=== PATIENT | female | born 1965 | race Caucasian/White ===

== ENCOUNTER 2023-08-10 13:41 | Emergency (ER) | payer BC, SELFPAY ==
[2023-08-10 13:48] VITALS: BP 138/95; PULSE 97; TEMP 37.2; O2SAT 97; BMI 19.1
--- NOTE | 2023-08-10 14:13 | XR_ITS ---
The [address] [address] Patient Name: SVETLANA BRADY MRN: [id number] date: 1965 Sex: F Assigned Patient Location: ER Current Patient Location: ER Accession/Order Number: [id number] Exam Date: 08/10/2023 14:20 Report Date: 08/10/2023 14:53 At the request of: JERRY TATUM Procedure: XR ankle LT min 3V IMAGES REVIEWED: XR ankle LT min 3V, XR foot LT min 3V COMPARISON: None available. CLINICAL INDICATION: Trauma FINDINGS/IMPRESSION: Acute intra-articular comminuted impacted mildly displaced fracture of the head-neck of the fourth proximal phalanx. No dislocation. Old healed fracture deformity of the distal tibia and fibula. No evidence of acute osseous abnormality of the left ankle. Bones appear slightly osteopenic. Mild calcaneal enthesopathy. Mild degenerative change first TMT joint. Electronically authenticated by: TONI HAND Date: 08/10/2023 14:53
--- NOTE | 2023-08-10 14:13 | XR_ITS ---
The [address] [address] Patient Name: SVETLANA BRADY MRN: [id number] date: 1965 Sex: F Assigned Patient Location: ER Current Patient Location: ER Accession/Order Number: [id number] Exam Date: 08/10/2023 14:20 Report Date: 08/10/2023 14:53 At the request of: JERRY TATUM Procedure: XR foot LT min 3V IMAGES REVIEWED: XR ankle LT min 3V, XR foot LT min 3V COMPARISON: None available. CLINICAL INDICATION: Trauma FINDINGS/IMPRESSION: Acute intra-articular comminuted impacted mildly displaced fracture of the head-neck of the fourth proximal phalanx. No dislocation. Old healed fracture deformity of the distal tibia and fibula. No evidence of acute osseous abnormality of the left ankle. Bones appear slightly osteopenic. Mild calcaneal enthesopathy. Mild degenerative change first TMT joint. Electronically authenticated by: TONI HAND Date: 08/10/2023 14:53
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
== END 2023-08-10 15:46 | disposition home or self-care (01) ==
PROVIDERS: Emergency Provider Emergency Medicine Emergency Medical Services; PCP Family Medicine
DX: S92.512A Displaced fracture of proximal phalanx of left lesser toe(s), initial encounter for closed fracture (principal); W23.0XXA Caught, crushed, jammed, or pinched between moving objects, initial encounter
CPT/HCPCS: 73610; 73630; 99284

== ENCOUNTER 2023-08-13 15:52 | Outpatient (OUT) | payer BC, SELFPAY ==
--- NOTE | 2023-08-13 | XR_ITS ---
The [address] [address] Patient Name: SVETLANA BRADY MRN: [id number] date: 1965 Sex: F Assigned Patient Location: Current Patient Location: Accession/Order Number: [id number] Exam Date: 08/13/2023 15:52 Report Date: 08/14/2023 07:34 At the request of: REY CHINCHILLA Procedure: XR foot LT min 3V PROCEDURE: XR foot LT min 3V, XR ankle LT min 3V COMPARISON: 08/10/2023 HISTORY: LEFT FOOT PAIN FINDINGS: BONES:Contour deformity of the distal tibia and fibular diaphyses consistent with remote healed fractures. Moderate enthesopathic spurring of the calcaneus at the Achilles insertion. Cystic area noted along the posterior calcaneus possibly an intraosseous lipoma. Stable complex extra-articular impacted fracture involving the head of the fourth proximal phalanx with minimal interval sclerosis. No change in angulation or distraction. SOFT TISSUES:Moderate ankle soft tissue swelling EFFUSION:None visible. OTHER: Negative. XR/XR foot LT min 3V IMPRESSION: Stable healing impacted complex intra-articular fracture head of the fourth proximal phalanx Ankle soft tissue swelling Electronically authenticated by: SAMIA GASPAR Date: 08/14/2023 07:34
--- NOTE | 2023-08-13 | XR_ITS ---
The [address] [address] Patient Name: SVETLANA BRADY MRN: [id number] date: 1965 Sex: F Assigned Patient Location: Current Patient Location: Accession/Order Number: [id number] Exam Date: 08/13/2023 15:52 Report Date: 08/14/2023 07:34 At the request of: REY CHINCHILLA Procedure: XR ankle LT min 3V PROCEDURE: XR foot LT min 3V, XR ankle LT min 3V COMPARISON: 08/10/2023 HISTORY: LEFT FOOT PAIN FINDINGS: BONES:Contour deformity of the distal tibia and fibular diaphyses consistent with remote healed fractures. Moderate enthesopathic spurring of the calcaneus at the Achilles insertion. Cystic area noted along the posterior calcaneus possibly an intraosseous lipoma. Stable complex extra-articular impacted fracture involving the head of the fourth proximal phalanx with minimal interval sclerosis. No change in angulation or distraction. SOFT TISSUES:Moderate ankle soft tissue swelling EFFUSION:None visible. OTHER: Negative. XR/XR ankle LT min 3V IMPRESSION: Stable healing impacted complex intra-articular fracture head of the fourth proximal phalanx Ankle soft tissue swelling Electronically authenticated by: SAMIA GASPAR Date: 08/14/2023 07:34
== END 2023-08-13 15:53 | disposition home or self-care (01) ==
LOC: EC 15:52
PROVIDERS: PCP Family Medicine; Visit Provider Podiatrist Foot & Ankle Surgery
DX: M25.572 Pain in left ankle and joints of left foot (principal); M79.672 Pain in left foot; S92.515D Nondisplaced fracture of proximal phalanx of left lesser toe(s), subsequent encounter for fracture with routine healing; M25.472 Effusion, left ankle
CPT/HCPCS: 73610; 73630

== ENCOUNTER 2023-11-13 14:37 | Outpatient (OUT) | payer MEDICARE, SELFPAY ==
--- NOTE | 2023-11-13 14:42 | ECG_ITS ---
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
--- NOTE | 2023-11-13 15:09 | XR_ITS ---
The [address] [address] Patient Name: SVETLANA BRADY MRN: [id number] date: 1965 Sex: F Assigned Patient Location: [facility] Current Patient Location: Accession/Order Number: [id number] Exam Date: 11/13/2023 15:34 Report Date: 11/14/2023 05:49 At the request of: REY CHINCHILLA Procedure: XR chest 2V EXAMINATION: XR chest 2V HISTORY: Preop exam COMPARISON: No relevant comparison available. FINDINGS: LUNGS: No significant pulmonary parenchymal abnormalities. VASCULATURE: No increased pulmonary vasculature. PLEURA: No pneumothorax, effusion, or pleural thickening. CARDIAC: No cardiomegaly or cardiac silhouette abnormality. MEDIASTINUM: No visible mass or adenopathy. BONES: No fracture or visible bone lesion. OTHER: Neurostimulator electrodes project over lower thoracic spine central canal. XR/XR chest 2V IMPRESSION: 1. No acute cardiopulmonary process. Electronically authenticated by: SHARIF CARCAMO Date: 11/14/2023 05:49
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
[2023-11-13 15:48] LABS: Basophils Absolute Auto 0.1 10^3/uL (0.0-0.1); Basophils Percent Auto 0.8 % (0.2-2.0); Eosinophils Percent Auto 0.2 % (0.9-7.0); Hematocrit 38.2 % (36.0-48.0); Hemoglobin 12.5 g/dL (12.0-16.0); Immature Granulocytes Abs Auto 0.04 10^3/uL (0.00-0.03); Immature Granulocytes Pct Auto 0.6 % (0.0-0.5); Lymphocytes Absolute Auto 1.5 10^3/uL (1.2-3.8); Lymphocytes Percent Auto 23.5 % (20.5-60.0); Mean Corpuscular HGB Conc 32.7 g/dL (29.9-35.2); Mean Corpuscular Hemoglobin 31.7 pg (26.7-34.0); Mean Platelet Volume 9.6 fL (9.5-13.5); Monocytes Absolute Auto 0.5 10^3/uL (0.3-0.8); Monocytes Percent Auto 8.1 % (1.7-12.0); Neutrophils Absolute Auto 4.2 10^3/uL (1.4-6.5); Neutrophils Percent Auto 66.8 % (43.0-75.0); Platelet Count 228 10^3/uL (150-450); Red Blood Count 3.94 10^6/uL (4.20-5.40); Red Cell Distribution Width 13.1 % (11.0-15.0); White Blood Count 6.3 10^3/uL (4.0-11.0)
[2023-11-13 16:16] LABS: Anion Gap 9.2; Calcium 8.9 mg/dL (8.5-10.1); Carbon Dioxide 29.7 mmol/L (21.0-32.0); Chloride 106 mmol/L (98-107); Estimated GFR (African America >60 (>=60); Estimated GFR (Non-African Ame >60 (>=60); Glucose 83 mg/dL (74-106); Potassium 3.9 mmol/L (3.5-5.1); Sodium 141 mmol/L (136-145)
== END 2023-11-13 14:38 | disposition home or self-care (01) ==
LOC: PST 14:39
PROVIDERS: PCP Family Medicine; Visit Provider Podiatrist Foot & Ankle Surgery
DX: Z01.810 Encounter for preprocedural cardiovascular examination (principal); Z01.812 Encounter for preprocedural laboratory examination; Z01.818 Encounter for other preprocedural examination; M19.172 Post-traumatic osteoarthritis, left ankle and foot; M25.372 Other instability, left ankle
CPT/HCPCS: 71046; 80048; 85025; 93005; G0463

== ENCOUNTER 2023-11-27 08:46 | Day surgery (SDC) | payer MEDICARE, SELFPAY ==
[2023-11-13 15:19] VITALS: BP 123/77; PULSE 89; TEMP 36.4; O2SAT 97; BMI 21.4
[2023-11-27] VITALS (14 sets, daily range): BP systolic 111–166; BP diastolic 70–104; PULSE 73–108; TEMP 36.3–36.8; O2SAT 89–99; BMI 21.4
--- NOTE | 2023-11-27 | FL_ITS ---
[address] [address] Patient Name: SVETLANA BRADY MRN: [id number] date: 1965 Sex: F Assigned Patient Location: [facility] Current Patient Location: Accession/Order Number: [id number] Exam Date: 11/27/2023 10:53 Report Date: 11/28/2023 11:56 At the request of: REY CHINCHILLA Procedure: FL fluoroscopy <1hr NON-READ EXAM: FL fluoroscopy <1hr NON-READ HISTORY: TECHNIQUE: FINDINGS: Please see Operative Report. Electronically authenticated by: RADIOLOGIST NO Date: 11/28/2023 11:56
--- OUTSIDE RECORDS SUMMARY | 2023-11-27 08:51 | XMS_ITS | CCD ---
Author Organization [facility] Care Team Providers Care Supervisor [employer] Name Role Phone Samia Saenz Unavailable Aftab Acosta Unavailable Cristy Fabian Unavailable DO Samia Saenz Primary Care Provider DO Samia Saenz Attending Provider YO Starr Attending Provider MD Whit Tyson Admit Provider MD Whit Tyson Attending Provider [phone] MD Esdras Rand Other Provider [phone] DO Samia Saenz Primary Care Provider DO Samia Saenz Attending Provider [phone] MD Dilan Luis II Attending Provider DO Saima Saenz Primary Care Provider MD Brad Butterfield Attending Provider DO Samia Saenz Attending Provider [phone] Samia Saenz Primary Care Physician [phone] DO Samia Saenz Primary Care Provider DO Samia Saenz Attending Provider GREGORY Caro Attending Provider YO Ann Referring Provider MD Samia Qiu Attending Provider DO Samia Saenz Primary Care Provider [phone] MD Mingo Butterfield Attending Provider [phone] DO Samia Saenz Attending Provider SHAYY DICKERSON Referring Unavailable SAMIA SAENZ Primary Care Unavailable SAMIA SAEZN Referring Unavailable SAMIA SAENZ Primary Care Unavailable SAMIA SAENZ Referring Unavailable SAMIA SAENZ Primary Care Unavailable SAMIA CORONA Attending Unavailable REY CHINCHILLA Referring Unavailable AMOR, REY Estrada Attending Unavailable REY CHINCHILLA Admitting Unavailable Samia Saenz Referring Unavailable Smith DALLAS Attending Unavailable Steven DONNELLY Attending Unavailable VEE PELAEZ Attending Unavailable Samia Saenz Referring Unavailable VEE PELAEZ Attending Unavailable DO Samia Saenz Primary Care Provider [phone] MD Mingo Butterfield Attending Provider [phone] Mingo Butterfield Admitting Unavailab Mingo Luna Attending Unavailab Samia Yeh Primary Care Unavailable Jerri Caro Admitting Unavailable Jerri Caro Attending Unavailable Samia Saenz Primary Care Unavailable Cain, Samia Primary Care Unavailable Samia Qiu Admitting Unavailable Samia Qiu Attending Unavailable Dianne Ann Referring Unavailable Samia Saenz Admitting Unavailable Cain, Samia Attending Unavailable Samia Saenz Primary Care Unavailable Cain, Samia Admitting Unavailable Samia Saenz Attending Unavailable Samia Saenz Primary Care Unavailable Cain, Samia Admitting Unavailable Cain, Samia Attending Unavailable Samia Saenz Primary Care Unavailable Allergies Allergy Classification Reported Allergen(s) Allergy Type Date of Onset Reaction(s) Facility Cephalosporins (antibiotic) (1 source) cefdinir Drug Allergy 3 with first one, able to finish the script. [facility] Clavulanate (1 source) Clavulanate Drug Allergy 3 1st dose made her ill, able to keep down next dose [facility] Penicillins (antibiotic) (1 source) Amoxicillin Drug Allergy 3 1st dose made her ill, able to keep down next dose [facility] Sulfonamides (antibiotic) (2 sources) Sulfonamides (Antibiotic) Drug Allergy 3 Edema [facility] (20 sources) Amoxicillin / Clavulanate; Translations: [amoxicillin-cla vulanate] Drug Allergy Nausea (finding) [facility] (20 sources) cefdinir; Translations: [cefdinir] Drug Allergy Unknown (qualifier value) [facility] (20 sources) Sulfamethoxazole ; Translations: [Sulfamethoxazol e] Drug Allergy 3 Edema (finding) [facility] (2 sources) Amoxicillin / Clavulanate; Translations: [Augmentin] Drug Allergy 1st dose made her ill, able to keep down next dose [facility] (4 sources) Amoxicillin; Translations: [amoxicillin] Drug Allergy 3 1st dose made her ill, able to keep down next dose [facility] (4 sources) cefdinir; Translations: [cefdinir] Drug Allergy 3 with first one, able to finish the script. [facility] (4 sources) Clavulanate; Translations: [clavulanic acid] Drug Allergy 3 1st dose made her ill, able to keep down next dose [facility] (7 sources) Sulfonamides (Antibiotic); Translations: [SULFA (SULFONAMIDE ANTIBIOTICS)] Allergy to substance 2 Unknown Reaction, Edema [facility] Medications Current Medications Medication Drug Class(es) Dates Sig (Normalized) Sig (Original) albuterol 0.83 mg/ml inhalation solution (12 sources) beta2-Adrenergic Agonist Start: 07-13-2021 Albuterol Sulfate (2.5 MG/3ML) 0.083% 1 vial per nebulizer Inhalation q4 hrs prn Jul, Active Start: 07-09-2021 Albuterol Sulf ate HFA 108 (90 Base) MCG/ACT 2 inhalations Inhalation q4 hrs prn Jun, Active Start: 07-09-2021 Albuterol Sulf ate HFA 108 (90 Base) MCG/ACT 2 inhalations Inhalation q4 hrs prn Jun, Active ALPRAZolam 1 mg oral tablet (20 sources) Benzodiazepine Start: 03-10-2023 take 1 tablet by mouth three times daily as needed for anxiety alprazolam 1 mg Tab 1 mg = 1 tab(s), Oral, TID, PRN for anxiety, Refills(s) 0 Start Date: 03/10/23 Status: Ordered Start: 11-29-2021 take 0.5 mg by mouth three times daily Alprazolam Active 0.5 MG PO Three times daily 05 13November 29, 2021 9:28am Home medication Start: 11-29-2021 take 0.5 mg by mouth three times daily Alprazolam Active 0.5 MG PO Three times daily 05 13November 29, 2021 9:28am Home medication Start: 11-09-2013 End: 11-29-2021 take 1 mg by mouth three times daily Alprazolam Discontinued 1 MG PO Three times daily October 04, 2017 12:00am November 29, 2021 10:15am ARIPiprazole 20 mg oral tablet (20 sources) Atypical Antipsychotic Start: 09-09-2023 take 20 mg by mouth once daily Aripiprazole Active 20 MG PO Daily September 09, 2023 12:00am Start: 11-26-2021 End: 09-09-2023 take 15 mg by mouth once daily Aripiprazole Discontinu ed 15 MG PO Daily November 26, 2021 12:00am September 09, 2023 2:17pm Start: 11-26-2021 take 15 mg by mouth once daily Aripiprazole Active 15 MG PO Daily November 26, 2021 12:00am take 1 tablet by kiki th every twenty-four hours Abilify 20 MG 1 Tablet p.o. daily Active take 1 tablet by kiki th every twenty-four hours Abilify 15 MG 1 Tablet p.o. daily Active ascorbic acid 500 mg chewable tablet (4 sources) Vitamin C Start: 09-09-2023 take 1 tablet by mouth once daily Ascorbic Acid (Vitamin C) Active 1 TAB PO Daily September 09, 2023 12:00am FreeText[employer] tablet Orally Once a day; Note: Source Status: Continue; Provider: Cain Lewis azithromycin 250 mg oral tablet (20 sources) Macrolide Antimicrobial Start: 07-13-2021 Zithromax Z-Nilesh 250 MG 2 tablet on the first day, then 1 tablet daily for 4 days Orally Once a day for 5 day(s) Jul, Active Start: 03-22-2021 take 1 tablet by kiki th every twenty-four hours Zithromax 500 MG 1 tablet Orally Once a day for 5 day(s) Mar, Not-Taking budesonide 3 mg delayed release oral capsule (20 sources) Corticosteroid Start: 06-18-2023 End: 06-24-2023 take 3 capsules by mouth once daily Budesonide Active 9 MG PO Daily 90 30 June 24, 2023 8:21am take 3 capsules orally once a day Start: 11-26-2021 End: 06-18-2023 take 9 mg by mouth once daily Budesonide Discontinued 9 MG PO Daily November 26, 2021 12:00am June 18, 2023 1:56pm Start: 11-26-2021 take 9 mg by mouth once daily Budesonide Active 9 MG PO Daily November 26, 2021 12:00am Start: 06-29-2020 take 3 capsules by m outh every twenty-four hours Budesonide 3 MG 3 capsules Orally Once a day for 30 days Dec, Active buprenorphine 8 mg sublingual tablet (20 sources) Partial Opioid Agonist Start: 03-10-2023 buprenorphine 8 mg sublingual tablet Refills(s) 0 Start Date: 03/10/23 Status: Ordered Start: 11-26-2021 Buprenorphine Hcl Active 8 MG SUBLINGUAL Twice daily November 26, 2021 12:00am 1/2 to 1 tablet as needed for 30 days, filled 11/22 Start: 11-26-2021 Buprenorphine Hcl Active 8 MG SUBLINGUAL Twice daily November 26, 2021 12:00am 1/2 to 1 tablet as needed for 30 days, filled 11/22 Start: 07-12-2021 End: 11-26-2021 take 8 mg under the tongue once daily Buprenorphine Hcl Discontinued 8 MG SUBLINGUAL Daily July 12, 2021 12:00am November 26, 2021 9:41am take 1 tablet under the tongue once daily Subutex 8 MG 1 tablet under the tongue and allow to dissolve Sublingual Once a day Active cholecalciferol 0.025 mg oral capsule (4 sources) Vitamin D Start: 09-09-2023 take 2 capsules by mouth once daily Cholecalciferol (Vitamin D3) Active 2 CAP PO Daily September 09, 2023 12:00am Free[employer] capsules Orally Once a day; Note: Source Status: Continue; Provider: Cain Torres ( ) ciprofloxacin 500 mg oral tablet (2 sources) Quinolone Antimicrobial Start: 03-19-2023 Cipro 500 mg Tab See Instructions, Take 1 tab day prior to procedure and 1 tab day of procdure - afterwards, # 2 tab(s), Refills(s) 0, Pharmacy: [facility]/pharmacy #[id number], 163, cm, 03/11/23 13:48:00 EST, Height/Length Dosing, 54, kg, 03/11/23 13:48:00 EST, Weight Dosing Start Date: 03/19/23 Status: Ordered cyclobenzaprine hydrochloride 10 mg oral tablet (10 sources) Muscle Relaxant Start: 11-26-2021 take 10 mg by mouth once daily at bedtime Cyclobenzaprine Active 10 MG PO Daily at bedtime November 26, 2021 12:00am Start: 11-26-2021 take 10 mg by mouth once daily at bedtime Cyclobenzaprine Active 10 MG PO Daily at bedtime November 26, 2021 12:00am dicyclomine hydrochloride 20 mg oral tablet (20 sources) Anticholinergic Start: 09-09-2023 take 20 mg by mouth four times daily Dicyclomine Active 20 MG PO Four times daily September 09, 2023 12:00am Start: 11-26-2019 take 1 tablet by kiki every six hours Dicyclomine HCl 20 MG 1 tablet Orally Four times a day for 30 days Nov, Not-Taking DULoxetine 60 mg delayed release oral capsule (20 sources) Serotonin and Norepinephrine Reuptake Inhibitor Start: 11-29-2021 take 60 mg by mouth once daily Duloxetine Active 60 MG PO Daily November 29, 2021 9:28am Home med Start: 11-29-2021 take 60 mg by mouth once daily Duloxetine Active 60 MG PO Daily November 29, 2021 9:28am Home med Start: 10-04-2017 End: 11-29-2021 take 120 mg by mouth once daily Duloxetine Discontinue d 120 MG PO Daily October 04, 2017 12:00am November 29, 2021 10:15am Start: 09-24-2013 take 1 capsule by mo [facility] every twenty-four hours Cymbalta 60 MG 1 capsule Orally Once a day Sep, Active Start: 09-24-2013 take 1 capsule by mo ut once daily Cymbalta 120 mg 1 capsule Orally Once a day Sep, Active ferrous sulfate 325 mg oral tablet (20 sources) Start: 09-09-2023 Ferrous Sulfat e Active 325 MG PO Every 48 hours September 09, 2023 12:00am On Hold: hold while taking Folic Acid Start: 11-22-2019 take 1 tablet by kiki th every other day Ferrous Sulfate 325 (65 Fe) MG 1 tablet Orally qod Nov, Active Start: 11-22-2019 take 1 tablet by kiki th every other day Ferrous Sulfate 325 (65 Fe) MG 1 tablet Orally qod Nov, Active Start: 11-22-2019 take 1 tablet by mouth once da sabrina Ferrous Sulfate 325 (65 Fe) MG 1 tablet Orally Once a day Nov, Active Start: 11-22-2019 take 1 tablet by kiki th every twenty-four hours Ferrous Sulfate 325 (65 Fe) MG 1 tablet Orally Once a day Nov, Active folic acid 0.4 mg oral tablet (2 sources) Start: 10-22-2023 take 0.4 mg by mouth once daily Folic Acid Active 0.4 MG PO Daily October 22, 2023 12:00am gabapentin 800 mg oral tablet (20 sources) Anti-epileptic Agent Start: 11-26-2021 take 800 mg by mouth three times daily Gabapentin Active 800 MG PO Three times daily November 26, 2021 12:00am Start: 11-26-2021 take 800 mg by mouth three times daily Gabapentin Active 800 MG PO Three times daily November 26, 2021 12:00am Start: 11-26-2021 End: 11-29-2021 take 100 mg by mouth three times daily Gabapentin Discontinued 100 MG PO Three times daily November 26, 2021 12:00am November 29, 2021 10:15am take 1 tablet by kiki th every eight hours Gabapentin 800 MG 1 tablet Orally three times a day Active levothyroxine sodium 0.137 mg oral tablet (20 sources) l-Thyroxine Start: 10-22-2023 take 137 ug by mouth once daily in the morning Levothyroxine Active 137 MCG PO Daily October 22, 2023 12:00am *take first thing in the morning on an empty stomach, do not eat or drink for 30-45 min after taking Start: 03-10-2023 levothyroxine 125 mcg (0.125 mg) Tab Refills(s) 0 Start Date: 03/10/23 Status: Ordered Start: 11-26-2021 End: 10-22-2023 take 125 ug by mouth once daily Levothyroxine Disconti nued 125 MCG PO Daily November 26, 2021 12:00am October 22, 2023 4:13pm on empty stomach Start: 11-26-2021 take 125 ug by mouth once olinda y Levothyroxine Active 125 MCG PO Daily November 26, 2021 12:00am on empty stomach take 1 tablet by kiki th once daily in the morning Levothyroxine Sodium 112 MCG TAKE 1 TABLET BY MOUTH EVERY MORNING ON AN EMPTY STOMACH Active loratadine 10 mg oral tablet (20 sources) Start: 09-09-2023 take 1 tablet by mouth twice daily Loratadine (Claritin) 10 mg tablet Active 1 TAB PO Twice daily September 09, 2023 12:00am FreeTextSi tablet Orally Twice a day; Note: Source Status: Not-Taking\PRNprn; Provider: Cain Lewis Start: 01-28-2017 take 1 tablet by kiki th every twelve hours Claritin 10 MG 1 tablet Orally Twice a day prn Jan, Not-Taking Start: 01-28-2017 take 1 tablet by kiki th once daily as needed Claritin 10 MG 1 tablet Orally Once a day for 90 days prn Jan, Active mecobalamin 1 mg chewable tablet (4 sources) Start: 10-22-2023 take 1000 ug by mouth every other day Mecobalamin (Vitamin B12) Active 1000 MCG PO .COMPLEX October 22, 2023 4:15pm 1,000 mcg orally QOD; Start: 10-22-2023 End: 10-22-2023 Mecobalamin (Vitamin B12) Di scontinued 1000 MCG PO .COMPLEX October 22, 2023 12:00am October 22, 2023 4:15pm 1,000 mcg orally 3 days a week; modafinil 200 mg oral tablet (20 sources) Sympathomimetic-like Agent Start: 11-26-2021 take 200 mg by mouth once daily in the morning Modafinil Active 200 MG PO Every morning November 26, 2021 12:00am Start: 11-26-2021 take 200 mg by mouth once daily in the morning Modafinil Active 200 MG PO Every morning November 26, 2021 12:00am take 1 tablet by kiki th every twenty-four hours Provigil 200 MG 1 tablet in the morning Orally Once a day Active Multivitamin preparation (4 sources) Start: 09-09-2023 take 1 tablet by mouth once daily Multivitamin Active 1 TAB PO Daily September 09, 2023 12:00am Multivitamins (20 sources) Multivitamins as directed Orally Active OXcarbazepine 300 mg oral tablet (20 sources) Anti-epilepti c Agent Start: 03-10-2023 take 1 tablet by mouth twice daily Oxcarbazepine (Trileptal) 300 mg tablet Active 300 MG PO Twice daily September 09, 2023 12:00am Start: 11-26-2021 End: 09-09-2023 take 600 mg by mouth twice daily Oxcarbazepine Discontinued 600 MG PO Twice daily November 26, 2021 12:00am September 09, 2023 2:18pm Start: 11-26-2021 take 600 mg by mouth twice daily Oxcarbazepine Active 600 MG PO Twice daily November 26, 2021 12:00am take 1 tablet by kiki th every twelve hours Trileptal 150 MG 1 tablet Orally Twice a day Active Trileptal 150 MG Orally TID Active potassium chloride 10 meq extended release oral tablet (20 sources) Start: 06-30-2023 take 1 tablet by mouth at mealtime Potassium Chloride Active 0 .ROUTE .COMPLEX 36 June 30, 2023 11:16am TAKE 1 TABLET BY MOUTH 3 DAYS A WEEK WITH FOOD (FRIDAY, FRIDAY, FRIDAY) Start: 03-10-2023 Potassium Chlo ride ([id number]) 10 mEq oral tablet, extended release Refills(s) 0 Start Date: 03/10/23 Status: Ordered Start: 07-12-2021 End: 06-30-2023 take 10 mEq by mouth once Potassium Chloride Discontin ued 10 MEQ PO every Friday, Friday, and Monday July 12, 2021 12:00am June 30, 2023 11:17am take 1 tablet by kiki th at mealtime Potassium Chloride ER 10 MEQ TAKE 1 TABLET BY MOUTH 3 DAYS A WEEK WITH FOOD (FRIDAY, FRIDAY, FRIDAY) Active take 1 tablet by kiki th at mealtime Klor-Con 10 10 MEQ 1 tablet with food Orally 4 days a week Active tapentadol 75 mg oral tablet (20 sources) Opioid Agonist Start: 03-10-2023 take 1 tablet by mouth three times daily Tapentadol (Nucynta) 75 mg tablet Active 75 MG PO Three times daily September 09, 2023 12:00am Start: 11-26-2021 End: 09-09-2023 take 1 tablet by mouth four times daily Tapentadol (Nucynta) 50 mg Tablet Discontinued 50 MG PO Four times daily November 26, 2021 12:00am September 09, 2023 2:19pm Start: 11-26-2021 take 1 tablet by kiki th four times daily Tapentadol (Nucynta) 50 mg Tablet Active 50 MG PO Four times daily November 26, 2021 12:00am Start: 07-12-2021 End: 11-26-2021 take 1 tablet by mouth four times daily Tapentadol (Nucynta) 50 mg tablet Discontinued 50 MG PO Four times daily July 12, 2021 12:00am November 26, 2021 9:51am take 100 mg by mouth four times daily Nucynta 100mg as directed po up to 4 times daily 150mcg Active topiramate 100 mg oral tablet (20 sources) Start: 03-10-2023 take 1 tablet by mouth once daily Topiramate (Topamax) 100 mg tablet Active 100 MG PO Daily September 09, 2023 12:00am Start: 10-04-2017 End: 09-09-2023 take 100 mg by mouth three times daily Topiramate Discontinued 100 MG PO Three times daily October 04, 2017 12:00am September 09, 2023 2:18pm Vitamin B Plus+ 8-6-725 MG-MCG-MG (20 sources) Vitamin B Plus+ 8-6-725 MG-MCG-MG 1 capsule Orally Fri, Fri and Friday Active Vitamin C 500 MG (5 sources) Start: 09-18-2022 take 1 tablet by mouth once daily Vitamin C 500 MG 1 tablet Orally Once a day Sep, Active Vitamin D-3 1000 UNIT (20 sources) Start: 10-23-2017 take 2 capsules by mouth once daily Vitamin D-3 1000 UNIT 2 capsules Orally Once a day Oct, Active vitamin e 100 unt oral capsule (4 sources) Start: 09-09-2023 take 1 capsule by mouth once daily Vitamin E (Dl, Acetate) Active 0 PO Daily September 09, 2023 12:00am 1 capsule Orally Once a day Start: 09-09-2023 take 1 capsule by mo [facility] once daily Vitamin E (Dl, Acetate) Active 0 PO Daily September 09, 2023 12:00am 1 capsule Orally Once a day Vitamin E 100 UNIT (20 sources) take 1 capsule by mouth once daily Vitamin E 100 UNIT 1 capsule Orally Once a day Active vortioxetine 10 mg oral tablet (13 sources) Start: 11-26-2021 take 1 tablet by mouth once daily Vortioxetine (Trintellix) 10 mg Tablet Active 10 MG PO Every morning November 26, 2021 12:00am take at same time each day Start: 11-26-2021 take 1 tablet by kiki once daily Vortioxetine (Trintellix) 10 mg Tablet Active 10 MG PO Every morning November 26, 2021 12:00am take at same time each day Completed/Discontinued Medications Medication Drug Class(es) Dates Sig (Normalized) Sig (Original) amitriptyline hydrochloride 25 mg oral tablet (20 sources) Tricyclic Antidepressant Start: 10-04-2017 End: 11-29-2021 take 50 mg by mouth at bedtime Amitriptyline Discontinued 50 MG PO Bedtime October 04, 2017 12:00am November 29, 2021 10:15am take 1 tablet by kiki every twenty-four hours Amitriptyline HCl 50 MG 1 tablet at bedtime Orally Once a day Not-Taking amoxicillin 875 mg / clavulanate 125 mg oral tablet (10 sources) Penicillin-class Antibacterial Start: 07-12-2021 End: 11-26-2021 take 1 tablet by mouth twice daily Amoxicillin-Pot Clavulanate Discontinued 1 TAB PO Twice daily July 12, 2021 12:00am November 26, 2021 9:40am benzonatate 100 mg oral capsule (16 sources) Non-narcotic Antitussive Start: 07-12-2021 End: 11-26-2021 take 100 mg by mouth three times daily Benzonatate Discontinued 100 MG PO Three times daily July 12, 2021 12:00am November 26, 2021 9:40am Start: 07-09-2021 take 2 capsules by m [facility] three times daily for cough Tessalon Perles 100 MG 2 capsules Orally Three times a day for cough Jun, Active buprenorphine 8 mg / naloxone 2 mg sublingual film (18 sources) Partial Opioid Agonist, Opioid Antagonist Suboxone 8-2 MG 1 film under the tongue and allow to dissolve Sublingual Once a day Not-Taking colestipol hydrochloride 1000 mg oral tablet (20 sources) Bile Acid Sequestrant Start: 06-18-19 End: 10-22-19 take 2 tablets by mouth once daily Colestipol Discontinued 2 GM PO Daily 60 June 18, 2023 5:20pm October 22, 2023 2:40pm Take 2 tablets orally once a day Start: 03-10-2023 colestipol 1 g Tab Refills(s) 0 Start Date: 03/10/23 Status: Ordered Start: 11-30-2020 take 2 tablets by mo [facility] every twenty-four hours Colestipol HCl 1 GM 2 tablets Orally Once a day for 30 days Dec, Active famotidine 20 mg oral tablet (18 sources) Histamine-2 Receptor Antagonist take 1 tablet by mouth twice daily Famotidine 20 MG 1 tablet Orally 2 times per day Not-Taking Ketorolac (20 sources) Nonsteroidal Anti-inflammatory Drug, Cyclooxygenase Inhibitor Start: 3 Toradol per 15 mg Jun, 2 mL Start: 04-09-2012 Toradol per 15 mg Mar, 30mg mL Start: 01-03-2012 Toradol per 15 mg Dec, 2 cc methadone hydrochloride 10 mg oral tablet (10 sources) Opioid Agonist Start: 10-04-2017 End: 03-16-2020 take 10 mg by mouth four times daily Methadone Discontinued 10 MG PO Four times daily October 04, 2017 12:00am March 16, 2020 3:19pm oxyCODONE hydrochloride 15 mg oral tablet (10 sources) Opioid Agonist Start: 10-04-2017 End: 03-16-2020 take 15 mg by mouth three times daily Oxycodone Discontinued 15 MG PO Three times daily October 04, 2017 12:00am March 16, 2020 3:19pm raNITIdine 150 mg oral tablet (10 sources) Histamine-2 Receptor Antagonist Start: 10-04-2017 End: 03-16-2020 take 150 mg by mouth twice daily Ranitidine Hcl Discontinued 150 MG PO Twice daily October 04, 2017 12:00am March 16, 2020 3:19pm triamcinolone acetonide 40 mg/ml injectable suspension (7 sources) Corticosteroid Start: 09-18-2022 Kenalog-40 Mar, 60 cc Vit B Complex 100 Combo No.2 (4 sources) Start: 09-09-2023 End: 10-22-2023 Vit B Complex 100 Combo No.2 Discontinued 1 TAB PO .Fri, Fri and Saturday September 09, 2023 12:00am October 22, 2023 4:19pm Start: 09-09-2023 Vit B Complex 100 Combo No.2 Active 1 TAB PO .Fri, Fri and Saturday September 09, 2023 12:00am Problems Active Problems Problem Classification Problem Date Documented Da te Episodic/Chronic Abdominal pain (20 sources) Abdominal pain; Translations: [Unspecified abdominal pain] Episodic Administrative/social admission (11 sources) Counseling procedure with explicit context; Translations: [Tobacco abuse counseling] 11-26-2021 Episodic Anxiety disorders (20 sources) Mixed anxiety and depressive disorder; Translations: [Other specified anxiety disorders] Onset: 2 Resolved: 2 Chronic Asthma (20 sources) Asthmatic bronchitis; Translations: [Unspecified asthma, uncomplicated] Chronic Deficiency and other anemia (2 sources) Anemia; Translations: [Anemia, unspecified] 10-22-2023 Episodic Diabetes mellitus without complication (7 sources) Hyperglycemia, unspecified; Translations: [Hyperglycemia] Onset: 2 Resolved: 2 Episodic Digestive congenital anomalies (20 sources) Tortuous colon; 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 Disorders of lipid metabolism (20 sources) Hyperlipidemia; Translations: [Hyperlipidemia, unspecified] Onset: 2 Resolved: 2 Chronic Epilepsy; convulsions (11 sources) Neurological finding; Translations: [Unspecified convulsions] 05-03-2021 Episodic Esophageal disorders (20 sources) Gastroesophageal reflux disease; Translations: [Gastro-esophageal reflux disease without esophagitis] Onset: 2 Resolved: 2 Chronic Fluid and electrolyte disorders (2 sources) Hypokalemia Onset: 2 Resolved: 2 Episodic Genitourinary symptoms and ill-defined conditions (15 sources) Nocturia; Translations: [Urgent desire to urinate] Onset: 2 Resolved: 2 Episodic Intestinal infection (20 sources) Clostridial enteric disease; Translations: [Enterocolitis due to Clostridium difficile, not specified as recurrent] Onset: 1 Resolved: 2 Episodic Mood disorders (14 sources) Depressive disorder; Translations: [Depression] 11-26-2021 Chronic Noninfectious gastroenteritis (6 sources) Microscopic colitis; Translations: [Microscopic colitis, unspecified] 10-15-2023 Chronic Noninfectious gastroenteritis (20 sources) Microscopic colitis; Translations: [Other specified noninfective gastroenteritis and colitis] Onset: 2 Resolved: 2 Episodic Nutritional deficiencies (20 sources) Vitamin D deficiency; Translations: [Vitamin D deficiency, unspecified] Onset: 2 Resolved: 2 Chronic Nutritional deficiencies (4 sources) Deficiency of other specified B group vitamins; Translations: [Deficiency of other specified B group vitamins] Onset: 2 Resolved: 2 Episodic Other aftercare (3 sources) 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; Translations: [Long-term (current) use of other medications] Onset: 2 Resolved: 2 Episodic Other aftercare (10 sources) Polypharmacy ; Translations: [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] 11-26-2021 Episodic Other connective tissue disease (10 sources) Pain in lower limb; Translations: [Pain in leg, unspecified] 11-26-2021 Episodic Other connective tissue disease (13 sources) Fibromyalgia; Translations: [Fibromyalgia] 11-26-2021 Episodic Other connective tissue disease (1 source) Fibromyalgia; Translations: [Myalgia and myositis, unspecified] 11-29-2021 Episodic Other gastrointestinal disorders (20 sources) Irritable bowel syndrome with diarrhea; Translations: [Irritable bowel syndrome with diarrhea] Chronic Other gastrointestinal disorders (20 sources) Diarrhea; Translations: [Diarrhea, unspecified] Episodic Other nervous system disorders (20 sources) Reflex sympathetic dystrophy of lower extremity; Translations: [Complex regional pain syndrome I of unspecified lower limb] Chronic Other nervous system disorders (20 sources) Chronic pain; Translations: [Other chronic pain] Chronic Other nervous system disorders (3 sources) Complex regional pain syndrome I of unspecified lower limb Onset: 2 Resolved: 2 Chronic Other nervous system disorders (10 sources) Complex regional pain syndrome; Translations: [Complex regional pain syndrome I, unspecified] 11-26-2021 Chronic Other nervous system disorders (3 sources) Complex regional pain syndrome I, unspecified; Translations: [Reflex sympathetic dystrophy, unspecified] 11-29-2021 Chronic Other nervous system disorders (3 sources) Paresthesia 01-01-2023 Episodic Other nutritional; endocrine; and metabolic disorders (20 sources) Abnormal weight loss; Translations: [Weight loss] Episodic Other screening for suspected conditions (not mental disorders or infectious disease) (6 sources) Encounter for screening mammogram for malignant neoplasm of breast; Translations: [Patient encounter status] Onset: 4 Episodic Other upper respiratory disease (20 sources) Allergic rhinitis; Translations: [Allergic rhinitis, unspecified] 01-01-2023 Chronic Other upper respiratory disease (1 source) Allergic rhinitis, unspecified Chronic Other upper respiratory disease (3 sources) Polyp of nasal cavity 01-01-2023 Episodic Other upper respiratory infections (20 sources) Sinusitis; Translations: [Chronic sinusitis, unspecified] 01-01-2023 Chronic Pneumonia (except that caused by tuberculosis or sexually transmitted disease) (3 sources) Pneumonia 01-01-2023 Episodic Residual codes; unclassified (3 sources) Sleep apnea; Translations: [Sleep apnea, unspecified] 10-15-2023 Chronic Residual codes; unclassified (1 source) Obstructive sleep apnea (adult)(pediatric); Translations: [Obstructive sleep apnea (adult) (pediatric)] Onset: 4 Chronic Residual codes; unclassified (2 sources) Pain, unspecified; Translations: [Pain, unspecified] Onset: 2 Resolved: 2 Episodic Residual codes; unclassified (10 sources) Tobacco user; Translations: [Tobacco use] 11-26-2021 Episodic Residual codes; unclassified (1 source) Tobacco use; Translations: [Tobacco use disorder] 11-29-2021 Episodic Spondylosis; intervertebral disc disorders; other back problems (20 sources) Cervical disc disorder; Translations: [Cervical disc disorder, unspecified, unspecified cervical region] Onset: 4 Chronic Sprains and strains (3 sources) Low back strain 01-01-2023 Episodic Substance-related disorders (20 sources) Nicotine dependence; Translations: [Nicotine dependence, unspecified, uncomplicated] Onset: 3 Chronic Thyroid disorders (20 sources) Hypothyroidism; Translations: [Hypothyroidism, unspecified] Onset: 2 Resolved: 2 Chronic Unclassified (1 source) Low back pain, unspecified; Translations: [Low back pain, unspecified] Onset: 4 Unclassified (1 source) Consult Onset: 4 Viral infection (10 sources) Disease due to Rhinovirus; Translations: [Other viral infections of unspecified site] 07-12-2021 Episodic Past or Other Problems Problem Classification Problem Date Documented Da te Episodic/Chronic Deficiency and other anemia (6 sources) Anemia, unspecified; Translations: [Anemia, unspecified] Onset: 06-12-2021 Resolved: 06-12-2021 Episodic Immunizations and screening for infectious disease (1 source) Encounter for immunization Onset: 05-02-2021 Resolved: 05-02-2021 Episodic Other nutritional; endocrine; and metabolic disorders (1 source) Abnormal weight gain Onset: 06-12-2021 Resolved: 06-12-2021 Episodic Spondylosis; intervertebral disc disorders; other back problems (4 sources) Low back pain; Translations: [Radiculopathy, lumbar region] Onset: 03-25-2023 01-01-2023 Episodic Unclassified (1 source) Cough R05.9 Onset: 07-06-2021 Resolved: 07-06-2021 Results Test Name Value Interpretation Reference Range Facility MM screening mammo BI w/CADo n 11-14-2023 MM screening mammo BI w/CAD [facility] [address] Mammography Report Signed Patient: Alla Brady MR#: [id number] : 1965 Acct:[id number] Age/Sex: 58 / F ADM Date: 11/14/23 Loc: [place] Room: Type: [facility] Attending Dr: Samia Saenz DO Copies to: Samia Saenz DO Ordering Provider: Samia Saenz DO Date of Service: 11/14/23 MM/MM screening mammo BI w/CAD: Z12.31 - Encounter for screening mammogram for malignant ... BILATERAL Screening Full Field digital mammogram with 3-D imaging. Full field digital CC and MLO imaging performed. CAD utilized. COMPARISON: 01/05/2014 HISTORY: Annual screening BREAST COMPOSITION: The breast parenchyma is heterogeneously dense. BREAST CALCIFICATIONS: Benign calcifications present. VASCULAR CALCIFICATIONS: None ARCHITECTURAL DISTORTION: None BREAST NODULE: None AXILLARY LYMPH NODES: Normal POSTSURGICAL CHANGES: None MM/MM screening mammo BI w/CAD IMPRESSION: No mammographic evidence of malignancy. Routine follow-up recommended in one year. RESULT CODE: 2 Benign Findings(s) DENSITY CODE: 3 (approximately 51-75% glandular) FOLLOW UP: 1YR THE FALSE-NEGATIVE RATE OF MAMMOGRAPHY IS APPROXIMATELY 10%. IMAGING OF A PALPABLE ABNORMALITY MUST BE BASED ON CLINICAL GROUNDS. PATIENT WAS ENTERED INTO A REMINDER SYSTEM WITH A TARGET DUE DATE FOR THE NEXT MAMMOGRAM. Impression dictated by: Reno Montero M.D.11/14/2023 3:43 PM Dictation Location: [facility] Transcribed By: [facility] 11/14/23 1543 Dictated By: Reno Montero DO 11/14/23 1532 Signed By: 11/14/23 1543 Normal [facility] Basophils Auto (Bld) [#/Vol] on 11-13-2023 Basophils (Bld) [#/Vol] 0.1 10 3/uL 0.0-0.1 [facility] Basophils/100 WBC Auto (Bld) on 11-13-2023 Basophils/100 WBC (Bld) 0.8 % 0.2-2.0 [facility] Eosinophils/100 WBC Auto (Bl d)on 11-13-2023 Eosinophils/100 WBC (Bld) 0.2 % Low 0.9-7.0 [facility] Erythrocyte distribution wid th Auto (RBC) [Ratio]on 11-13-2023 Erythrocyte distribution width (RBC) [Ratio] 13.1 % 11.0-15.0 [facility] Estimated glomerular filtrat ion rate (GFR) non- Americanon 11-13-2023 GFR/1.73 sq M.predicted among non-blacks MDRD (S/P/Bld) [Vol rate/Area] mL/min/{1.73_m2} >=60 [facility] Hematocrit Auto (Bld) [Volum e fraction]on 11-13-2023 Hematocrit (Bld) [Volume fraction] 38.2 % 36.0-48.0 [facility] Hemoglobin [Mass/volume] in Bloodon 11-13-2023 Hemoglobin (Bld) [Mass/Vol] 12.5 g/dL 12.0-16.0 [facility] Laboratory - Chemistry and C hemistry - challengeon 11-13-2023 Calcium [Mass/Vol] 8.9 mg/dL 8.5-10.1 [facility] Chloride [Moles/Vol] 106 mmol/L 98-107 [facility] CO2 [Moles/Vol] 29.7 mmol/L 21.0-32.0 [facility] Creatinine [Mass/Vol] 0.81 mg/dL 0.55-1.02 [facility] GFR/1.73 sq M.predicted MDRD (S/P/Bld) [Vol rate/Area] mL/min/{1.73_m2} >=60 [facility] Glucose [Mass/Vol] 83 mg/dL 74-106 [facility] Potassium [Moles/Vol] 3.9 mmol/L 3.5-5.1 [facility] Sodium [Moles/Vol] 141 mmol/L 136-145 [facility] Urea nitrogen [Mass/Vol] 13.0 mg/dL 7.0-18.0 [facility] Urea nitrogen/Creatinine [Mass ratio] 16.0 mg/mg [facility] Laboratory - Hematology and Cell countson 11-13-2023 Immature granulocytes/100 WBC (Bld) 0.6 % High 0.0-0.5 [facility] Leukocytes [#/volume] correc perico for nucleated erythrocytes in Blood by Automated counon 11-13-2023 WBC corrected for nucl RBC Auto (Bld) [#/Vol] 6.3 10 3/uL 4.0-11.0 [facility] Lymphocytes Auto (Bld) [#/Vo l]on 11-13-2023 Lymphocytes (Bld) [#/Vol] 1.5 10 3/uL 1.2-3.8 [facility] Lymphocytes/100 WBC Auto (Bl d)on 11-13-2023 Lymphocytes/100 WBC (Bld) 23.5 % 20.5-60.0 [facility] MCH Auto (RBC) [Entitic mass ]on 11-13-2023 MCH (RBC) [Entitic mass] 31.7 pg 26.7-34.0 [facility] MCHC Auto (RBC) [Mass/Vol]on 11-13-2023 MCHC (RBC) [Mass/Vol] 32.7 g/dL 29.9-35.2 [facility] MCV Auto (RBC) [Entitic vol] on 11-13-2023 MCV (RBC) [Entitic vol] 97.0 fL 81.0-99.0 [facility] Monocytes Auto (Bld) [#/Vol] on 11-13-2023 Monocytes (Bld) [#/Vol] 0.5 10 3/uL 0.3-0.8 [facility] Monocytes/100 WBC Auto (Bld) on 11-13-2023 Monocytes/100 WBC (Bld) 8.1 % 1.7-12.0 [facility] Neutrophils Auto (Bld) [#/Vo l]on 11-13-2023 Neutrophils (Bld) [#/Vol] 4.2 10 3/uL 1.4-6.5 [facility] Neutrophils/100 WBC Auto (Bl d)on 11-13-2023 Neutrophils/100 WBC (Bld) 66.8 % 43.0-75.0 [facility] No Panel Informationon 11-12 Eosinophils # (Auto) 0.0 10 3/uL 0.0-0.7 [facility] Immature Granulocyte # (Auto) 0.04 10 3/uL High 0.00-0.03 [facility] Platelet mean volume Auto (B ld) [Entitic vol]on 11-13-2023 Platelet mean volume (Bld) [Entitic vol] 9.6 fL 9.5-13.5 [facility] Platelets Auto (Bld) [#/Vol] on 11-13-2023 Platelets (Bld) [#/Vol] 228 10 3/uL 150-450 [facility] RBC Auto (Bld) [#/Vol]on RBC (Bld) [#/Vol] 3.94 10 6/uL Low 4.20-5.40 [facility] Serum or plasma anion gap de terminationon 11-13-2023 Anion gap [Moles/Vol] 9.2 mmol/L [facility] CT Lower Extremity w/o Contr ast Lefton 10-31-2023 CT Lower Extremity w/o Contrast Left Exam Date/Time: 10/29/2023 12:25 EDT Reason for Exam: S92.512A Report IMPRESSION: HEALED DISTAL TIBIAL AND FIBULAR FRACTURES WITH MILD DEFORMITY. EXAM: CT Lower Extremity w/o Contrast Left DATE: 10/29/2023 12:12 PM CLINICAL HISTORY: S92.512A. COMPARISON: None available. TECHNIQUE: Spiral imaging of the distal left leg and left ankle was performed, with routine multiplanar reconstructions. All CT scans at this facility use dose modulation, iterative reconstruction, and/or weight based dosing when appropriate to reduce radiation dose to as low as reasonably achievable. FINDINGS: Healed oblique fractures the distal tibial and fibular diaphyses are present with mild deformity. There is no worrisome bone destruction, organized fluid collections, periosteal reaction, discrete myotendinous abnormalities, significant degenerative changes or joint effusions of the ankle or visualized hindfoot joints. Ordering Provider: , FINAL REPORT Dictated: 10/31/2023 4:41 pm Carlos Freeman MD Signed (Electronic Signature): 10/31/2023 4:41 pm Signed by: Carlos Freeman MD Transcribed by: PARAG Technologist: PACKING ROOM WORKER [facility] XR LUMBAR SPINE AP, LATERAL, FLEXION AND EXTENSION ONLYon 10-01-2023 XR LUMBAR SPINE AP, LATERAL, FLEXION AND EXTENSION ONLY XR LUMBAR SPINE AP, LATERAL, FLEXION AND EXTENSION ONLY XR LUMBAR SPINE AP, LATERAL, FLEXION AND EXTENSION ONLY Low back pain, unspecified back pain laterality, unspecified chronicity, unspecified whether sciatica present Findings: There is no new fracture or destructive lesion. Impression: * No acute findings. * Diffuse disc disease and facet arthritis demonstrated. Findings similar to March 25, 2023. L1 compression fracture unchanged * Stable flexion-extension views * Consider MRI if you suspect occult process. * Finalized by James Lynn MD on 10/01/2023 6:12 PM Normal [facility] A1C with Estimated Average G melanie 09-22-2023 Glucose [Mass/Vol] 114 mg/dL Normal [facility] Comment on above: Result Comment: PERF ORMED BY: [place] [address] PATHOLOGIST FIELD TAX AUDITOR BALDEV HENNESSY M.D. Performed By: #### A 1C WTH eA, TSH3, CBC, T4F, CMP, FE PRO, T3F, [id number], LIPID, [id number] #### [facility] [address] [place], [place] [id number] [place] Alanine aminotransferase [En zymatic activity/volume] in Serum or PlasmaOrdered By: Samia Saenz on 09-22-2023 ALT [Catalytic activity/Vol] 15 U/L Normal 7-52 [facility] Comment on above: Order Comment: PT FA STED 12 HOURS Performed By: #### A 1C WTH eA, TSH3, CBC, T4F, CMP, FE PRO, T3F, [id number], LIPID, [id number] #### [facility] [address] [place], [place] [id number] [place] Albumin [Mass/volume] in Ser um or Plasma by Bromocresol green (BCG) dye binding methoOrdered By: Samia Saenz on 09-22-2023 Albumin BCG dye [Mass/Vol] 4.2 g/dL 3.5-5.7 [facility] Alkaline phosphatase [Enzyma tic activity/volume] in Serum or PlasmaOrdered By: Samia Saenz on 09-22-2023 ALP [Catalytic activity/Vol] 52 U/L Normal 34-104 [facility] Comment on above: Order Comment: PT FA STED 12 HOURS Performed By: #### A 1C WTH eA, TSH3, CBC, T4F, CMP, FE PRO, T3F, [id number], LIPID, [id number] #### [facility] [address] [place] [address] Aspartate aminotransferase [ Enzymatic activity/volume] in Serum or PlasmaOrdered By: Samia Saenz on 09-22-2023 AST [Catalytic activity/Vol] 15 U/L Normal 13-39 [facility] Comment on above: Order Comment: PT FA STED 12 HOURS Performed By: #### A 1C WTH eA, TSH3, CBC, T4F, CMP, FE PRO, T3F, [id number], LIPID, [id number] #### [address] Automated basophil %Ordered By: Samia Saenz on 09-22-2023 Basophils/100 WBC (Bld) 0.7 % Normal . [facility] Comment on above: Performed By: #### A 1C WTH eA, TSH3, CBC, T4F, CMP, FE PRO, T3F, [id number], LIPID, [id number] #### [facility] [address] [place] [address] Automated basophil countOrde red By: Samia Saenz on 09-22-2023 Basophils (Bld) [#/Vol] 0.1 10*3/uL Normal 0.0-0.2 [facility] Comment on above: Result Comment: PERF ORMED BY: [place] [address] PATHOLOGIST FIELD TAX AUDITOR BALDEV HENNESSY M.D. Performed By: #### A 1C WTH eA, TSH3, CBC, T4F, CMP, FE PRO, T3F, [id number], LIPID, [id number] #### [address] Automated blood monocyte cou ntOrdered By: Samia Saenz on 09-22-2023 Monocytes (Bld) [#/Vol] 0.6 10*3/uL Normal 0.0-0.8 [facility] Comment on above: Performed By: #### A 1C WTH eA, TSH3, CBC, T4F, CMP, FE PRO, T3F, [id number], LIPID, [id number] #### [facility] [address] Automated eosinophil %Ordere d By: Samia Saenz on 09-22-2023 Eosinophils/100 WBC (Bld) 0.1 % Normal . [facility] Comment on above: Performed By: #### A 1C WTH eA, TSH3, CBC, T4F, CMP, FE PRO, T3F, [id number], LIPID, [id number] #### [facility] [address] Automated eosinophil countOr dered By: Samia Saenz on 09-22-2023 Eosinophils (Bld) [#/Vol] 0.0 10*3/uL Normal 0.0-0.45 [facility] Comment on above: Performed By: #### A 1C WT eA, TSH3, CBC, T4F, CMP, FE PRO, T3F, [id number], LIPID, [id number] #### [address] Automated monocyte %Ordered By: Samia Saenz on 09-22-2023 Monocytes/100 WBC (Bld) 7.4 % Normal . [facility] Comment on above: Performed By: #### A 1C WTH eA, TSH3, CBC, T4F, CMP, FE PRO, T3F, [id number], LIPID, [id number] #### [facility] [address] Automated neutrophil %Ordere d By: Samia Saenz on 09-22-2023 Neutrophils/100 WBC (Bld) 72.5 % Normal . [facility] Comment on above: Performed By: #### A 1C WTH eA, TSH3, CBC, T4F, CMP, FE PRO, T3F, [id number], LIPID, [id number] #### [facility] [address] [place] [id number] [facility] Bilirubin.total [Mass/volume ] in Serum or PlasmaOrdered By: Samia Saenz on 09-22-2023 Bilirubin [Mass/Vol] 0.2 mg/dL Low 0.3-1.0 [facility] Comment on above: Order Comment: PT FA STED 12 HOURS Performed By: #### A 1C WTH eA, TSH3, CBC, T4F, CMP, FE PRO, T3F, [id number], LIPID, [id number] #### [facility] [address] [place] [id number] [facility] Calcium [Mass/volume] in Ser um or PlasmaOrdered By: Samia Saenz on 09-22-2023 Calcium [Mass/Vol] 9.5 mg/dL Normal 8.6-10.3 [facility] Comment on above: Order Comment: PT FA STED 12 HOURS Performed By: #### A 1C WTH eA, TSH3, CBC, T4F, CMP, FE PRO, T3F, [id number], LIPID, [id number] #### [facility] [address] [place], [place] [id number] [facility] Carbon dioxide, total [Moles /volume] in Serum or PlasmaOrdered By: Samia Saenz on 09-22-2023 CO2 [Moles/Vol] 29.3 mmol/L Normal 21.0-31.0 [facility] Comment on above: Order Comment: PT FA STED 12 HOURS Performed By: #### A 1C WTH eA, TSH3, CBC, T4F, CMP, FE PRO, T3F, [id number], LIPID, [id number] #### [facility] [address] [place] [id number] [place] Chloride [Moles/volume] in S santiago or PlasmaOrdered By: Samia Saenz on 09-22-2023 Chloride [Moles/Vol] 106 mmol/L Normal 98-107 [facility] Comment on above: Order Comment: PT FA STED 12 HOURS Performed By: #### A 1C WTH eA, TSH3, CBC, T4F, CMP, FE PRO, T3F, [id number], LIPID, [id number] #### [facility] [address] Cholesterol [Mass/volume] in Serum or PlasmaOrdered By: Samia Saenz on 09-22-2023 Cholesterol [Mass/Vol] 192 mg/dL Normal 140-200 [facility] Comment on above: Chol less than 200 m g/dl low riskChol 201-239 mg/dl borderline riskChol 240 mg/dl and greater high risk Order Comment: PT FA STED 12 HOURS Result Comment: Chol less than 200 mg/dl low risk Chol 201-239 mg/dl borderline risk Chol 240 mg/dl and greater high risk Performed By: #### A 1C WTH eA, TSH3, CBC, T4F, CMP, FE PRO, T3F, [id number], LIPID, [id number] #### [facility] [address] Cholesterol in LDL Calc [Mas s/Vol]Ordered By: Samia Saenz on 09-22-2023 Cholesterol in LDL [Mass/Vol] 105 mg/dL High 0-100 [facility] Comment on above: LDL ATP III CLASSIFI CATIONLDL less than 100 mg/dL OptimalLDL 100-129 mg/dL Near or above optimalLDL 130-159 mg/dL Borderline highLDL 160-189 mg/dL HighLDL greater than 189 mg/dL Very high Cholesterol in VLDL Calc [Ma ss/Vol]Ordered By: Samia Saenz on 09-22-2023 Cholesterol in VLDL [Mass/Vol] 21 mg/dL [facility] Complete Blood Count Auto Di ffon 09-22-2023 Mean Corpuscular HGB Conc 33.5 g/dL Normal 32.0-35.0 [facility] Comment on above: Performed By: #### A 1C WTH eA, TSH3, CBC, T4F, CMP, FE PRO, T3F, [id number], LIPID, [id number] #### [facility] [address] NRBC% 0.1 /100{WBC} Normal 0-0.5 [facility] Comment on above: Performed By: #### A 1C WTH eA, TSH3, CBC, T4F, CMP, FE PRO, T3F, [id number], LIPID, [id number] #### [facility] [address] [place] [phone] [facility] Comprehensive Metabolic Pane denise 09-22-2023 Albumin [Mass/Vol] 4.2 g/dL Normal 3.5-5.7 [facility] Comment on above: Order Comment: PT FA STED 12 HOURS Performed By: #### A 1C WTH eA, TSH3, CBC, T4F, CMP, FE PRO, T3F, [id number], LIPID, [id number] #### [place] [id number] [facility] GFR/1.73 sq M.predicted MDRD (S/P/Bld) [Vol rate/Area] mL/min/{1.73_m2} Normal [facility] Comment on above: Order Comment: PT FA STED 12 HOURS Performed By: #### A 1C WTH eA, TSH3, CBC, T4F, CMP, FE PRO, T3F, [id number], LIPID, [id number] #### [address] Creatinine [Mass/volume] in Serum or PlasmaOrdered By: Samia Saenz on 09-22-2023 Creatinine [Mass/Vol] 0.70 mg/dL Normal 0.60-1.20 [facility] Comment on above: Order Comment: PT FA STED 12 HOURS Performed By: #### A 1C WTH eA, TSH3, CBC, T4F, CMP, FE PRO, T3F, [id number], LIPID, [id number] #### [address] Erythrocyte distribution wid th [Ratio] by Automated countOrdered By: Samia Saenz on 09-22-2023 Erythrocyte distribution width (RBC) [Ratio] 13.2 % Normal 11.9-15.3 [facility] Comment on above: Performed By: #### A 1C WTH eA, TSH3, CBC, T4F, CMP, FE PRO, T3F, [id number], LIPID, [id number] #### [place] [id number] [facility] Erythrocytes [#/volume] in B lood by Automated countOrdered By: Samia Saenz on 09-22-2023 RBC (Bld) [#/Vol] 3.87 10*6/uL Normal 3.60-5.00 [facility] Comment on above: Performed By: #### A 1C WTH eA, TSH3, CBC, T4F, CMP, FE PRO, T3F, [id number], LIPID, [id number] #### [facility] [address] FE PROon 09-22-2023 % Iron Saturation 19.6 % Low 20-50 [facility] Comment on above: Order Comment: PT FA STED 12 HOURS Performed By: #### A 1C WTH eA, TSH3, CBC, T4F, CMP, FE PRO, T3F, [id number], LIPID, [id number] #### [facility] [address] [place] [address] Total Iron Binding Capacity 393 ug/dL Normal 255-450 [facility] Comment on above: Order Comment: PT FA STED 12 HOURS Performed By: #### A 1C WTH eA, TSH3, CBC, T4F, CMP, FE PRO, T3F, [id number], LIPID, [id number] #### [facility] [address] [place] [address] Ferritin [Mass/volume] in Se rum or PlasmaOrdered By: Samia Saenz on 09-22-2023 Ferritin [Mass/Vol] 10.6 ng/mL Low 11.0-306.8 [facility] Comment on above: Order Comment: PT FA STED 12 HOURS Performed By: #### A 1C WTH eA, TSH3, CBC, T4F, CMP, FE PRO, T3F, [id number], LIPID, [id number] #### [facility] [address] [place] [address] Folateon 09-22-2023 Folate 5.6 ng/mL Low >5.9 [facility] Comment on above: Order Comment: PT FA STED 12 HOURS Result Comment: Jessica te reference range: >5.9 ng/ml The WHO technical consultation on folate and vitamin b12 deficiencies has determined that folate concentrations less than 4 ng/ml are considered deficient. Performed By: #### A 1C WTH eA, TSH3, CBC, T4F, CMP, FE PRO, T3F, [id number], LIPID, [id number] #### [facility] [address] [place] [id number] [facility] Folate [Mass/volume] in Seru m or PlasmaOrdered By: Samia Saenz on 09-22-2023 Folate [Mass/Vol] 5.6 ng/mL Low >5.9 [facility] Comment on above: Folate reference ran ge: >5.9 ng/mlThe WHO technical consultation on folate and vitamin [id number] has determined that folate concentrations lessthan 4 ng/ml are considered deficient. Glucose [Mass/volume] in Ser um or PlasmaOrdered By: Samia Saenz on 09-22-2023 Glucose [Mass/Vol] 101 mg/dL High 70-100 [facility] Comment on above: ADA recommended refe rence rangeRandom Glucose Reference Range is dependent on time and content of last meal. Glucose of more than 200 mg/dL in a nonstressed, ambulatory subject supports the diagnosis of Diabetes Mellitus. Order Comment: PT FA STED 12 HOURS Result Comment: [place] om Glucose Reference Range is dependent on time and content of last meal. Glucose of more than 200 mg/dL in a nonstressed, ambulatory subject supports the diagnosis of Diabetes Mellitus. ADA recommended reference range Performed By: #### A 1C WTH eA, TSH3, CBC, T4F, CMP, FE PRO, T3F, [id number], LIPID, [id number] #### [facility] [address] [place] [id number] [facility] Glucose mean value [Mass/vol ume] in Blood Estimated from glycated hemoglobinOrdered By: Samia Saenz on 09-22-2023 Average glucose Estimated from glycated hemoglobin (Bld) [Mass/Vol] 114 mg/dL [facility] Hematocrit [Volume Fraction] of Blood by Automated countOrdered By: Samia Saenz on 09-22-2023 Hematocrit (Bld) [Volume fraction] 37.6 % Normal 34.0-46.4 [facility] Comment on above: Performed By: #### A 1C WTH eA, TSH3, CBC, T4F, CMP, FE PRO, T3F, [id number], LIPID, [id number] #### [address] Hemoglobin A1c percentageOrd ered By: Samia Saenz on 09-22-2023 HbA1c (Bld) [Mass fraction] 5.6 % Normal 4.3-5.6 [facility] Comment on above: Increased risk for d iabetes: 5.7 - 6.4diabetes: >6.4glycemic control for adults with diabetes: <7.0 Result Comment: Incr eased risk for diabetes: 5.7 - 6.4 diabetes: >6.4 glycemic control for adults with diabetes: <7.0 Performed By: #### A 1C WTH eA, TSH3, CBC, T4F, CMP, FE PRO, T3F, [id number], LIPID, [id number] #### [address] Hemoglobin [Mass/volume] in BloodOrdered By: Samia Saenz on 09-22-2023 Hemoglobin (Bld) [Mass/Vol] 12.6 g/dL Normal 11.8-15.4 [facility] Comment on above: Performed By: #### A 1C WTH eA, TSH3, CBC, T4F, CMP, FE PRO, T3F, [id number], LIPID, [id number] #### [address] Iron [Mass/volume] in Serum or PlasmaOrdered By: Samia Saenz on 09-22-2023 Iron [Mass/Vol] 77 ug/dL Normal 50-212 [facility] Comment on above: Order Comment: PT FA STED 12 HOURS Performed By: #### A 1C WTH eA, TSH3, CBC, T4F, CMP, FE PRO, T3F, [id number], LIPID, [id number] #### [address] Iron binding capacity [Mass/ volume] in Serum or PlasmaOrdered By: Samia Saenz on 09-22-2023 Iron binding capacity [Mass/Vol] 393 ug/dL 255-450 [facility] Iron saturation [Mass Fracti on] in Serum or PlasmaOrdered By: Samia Saenz on 09-22-2023 Iron saturation [Mass fraction] 19.6 % Low 20-50 [facility] Leukocytes [#/volume] correc perico for nucleated erythrocytes in Blood by Automated counOrdered By: Samia Saenz on 09-22-2023 WBC corrected for nucl RBC Auto (Bld) [#/Vol] 7.5 10*3/uL 3.8-11.6 [facility] Leukocytes [#/volume] in Blo od by Automated countOrdered By: Samia Saenz on 09-22-2023 WBC (Bld) [#/Vol] 7.5 10*3/uL Normal 3.8-11.6 [facility] Comment on above: Performed By: #### A 1C WTH eA, TSH3, CBC, T4F, CMP, FE PRO, T3F, [id number], LIPID, [id number] #### [facility] [address] Lipid Panelon 09-22-2023 LDL Cholesterol,Calculated 105 mg/dL High 0-100 [facility] Comment on above: Order Comment: PT FA STED 12 HOURS Result Comment: LDL ATP III CLASSIFICATION LDL less than 100 mg/dL Optimal LDL 100-129 mg/dL Near or above optimal LDL 130-159 mg/dL Borderline high LDL 160-189 mg/dL High LDL greater than 189 mg/dL Very high Performed By: #### A 1C WTH eA, TSH3, CBC, T4F, CMP, FE PRO, T3F, [id number], LIPID, [id number] #### [facility] [address] Triglyceride w/Reflex 105 mg/dL Normal 0-149 [facility] Comment on above: Order Comment: PT FA STED 12 HOURS Result Comment: TRIG ATP III CLASSIFICATION TRIG less than 150 mg/dL Normal TRIG 150-199 mg/dL Borderline high TRIG 200-500 mg/dL High TRIG greater than 500 mg/dL Very high Standard traceable to the Center for Disease Conrtrol and Prevention (CDC) test method. Performed By: #### A [address] [facility] eA, TSH3, CBC, T4F, CMP, FE PRO, T3F, [id number], LIPID, [id number] #### [address] VLDL CHOLESTEROL 21 mg/dL Normal [facility] Comment on above: Order Comment: PT FA STED 12 HOURS Performed By: #### A [address] [facility] eA, TSH3, CBC, T4F, CMP, FE PRO, T3F, [id number], LIPID, [id number] #### [address] Lymphocytes [#/volume] in Bl ood by Automated countOrdered By: Samia Saenz on 09-22-2023 Lymphocytes (Bld) [#/Vol] 1.5 10*3/uL Normal 1.00-4.8 [facility] Comment on above: Performed By: #### A [address] [facility] eA, TSH3, CBC, T4F, CMP, FE PRO, T3F, [id number], LIPID, [id number] #### [address] Lymphocytes/100 leukocytes i n Blood by Automated countOrdered By: Samia Saenz on 09-22-2023 Lymphocytes/100 WBC (Bld) 19.3 % Normal . [facility] Comment on above: Performed By: #### A [address] [facility] eA, TSH3, CBC, T4F, CMP, FE PRO, T3F, [id number], LIPID, [id number] #### [address] MCH [Entitic mass] by Automa perico countOrdered By: Samia Saenz on 09-22-2023 MCH (RBC) [Entitic mass] 32.5 pg Normal 24.7-34.3 [facility] Comment on above: Performed By: #### A [address] [facility] eA, TSH3, CBC, T4F, CMP, FE PRO, T3F, [id number], LIPID, [id number] #### [address] MCHC Auto (RBC) [Mass/Vol]Or dered By: Samia Saenz on 09-22-2023 MCHC (RBC) [Mass/Vol] 33.5 g/dL 32.0-35.0 [facility] MCV [Entitic volume] by Auto mated countOrdered By: Samia Saenz on 09-22-2023 MCV (RBC) [Entitic vol] 97.0 fL Normal 80-100 [facility] Comment on above: Performed By: #### A 1C WTH eA, TSH3, CBC, T4F, CMP, FE PRO, T3F, [id number], LIPID, [id number] #### [facility] [address] Neutrophils [#/volume] in Bl ood by Automated countOrdered By: Samia Saenz on 09-22-2023 Neutrophils (Bld) [#/Vol] 5.5 10*3/uL Normal 1.8-7.7 [facility] Comment on above: Performed By: #### A 1C WTH eA, TSH3, CBC, T4F, CMP, FE PRO, T3F, [id number], LIPID, [id number] #### [facility] [address] No Panel InformationOrdered By: Samia Saenz on 09-22-2023 Estimated GFR (CKD-EPI) > 60.0 mL/Min [facility] Creatinine Clearance (Chem N/A [facility] Nucleated erythrocytes [Pres ence] in Blood by Automated countOrdered By: Samia Saenz on 09-22-2023 Nucleated RBC Auto Ql (Bld) 0.1 /100{WBC} 0-0.5 [facility] Platelet mean volume [Entiti c volume] in Blood by Automated countOrdered By: Samia Saenz on 09-22-2023 Platelet mean volume (Bld) [Entitic vol] 7.7 fL Normal 6.3-10.7 [facility] Comment on above: Performed By: #### A 1C WTH eA, TSH3, CBC, T4F, CMP, FE PRO, T3F, [id number], LIPID, [id number] #### [facility] [address] Platelets [#/volume] in Bloo d by Automated countOrdered By: Samia Saenz on 09-22-2023 Platelets (Bld) [#/Vol] 271 10*3/uL Normal 150-450 [facility] Comment on above: Performed By: #### A 1C WTH eA, TSH3, CBC, T4F, CMP, FE PRO, T3F, [id number], LIPID, [id number] #### [facility] [address] [place] [id number] [facility] Potassium [Moles/volume] in Serum or PlasmaOrdered By: Samia Saenz on 09-22-2023 Potassium [Moles/Vol] 4.0 mmol/L Normal 3.5-5.1 [facility] Comment on above: Order Comment: PT FA STED 12 HOURS Performed By: #### A 1C WTH eA, TSH3, CBC, T4F, CMP, FE PRO, T3F, [id number], LIPID, [id number] #### [place] [id number] [facility] Protein [Mass/volume] in Ser um or PlasmaOrdered By: Samia Saenz on 09-22-2023 Protein [Mass/Vol] 6.9 g/dL Normal 6.4-8.9 [facility] Comment on above: Order Comment: PT FA STED 12 HOURS Performed By: #### A 1C WTH eA, TSH3, CBC, T4F, CMP, FE PRO, T3F, [id number], LIPID, [id number] #### [place] [id number] [facility] Serum globulin measurement b y calculation (mass/volume)Ordered By: Samia Saenz on 09-22-2023 Globulin (S) [Mass/Vol] 2.7 g/dL Normal [facility] Comment on above: Order Comment: PT FA STED 12 HOURS Performed By: #### A 1C WTH eA, TSH3, CBC, T4F, CMP, FE PRO, T3F, [id number], LIPID, [id number] #### [facility] [address] Serum or plasma albumin/glob ulin mass ratioOrdered By: Samia Saenz on 09-22-2023 Albumin/Globulin [Mass ratio] 1.6 {ratio} Normal [facility] Comment on above: Order Comment: PT FA STED 12 HOURS Performed By: #### A 1C WTH eA, TSH3, CBC, T4F, CMP, FE PRO, T3F, [id number], LIPID, [id number] #### [facility] [address] Serum or plasma anion gap de terminationOrdered By: Samia Saenz on 09-22-2023 Anion gap [Moles/Vol] 8.7 mmol/L Normal 6.0-15.0 [facility] Comment on above: Order Comment: PT FA STED 12 HOURS Performed By: #### A 1C WT eA, TSH3, CBC, T4F, CMP, FE PRO, T3F, [id number], LIPID, [id number] #### [facility] [address] Serum or plasma high density lipoprotein (HDL) cholesterol measurementOrdered By: Samia Saenz on 09-22-2023 Cholesterol in HDL [Mass/Vol] 66 mg/dL Normal 23-92 [facility] Comment on above: HDL CHOL ATP-III CLA SSIFICATION Cardiovascular RiskHDL > or equal to 60 mg/dL LOWHDL < 40 mg/dL HIGH Order Comment: PT FA STED 12 HOURS Result Comment: HDL CHOL ATP-III CLASSIFICATION Cardiovascular Risk HDL > or equal to 60 mg/dL LOW HDL < 40 mg/dL HIGH Performed By: #### A 1C WT eA, TSH3, CBC, T4F, CMP, FE PRO, T3F, [id number], LIPID, [id number] #### [facility] [address] Serum or plasma total choles terol/high density lipoprotein (HDL) cholesterol mass ratOrdered By: Samia Saenz on 09-22-2023 Cholesterol.total/Theresa sterol in HDL [Mass ratio] 2.9 {ratio} Normal <5.0 [facility] Comment on above: Order Comment: PT FA STED 12 HOURS Performed By: #### A 1C WTH eA, TSH3, CBC, T4F, CMP, FE PRO, T3F, [id number], LIPID, [id number] #### [facility] [address] [place] [id number] [place] Sodium [Moles/volume] in Ser um or PlasmaOrdered By: Samia Saenz on 09-22-2023 Sodium [Moles/Vol] 140 mmol/L Normal 136-145 [facility] Comment on above: Order Comment: PT FA STED 12 HOURS Performed By: #### A 1C WTH eA, TSH3, CBC, T4F, CMP, FE PRO, T3F, [id number], LIPID, [id number] #### [facility] [address] [place] [id number] [facility] Thyrotropin [Units/volume] i n Serum or PlasmaOrdered By: Samia Saenz on 09-22-2023 TSH Qn 4.07 m[IU]/L Normal 0.45-5.33 [facility] Comment on above: Order Comment: PT FA STED 12 HOURS Performed By: #### A 1C WT eA, TSH3, CBC, T4F, CMP, FE PRO, T3F, [id number], LIPID, [id number] #### [facility] [address] [place] [id number] [facility] Thyroxine (T4) free [Mass/vo lume] in Serum or PlasmaOrdered By: Samia Saenz on 09-22-2023 Free T4 [Mass/Vol] 0.59 ng/dL Low 0.61-1.12 [facility] Comment on above: Order Comment: PT FA STED 12 HOURS Performed By: #### A 1C WTH eA, TSH3, CBC, T4F, CMP, FE PRO, T3F, [id number], LIPID, [id number] #### [facility] [address] [place] [id number] [place] Transferrin [Mass/volume] in Serum or PlasmaOrdered By: Samia Saenz on 09-22-2023 Transferrin [Mass/Vol] 281 mg/dL Normal 203-362 [facility] Comment on above: Order Comment: PT FA STED 12 HOURS Performed By: #### A 1C WTH eA, TSH3, CBC, T4F, CMP, FE PRO, T3F, [id number], LIPID, [id number] #### [address] Triglyceride [Mass/volume] i n Serum or PlasmaOrdered By: Samia Saenz on 09-22-2023 Triglyceride [Mass/Vol] 105 mg/dL 0-149 [facility] Comment on above: TRIG ATP III CLASSIF ICATIONTRIG less than 150 mg/dL NormalTRIG 150-199 mg/dL Borderline highTRIG 200-500 mg/dL High TRIG greater than 500 mg/dL Very highStandard traceable to the Center for Disease Conrtrol and Prevention (CDC) test method. Triiodothyronine (T3) Freeon 09-22-2023 Triiodothyronine (T3) Free 2.95 pg/mL Normal 2.50-3.90 [facility] Comment on above: Result Comment: PERF ORMED BY: [place] [address] PATHOLOGIST FIELD [employer] AUDITOR BALDEV HENNESSY M.D. Performed By: #### A 1C WT eA, TSH3, CBC, T4F, CMP, FE PRO, T3F, [id number], LIPID, [id number] #### [address] Triiodothyronine (T3) Free [ Mass/volume] in Serum or PlasmaOrdered By: Samia Saenz on 09-22-2023 Free T3 [Mass/Vol] 2.95 pg/mL 2.50-3.90 [facility] Urea nitrogen [Mass/volume] in Serum or PlasmaOrdered By: Samia Saenz on 09-22-2023 Urea nitrogen [Mass/Vol] 15 mg/dL Normal 7-25 [facility] Comment on above: Order Comment: PT FA STED 12 HOURS Performed By: #### A 1C WTH eA, TSH3, CBC, T4F, CMP, FE PRO, T3F, [id number], LIPID, [id number] #### [facility] [address] Vitamin B12 ser/plasOrdered By: Samia Saenz on 09-22-2023 Cobalamin (Vitamin B12) [Mass/Vol] 534 pg/mL Normal 180-914 [facility] Comment on above: Order Comment: PT FA STED 12 HOURS Performed By: #### A 1C WTH eA, TSH3, CBC, T4F, CMP, FE PRO, T3F, [id number], LIPID, [id number] #### [facility] [address] Vitamin D 25 Hydroxy Totalon 09-22-2023 Vitamin D 25 Hydroxy Total 33.3 ng/mL Normal 30-100 [facility] Comment on above: Order Comment: PT FA STED 12 HOURS Result Comment: [place] MIN D STATUS 25(OH)VITAMIN D RANGE (ng/mL) Deficient <20 Insufficient 20 to <30 Sufficient 30 to 100 Reference: Shakir Akbar, Darius SHAW, et al. Evaluation,treatment, and prevention of vitamin D deficiency; an Endocrine Society clinical practice guideline. JCEM. 2010; 96(7):1911-. PERFORMED BY: [place] [address] PATHOLOGIST FIELD TAX AUDITOR BALDEV HENNESSY M.D. Performed By: #### A 1C WT eA, TSH3, CBC, T4F, CMP, FE PRO, T3F, [id number], LIPID, [id number] #### [facility] [address] Vitamin D+Metabolites [Mass/ volume] in Serum or PlasmaOrdered By: Samia Saenz on 09-22-2023 Vitamin D+Metabolites [Mass/Vol] 33.3 ng/mL 30-100 [facility] Comment on above: VITAMIN D STATUS 25( [place])VITAMIN D RANGE (ng/mL) Deficient <20 Insufficient 20 to <30Sufficient 30 to 100Reference: Shakir Akbar, Darius SHAW, et al. Evaluation,treatment, and prevention of vitamin D deficiency; an Endocrine Society clinical practice guideline. JCEM. 2010; 96(7):1911-30. Consent for Procedure/Surger yon 05-09-2023 Consent for Procedure/Surgery [id number]# 1.00TIFF [facility] Ambulatory Visit Summaryon 0 05-08-2023 Ambulatory Visit Summary ALLA BRADY :1965 Visit Date:05/08/2023 Ambulatory Visit Instructions Your Diagnosis Urinary urgency Urinary hesitancy Nocturia Your Care Team Attending Physician - Steven DONNELLY MD Primary Care Physician - Samia Saenz DO This Is Your Medications List ciprofloxacin (Cipro 500 mg Tab) Contact prescribing physician if questions or concerns alprazolam (alprazolam 1 mg Tab) buprenorphine (buprenorphine 8 mg sublingual tablet) colestipol (colestipol 1 g Tab) gabapentin (gabapentin 800 mg Tab) levothyroxine (levothyroxine 125 mcg (0.125 mg) Tab) modafinil (modafinil 200 mg Tab) oxcarbazepine (oxcarbazepine 300 mg Tab) potassium chloride (Potassium Chloride (Icp-Yuxq-Vuh 10) 10 mEq oral tablet, extended release) tapentadol (Nucynta 75 mg oral tablet) topiramate (topiramate 100 mg Tab) vortioxetine (Trintellix 10 mg oral tablet) Procedures Performed Cystourethroscopy with dilation of urethral stricture (05/08/2023), Nerve stimulator (06/12/2022), Colonoscopy (03/16/2020), Colonoscopy (08/2015), Procedure on lower leg (04/2011), Cervical spinal fusion (2009), Ablation of uterine fibroid using magnetic resonance imaging guidance (03/2009), Carpal tunnel release (1999), Appendectomy, Cervical spinal fusion, Cervical spinal fusion, Cervical spinal fusion, Dilation and curettage, Procedure on pilonidal sinus. Discharge Vitals Heart Rate (Peripheral) 110 Blood Pressure 100/62 Height 163 cm Height 64 in Weight 118.8 kg Weight 261.36 lb BMI 44.71 What to do next Scheduled Follow-Up Appointments Friday 3:00 PM EDT With: BENIGNO RAM, VEE Leonardo Where: [facility] [place] Normal [facility] Patient Educationon 05-08-19 24 Patient Education Urology Urinary Frequency, Pediatric Sometimes, children feel the need to urinate frequently or more often than usual. Children with urinary frequency urinate at least 8 times in 24 hours, even if they drink a normal amount of fluid. Although they urinate more often than normal, the total amount of urine produced in a day is normal. Urinary frequency that is not harmful and is not caused by a serious condition is called pollakiuria. There is nothing wrong with the urinary system if the child has this condition. With pollakiuria, children feel an urgent need to urinate often. Some children feel the need to urinate as often as every 1?2 hours or more frequently. Sometimes, your child may be given tests to rule out medical problems. This condition may go away on its own or may need treatment at home. Home treatment may include helping your child with bladder training, working on reducing emotional triggers, or making changes to your child's diet. Follow these instructions at home: Bladder health Your child's health care provider will tell you ways to improve your child's bladder health. You may be told to: ? Keep a bladder diary for your child. A bladder diary is a record of: ? How often he or she urinates. ? How much he or she urinates. ? Train your child to urinate at certain times (bladder training). This will help your child to delay urination and reduce frequency. Eating and drinking Follow instructions from your child's health care provider about eating or drinking restrictions. You may be asked to have your child: ? Avoid caffeine. ? Avoid drinks that are high in sugar. Lifestyle ? Reduce or eliminate emotional triggers. This often helps to reduce urinary frequency. ? Explain to your child that there is nothing wrong with his or her urinary system. This may help to reduce frequency. ? Use a bladder training program as instructed. This may include rewarding your child when he or she increases time between urinating. General instructions Keep all follow-up visits. This is important. Contact a health care provider if: ? Your child starts urinating more often. ? Your child has pain or irritation when he or she urinates. ? There is blood in your child's urine. ? Your child's urine appears cloudy. ? Your child has a fever. ? Your child vomits. Get help right away if: ? Your child who is younger than 3 months has a temperature of 100.4?F (38?C) or higher. ? Your child cannot urinate. These symptoms may represent a serious problem that is an emergency. Do not wait to see if the symptoms will go away. Get medical help right away. Call your local emergency services (911 in the [place] Summary ? Urinary frequency that is not harmful and is not caused by a serious condition is called pollakiuria. With this condition, there is nothing wrong with the urinary system. ? Some children feel the need to urinate as often as every 1?2 hours or more frequently. ? Reducing or eliminating your child's emotional triggers often helps to reduce frequency. ? Home treatment may include helping your child with bladder training or making changes to your child's diet. ? Keep all follow-up visits. This is important. This information is not intended to replace advice given to you by your health care provider. Make sure you discuss any questions you have with your health care provider. Document Revised: 11/03/2020 Document Reviewed: 11/03/2020 [employer] Patient Education ? 2022 Plan B Acq[employer]itions. Normal [facility] Urology Office/Clinic Noteon 05-08-2023 Urology Office/Clinic Note Chief Complaint Cysto/UD HPI Staff Alla is a 57 y.o. female here for cysto/UD. ABX taken. History of Present Illness Tests reviewed: none. I have reviewed the previous health record information and history for this patient from Vee Pelaez PA-C. I have reviewed and verified the staff HPI to be accurate for this encounter. There have been no associated fever, chills, flank pain, or blood in the urine. Denies any urinary infections since last encounter. Review of Systems PHQ Score Initial Depression Screen Score: 0 SCORE ROS - Provider Constitutional: denies weight loss, denies hot flashes. Eyes: denies eye problems. Gastrointestinal: denies nausea, denies vomiting. Cardiovascular: denies chest pain or angina. Integumentary: no dryness Musculoskeletal: denies musculoskeletal symptoms. ENMT: denies otolaryngeal symptoms. Respiratory: no shortness of breath. Heme/Lymph: denies easy bleeding tendency, denies easy bruising tendency. Psychiatric: no confusion, no anxiety. Genitourinary: See HPI. Physical Exam Vitals & Measurements HR: 110(Peripheral) BP: 100/62 HT: 64 in HT: 163 cm WT: 118.8 kg WT: 261.36 lb BMI: 44.71 General Appearance: alert , no acute distress, well nourished, well developed female. Genitourinary: bladder nonpalpable, no flank pain. Procedure Operative Information Anesthesia Type: Local Procedure: Local Cystoscopy with Urethral Dilation Complications: None Surgical risks, benefits, details of the procedure have been explained to the patient. Full informed consent has been obtained. Intraoperative Information Prepped: Patient is brought back to the endoscopy suite. Patient is placed in supine/frog leg position. Patient prepped in the usual fashion with Betadine solution. 2% Xylocaine Jelly is placed per Urethra. After waiting several minutes, the Cystoscope is introduced. The Urethra is: Tight The Bladder: Normal, moderate amount of retained urine, no tumors, no stones, Trabeculated: Moderate (2) The Ureteral orifices: Show efflux of clear urine The Urethra was dilated to: 16-30 Moroccan with sounds. Specimens Removed: None Removal: Cystoscope is removed. The patient tolerated it well. Postoperative Information Patient is discharged home with antibiotic coverage. Follow up arranged. Assessment/Plan 1. Urinary urgency (R39.15: Urgency of urination) not always, maybe about half the time she can hold it and the other half of the time she feels like she has to umanzor there (but then has hesitancy once she gets to restroom). no UUI. Pt had IO cysto w/UD done today without complications. Follow up w/MUKUND on 07/01/23. All questions/concerns were discussed. Pt to call the office if she encounters any issues prior. Pt acknowledges understanding. 2. Urinary hesitancy (R39.11: Hesitancy of micturition) worsening over the past year or so. has never had similar sx previously. no intermittency, once stream starts it goes. -See #1 3. Nocturia (R35.1: Nocturia) x2. this is new over the past year or so. Overall the patient tolerates procedure well. She is has a tight urinary channel at about 16 Moroccan and tolerated to dilatation to 30 Moroccan. Hopefully this will help her urinary symptomatology. There is some moderate vaginal/periurethral atrophy. Follow-up with TIM Davis-see within the next 6 weeks or so. She is to monitor her urinary flow pattern after UD today. Follow-up With When Contact Information Steven DONNELLY MD, URL [address] [address]- Additional Instructions: f/u w/MUKUND on 07/01/23 Patient Education Urinary Frequency, Pediatric I, Delmi Louis, personally scribed for Dr. Donnelly on 05/08/2023 15:27:54. . Documentation recorded by the scribe, Delmi Louis, accurately reflects the services(s) I performed and decisions made by me. Authenticated by Dr. Donnelly on 05/08/2023 15:30:16. Portions of this record may have been created with voice recognition artificial intelligence software, specifically [email or web address], Loku and or Actual Experience. Substitutions may have occurred due to the inherent limitations of voice recognition and artificial intelligence software. Problem List/Past Medical History Ongoing Allergic rhinitis Depression Fibromyalgia Lumbar pain Lumbar strain Nasal cavity polyp Nocturia Paresthesia Pneumonia Sinusitis Urinary hesitancy Urinary urgency Historical No qualifying data Procedure/Surgical History Cystourethroscopy with dilation of urethral stricture (05/08/2023), Nerve stimulator (06/12/2022), Colonoscopy (03/16/2020), Colonoscopy (08/2015), Procedure on lower leg (04/2011), Cervical spinal fusion (2009), Ablation of uterine fibroid using magnetic resonance imaging guidance (03/2009), Carpal tunnel release (1999), Appendectomy, Cervical spinal fusion, Cervical spinal (more content not included)... Normal [facility] Comment on above: Result Comment: Elec tronically Signed By: Steven DONNELLY MD\.br\Date and Time Signed: 05/08/23 15:33 EST\.br\Electronically Co-Signed By: Delmi Louis\.br\Date and Time Co-Signed: 05/08/23 15:28 EST [facility] 03-30-2023 Lab Reports [id number] Normal [facility] 03-28-2023 Lab Reports [id number] .[id number] Normal [facility] XR pre/post mri xrayon 03-25 XR pre/post mri xray [place] [address] MRI Report Signed Patient: Alla Brady MR#: [id number] : 1965 Acct:[id number] Age/Sex: 57 / F ADM Date: 03/25/23 Loc: [facility] Room: Type: [facility] Attending Dr: Jerri JENKINS Copies to: GREGORY Feldman Ordering Provider: GREGORY Feldman Date of Service: 03/25/23 MR/MR lumbar spine wo/w con: m54.5, m54.16 ([id number]) XR/XR pre/post mri xray: post MRI lumbar MR lumbar spine wo/w con, XR pre/post mri xray 03/25/2023 2:08 PM SIGNS AND SYMPTOMS: Low back pain radiating into gluteal region and down right leg PROTOCOL: Multiplanar multisequence MR images of the lumbar spine were obtained with and without IV contrast. Frontal and lateral radiograph of the lumbar spine were obtained. CONTRAST: 12/20/2020 COMPARISON: None. FINDINGS: Radiographs of the lumbar spine: There is a levoconvex curvature of the lumbar spine. The bones are in anatomic alignment otherwise. There is mild depression of the superior endplate of L1 which is unchanged. The vertebral body heights are otherwise preserved. There is similar mild disc height loss at L5-S1. There is also mild disc height loss at L2-L3. There is a dual lead spinal cord stimulator device with the leads entering the spinal canal at the L1-L2 level. The lesion. Intact. Mild degenerative changes are noted in the sacroiliac joints. MRI of lumbar spine: Disc height loss and alignment is as noted above. Anterior wedging is noted at L1 with a remote compression deformity of the superior endplates similar to the prior study. There is Modic type II fatty endplate degenerative change at T12-L1 and L2-L3. The marrow signal is within normal limits, otherwise. The conus terminates at the L1-L2 intervertebral disc level. No epidural or paraspinous fluid collection is appreciated. At T12-L1: There is a normal disc, central canal, and neural foramen. At L1-L2: There is a mild broad-based disc bulge contributing to mild right neural foraminal narrowing. No spinal canal narrowing. There is a broad-based disc bulge At L2-L3: Continue to mild bilateral neural foraminal narrowing and mild spinal canal narrowing. At L3-L4: Mild facet hypertrophy is present. There is no significant spinal canal narrowing. There is mild left neural foraminal narrowing. At L4-L5: There is a broad-based disc bulge with facet hypertrophy. There is mild narrowing of the spinal canal with mild left and moderate right neural foraminal narrowing. There is a focal right foraminal disc extrusion with mild cranial migration. At L5-S1: Facet hypertrophy is present left greater than right. There is a mild broad-based disc bulge. There is mild spinal canal narrowing with moderate left and mild right neural foraminal stenosis. MR/MR lumbar spine wo/w con IMPRESSION: At L4-L5: There is a broad-based disc bulge with facet hypertrophy. There is mild narrowing of the spinal canal with mild left and moderate right neural foraminal narrowing. There is a focal right foraminal disc extrusion with mild cranial migration. At L5-S1: Facet hypertrophy is present left greater than right. There is a mild broad-based disc bulge. There is mild spinal canal narrowing with moderate left and mild right neural foraminal stenosis. Lesser degrees of spinal canal and neural foramen are noted, as above. Impression dictated by: Winston Garzon M.D.03/25/2023 3:39 PM Dictation Location: [place] [address] Transcribed By: [facility] 03/25/231538 Dictated By: Winston Garzon II, MD 03/25/231525 Signed By: 03/25/231538 Normal [facility] 03-21-2023 Lab Reports [id number] .00TIFF Normal [facility] A1C with Estimated Average G luon 03-17-2023 Glucose [Mass/Vol] 123 mg/dL Normal [facility] Comment on above: Result Comment: PERF ORMED BY: [place] [address] PATHOLOGIST FIELD TAX AUDITOR BALDEV HENNESSY M.D. Performed By: #### A 1C WTH eA, TSH3, CBC, T4F, CMP, FE PRO, T3F, [id number], LIPID, [id number] #### [place] [address] [place] Alanine aminotransferase [En zymatic activity/volume] in Serum or PlasmaOrdered By: Samia Saenz on 03-17-2023 ALT [Catalytic activity/Vol] 24 U/L Normal 7-52 [facility] Comment on above: Performed By: #### A 1C WTH eA, TSH3, CBC, T4F, CMP, FE PRO, T3F, [id number], LIPID, [id number] #### [place] [address] [place] Albumin [Mass/volume] in Ser um or Plasma by Bromocresol green (BCG) dye binding methoOrdered By: Samia Saenz on 03-17-2023 Albumin BCG dye [Mass/Vol] 4.0 g/dL 3.5-5.7 [facility] Alkaline phosphatase [Enzyma tic activity/volume] in Serum or PlasmaOrdered By: Samia Saenz on 03-17-2023 ALP [Catalytic activity/Vol] 47 U/L Normal 34-104 [facility] Comment on above: Performed By: #### A 1C WTH eA, TSH3, CBC, T4F, CMP, FE PRO, T3F, [id number], LIPID, [id number] #### [place] [address] [place] Aspartate aminotransferase [ Enzymatic activity/volume] in Serum or PlasmaOrdered By: Samia Saenz on 03-17-2023 AST [Catalytic activity/Vol] 22 U/L Normal 13-39 [facility] Comment on above: Performed By: #### A 1C WTH eA, TSH3, CBC, T4F, CMP, FE PRO, T3F, [id number], LIPID, [id number] #### [facility] [address] Automated basophil %Ordered By: Samia Saenz on 03-17-2023 Basophils/100 WBC (Bld) 1.3 % Normal . [facility] Comment on above: Performed By: #### A 1C WTH eA, TSH3, CBC, T4F, CMP, FE PRO, T3F, [id number], LIPID, [id number] #### [facility] [address] Automated basophil countOrde red By: Samia Saenz on 03-17-2023 Basophils (Bld) [#/Vol] 0.1 10*3/uL Normal 0.0-0.2 [facility] Comment on above: Result Comment: PERF ORMED BY: [address] [place] [address] PATHOLOGIST FIELD TAX AUDITOR BALDEV HENNESSY M.D. Performed By: #### A 1C WTH eA, TSH3, CBC, T4F, CMP, FE PRO, T3F, [id number], LIPID, [id number] #### [address] Automated blood monocyte cou ntOrdered By: Samia Saenz on 03-17-2023 Monocytes (Bld) [#/Vol] 0.4 10*3/uL Normal 0.0-0.8 [facility] Comment on above: Performed By: #### A 1C WTH eA, TSH3, CBC, T4F, CMP, FE PRO, T3F, [id number], LIPID, [id number] #### [address] Automated eosinophil %Ordere d By: Samia Saenz on 03-17-2023 Eosinophils/100 WBC (Bld) 0.2 % Normal . [facility] Comment on above: Performed By: #### A 1C WTH eA, TSH3, CBC, T4F, CMP, FE PRO, T3F, [id number], LIPID, [id number] #### [facility] [address] Automated eosinophil countOr dered By: Samia Saenz on 03-17-2023 Eosinophils (Bld) [#/Vol] 0.0 10*3/uL Normal 0.0-0.45 [facility] Comment on above: Performed By: #### A 1C WTH eA, TSH3, CBC, T4F, CMP, FE PRO, T3F, [id number], LIPID, [id number] #### [facility] [address] Automated erythrocytes count in urine sediment (number/area)Ordered By: Samia Saenz on 03-17-2023 RBC Auto (Urine sed) [#/Area] 20-49 [HPF] 0-4 [facility] Automated leukocytes count i n urine sediment (number/area)Ordered By: Samia Saenz on 03-17-2023 WBC Auto (Urine sed) [#/Area] 5-9 [HPF] 0-4 [facility] Automated monocyte %Ordered By: Samia Saenz on 03-17-2023 Monocytes/100 WBC (Bld) 5.8 % Normal . [facility] Comment on above: Performed By: #### A 1C WTH eA, TSH3, CBC, T4F, CMP, FE PRO, T3F, [id number], LIPID, [id number] #### [address] Automated neutrophil %Ordere d By: Samia Saenz on 03-17-2023 Neutrophils/100 WBC (Bld) 75.7 % Normal . [facility] Comment on above: Performed By: #### A 1C WTH eA, TSH3, CBC, T4F, CMP, FE PRO, T3F, [id number], LIPID, [id number] #### [address] Automated urine color determ inationOrdered By: Samia Saenz on 03-17-2023 Color (U) Yellow Normal Yellow [facility] Comment on above: Order Comment: Name Collection Type:: Clean-Voided Midstream Performed By: #### A 1C WTH eA, TSH3, CBC, T4F, CMP, FE PRO, T3F, [id number], LIPID, [id number] #### [facility] [address] Bilirubin Test strip Ql (U)O rdered By: Samia Saenz on 03-17-2023 Bilirubin Ql (U) Negative Negative [facility] Bilirubin.total [Mass/volume ] in Serum or PlasmaOrdered By: Samia Saenz on 03-17-2023 Bilirubin [Mass/Vol] 0.2 mg/dL Low 0.3-1.0 [facility] Comment on above: Performed By: #### A 1C WT eA, TSH3, CBC, T4F, CMP, FE PRO, T3F, [id number], LIPID, [id number] #### [facility] [address] Calcium [Mass/volume] in Ser um or PlasmaOrdered By: Samia Saenz on 03-17-2023 Calcium [Mass/Vol] 9.4 mg/dL Normal 8.6-10.3 [facility] Comment on above: Performed By: #### A 1C WT eA, TSH3, CBC, T4F, CMP, FE PRO, T3F, [id number], LIPID, [id number] #### [facility] [address] Carbon dioxide, total [Moles /volume] in Serum or PlasmaOrdered By: Samia Saenz on 03-17-2023 CO2 [Moles/Vol] 28.9 mmol/L Normal 21.0-31.0 [facility] Comment on above: Performed By: #### A 1C WTH eA, TSH3, CBC, T4F, CMP, FE PRO, T3F, [id number], LIPID, [id number] #### [facility] [address] [place] [address] [place] Chloride [Moles/volume] in S santiago or PlasmaOrdered By: Samia Saenz on 03-17-2023 Chloride [Moles/Vol] 107 mmol/L Normal 98-107 [facility] Comment on above: Performed By: #### A 1C WTH eA, TSH3, CBC, T4F, CMP, FE PRO, T3F, [id number], LIPID, [id number] #### [facility] [address] Cholesterol [Mass/volume] in Serum or PlasmaOrdered By: Samia Saenz on 03-17-2023 Cholesterol [Mass/Vol] 174 mg/dL Normal 140-200 [facility] Comment on above: Chol less than 200 m g/dl low riskChol 201-239 mg/dl borderline riskChol 240 mg/dl and greater high risk Result Comment: Chol less than 200 mg/dl low risk Chol 201-239 mg/dl borderline risk Chol 240 mg/dl and greater high risk Performed By: #### A 1C WTH eA, TSH3, CBC, T4F, CMP, FE PRO, T3F, [id number], LIPID, [id number] #### [facility] [address] Cholesterol in LDL Calc [Mas s/Vol]Ordered By: Samia Saenz on 03-17-2023 Cholesterol in LDL [Mass/Vol] 98 mg/dL 0-100 [facility] Comment on above: LDL ATP III CLASSIFI CATIONLDL less than 100 mg/dL OptimalLDL 100-129 mg/dL Near or above optimalLDL 130-159 mg/dL Borderline highLDL 160-189 mg/dL HighLDL greater than 189 mg/dL Very high Cholesterol in VLDL Calc [Ma ss/Vol]Ordered By: Samia Saenz on 03-17-2023 Cholesterol in VLDL [Mass/Vol] 25 mg/dL [facility] Complete Blood Count Auto Di ffon 03-17-2023 Mean Corpuscular HGB Conc 33.7 g/dL Normal 32.0-35.0 [facility] Comment on above: Performed By: #### A 1C WTH eA, TSH3, CBC, T4F, CMP, FE PRO, T3F, [id number], LIPID, [id number] #### [facility] [address] NRBC% 0.2 /100{WBC} Normal 0-0.5 [facility] Comment on above: Performed By: #### A 1C WTH eA, TSH3, CBC, T4F, CMP, FE PRO, T3F, [id number], LIPID, [id number] #### [address] Comprehensive Metabolic Pane denise 03-17-2023 Albumin [Mass/Vol] 4.0 g/dL Normal 3.5-5.7 [facility] Comment on above: Performed By: #### A 1C WTH eA, TSH3, CBC, T4F, CMP, FE PRO, T3F, [id number], LIPID, [id number] #### [address] GFR/1.73 sq M.predicted MDRD (S/P/Bld) [Vol rate/Area] mL/min/{1.73_m2} Normal [facility] Comment on above: Performed By: #### A 1C WT eA, TSH3, CBC, T4F, CMP, FE PRO, T3F, [id number], LIPID, [id number] #### [address] Creatinine [Mass/volume] in Serum or PlasmaOrdered By: Samia Saenz on 03-17-2023 Creatinine [Mass/Vol] 0.74 mg/dL Normal 0.60-1.20 [facility] Comment on above: Performed By: #### A 1C WT eA, TSH3, CBC, T4F, CMP, FE PRO, T3F, [id number], LIPID, [id number] #### [address] Dipstick and Microscopicon 1 05-18-2022 Appearance (U) Cloudy Critically abnormal Clear [facility] Comment on above: Order Comment: Name Collection Type:: Clean-Voided Midstream Performed By: #### A 1C WTH eA, TSH3, CBC, T4F, CMP, FE PRO, T3F, [id number], LIPID, [id number] #### [address] Bacteria,Urine 1+ High None Seen [facility] Comment on above: Order Comment: Name Collection Type:: Clean-Voided Midstream Performed By: #### A 1C WTH eA, TSH3, CBC, T4F, CMP, FE PRO, T3F, [id number], LIPID, [id number] #### [facility] [address] Bilirubin,Urine Negative Normal Negative [facility] Comment on above: Order Comment: Name Collection Type:: Clean-Voided Midstream Performed By: #### A 1C WTH eA, TSH3, CBC, T4F, CMP, FE PRO, T3F, [id number], LIPID, [id number] #### [address] Glucose Ql (U) Normal Normal Normal [facility] Comment on above: Order Comment: Name Collection Type:: Clean-Voided Midstream Performed By: #### A 1C WTH eA, TSH3, CBC, T4F, CMP, FE PRO, T3F, [id number], LIPID, [id number] #### [address] Hyaline Casts,Urine 0-8 Normal 0-8 [facility] Comment on above: Order Comment: Name Collection Type:: Clean-Voided Midstream Result Comment: PERF ORMED BY: [place] [address] PATHOLOGIST FIELD TAX AUDITOR BALDEV HENNESSY M.D. Performed By: #### A 1C WTH eA, TSH3, CBC, T4F, CMP, FE PRO, T3F, [id number], LIPID, [id number] #### [address] Ketones Ql (U) Trace High Negative [facility] Comment on above: Order Comment: Name Collection Type:: Clean-Voided Midstream Performed By: #### A 1C WTH eA, TSH3, CBC, T4F, CMP, FE PRO, T3F, [id number], LIPID, [id number] #### [address] Leukocyte esterase Test strip Ql (U) 1+ High Negative [facility] Comment on above: Order Comment: Name Collection Type:: Clean-Voided Midstream Performed By: #### A 1C WTH eA, TSH3, CBC, T4F, CMP, FE PRO, T3F, [id number], LIPID, [id number] #### [address] Nitrite,Urine Negative Normal Negative [facility] Comment on above: Order Comment: Name Collection Type:: Clean-Voided Midstream Performed By: #### A 1C WTH eA, TSH3, CBC, T4F, CMP, FE PRO, T3F, [id number], LIPID, [id number] #### [address] Occult Blood,Urine Negative Normal Negative [facility] Comment on above: Order Comment: Name Collection Type:: Clean-Voided Midstream Performed By: #### A 1C WTH eA, TSH3, CBC, T4F, CMP, FE PRO, T3F, [id number], LIPID, [id number] #### [address] Protein,Urine Negative Normal Negative [facility] Comment on above: Order Comment: Name Collection Type:: Clean-Voided Midstream Performed By: #### A 1C WTH eA, TSH3, CBC, T4F, CMP, FE PRO, T3F, [id number], LIPID, [id number] #### [address] RBC,Urine 20-49 High 0-4 [facility] Comment on above: Order Comment: Name Collection Type:: Clean-Voided Midstream Performed By: #### A 1C WTH eA, TSH3, CBC, T4F, CMP, FE PRO, T3F, [id number], LIPID, [id number] #### [address] Specificy [place],Urine 1.039 High 1.001-1.030 [facility] Comment on above: Order Comment: Name Collection Type:: Clean-Voided Midstream Performed By: #### A 1C WTH eA, TSH3, CBC, T4F, CMP, FE PRO, T3F, [id number], LIPID, [id number] #### [address] Squamous Epithelial Cell,Urine 5-9 High 0-2 [facility] Comment on above: Order Comment: Name Collection Type:: Clean-Voided Midstream Performed By: #### A 1C WTH eA, TSH3, CBC, T4F, CMP, FE PRO, T3F, [id number], LIPID, [id number] #### [address] Urobilinogen,Urine Normal Normal Normal [facility] Comment on above: Order Comment: Name Collection Type:: Clean-Voided Midstream Performed By: #### A 1C WTH eA, TSH3, CBC, T4F, CMP, FE PRO, T3F, [id number], LIPID, [id number] #### [address] WBC,Urine 5-9 High 0-4 [facility] Comment on above: Order Comment: Name Collection Type:: Clean-Voided Midstream Performed By: #### A 1C WTH eA, TSH3, CBC, T4F, CMP, FE PRO, T3F, [id number], LIPID, [id number] #### [address] Erythrocyte distribution wid th [Ratio] by Automated countOrdered By: Samia Saenz on 03-17-2023 Erythrocyte distribution width (RBC) [Ratio] 13.4 % Normal 11.9-15.3 [facility] Comment on above: Performed By: #### A 1C WTH eA, TSH3, CBC, T4F, CMP, FE PRO, T3F, [id number], LIPID, [id number] #### [address] Erythrocytes [#/volume] in B lood by Automated countOrdered By: Samia Saenz on 03-17-2023 RBC (Bld) [#/Vol] 3.75 10*6/uL Normal 3.60-5.00 [facility] Comment on above: Performed By: #### A 1C WTH eA, TSH3, CBC, T4F, CMP, FE PRO, T3F, [id number], LIPID, [id number] #### [facility] [address] FE PROon 03-17-2023 % Iron Saturation 21.1 % Normal 20-50 [facility] Comment on above: Performed By: #### A 1C WTH eA, TSH3, CBC, T4F, CMP, FE PRO, T3F, [id number], LIPID, [id number] #### [facility] [address] Total Iron Binding Capacity 322 ug/dL Normal 255-450 [facility] Comment on above: Performed By: #### A 1C WTH eA, TSH3, CBC, T4F, CMP, FE PRO, T3F, [id number], LIPID, [id number] #### [facility] [address] Ferritin [Mass/volume] in Se rum or PlasmaOrdered By: Samia Saenz on 03-17-2023 Ferritin [Mass/Vol] 16.4 ng/mL Normal 11.0-306.8 [facility] Comment on above: Performed By: #### A 1C WTH eA, TSH3, CBC, T4F, CMP, FE PRO, T3F, [id number], LIPID, [id number] #### [facility] [address] Folate [Mass/volume] in Seru m or PlasmaOrdered By: Samia Saenz on 03-17-2023 Folate [Mass/Vol] 10.5 ng/mL >5.9 [facility] Comment on above: Folate reference ran ge: >5.9 ng/mlThe WHO technical consultation on folate and vitamin [id number] has determined that folate concentrations lessthan 4 ng/ml are considered deficient. Glucose [Mass/volume] in Ser um or PlasmaOrdered By: Samia Saenz on 03-17-2023 Glucose [Mass/Vol] 100 mg/dL Normal 70-100 [facility] Comment on above: ADA recommended refe rence rangeRandom Glucose Reference Range is dependent on time and content of last meal. Glucose of more than 200 mg/dL in a nonstressed, ambulatory subject supports the diagnosis of Diabetes Mellitus. Result Comment: [place] om Glucose Reference Range is dependent on time and content of last meal. Glucose of more than 200 mg/dL in a nonstressed, ambulatory subject supports the diagnosis of Diabetes Mellitus. ADA recommended reference range Performed By: #### A 1C WTH eA, TSH3, CBC, T4F, CMP, FE PRO, T3F, [id number], LIPID, [id number] #### [facility] [address] Glucose mean value [Mass/vol ume] in Blood Estimated from glycated hemoglobinOrdered By: Samia Saenz on 03-17-2023 Average glucose Estimated from glycated hemoglobin (Bld) [Mass/Vol] 123 mg/dL [facility] Hematocrit [Volume Fraction] of Blood by Automated countOrdered By: Samia Saenz on 03-17-2023 Hematocrit (Bld) [Volume fraction] 36.7 % Normal 34.0-46.4 [facility] Comment on above: Performed By: #### A 1C WTH eA, TSH3, CBC, T4F, CMP, FE PRO, T3F, [id number], LIPID, [id number] #### [facility] [address] Hemoglobin A1c percentageOrd ered By: Samia Saenz on 03-17-2023 HbA1c (Bld) [Mass fraction] 5.9 % High 4.3-5.6 [facility] Comment on above: Increased risk for d iabetes: 5.7 - 6.4diabetes: >6.4glycemic control for adults with diabetes: <7.0 Result Comment: Incr eased risk for diabetes: 5.7 - 6.4 diabetes: >6.4 glycemic control for adults with diabetes: <7.0 Performed By: #### A 1C WTH eA, TSH3, CBC, T4F, CMP, FE PRO, T3F, [id number], LIPID, [id number] #### [facility] [address] [place] [address] [place] Hemoglobin [Mass/volume] in BloodOrdered By: Samia Saenz on 03-17-2023 Hemoglobin (Bld) [Mass/Vol] 12.4 g/dL Normal 11.8-15.4 [facility] Comment on above: Performed By: #### A 1C WTH eA, TSH3, CBC, T4F, CMP, FE PRO, T3F, [id number], LIPID, [id number] #### [facility] [address] [place] [id number] [place] Iron [Mass/volume] in Serum or PlasmaOrdered By: Samia Saenz on 03-17-2023 Iron [Mass/Vol] 68 ug/dL Normal 50-212 [facility] Comment on above: Performed By: #### A 1C WTH eA, TSH3, CBC, T4F, CMP, FE PRO, T3F, [id number], LIPID, [id number] #### [facility] [address] [place] [id number] [facility] Iron binding capacity [Mass/ volume] in Serum or PlasmaOrdered By: Samia Saenz on 03-17-2023 Iron binding capacity [Mass/Vol] 322 ug/dL 255-450 [facility] Iron saturation [Mass Fracti on] in Serum or PlasmaOrdered By: Samia Saenz on 03-17-2023 Iron saturation [Mass fraction] 21.1 % 20-50 [facility] Ketones Auto test strip (U) [Mass/Vol]Ordered By: Samia Saenz on 03-17-2023 Ketones (U) [Mass/Vol] Trace Negative [facility] Laboratory - UrinalysisOrder ed By: Samia Saenz on 03-17-2023 Hyaline casts LM Ql (Urine sed) 0-8 [LPF] 0-8 [facility] Leukocytes [#/volume] correc perico for nucleated erythrocytes in Blood by Automated counOrdered By: Samia Saenz on 03-17-2023 WBC corrected for nucl RBC Auto (Bld) [#/Vol] 7.7 10*3/uL 3.8-11.6 [facility] Leukocytes [#/volume] in Blo od by Automated countOrdered By: Samia Saenz on 03-17-2023 WBC (Bld) [#/Vol] 7.7 10*3/uL Normal 3.8-11.6 [facility] Comment on above: Performed By: #### A 1C WT eA, TSH3, CBC, T4F, CMP, FE PRO, T3F, [id number], LIPID, [id number] #### [facility] [address] Lipid Panelon 03-17-2023 LDL Cholesterol,Calculated 98 mg/dL Normal 0-100 [facility] Comment on above: Result Comment: LDL ATP III CLASSIFICATION LDL less than 100 mg/dL Optimal LDL 100-129 mg/dL Near or above optimal LDL 130-159 mg/dL Borderline high LDL 160-189 mg/dL High LDL greater than 189 mg/dL Very high Performed By: #### A 1C WT eA, TSH3, CBC, T4F, CMP, FE PRO, T3F, [id number], LIPID, [id number] #### [facility] [address] Triglyceride w/Reflex 129 mg/dL Normal 0-149 [facility] Comment on above: Result Comment: TRIG ATP III CLASSIFICATION TRIG less than 150 mg/dL Normal TRIG 150-199 mg/dL Borderline high TRIG 200-500 mg/dL High TRIG greater than 500 mg/dL Very high Standard traceable to the Center for Disease Conrtrol and Prevention (CDC) test method. Performed By: #### A 1C WTH eA, TSH3, CBC, T4F, CMP, FE PRO, T3F, [id number], LIPID, [id number] #### [facility] [address] VLDL CHOLESTEROL 25 mg/dL Normal [facility] Comment on above: Performed By: #### A 1C WTH eA, TSH3, CBC, T4F, CMP, FE PRO, T3F, [id number], LIPID, [id number] #### [facility] [address] Lymphocytes [#/volume] in Bl ood by Automated countOrdered By: Samia Saenz on 03-17-2023 Lymphocytes (Bld) [#/Vol] 1.3 10*3/uL Normal 1.00-4.8 [facility] Comment on above: Performed By: #### A 1C WT eA, TSH3, CBC, T4F, CMP, FE PRO, T3F, [id number], LIPID, [id number] #### [facility] [address] Lymphocytes/100 leukocytes i n Blood by Automated countOrdered By: Samia Saenz on 03-17-2023 Lymphocytes/100 WBC (Bld) 17.0 % Normal . [facility] Comment on above: Performed By: #### A 1C WT eA, TSH3, CBC, T4F, CMP, FE PRO, T3F, [id number], LIPID, [id number] #### [facility] [address] MCH [Entitic mass] by Automa perico countOrdered By: Samia Saenz on 03-17-2023 MCH (RBC) [Entitic mass] 33.0 pg Normal 24.7-34.3 [facility] Comment on above: Performed By: #### A 1C WT eA, TSH3, CBC, T4F, CMP, FE PRO, T3F, [id number], LIPID, [id number] #### [facility] [address] MCHC Auto (RBC) [Mass/Vol]Or dered By: Samia Saenz on 03-17-2023 MCHC (RBC) [Mass/Vol] 33.7 g/dL 32.0-35.0 [facility] MCV [Entitic volume] by Auto mated countOrdered By: Samia Saenz on 03-17-2023 MCV (RBC) [Entitic vol] 97.9 fL Normal 80-100 [facility] Comment on above: Performed By: #### A 1C WTH eA, TSH3, CBC, T4F, CMP, FE PRO, T3F, [id number], LIPID, [id number] #### [facility] [address] Neutrophils [#/volume] in Bl ood by Automated countOrdered By: Samia Saenz on 03-17-2023 Neutrophils (Bld) [#/Vol] 5.8 10*3/uL Normal 1.8-7.7 [facility] Comment on above: Performed By: #### A 1C WTH eA, TSH3, CBC, T4F, CMP, FE PRO, T3F, [id number], LIPID, [id number] #### [facility] [address] Nitrite Test strip Ql (U)Ord ered By: Samia Saenz on 03-17-2023 Nitrite Ql (U) Negative Negative [facility] No Panel InformationOrdered By: Samia Saenz on 03-17-2023 Estimated GFR (CKD-EPI) > 60.0 mL/Min [facility] Creatinine Clearance (Chem N/A [facility] Nucleated erythrocytes [Pres ence] in Blood by Automated countOrdered By: Samia Saenz on 03-17-2023 Nucleated RBC Auto Ql (Bld) 0.2 /100{WBC} 0-0.5 [facility] Platelet mean volume [Entiti c volume] in Blood by Automated countOrdered By: Samia Saenz on 03-17-2023 Platelet mean volume (Bld) [Entitic vol] 8.0 fL Normal 6.3-10.7 [facility] Comment on above: Performed By: #### A 1C WTH eA, TSH3, CBC, T4F, CMP, FE PRO, T3F, [id number], LIPID, [id number] #### [facility] [address] Platelets [#/volume] in Bloo d by Automated countOrdered By: Samia Saenz on 03-17-2023 Platelets (Bld) [#/Vol] 224 10*3/uL Normal 150-450 [facility] Comment on above: Performed By: #### A 1C WTH eA, TSH3, CBC, T4F, CMP, FE PRO, T3F, [id number], LIPID, [id number] #### [facility] [address] Potassium [Moles/volume] in Serum or PlasmaOrdered By: Samia Saenz on 03-17-2023 Potassium [Moles/Vol] 3.7 mmol/L Normal 3.5-5.1 [facility] Comment on above: Performed By: #### A 1C WT eA, TSH3, CBC, T4F, CMP, FE PRO, T3F, [id number], LIPID, [id number] #### [facility] [address] Protein Auto test strip (U) [Mass/Vol]Ordered By: Samia Saenz on 03-17-2023 Protein (U) [Mass/Vol] Negative Negative [facility] Protein [Mass/volume] in Ser um or PlasmaOrdered By: Samia Saenz on 03-17-2023 Protein [Mass/Vol] 6.4 g/dL Normal 6.4-8.9 [facility] Comment on above: Performed By: #### A 1C WTH eA, TSH3, CBC, T4F, CMP, FE PRO, T3F, [id number], LIPID, [id number] #### [facility] [address] Serum globulin measurement b y calculation (mass/volume)Ordered By: Samia Saenz on 03-17-2023 Globulin (S) [Mass/Vol] 2.4 g/dL Normal [facility] Comment on above: Performed By: #### A 1C WTH eA, TSH3, CBC, T4F, CMP, FE PRO, T3F, [id number], LIPID, [id number] #### [facility] [address] Serum or plasma albumin/glob ulin mass ratioOrdered By: Samia Saenz on 03-17-2023 Albumin/Globulin [Mass ratio] 1.7 {ratio} Normal [facility] Comment on above: Performed By: #### A 1C WTH eA, TSH3, CBC, T4F, CMP, FE PRO, T3F, [id number], LIPID, [id number] #### [facility] [address] Serum or plasma anion gap de terminationOrdered By: Samia Saenz on 03-17-2023 Anion gap [Moles/Vol] 8.8 mmol/L Normal 6.0-15.0 [facility] Comment on above: Performed By: #### A 1C WTH eA, TSH3, CBC, T4F, CMP, FE PRO, T3F, [id number], LIPID, [id number] #### [facility] [address] Serum or plasma high density lipoprotein (HDL) cholesterol measurementOrdered By: Samia Saenz on 03-17-2023 Cholesterol in HDL [Mass/Vol] 50 mg/dL Normal 23-92 [facility] Comment on above: HDL CHOL ATP-III CLA SSIFICATION Cardiovascular RiskHDL > or equal to 60 mg/dL LOWHDL < 40 mg/dL HIGH Result Comment: HDL CHOL ATP-III CLASSIFICATION Cardiovascular Risk HDL > or equal to 60 mg/dL LOW HDL < 40 mg/dL HIGH Performed By: #### A 1C WTH eA, TSH3, CBC, T4F, CMP, FE PRO, T3F, [id number], LIPID, [id number] #### [facility] [address] Serum or plasma total choles terol/high density lipoprotein (HDL) cholesterol mass ratOrdered By: Samia Saenz on 03-17-2023 Cholesterol.total/Theresa sterol in HDL [Mass ratio] 3.5 {ratio} Normal <5.0 [facility] Comment on above: Performed By: #### A 1C WTH eA, TSH3, CBC, T4F, CMP, FE PRO, T3F, [id number], LIPID, [id number] #### [facility] [address] Sodium [Moles/volume] in Ser um or PlasmaOrdered By: Samia Saenz on 03-17-2023 Sodium [Moles/Vol] 141 mmol/L Normal 136-145 [facility] Comment on above: Performed By: #### A 1C WTH eA, TSH3, CBC, T4F, CMP, FE PRO, T3F, [id number], LIPID, [id number] #### [address] Specific gravity Auto test s trip (U) [Rel density]Ordered By: Samia Saenz on 03-17-2023 Specific gravity (U) [Rel density] 1.039 1.001-1.030 [facility] Squamous epithelial cells de tection in urine sediment by light microscopyOrdered By: Samia Saenz on 03-17-2023 Epithelial cells.squamous LM Ql (Urine sed) 5-9 [HPF] 0-2 [facility] Thyrotropin [Units/volume] i n Serum or PlasmaOrdered By: Samia Saenz on 03-17-2023 TSH Qn 3.65 m[IU]/L Normal 0.45-5.33 [facility] Comment on above: Performed By: #### A 1C WT eA, TSH3, CBC, T4F, CMP, FE PRO, T3F, [id number], LIPID, [id number] #### [address] Thyroxine (T4) free [Mass/vo lume] in Serum or PlasmaOrdered By: Samia Saenz on 03-17-2023 Free T4 [Mass/Vol] 0.70 ng/dL Normal 0.61-1.12 [facility] Comment on above: Performed By: #### A 1C WT eA, TSH3, CBC, T4F, CMP, FE PRO, T3F, [id number], LIPID, [id number] #### [address] Transferrin [Mass/volume] in Serum or PlasmaOrdered By: Samia Saenz on 03-17-2023 Transferrin [Mass/Vol] 230 mg/dL Normal 203-362 [facility] Comment on above: Performed By: #### A 1C WTH eA, TSH3, CBC, T4F, CMP, FE PRO, T3F, [id number], LIPID, [id number] #### [address] Triglyceride [Mass/volume] i n Serum or PlasmaOrdered By: Samia Saenz on 03-17-2023 Triglyceride [Mass/Vol] 129 mg/dL 0-149 [facility] Comment on above: TRIG ATP III CLASSIF ICATIONTRIG less than 150 mg/dL NormalTRIG 150-199 mg/dL Borderline highTRIG 200-500 mg/dL High TRIG greater than 500 mg/dL Very highStandard traceable to the Center for Disease Conrtrol and Prevention (CDC) test method. Triiodothyronine (T3) Freeon 03-17-2023 Triiodothyronine (T3) Free 2.54 pg/mL Normal 2.50-3.90 [facility] Comment on above: Result Comment: PERF ORMED BY: [place] [address] PATHOLOGIST FIELD TAX AUDITOR BALDEV HENNESSY M.D. Performed By: #### A 1C WT eA, TSH3, CBC, T4F, CMP, FE PRO, T3F, [id number], LIPID, [id number] #### [facility] [address] [place] [id number] [facility] Triiodothyronine (T3) Free [ Mass/volume] in Serum or PlasmaOrdered By: Samia Saenz on 03-17-2023 Free T3 [Mass/Vol] 2.54 pg/mL 2.50-3.90 [facility] Urea nitrogen [Mass/volume] in Serum or PlasmaOrdered By: Samia Saenz on 03-17-2023 Urea nitrogen [Mass/Vol] 19 mg/dL Normal 7-25 [facility] Comment on above: Performed By: #### A 1C WTH eA, TSH3, CBC, T4F, CMP, FE PRO, T3F, [id number], LIPID, [id number] #### [facility] [address] [place] [id number] [place] Urine Cultureon 03-17-2023 Bacteria identified Cx Nom (U) ORGANISM: Lactobacillus jensenii (O:LACJEN) [place] Count >100,000 Organism Comments Organism not Routinely Tested for Susceptibilities PERFORMED BY: [place] [address] PATHOLOGIST FIELD TAX AUDITOR BALDEV HENNESSY M.D. Normal [facility] Comment on above: Performed By: #### A 1C WTH eA, TSH3, CBC, T4F, CMP, FE PRO, T3F, [id number], LIPID, [id number] #### [facility] [address] Urine bacteria detection by automated methodOrdered By: Samia Saenz on 03-17-2023 Bacteria Auto Ql (U) 1+ None Seen [facility] Urine clarity by refractomet ry automatedOrdered By: Samia Saenz on 03-17-2023 Clarity Refractometry automated (U) Cloudy Clear [facility] Urine culture routineOrdered By: Samia Saenz on 03-17-2023 Bacteria identified Cx Nom (U) Lactobacillus jensenii [facility] Urine glucose measurement by automated test strip (mass/volume)Ordered By: Samia Saenz on 03-17-2023 Glucose Auto test strip (U) [Mass/Vol] Normal mg/dL Normal [facility] Urine hemoglobin detection b y automated test stripOrdered By: Samia Saenz on 03-17-2023 Hemoglobin Auto test strip Ql (U) Negative Negative [facility] Urine leukocyte esterase det ection by automated test stripOrdered By: Samia Saenz on 03-17-2023 Leukocyte esterase Auto test strip Ql (U) 1+ Negative [facility] Urine pH measurement by auto mated test stripOrdered By: Samia Saenz on 03-17-2023 pH (U) 5.0 [pH] Normal 5.0-9.0 [facility] Comment on above: Order Comment: Name Collection Type:: Clean-Voided Midstream Performed By: #### A 1C WTH eA, TSH3, CBC, T4F, CMP, FE PRO, T3F, [id number], LIPID, [id number] #### [facility] [address] Urobilinogen Auto test strip (U) [Mass/Vol]Ordered By: Samia Saenz on 03-17-2023 Urobilinogen (U) [Mass/Vol] Normal mg/dL Normal [facility] Vit. B12/Folate Profileon Folate 10.5 ng/mL Normal >5.9 [facility] Comment on above: Result Comment: Jessica te reference range: >5.9 ng/ml The WHO technical consultation on folate and vitamin b12 deficiencies has determined that folate concentrations less than 4 ng/ml are considered deficient. Performed By: #### A 1C WTH eA, TSH3, CBC, T4F, CMP, FE PRO, T3F, [id number], LIPID, [id number] #### [facility] [address] Vitamin B12 ser/plasOrdered By: Samia Saenz on 03-17-2023 Cobalamin (Vitamin B12) [Mass/Vol] 763 pg/mL Normal 180-914 [facility] Comment on above: Performed By: #### A 1C WTH eA, TSH3, CBC, T4F, CMP, FE PRO, T3F, [id number], LIPID, [id number] #### [facility] [address] [place] [id number] [facility] Vitamin D 25 Hydroxy Totalon 03-17-2023 Vitamin D 25 Hydroxy Total 53.3 ng/mL Normal 30-100 [facility] Comment on above: Result Comment: [place] MIN D STATUS 25([place])VITAMIN D RANGE (ng/mL) Deficient <20 Insufficient 20 to <30 Sufficient 30 to 100 Reference: Melvin MF,Shakir NC, Darius SHAW, et al. Evaluation,treatment, and prevention of vitamin D deficiency; an Endocrine Society clinical practice guideline. JCEM. 2010; 96(7):1911-30. PERFORMED BY: [place] [address] PATHOLOGIST FIELD TAX AUDITOR BALDEV HENNESSY M.D. Performed By: #### A 1C WTH eA, TSH3, CBC, T4F, CMP, FE PRO, T3F, [id number], LIPID, [id number] #### [place] [id number] [facility] Vitamin D+Metabolites [Mass/ volume] in Serum or PlasmaOrdered By: Samia Saenz on 03-17-2023 Vitamin D+Metabolites [Mass/Vol] 53.3 ng/mL 30-100 [facility] Comment on above: VITAMIN D STATUS 25( [place])VITAMIN D RANGE (ng/mL) Deficient <20 Insufficient 20 to <30Sufficient 30 to 100Reference: Melvin LOZANO,Shakir ESTRADA, Darius SHAW, et al. Evaluation,treatment, and prevention of vitamin D deficiency; an Endocrine Society clinical practice guideline. JCEM. 2010; 96(7):1911-30. [place] 03-12-2023 Screens [id number]# 1.00TIFF Normal [facility] Ambulatory Visit Summaryon 1 05-11-2022 Ambulatory Visit Summary ALLA BRADY :1965 Visit Date:03/11/2023 Ambulatory Visit Instructions Your Diagnosis Urinary urgency Tests Performed Urnls Dip Stick Auto w/o Microscopy POC 85241 Your Care Team Attending Physician - VEE PELAEZ PA-C Primary Care Physician - Samia Saenz DO Referring Physician - Samia Saenz DO This Is Your Medications List Contact prescribing physician if questions or concerns alprazolam (alprazolam 1 mg Tab) buprenorphine (buprenorphine 8 mg sublingual tablet) colestipol (colestipol 1 g Tab) gabapentin (gabapentin 800 mg Tab) levothyroxine (levothyroxine 125 mcg (0.125 mg) Tab) modafinil (modafinil 200 mg Tab) oxcarbazepine (oxcarbazepine 300 mg Tab) potassium chloride (Potassium Chloride (Zan-Fgiy-Mgy 10) 10 mEq oral tablet, extended release) tapentadol (Nucynta 75 mg oral tablet) topiramate (topiramate 100 mg Tab) vortioxetine (Trintellix 10 mg oral tablet) Procedures Performed Nerve stimulator (06/12/2022), Colonoscopy (03/16/2020), Colonoscopy (08/2015), Procedure on lower leg (04/2011), Cervical spinal fusion (2009), Ablation of uterine fibroid using magnetic resonance imaging guidance (03/2009), Carpal tunnel release (1999), Appendectomy, Cervical spinal fusion, Cervical spinal fusion, Cervical spinal fusion, Dilation and curettage, Procedure on pilonidal sinus. Discharge Vitals Heart Rate (Peripheral) 72 Respiratory Rate 16 Blood Pressure 120/69 Height 163 cm Height 64 in Weight 54 kg Weight 118.8 lb BMI 20.32 Medications What How Much When Instructions Unchanged alprazolam (alprazolam 1 mg Tab) 1 Tablets By Mouth 3 times a day as needed for for anxiety Contact prescribing physician if questions or concerns Unchanged buprenorphine (buprenorphine 8 mg sublingual tablet) Contact prescribing physician if questions or concerns Unchanged colestipol (colestipol 1 g Tab) Contact prescribing physician if questions or concerns Unchanged gabapentin (gabapentin 800 mg Tab) Contact prescribing physician if questions or concerns Unchanged levothyroxine (levothyroxine 125 mcg (0.125 mg) Tab) Contact prescribing physician if questions or concerns Unchanged modafinil (modafinil 200 mg Tab) Contact prescribing physician if questions or concerns Unchanged oxcarbazepine (oxcarbazepine 300 mg Tab) Contact prescribing physician if questions or concerns Unchanged potassium chloride (Potassium Chloride (Gvi-Iqfy-Zgx 10) 10 mEq oral tablet, extended release) Contact prescribing physician if questions or concerns Unchanged tapentadol (Nucynta 75 mg oral tablet) Contact prescribing physician if questions or concerns Unchanged topiramate (topiramate 100 mg Tab) Contact prescribing physician if questions or concerns Unchanged vortioxetine (Trintellix 10 mg oral tablet) Contact prescribing physician if questions or concerns Test Results Urnls Dip Stick Auto w/o Microscopy POC 97728 (03/11/2023) Bilirubin Urine Dipstick - Negative Blood Urine Dipstick - Negative Glucose Urine Dipstick - Negative Ketones Urine Dipstick - Negative Leukocytes Urine Dipstick - Negative Nitrite Urine Dipstick - Negative Protein Urine Dipstick - Negative Specific [place] Urine Dipstick - 1.025 Urine Appearance Urine Dipstick - Clear Urine Color Urine Dipstick - Yellow Urobilinogen Urine Dipstick - Normal 0.2-1 EU/dl pH Urine Dipstick - 5.5 Allergies Augmentin (Nausea) Omnicef (Unknown) sulfamethoxazole (Edema) Problems Ongoing - Any problem that you are currently receiving treatment for. Allergic rhinitis Depression Fibromyalgia Lumbar pain Lumbar strain Nasal cavity polyp Paresthesia Pneumonia Sinusitis Patient Survey You may receive a survey via text or e-mail asking about your office visit. Please share your experience with us by completing your survey. We appreciate your feedback and thank you for choosing us for your care. Aníbal Lin [facility] Patient Educationon 11-28-20 23 Patient Education Pulmonary Medicine Steps to Quit Smoking Smoking tobacco is the leading cause of preventable . It can affect almost every organ in the body. Smoking puts you and those around you at risk for developing many serious chronic diseases. Quitting smoking can be very challenging. Do not get discouraged if you are not successful the first time. Some people need to make many attempts to quit before they achieve long-term success. Do your best to stick to your quit plan, and talk with your health care provider if you have any questions or concerns. How do I get ready to quit? When you decide to quit smoking, create a plan to help you succeed. Before you quit: ? Pick a date to quit. Set a date within the next 2 weeks to give you time to prepare. ? Write down the reasons why you are quitting. Keep this list in places where you will see it often. ? Tell your family, friends, and co-workers that you are quitting. Support from people you are close to can make quitting easier. ? Talk with your health care provider about your options for quitting smoking. ? Find out what treatment options are covered by your health insurance. ? Identify people, places, things, and activities that make you want to smoke (triggers). Avoid them. What first steps can I take to quit smoking? ? Throw away all cigarettes at home, at work, and in your car. ? Throw away smoking accessories, such as ashtrays and lighters. ? Clean your car. Make sure to empty the ashtray. ? Clean your home, including curtains and carpets. What strategies can I use to quit smoking? Talk with your health care provider about combining strategies, such as taking medicines while you are also receiving in-person counseling. Using these two strategies together makes you more likely to succeed in quitting than if you used either strategy on its own. If you are or , talk with your health care provider about finding counseling or other support strategies to quit smoking. Do not take medicine to help you quit smoking unless your health care provider tells you to. Quit right away ? Quit smoking completely, instead of gradually reducing how much you smoke over a period of time. Stopping smoking right away may be more successful than gradually quitting. ? Attend in-person counseling to help you build problem-solving skills. You are more likely to succeed in quitting if you attend counseling sessions regularly. Even short sessions of 10 minutes can be effective. Take medicine You may take medicines to help you quit smoking. Some medicines require a prescription. You can also purchase gask-txz-dsrwfmy medicines. Medicines may have nicotine in them to replace the nicotine in cigarettes. Medicines may: ? Help to stop cravings. ? Help to relieve withdrawal symptoms. Your health care provider may recommend: ? Nicotine patches, gum, or lozenges. ? Nicotine inhalers or sprays. ? Non-nicotine medicine that you take by mouth. Find resources Find resources and support systems that can help you quit smoking and remain smoke-free after you quit. These resources are most helpful when you use them often. They include: ? Online chats with a counselor. ? Telephone quitlines. ? Printed self-help materials. ? Support groups or group counseling. ? Text messaging programs. ? Mobile phone apps or applications. Use apps that can help you stick to your quit plan by providing reminders, tips, and encouragement. Examples of free services include Quit Guide from the CDC and smokefree.gov What can I do to make it easier to quit? ? Reach out to your family and friends for support and encouragement. Call telephone quitlines, such as 9-073-PGJP-NOW, reach out to support groups, or work with a counselor for support. ? Ask people who smoke to avoid smoking around you. ? Avoid places that trigger you to smoke, such as bars, parties, or smoke-break areas at work. ? Spend time with people who do not smoke. ? Lessen the stress in your life. Stress can be a smoking trigger for some people. To lessen stress, try: ? Exercising regularly. ? Doing deep-breathing exercises. ? Doing yoga. ? Meditating. What benefits will I see if I quit smoking? Over time, you should start to see positive results, such as: ? Improved sense of smell and taste. ? Decreased coughing and sore throat. ? Slower heart rate. ? Lower blood pressure. ? Clearer and healthier skin. ? The ability to breathe more easily. ? Fewer sick days. Summary ? Quitting smoking can be very challenging. Do not get discouraged if you are not successful the first time. Some people need to make many attempts to quit before they achieve long-term success. ? When you decide to quit smoking, create a plan to help you succeed. ? Quit smoking right away, not slowly over a period of time. ? Find resources and support systems that can help you quit smoki (more content not included)... Normal [facility] Automated erythrocytes count in urine sediment (number/area)Ordered By: Samia Saenz on 09-18-2022 RBC Auto (Urine sed) [#/Area] 1-2 [HPF] 0-4 [facility] Automated leukocytes count i n urine sediment (number/area)Ordered By: Samia Saenz on 09-18-2022 WBC Auto (Urine sed) [#/Area] 0-1 [HPF] 0-4 [facility] Automated urine sediment aaron cium oxalate crystal count by microscopy (number/high powOrdered By: Samia Saenz on 09-18-2022 Calcium oxalate crystals LM.HPF (Urine sed) [#/Area] 2+ [HPF] [facility] Bilirubin Test strip Ql (U)O rdered By: Samia Saenz on 09-18-2022 Bilirubin Ql (U) Negative Negative [facility] Color Auto (U)Ordered By: Dequan Saenz on 09-18-2022 Color (U) Yellow Yellow [facility] Ketones Auto test strip (U) [Mass/Vol]Ordered By: Samia Saenz on 09-18-2022 Ketones (U) [Mass/Vol] Negative Negative [facility] Laboratory - UrinalysisOrder ed By: Samia Saenz on 09-18-2022 Hyaline casts LM Ql (Urine sed) 0-8 [LPF] 0-8 [facility] Nitrite Test strip Ql (U)Ord ered By: Samia Saenz on 09-18-2022 Nitrite Ql (U) Negative Negative [facility] Protein Auto test strip (U) [Mass/Vol]Ordered By: Samia Saenz on 09-18-2022 Protein (U) [Mass/Vol] Negative Negative Fi [facility] Specific gravity Auto test s trip (U) [Rel density]Ordered By: Samia Saenz on 09-18-2022 Specific gravity (U) [Rel density] 1.021 1.001-1.030 [facility] Squamous epithelial cells de tection in urine sediment by light microscopyOrdered By: Samia Saenz on 09-18-2022 Epithelial cells.squamous LM Ql (Urine sed) 0-1 [HPF] 0-2 [facility] Urine bacteria detection by automated methodOrdered By: Samia Saenz on 09-18-2022 Bacteria Auto Ql (U) None seen None Seen [facility] Urine clarity by refractomet ry automatedOrdered By: Samia Saenz on 09-18-2022 Clarity Refractometry automated (U) Clear Clear [facility] Urine glucose measurement by automated test strip (mass/volume)Ordered By: Samia Saenz on 09-18-2022 Glucose Auto test strip (U) [Mass/Vol] Normal mg/dL Normal [facility] Urine hemoglobin detection b y automated test stripOrdered By: Samia Saenz on 09-18-2022 Hemoglobin Auto test strip Ql (U) Negative Negative [facility] Urine leukocyte esterase det ection by automated test stripOrdered By: Samia Saenz on 09-18-2022 Leukocyte esterase Auto test strip Ql (U) Negative Negative [facility] Urine sediment crystal ident ification by light microscopyOrdered By: Samia Saenz on 09-18-2022 Crystals LM Nom (Urine sed) N/A [facility] Urobilinogen Auto test strip (U) [Mass/Vol]Ordered By: Samia Saenz on 09-18-2022 Urobilinogen (U) [Mass/Vol] Normal mg/dL Normal [facility] pH Auto test strip (U)Ordere d By: Samia Saenz on 09-18-2022 pH (U) 5.5 [pH] 5.0-9.0 [facility] Alanine aminotransferase [En zymatic activity/volume] in Serum or PlasmaOrdered By: Samia Saenz on 09-16-2022 ALT [Catalytic activity/Vol] 13 U/L 7-52 [facility] Albumin [Mass/volume] in Ser um or Plasma by Bromocresol green (BCG) dye binding methoOrdered By: Samia Saenz on 09-16-2022 Albumin BCG dye [Mass/Vol] 4.4 g/dL 3.5-5.7 [facility] Alkaline phosphatase [Enzyma tic activity/volume] in Serum or PlasmaOrdered By: Samia Saenz on 09-16-2022 ALP [Catalytic activity/Vol] 49 U/L 34-104 [facility] Aspartate aminotransferase [ Enzymatic activity/volume] in Serum or PlasmaOrdered By: Samia Saezn on 09-16-2022 AST [Catalytic activity/Vol] 11 U/L 13-39 [facility] Basophils Auto (Bld) [#/Vol] Ordered By: Samia Saenz on 09-16-2022 Basophils (Bld) [#/Vol] 0.0 10*3/uL 0.0-0.2 [facility] Basophils/100 WBC Auto (Bld) Ordered By: Samia Saenz on 09-16-2022 Basophils/100 WBC (Bld) 0.6 % . [facility] Bilirubin.total [Mass/volume ] in Serum or PlasmaOrdered By: Samia Saenz on 09-16-2022 Bilirubin [Mass/Vol] 0.3 mg/dL 0.3-1.0 [facility] Calcium [Mass/volume] in Ser um or PlasmaOrdered By: Samia Saenz on 09-16-2022 Calcium [Mass/Vol] 9.3 mg/dL 8.6-10.3 [facility] Carbon dioxide, total [Moles /volume] in Serum or PlasmaOrdered By: Samia Saenz on 09-16-2022 CO2 [Moles/Vol] 27.0 mmol/L 21.0-31.0 [facility] Chloride [Moles/volume] in S santiago or PlasmaOrdered By: Samia Saenz on 09-16-2022 Chloride [Moles/Vol] 107 mmol/L 98-107 [facility] Cholesterol [Mass/volume] in Serum or PlasmaOrdered By: Samia Saenz on 09-16-2022 Cholesterol [Mass/Vol] 179 mg/dL 140-200 [facility] Comment on above: Chol less than 200 m g/dl low riskChol 201-239 mg/dl borderline riskChol 240 mg/dl and greater high risk Cholesterol in LDL Calc [Mas s/Vol]Ordered By: Samia Saenz on 09-16-2022 Cholesterol in LDL [Mass/Vol] 105 mg/dL 0-100 [facility] Comment on above: LDL ATP III CLASSIFI CATIONLDL less than 100 mg/dL OptimalLDL 100-129 mg/dL Near or above optimalLDL 130-159 mg/dL Borderline highLDL 160-189 mg/dL HighLDL greater than 189 mg/dL Very high Cholesterol in VLDL Calc [Ma ss/Vol]Ordered By: Samia Saenz on 09-16-2022 Cholesterol in VLDL [Mass/Vol] 29 mg/dL [facility] Creatinine [Mass/volume] in Serum or PlasmaOrdered By: Samia Saenz on 09-16-2022 Creatinine [Mass/Vol] 0.72 mg/dL 0.60-1.20 [facility] Eosinophils Auto (Bld) [#/Vo l]Ordered By: Samia Saenz on 09-16-2022 Eosinophils (Bld) [#/Vol] 0.0 10*3/uL 0.0-0.45 [facility] Eosinophils/100 WBC Auto (Bl d)Ordered By: Samia Saenz on 09-16-2022 Eosinophils/100 WBC (Bld) 0.2 % . [facility] Erythrocyte distribution wid th Auto (RBC) [Ratio]Ordered By: Samia Saenz on 09-16-2022 Erythrocyte distribution width (RBC) [Ratio] 13.1 % 11.9-15.3 [facility] Ferritin [Mass/volume] in Se rum or PlasmaOrdered By: Samia Saenz on 09-16-2022 Ferritin [Mass/Vol] 27.4 ng/mL 11.0-306.8 [facility] Folate [Mass/volume] in Seru m or PlasmaOrdered By: Samia Saenz on 09-16-2022 Folate [Mass/Vol] 28.0 ng/mL >5.9 [facility] Comment on above: Folate reference ran ge: >5.9 ng/mlThe WHO technical consultation on folate and vitamin [id number] has determined that folate concentrations lessthan 4 ng/ml are considered deficient. Globulin Calc (S) [Mass/Vol] Ordered By: Samia Saenz on 09-16-2022 Globulin (S) [Mass/Vol] 2.1 g/dL [facility] Glucose [Mass/volume] in Ser um or PlasmaOrdered By: Samia Saenz on 09-16-2022 Glucose [Mass/Vol] 87 mg/dL 70-100 [facility] Comment on above: ADA recommended refe rence rangeRandom Glucose Reference Range is dependent on time and content of last meal. Glucose of more than 200 mg/dL in a nonstressed, ambulatory subject supports the diagnosis of Diabetes Mellitus. Glucose mean value [Mass/vol ume] in Blood Estimated from glycated hemoglobinOrdered By: Samia Saenz on 09-16-2022 Average glucose Estimated from glycated hemoglobin (Bld) [Mass/Vol] 120 mg/dL [facility] Hematocrit Auto (Bld) [Volum e fraction]Ordered By: Samia Saenz on 09-16-2022 Hematocrit (Bld) [Volume fraction] 38.5 % 34.0-46.4 [facility] Hemoglobin A1c percentageOrd ered By: Samia Saenz on 09-16-2022 HbA1c (Bld) [Mass fraction] 5.8 % 4.3-5.6 [facility] Comment on above: Increased risk for d iabetes: 5.7 - 6.4diabetes: >6.4glycemic control for adults with diabetes: <7.0 Hemoglobin [Mass/volume] in BloodOrdered By: Samia Saenz on 09-16-2022 Hemoglobin (Bld) [Mass/Vol] 12.9 g/dL 11.8-15.4 [facility] Iron [Mass/volume] in Serum or PlasmaOrdered By: Samia Saenz on 09-16-2022 Iron [Mass/Vol] 34 ug/dL 50-212 [facility] Iron binding capacity [Mass/ volume] in Serum or PlasmaOrdered By: Samia Saenz on 09-16-2022 Iron binding capacity [Mass/Vol] 323 ug/dL 255-450 [facility] Iron saturation [Mass Fracti on] in Serum or PlasmaOrdered By: Samia Saenz on 09-16-2022 Iron saturation [Mass fraction] 10.5 % 20-50 [facility] Leukocytes [#/volume] correc perico for nucleated erythrocytes in Blood by Automated counOrdered By: Samia Saenz on 09-16-2022 WBC corrected for nucl RBC Auto (Bld) [#/Vol] 8.7 10*3/uL 3.8-11.6 [facility] Lymphocytes Auto (Bld) [#/Vo l]Ordered By: Samia Saenz on 09-16-2022 Lymphocytes (Bld) [#/Vol] 1.6 10*3/uL 1.00-4.8 [facility] Lymphocytes/100 WBC Auto (Bl d)Ordered By: Samia Saenz on 09-16-2022 Lymphocytes/100 WBC (Bld) 18.4 % . [facility] MCH Auto (RBC) [Entitic mass ]Ordered By: Samia Saenz on 09-16-2022 MCH (RBC) [Entitic mass] 31.8 pg 24.7-34.3 [facility] MCHC Auto (RBC) [Mass/Vol]Or dered By: Samia Saenz on 09-16-2022 MCHC (RBC) [Mass/Vol] 33.6 g/dL 32.0-35.0 [facility] MCV Auto (RBC) [Entitic vol] Ordered By: Samia Saenz on 09-16-2022 MCV (RBC) [Entitic vol] 94.5 fL 80-100 [facility] Monocytes Auto (Bld) [#/Vol] Ordered By: Samia Saenz on 09-16-2022 Monocytes (Bld) [#/Vol] 0.6 10*3/uL 0.0-0.8 [facility] Monocytes/100 WBC Auto (Bld) Ordered By: Samia Saenz on 09-16-2022 Monocytes/100 WBC (Bld) 6.8 % . [facility] Neutrophils Auto (Bld) [#/Vo l]Ordered By: Samia Saenz on 09-16-2022 Neutrophils (Bld) [#/Vol] 6.5 10*3/uL 1.8-7.7 [facility] Neutrophils/100 WBC Auto (Bl d)Ordered By: Samia Saenz on 09-16-2022 Neutrophils/100 WBC (Bld) 74.0 % . [facility] No Panel InformationOrdered By: Samia Saenz on 09-16-2022 Estimated GFR (CKD-EPI) > 60.0 mL/Min [facility] Creatinine Clearance (Chem N/A [facility] Nucleated erythrocytes [Pres ence] in Blood by Automated countOrdered By: Samia Saenz on 09-16-2022 Nucleated RBC Auto Ql (Bld) 0.0 /100{WBC} 0-0.5 [facility] Platelet mean volume Auto (B ld) [Entitic vol]Ordered By: Samia Saenz on 09-16-2022 Platelet mean volume (Bld) [Entitic vol] 7.6 fL 6.3-10.7 [facility] Platelets Auto (Bld) [#/Vol] Ordered By: Samia Saenz on 09-16-2022 Platelets (Bld) [#/Vol] 250 10*3/uL 150-450 [facility] Potassium [Moles/volume] in Serum or PlasmaOrdered By: Samia Saenz on 09-16-2022 Potassium [Moles/Vol] 3.8 mmol/L 3.5-5.1 [facility] Protein [Mass/volume] in Ser um or PlasmaOrdered By: Samia Saenz on 09-16-2022 Protein [Mass/Vol] 6.5 g/dL 6.4-8.9 [facility] RBC Auto (Bld) [#/Vol]Ordere d By: Samia Saenz on 09-16-2022 RBC (Bld) [#/Vol] 4.07 10*6/uL 3.60-5.00 [facility] Serum or plasma albumin/glob ulin mass ratioOrdered By: Samia Saenz on 09-16-2022 Albumin/Globulin [Mass ratio] 2.1 {ratio} [facility] Serum or plasma anion gap de terminationOrdered By: Smaia Saenz on 09-16-2022 Anion gap [Moles/Vol] 9.8 mmol/L 6.0-15.0 [facility] Serum or plasma high density lipoprotein (HDL) cholesterol measurementOrdered By: Samia Saenz on 09-16-2022 Cholesterol in HDL [Mass/Vol] 45 mg/dL 23-92 [facility] Comment on above: HDL CHOL ATP-III CLA SSIFICATION Cardiovascular RiskHDL > or equal to 60 mg/dL LOWHDL < 40 mg/dL HIGH Serum or plasma total choles terol/high density lipoprotein (HDL) cholesterol mass ratOrdered By: Samia Saenz on 09-16-2022 Cholesterol.total/Theresa sterol in HDL [Mass ratio] 4.0 {ratio} <5.0 [facility] Sodium [Moles/volume] in Ser um or PlasmaOrdered By: Samia Saenz on 09-16-2022 Sodium [Moles/Vol] 140 mmol/L 136-145 [facility] Thyrotropin [Units/volume] i n Serum or PlasmaOrdered By: Samia Saenz on 09-16-2022 TSH Qn 1.50 m[IU]/L 0.45-5.33 [facility] Thyroxine (T4) free [Mass/vo lume] in Serum or PlasmaOrdered By: Samia Saenz on 09-16-2022 Free T4 [Mass/Vol] 0.75 ng/dL 0.61-1.12 [facility] Transferrin [Mass/volume] in Serum or PlasmaOrdered By: Samia Saenz on 09-16-2022 Transferrin [Mass/Vol] 231 mg/dL 203-362 [facility] Triglyceride [Mass/volume] i n Serum or PlasmaOrdered By: Samia Saenz on 09-16-2022 Triglyceride [Mass/Vol] 147 mg/dL 0-149 [facility] Comment on above: TRIG ATP III CLASSIF ICATIONTRIG less than 150 mg/dL NormalTRIG 150-199 mg/dL Borderline highTRIG 200-500 mg/dL High TRIG greater than 500 mg/dL Very highStandard traceable to the Center for Disease Conrtrol and Prevention (CDC) test method. Triiodothyronine (T3) Free [ Mass/volume] in Serum or PlasmaOrdered By: Samia Saenz on 09-16-2022 Free T3 [Mass/Vol] 2.64 pg/mL 2.50-3.90 [facility] Urea nitrogen [Mass/volume] in Serum or PlasmaOrdered By: Samia Saenz on 09-16-2022 Urea nitrogen [Mass/Vol] 16 mg/dL 7-25 [facility] Vitamin B12 ser/plasOrdered By: Samia Saenz on 09-16-2022 Cobalamin (Vitamin B12) [Mass/Vol] 484 pg/mL 180-914 [facility] Vitamin D+Metabolites [Mass/ volume] in Serum or PlasmaOrdered By: Samia Saenz on 09-16-2022 Vitamin D+Metabolites [Mass/Vol] 78.1 ng/mL 30-100 [facility] Comment on above: VITAMIN D STATUS 25( [place])VITAMIN D RANGE (ng/mL) Deficient <20 Insufficient 20 to <30Sufficient 30 to 100Reference: Melvin MF,Shakir NC, Darius SHAW, et al. Evaluation,treatment, and prevention of vitamin D deficiency; an Endocrine Society clinical practice guideline. JCEM. 2010; 96(7):1911-30. WBC Auto (Bld) [#/Vol]Ordere d By: Samia Saenz on 09-16-2022 WBC (Bld) [#/Vol] 8.7 10*3/uL 3.8-11.6 [facility] Urine culture routineOrdered By: Samia Saenz on 01-13-2022 Bacteria identified Cx Nom (U) 2 Days [facility] Albumin [Mass/volume] in Ser um or PlasmaOrdered By: Samia Saenz on 01-11-2022 Albumin [Mass/Vol] 3.7 g/dL 3.2-5.5 [facility] Basophils Auto (Bld) [#/Vol] Ordered By: Samia Saenz on 01-11-2022 Basophils (Bld) [#/Vol] 0.0 10*3/uL 0.0-0.2 [facility] Basophils/100 WBC Auto (Bld) Ordered By: Samia Saenz on 01-11-2022 Basophils/100 WBC (Bld) 0.5 % . [facility] Bilirubin Test strip Ql (U)O rdered By: Samia Saenz on 01-11-2022 Bilirubin Ql (U) Negative Negative [facility] CT biopsyOrdered By: Samia mina on 01-11-2022 Transferrin [Mass/Vol] 239 mg/dL 180-[facility] Color Auto (U)Ordered By: Dequan Saenz on 01-11-2022 Color (U) Yellow Yellow [facility] Creatinine and Glomerular fi ltration rate.predicted panel (S/P/Bld)Ordered By: Samia Saenz on 01-11-2022 Creatinine [Mass/Vol] 0.68 mg/dL 0.44-1.03 [facility] Eosinophils Auto (Bld) [#/Vo l]Ordered By: Samia Saenz on 01-11-2022 Eosinophils (Bld) [#/Vol] 0.0 10*3/uL 0.0-0.45 [facility] Eosinophils/100 WBC Auto (Bl d)Ordered By: Samia Saenz on 01-11-2022 Eosinophils/100 WBC (Bld) 0.2 % . [facility] Erythrocyte distribution wid th Auto (RBC) [Ratio]Ordered By: Samia Saenz on 01-11-2022 Erythrocyte distribution width (RBC) [Ratio] 15.2 % 11.9-15.3 [facility] Estimated glomerular filtrat ion rate (GFR) non- AmericanOrdered By: Samia Saenz on 01-11-2022 GFR/1.73 sq M.predicted among non-blacks MDRD (S/P/Bld) [Vol rate/Area] > 60 mL/Min [facility] Ferritin [Mass/volume] in Se rum or PlasmaOrdered By: Samia Saenz on 01-11-2022 Ferritin [Mass/Vol] 30.8 ng/mL 11-306.8 [facility] Folate [Mass/volume] in Seru m or PlasmaOrdered By: Samia Saenz on 01-11-2022 Folate [Mass/Vol] 10.1 ng/mL >5.9 [facility] Comment on above: Folate reference ran ge: >5.9 ng/mlThe WHO technical consultation on folate and vitamin [id number] has determined that folate concentrations lessthan 4 ng/ml are considered deficient. Globulin Calc (S) [Mass/Vol] Ordered By: Samia Saenz on 01-11-2022 Globulin (S) [Mass/Vol] 2.9 g/dL [facility] Glucose mean value [Mass/vol ume] in Blood Estimated from glycated hemoglobinOrdered By: Samia Saenz on 01-11-2022 Average glucose Estimated from glycated hemoglobin (Bld) [Mass/Vol] 117 mg/dL [facility] Hematocrit Auto (Bld) [Volum e fraction]Ordered By: Samia Saenz on 01-11-2022 Hematocrit (Bld) [Volume fraction] 38.7 % 34.0-46.4 [facility] Hemoglobin A1c percentageOrd ered By: Samia Saenz on 01-11-2022 HbA1c (Bld) [Mass fraction] 5.7 % 4.3-5.6 [facility] Comment on above: Increased risk for d iabetes: 5.7 - 6.4diabetes: >6.4glycemic control for adults with diabetes: <7.0 Hemoglobin [Mass/volume] in BloodOrdered By: Samia Saenz on 01-11-2022 Hemoglobin (Bld) [Mass/Vol] 12.5 g/dL 11.8-15.4 [facility] Iron [Mass/volume] in Serum or PlasmaOrdered By: Samia Saenz on 01-11-2022 Iron [Mass/Vol] 71 ug/dL 40-150 [facility] Iron binding capacity [Mass/ volume] in Serum or PlasmaOrdered By: Samia Saenz on 01-11-2022 Iron binding capacity [Mass/Vol] 335 ug/dL 255-450 [facility] Iron saturation [Mass Fracti on] in Serum or PlasmaOrdered By: Samia Saenz on 01-11-2022 Iron saturation [Mass fraction] 21.0 % 20-50 [facility] Ketones Auto test strip (U) [Mass/Vol]Ordered By: Samia Saenz on 01-11-2022 Ketones (U) [Mass/Vol] Negative Negative [facility] Laboratory - Chemistry and C hemistry - challengeOrdered By: Samia Saenz on 01-11-2022 Cobalamin (Vitamin B12) [Mass/Vol] 496 pg/mL 180-914 [facility] Laboratory - Hematology and Cell countsOrdered By: Samia Saenz on 01-11-2022 Nucleated RBC/100 WBC (Bld) [Ratio] 0.0 % 0-0.5 [facility] Leukocytes [#/volume] in Blo od by Automated countOrdered By: Samia Saenz on 01-11-2022 WBC (Bld) [#/Vol] 5.3 10*3/uL 4.5-11.0 [facility] Lymphocytes Auto (Bld) [#/Vo l]Ordered By: Samia Saenz on 01-11-2022 Lymphocytes (Bld) [#/Vol] 1.6 10*3/uL 1.00-4.8 [facility] Lymphocytes/100 WBC Auto (Bl d)Ordered By: Samia Saenz on 01-11-2022 Lymphocytes/100 WBC (Bld) 30.7 % . [facility] MCH Auto (RBC) [Entitic mass ]Ordered By: Samia Saenz on 01-11-2022 MCH (RBC) [Entitic mass] 30.6 pg 24.7-34.3 [facility] MCHC Auto (RBC) [Mass/Vol]Or dered By: Samia Saenz on 01-11-2022 MCHC (RBC) [Mass/Vol] 32.4 g/dL 32.0-35.0 [facility] MCV Auto (RBC) [Entitic vol] Ordered By: Samia Saenz on 01-11-2022 MCV (RBC) [Entitic vol] 94.6 fL 80-100 [facility] Monocytes Auto (Bld) [#/Vol] Ordered By: Samia Saenz on 01-11-2022 Monocytes (Bld) [#/Vol] 0.3 10*3/uL 0.0-0.8 [facility] Monocytes/100 WBC Auto (Bld) Ordered By: Samia Saenz on 01-11-2022 Monocytes/100 WBC (Bld) 6.3 % . [facility] Neutrophils Auto (Bld) [#/Vo l]Ordered By: Samia Saenz on 01-11-2022 Neutrophils (Bld) [#/Vol] 3.3 10*3/uL 1.8-7.7 [facility] Neutrophils/100 WBC Auto (Bl d)Ordered By: Samia Saenz on 01-11-2022 Neutrophils/100 WBC (Bld) 62.3 % . [facility] Nitrite Test strip Ql (U)Ord ered By: Samia Saenz on 01-11-2022 Nitrite Ql (U) Negative Negative [facility] No Panel InformationOrdered By: Samia Saenz on 01-11-2022 25-Hydroxy Vitamin D Total 54.3 ng/mL [facility] Comment on above: VITAMIN D STATUS 25( [place])VITAMIN D RANGE (ng/mL) Deficient <20 Insufficient 20 to <30Sufficient 30 to 100Reference: Melvin MF,Shakir NC, Darius SHAW, et al. Evaluation,treatment, and prevention of vitamin D deficiency; an Endocrine Society clinical practice guideline. JCEM. 2010; 96(7):1911-30. Estimated GFR () > 60 mL/Min [facility] Comment on above: GFR estimated refere nce range: According to KDOQI guidelines, <60 ml/min/1.73m2 is sufficient to diagnose a patient with chronic kidney disease. Pharmacy Creatinine Clearance (Chem N/A [facility] Platelet mean volume Auto (B ld) [Entitic vol]Ordered By: Samia Saenz on 01-11-2022 Platelet mean volume (Bld) [Entitic vol] 7.7 fL 6.3-10.7 [facility] Platelets Auto (Bld) [#/Vol] Ordered By: Samia Saenz on 01-11-2022 Platelets (Bld) [#/Vol] 262 10*3/uL 150-450 [facility] Protein Auto test strip (U) [Mass/Vol]Ordered By: Samia Saenz on 01-11-2022 Protein (U) [Mass/Vol] Negative Negative [facility] Protein [Mass/volume] in Ser um or PlasmaOrdered By: Samia Saenz on 01-11-2022 Protein [Mass/Vol] 6.6 g/dL 6.1-7.9 [facility] RBC Auto (Bld) [#/Vol]Ordere d By: Samia Saenz on 01-11-2022 RBC (Bld) [#/Vol] 4.08 10*6/uL 3.60-5.00 [facility] Serum or plasma alanine guerrero otransferase measurement without P-5'-P (enzymatic activiOrdered By: Samia Saenz on 01-11-2022 ALT No additional P-5'-P [Catalytic activity/Vol] 16 U/L 10-60 [facility] Serum or plasma albumin/glob ulin mass ratioOrdered By: Samia Saenz on 01-11-2022 Albumin/Globulin [Mass ratio] 1.3 {ratio} [facility] Serum or plasma alkaline lv sphatase measurement (enzymatic activity/volume)Ordered By: Samia Saenz on 01-11-2022 ALP [Catalytic activity/Vol] 62 U/L 32-92 [facility] Serum or plasma anion gap de terminationOrdered By: Samia Saenz on 01-11-2022 Anion gap [Moles/Vol] 12.4 mmol/L 6.0-15.0 [facility] Serum or plasma aspartate am inotransferase measurement (enzymatic activity/volume)Ordered By: Samia Saenz on 01-11-2022 AST [Catalytic activity/Vol] 16 U/L 10-42 [facility] Serum or plasma calcium bev urement (mass/volume)Ordered By: Samia Saenz on 01-11-2022 Calcium [Mass/Vol] 9.5 mg/dL 8.2-10.2 [facility] Serum or plasma chloride del surement (moles/volume)Ordered By: Samia Saenz on 01-11-2022 Chloride [Moles/Vol] 105 mmol/L 95-114 [facility] Serum or plasma glucose bev urement (mass/volume)Ordered By: Samia Saenz on 01-11-2022 Glucose [Mass/Vol] 97 mg/dL 70-100 [facility] Comment on above: ADA recommended refe rence rangeRandom Glucose Reference Range is dependent on time and content of last meal. Glucose of more than 200 mg/dL in a nonstressed, ambulatory subject supports the diagnosis of Diabetes Mellitus. Serum or plasma potassium me asurement (moles/volume)Ordered By: Samia Saenz on 01-11-2022 Potassium [Moles/Vol] 3.6 mmol/L 3.5-5.1 [facility] Serum or plasma sodium measu rement (moles/volume)Ordered By: Samia Saenz on 01-11-2022 Sodium [Moles/Vol] 138 mmol/L 136-146 [facility] Serum or plasma total biliru bin measurement (mass/volume)Ordered By: Samia Saenz on 01-11-2022 Bilirubin [Mass/Vol] 0.4 mg/dL 0.3-1.2 [facility] Serum or plasma total carbon dioxide measurement (moles/volume)Ordered By: Samia Saenz on 01-11-2022 CO2 [Moles/Vol] 24.2 mmol/L 22.0-30.0 [facility] Serum or plasma urea nitroge n measurement (mass/volume)Ordered By: Samia Saenz on 01-11-2022 Urea nitrogen [Mass/Vol] 7 mg/dL 9-23 [facility] Specific gravity Auto test s trip (U) [Rel density]Ordered By: Samia Saenz on 01-11-2022 Specific gravity (U) [Rel density] 1.020 1.001-1.030 [facility] TSH DL <= 0.005 mIU/L QnOrde red By: Samia Saenz on 01-11-2022 TSH Qn 0.66 m[IU]/L 0.45-5.33 [facility] Thyroxine (T4) free [Mass/vo lume] in Serum or PlasmaOrdered By: Samia Saenz on 01-11-2022 Free T4 [Mass/Vol] 0.76 ng/dL 0.61-1.12 [facility] Triiodothyronine (T3) Free [ Mass/volume] in Serum or PlasmaOrdered By: Samia Saenz on 01-11-2022 Free T3 [Mass/Vol] 3.06 pg/mL 2.50-3.90 [facility] Urine clarity by refractomet ry automatedOrdered By: Samia Saenz on 01-11-2022 Clarity Refractometry automated (U) Clear Clear [facility] Urine glucose measurement by automated test strip (mass/volume)Ordered By: Samia Saenz on 01-11-2022 Glucose Auto test strip (U) [Mass/Vol] Normal mg/dL Normal [facility] Urine hemoglobin detection b y automated test stripOrdered By: Samia Saenz on 01-11-2022 Hemoglobin Auto test strip Ql (U) Negative Negative [facility] Urine leukocyte esterase det ection by automated test stripOrdered By: Samia Saenz on 01-11-2022 Leukocyte esterase Auto test strip Ql (U) Negative Negative [facility] Urobilinogen Auto test strip (U) [Mass/Vol]Ordered By: Samia Saenz on 09-30-2022 Urobilinogen (U) [Mass/Vol] Normal mg/dL Normal [facility] pH Auto test strip (U)Ordere d By: Samia Saenz on 01-11-2022 pH (U) 6.5 [pH] 5.0-9.0 [facility] Basophils Auto (Bld) [#/Vol] Ordered By: Whit Tyson on 11-26-2021 Basophils (Bld) [#/Vol] 0.0 10*3/uL 0.0-0.2 [facility] Basophils/100 WBC Auto (Bld) Ordered By: Whit Tyson on 11-26-2021 Basophils/100 WBC (Bld) 0.7 % . [facility] Blood hemoglobin measurement (mass/volume)Ordered By: Whit Tyson on 11-26-2021 Hemoglobin (Bld) [Mass/Vol] 12.3 g/dL 11.8-15.4 [facility] Blood leukocytes automated c ount (number/volume)Ordered By: Whit Tyson on 11-26-2021 WBC (Bld) [#/Vol] 6.4 10*3/uL 4.5-11.0 [facility] Body fluid albumin measureme nt (mass/volume)Ordered By: Whit Tyson on 11-26-2021 Albumin (Body fld) [Mass/Vol] 3.5 g/dL 3.2-5.5 [facility] COVID-19 Positive/NegativeOr dered By: Whit Tyson on 11-26-2021 SARS-CoV-2 (COVID-19) N gene KWASI+probe Ql (Resp) Negative Negative [facility] Comment on above: Testing for SARS-CoV -2 by RT-PCR This test was developed and its performance characteristics determined by [employer] ([employer]) and validated at the [facility]. This test has not been FDA cleared or approved. This test has been authorized by FDA under an Emergency Use Authorization (EUA). This test has been validated in accordance with the FDA's Guidance Document (Policy for Diagnostics Testing in Laboratories Certified to Perform High Complexity Testing under CLIA prior to Emergency Use Authorization for Coronavirus Disease-2019 during the Public Health Emergency) issued on July 15, 2019. This test is only authorized for the duration of time the declaration that circumstances exist justifying the authorization of the emergency use of in vitro diagnostic tests for detection of SARS-CoV-2 virus and/or diagnosis of COVID-19 infection under section 564(b)(1) of the Act, 21 U.S.C. 360bbb-3(b)(1), unless the authorization is terminated or revoked sooner. Creatinine and Glomerular fi ltration rate.predicted panel (S/P/Bld)Ordered By: Whit Tyson on 11-26-2021 Creatinine [Mass/Vol] 0.88 mg/dL 0.44-1.03 [facility] Eosinophils Auto (Bld) [#/Vo l]Ordered By: Whit Tyson on 11-26-2021 Eosinophils (Bld) [#/Vol] 0.0 10*3/uL 0.0-0.45 [facility] Eosinophils/100 WBC Auto (Bl d)Ordered By: Whit Tyson on 11-26-2021 Eosinophils/100 WBC (Bld) 0.2 % . [facility] Erythrocyte distribution wid th Auto (RBC) [Ratio]Ordered By: Whit Tyson on 11-26-2021 Erythrocyte distribution width (RBC) [Ratio] 13.7 % 11.9-15.3 [facility] Estimated glomerular filtrat ion rate (GFR) non- AmericanOrdered By: Whit Tyson on 11-26-2021 GFR/1.73 sq M.predicted among non-blacks MDRD (S/P/Bld) [Vol rate/Area] > 60 mL/Min [facility] Globulin Calc (S) [Mass/Vol] Ordered By: Whit Tyson on 11-26-2021 Globulin (S) [Mass/Vol] 3.2 g/dL [facility] Hematocrit Auto (Bld) [Volum e fraction]Ordered By: Whit Tyson on 11-26-2021 Hematocrit (Bld) [Volume fraction] 37.4 % 34.0-46.4 [facility] Laboratory - Chemistry and C hemistry - challengeOrdered By: Whit Tyson on 11-26-2021 Magnesium [Mass/Vol] 2.0 mg/dL 1.6-2.6 [facility] Laboratory - Hematology and Cell countsOrdered By: Whit Tyson on 11-26-2021 Nucleated RBC/100 WBC (Bld) [Ratio] 0.0 % 0-0.5 [facility] Lymphocytes Auto (Bld) [#/Vo l]Ordered By: Whit Tyson on 11-26-2021 Lymphocytes (Bld) [#/Vol] 1.7 10*3/uL 1.00-4.8 [facility] Lymphocytes/100 WBC Auto (Bl d)Ordered By: Whit Tyson on 11-26-2021 Lymphocytes/100 WBC (Bld) 26.6 % . [facility] MCH Auto (RBC) [Entitic mass ]Ordered By: Whit Tyson on 11-26-2021 MCH (RBC) [Entitic mass] 30.7 pg 24.7-34.3 [facility] MCHC Auto (RBC) [Mass/Vol]Or dered By: Whit Tyson on 11-26-2021 MCHC (RBC) [Mass/Vol] 32.9 g/dL 32.0-35.0 [facility] MCV Auto (RBC) [Entitic vol] Ordered By: Whit Tyson on 11-26-2021 MCV (RBC) [Entitic vol] 93.3 fL 80-100 [facility] Monocytes Auto (Bld) [#/Vol] Ordered By: Whit Tyson on 11-26-2021 Monocytes (Bld) [#/Vol] 0.4 10*3/uL 0.0-0.8 [facility] Monocytes/100 WBC Auto (Bld) Ordered By: Whit Tyson on 11-26-2021 Monocytes/100 WBC (Bld) 6.3 % . [facility] Neutrophils Auto (Bld) [#/Vo l]Ordered By: Whit Tyson on 11-26-2021 Neutrophils (Bld) [#/Vol] 4.2 10*3/uL 1.8-7.7 [facility] Neutrophils/100 WBC Auto (Bl d)Ordered By: Whit Tyson on 11-26-2021 Neutrophils/100 WBC (Bld) 66.2 % . [facility] No Panel InformationOrdered By: Whit Tyson on 11-26-2021 Estimated GFR () > 60 mL/Min [facility] Comment on above: GFR estimated refere nce range: According to KDOQI guidelines, <60 ml/min/1.73m2 is sufficient to diagnose a patient with chronic kidney disease. Pharmacy Creatinine Clearance (Chem 60.91 [facility] Phosphate [Mass/volume] in S santiago or PlasmaOrdered By: Whit Tyson on 11-26-2021 Phosphate [Mass/Vol] 3.6 mg/dL 2.5-4.6 [facility] Platelet mean volume Auto (B ld) [Entitic vol]Ordered By: Whit Tyson on 11-26-2021 Platelet mean volume (Bld) [Entitic vol] 8.3 fL 6.3-10.7 [facility] Platelets Auto (Bld) [#/Vol] Ordered By: Whit Tyson on 11-26-2021 Platelets (Bld) [#/Vol] 262 10*3/uL 150-450 [facility] Protein [Mass/volume] in Ser um or PlasmaOrdered By: Whit Tyson on 11-26-2021 Protein [Mass/Vol] 6.7 g/dL 6.1-7.9 [facility] RBC Auto (Bld) [#/Vol]Ordere d By: Whit Tyson on 11-26-2021 RBC (Bld) [#/Vol] 4.01 10*6/uL 3.60-5.00 [facility] Serum or plasma alanine guerrero otransferase measurement without P-5'-P (enzymatic activiOrdered By: Whit Tyson on 11-26-2021 ALT No additional P-5'-P [Catalytic activity/Vol] 20 U/L 10-60 [facility] Serum or plasma albumin/glob ulin mass ratioOrdered By: Whit Tyson on 11-26-2021 Albumin/Globulin [Mass ratio] 1.1 {ratio} [facility] Serum or plasma alkaline lv sphatase measurement (enzymatic activity/volume)Ordered By: Whit Tyson on 11-26-2021 ALP [Catalytic activity/Vol] 56 U/L 32-92 [facility] Serum or plasma aspartate am inotransferase measurement (enzymatic activity/volume)Ordered By: Whit Tyson on 11-26-2021 AST [Catalytic activity/Vol] 19 U/L 10-42 [facility] Serum or plasma calcium bev urement (mass/volume)Ordered By: Whit Tyson on 11-26-2021 Calcium [Mass/Vol] 9.4 mg/dL 8.2-10.2 [facility] Serum or plasma chloride del surement (moles/volume)Ordered By: Whit Tyson on 11-26-2021 Chloride [Moles/Vol] 102 mmol/L 95-114 [facility] Serum or plasma glucose bev urement (mass/volume)Ordered By: Whit Tyson on 11-26-2021 Glucose [Mass/Vol] 92 mg/dL 70-100 [facility] Comment on above: ADA recommended refe rence range Random Glucose Reference Range is dependent on time and content of last meal. Glucose of more than 200 mg/dL in a nonstressed, ambulatory subject supports the diagnosis of Diabetes Mellitus. Serum or plasma potassium me asurement (moles/volume)Ordered By: Whit Tyson on 11-26-2021 Potassium [Moles/Vol] 3.6 mmol/L 3.5-5.1 [facility] Serum or plasma sodium measu rement (moles/volume)Ordered By: Whit Tyson on 11-26-2021 Sodium [Moles/Vol] 135 mmol/L 136-146 [facility] Serum or plasma total biliru bin measurement (mass/volume)Ordered By: Whit Tyson on 11-26-2021 Bilirubin [Mass/Vol] 0.3 mg/dL 0.3-1.2 [facility] Serum or plasma total carbon dioxide measurement (moles/volume)Ordered By: Whit Tyson on 11-26-2021 CO2 [Moles/Vol] 21.8 mmol/L 22.0-30.0 [facility] Serum or plasma urea nitroge n measurement (mass/volume)Ordered By: Whit Tyson on 11-26-2021 Urea nitrogen [Mass/Vol] 14 mg/dL 9-23 [facility] Basophils Auto (Bld) [#/Vol] Ordered By: Samia Saenz on 10-12-2021 Basophils (Bld) [#/Vol] 0.0 10*3/uL 0.0-0.2 [facility] Basophils/100 WBC Auto (Bld) Ordered By: Samia Saenz on 10-12-2021 Basophils/100 WBC (Bld) 1.0 % . [facility] Blood hemoglobin measurement (mass/volume)Ordered By: Samia Saenz on 10-12-2021 Hemoglobin (Bld) [Mass/Vol] 12.6 g/dL 11.8-15.4 [facility] Blood leukocytes automated c ount (number/volume)Ordered By: Samia Saenz on 10-12-2021 WBC (Bld) [#/Vol] 4.6 10*3/uL 4.5-11.[address] [facility] [address] biopsyOrdered By: Samia mina on 10-12-2021 Transferrin [Mass/Vol] 254 mg/dL 180-380 [facility] Eosinophils Auto (Bld) [#/Vo l]Ordered By: Samia Saenz on 10-12-2021 Eosinophils (Bld) [#/Vol] 0.0 10*3/uL 0.0-0.45 [facility] Eosinophils/100 WBC Auto (Bl d)Ordered By: Samia Saenz on 10-12-2021 Eosinophils/100 WBC (Bld) 0.2 % . [facility] Erythrocyte distribution wid th Auto (RBC) [Ratio]Ordered By: Samia Saenz on 10-12-2021 Erythrocyte distribution width (RBC) [Ratio] 13.8 % 11.9-15.3 [facility] Ferritin [Mass/volume] in Se rum or PlasmaOrdered By: Samia Saenz on 10-12-2021 Ferritin [Mass/Vol] 20.4 ng/mL 11-306.8 [facility] Folate [Mass/volume] in Seru m or PlasmaOrdered By: Samia Saenz on 10-12-2021 Folate [Mass/Vol] 18.2 ng/mL >5.9 [facility] Comment on above: Folate reference ran ge: >5.9 ng/ml The WHO technical consultation on folate and vitamin b12 deficiencies has determined that folate concentrations less than 4 ng/ml are considered deficient. Hematocrit Auto (Bld) [Volum e fraction]Ordered By: Samia Saenz on 10-12-2021 Hematocrit (Bld) [Volume fraction] 38.2 % 34.0-46.4 [facility] Iron [Mass/volume] in Serum or PlasmaOrdered By: Samia Saenz on 10-12-2021 Iron [Mass/Vol] 56 ug/dL 40-150 [facility] Iron binding capacity [Mass/ volume] in Serum or PlasmaOrdered By: Samia Saenz on 10-12-2021 Iron binding capacity [Mass/Vol] 356 ug/dL 255-450 [facility] Iron saturation [Mass Fracti on] in Serum or PlasmaOrdered By: Samia Saenz on 10-12-2021 Iron saturation [Mass fraction] 15.0 % 20-50 [facility] Laboratory - Chemistry and C hemistry - challengeOrdered By: Samia Saezn on 10-12-2021 Cobalamin (Vitamin B12) [Mass/Vol] 428 pg/mL 180-914 [facility] Laboratory - Hematology and Cell countsOrdered By: Samia Saenz on 10-12-2021 Nucleated RBC/100 WBC (Bld) [Ratio] 0.0 % 0-0.5 [facility] Lymphocytes Auto (Bld) [#/Vo l]Ordered By: Samia Saenz on 10-12-2021 Lymphocytes (Bld) [#/Vol] 1.7 10*3/uL 1.00-4.8 [facility] Lymphocytes/100 WBC Auto (Bl d)Ordered By: Samia Saenz on 10-12-2021 Lymphocytes/100 WBC (Bld) 37.4 % . [facility] MCH Auto (RBC) [Entitic mass ]Ordered By: Samia Saenz on 10-12-2021 MCH (RBC) [Entitic mass] 31.0 pg 24.7-34.3 [facility] MCHC Auto (RBC) [Mass/Vol]Or dered By: Samia Saenz on 10-12-2021 MCHC (RBC) [Mass/Vol] 32.9 g/dL 32.0-35.0 [facility] MCV Auto (RBC) [Entitic vol] Ordered By: Samia Saenz on 10-12-2021 MCV (RBC) [Entitic vol] 94.3 fL 80-100 [facility] Monocytes Auto (Bld) [#/Vol] Ordered By: Samia Saenz on 10-12-2021 Monocytes (Bld) [#/Vol] 0.4 10*3/uL 0.0-0.8 [facility] Monocytes/100 WBC Auto (Bld) Ordered By: Samia Saenz on 10-12-2021 Monocytes/100 WBC (Bld) 9.0 % . [facility] Neutrophils Auto (Bld) [#/Vo l]Ordered By: Samia Saenz on 10-12-2021 Neutrophils (Bld) [#/Vol] 2.4 10*3/uL 1.8-7.7 [facility] Neutrophils/100 WBC Auto (Bl d)Ordered By: Samia Saenz on 10-12-2021 Neutrophils/100 WBC (Bld) 52.4 % . [facility] Platelet mean volume Auto (B ld) [Entitic vol]Ordered By: Samia Saenz on 10-12-2021 Platelet mean volume (Bld) [Entitic vol] 7.8 fL 6.3-10.7 [facility] Platelets Auto (Bld) [#/Vol] Ordered By: Samia Saenz on 10-12-2021 Platelets (Bld) [#/Vol] 272 10*3/uL 150-450 [facility] RBC Auto (Bld) [#/Vol]Ordere d By: Samia Saenz on 10-12-2021 RBC (Bld) [#/Vol] 4.04 10*6/uL 3.60-5.00 [facility] Creatinine and Glomerular fi ltration rate.predicted panel (S/P/Bld)Ordered By: Samia Saenz on 10-09-2021 Creatinine [Mass/Vol] 0.70 mg/dL 0.44-1.03 [facility] Estimated glomerular filtrat ion rate (GFR) non- AmericanOrdered By: Samia Saenz on 10-09-2021 GFR/1.73 sq M.predicted among non-blacks MDRD (S/P/Bld) [Vol rate/Area] > 60 mL/Min [facility] No Panel InformationOrdered By: Samia Saenz on 10-09-2021 Estimated GFR () > 60 mL/Min [facility] Comment on above: GFR estimated refere nce range: According to KDOQI guidelines, <60 ml/min/1.73m2 is sufficient to diagnose a patient with chronic kidney disease. Pharmacy Creatinine Clearance (Chem N/A [facility] Serum or plasma calcium bev urement (mass/volume)Ordered By: Samia Saenz on 10-09-2021 Calcium [Mass/Vol] 9.1 mg/dL 8.2-10.2 [facility] Serum or plasma chloride del surement (moles/volume)Ordered By: Samia Saenz on 10-09-2021 Chloride [Moles/Vol] 103 mmol/L 95-114 [facility] Serum or plasma glucose bev urement (mass/volume)Ordered By: Samia Saenz on 10-09-2021 Glucose [Mass/Vol] 108 mg/dL 70-100 [facility] Comment on above: ADA recommended refe rence range Random Glucose Reference Range is dependent on time and content of last meal. Glucose of more than 200 mg/dL in a nonstressed, ambulatory subject supports the diagnosis of Diabetes Mellitus. Serum or plasma potassium me asurement (moles/volume)Ordered By: Samia Saenz on 10-09-2021 Potassium [Moles/Vol] 3.7 mmol/L 3.5-5.1 [facility] Serum or plasma sodium measu rement (moles/volume)Ordered By: Samia Saenz on 10-09-2021 Sodium [Moles/Vol] 136 mmol/L 136-146 [facility] Serum or plasma total carbon dioxide measurement (moles/volume)Ordered By: Samia Saenz on 10-09-2021 CO2 [Moles/Vol] 24.8 mmol/L 22.0-30.0 [facility] Serum or plasma urea nitroge n measurement (mass/volume)Ordered By: Samia Saenz on 10-09-2021 Urea nitrogen [Mass/Vol] 10 mg/dL 01-04 [facility] TSH DL <= 0.005 mIU/L QnOrde red By: Samia Saenz on 10-09-2021 TSH Qn 0.86 m[IU]/L 0.45-5.33 [facility] Thyroxine (T4) free [Mass/vo lume] in Serum or PlasmaOrdered By: Samia Saenz on 10-09-2021 Free T4 [Mass/Vol] 0.69 ng/dL 0.61-1.12 [facility] Triiodothyronine (T3) Free [ Mass/volume] in Serum or PlasmaOrdered By: Samia Saenz on 10-09-2021 Free T3 [Mass/Vol] 2.90 pg/mL 2.50-3.90 [facility] Vital Signs Date Time Vital Sign Value Performing Clinician Facility 10-15-2023 11:24-0400 Body height 162.56 cm DO Samia Saenz Work Phone: [facility] 10-15-2023 11:24-0400 Body mass index (BMI) [Ratio] 19 kg/m2 DO Samia Saenz Work Phone: [facility] 10-15-2023 11:24-0400 Body weight 50.34 kg DO Samia Saenz Work Phone: [facility] 03-25-2023 14:11-0500 Body height 162.56 cm DO aSmia Velazquezdyan Work Phone: [facility] 03-25-2023 14:11-0500 Body weight 54.43 kg DO Samia Saenz Work Phone: [facility] 03-19-2023 13:20-0500 Body height 162.56 cm Samia Saenz Other [facility] Other 03-19-2023 13:20-0500 Body mass index (BMI) [Ratio] 19.91 kg/m2 Samia Saenz Other [facility] Other 03-19-2023 13:20-0500 Body temperature 98.7 [degF] Samia Marcusdyan Other [facility] Other 03-19-2023 13:20-0500 Body weight 52.62 kg Samia Saenz Other [facility] Other 03-19-2023 13:20-0500 Diastolic blood pressure 88 mm[Hg] Samia Saenz Other [facility] Other 03-19-2023 13:20-0500 Respiratory rate 18 /min Samia Saenz Other [facility] Other 03-19-2023 13:20-0500 SaO2% (BldA) [Mass fraction] 96 % Samia Saenz Other [facility] Other 03-19-2023 13:20-0500 Systolic blood pressure 136 mm[Hg] Samia Saenz Other [facility] Other 03-11-2023 13:46-0500 Blood Pressure Location VEE BENIGNO [facility] 03-11-2023 13:46-0500 Diastolic blood pressure 69 mm[Hg] VEE BENIGNO [facility] 03-11-2023 13:46-0500 Heart rate 72 /min VEE BENIGNO [facility] 03-11-2023 13:46-0500 Respiratory rate 16 /min VEE BENIGNO [facility] 03-11-2023 13:46-0500 Systolic blood pressure 120 mm[Hg] VEE BENIGNO [facility] 03-05-2023 09:30-0500 Body height 162.56 cm Aftab Acosta Other [facility] Other 03-05-2023 09:30-0500 Body mass index (BMI) [Ratio] 20.41 kg/m2 Aftab Acosta Other [facility] Other 03-05-2023 09:30-0500 Body weight 53.93 kg Aftab Acosta Other [facility] Other 03-05-2023 09:30-0500 Diastolic blood pressure 85 mm[Hg] Aftab Acosta Other [facility] Other 03-05-2023 09:30-0500 Systolic blood pressure 124 mm[Hg] Aftab Acosta Other [facility] Other 01-15-2022 12:10-0400 Body height 162.56 cm Samia Saenz Other [facility] Other 01-15-2022 12:10-0400 Body mass index (BMI) [Ratio] 21.45 kg/m2 Samia Saenz Other [facility] Other 01-15-2022 12:10-0400 Body temperature 97.3 [degF] Samia Saenz Other [facility] Other 01-15-2022 12:10-0400 Body weight 56.7 kg Samia Saenz Other [facility] Other 01-15-2022 12:10-0400 Diastolic blood pressure 68 mm[Hg] Samia Saenz Other [facility] Other 01-15-2022 12:10-0400 Respiratory rate 16 /min Samia Saenz Other [facility] Other 01-15-2022 12:10-0400 SaO2% (BldA) [Mass fraction] 98 % Samia Saenz Other [facility] Other 01-15-2022 12:10-0400 Systolic blood pressure 108 mm[Hg] Samia Saenz Other [facility] Other 11-29-2021 07:37-0400 Body temperature 98.1 [degF] DO Samia Saenz Work Phone: [facility] 11-29-2021 07:37-0400 Diastolic blood pressure 55 mm[Hg] DO Samia Saenz Work Phone: [facility] 11-29-2021 07:37-0400 Heart rate 72 /min DO Samia Saenz Work Phone: [facility] 11-29-2021 07:37-0400 Respiratory rate 16 /min DO Samia Saenz Work Phone: [facility] 11-29-2021 07:37-0400 SaO2% (BldA) [Mass fraction] 97 % DO Samia Saenz Work Phone: [facility] 11-29-2021 07:37-0400 Systolic blood pressure 85 mm[Hg] DO Samia Saenz Work Phone: [facility] 11-29-2021 06:00-0400 Body weight 60.3 kg DO Samia Saenz Work Phone: [facility] 11-27-2021 12:17-0400 Body height 162.56 cm DO Samia Saenz Work Phone: [facility] 06-12-2021 13:40-0500 Body height 162.56 cm Samia Saenz Other [facility] Other 06-12-2021 13:40-0500 Body mass index (BMI) [Ratio] 21.54 kg/m2 Samia Saenz Other [facility] Other 06-12-2021 13:40-0500 Body temperature 97.9 [degF] Samia Saenz Other [facility] Other 06-12-2021 13:40-0500 Body weight 56.93 kg Samia Marcusdyan Other [facility] Other 06-12-2021 13:40-0500 Diastolic blood pressure 72 mm[Hg] Samia Saenz Other [facility] Other 06-12-2021 13:40-0500 Respiratory rate 18 /min Samia Saenz Other [facility] Other 06-12-2021 13:40-0500 SaO2% (BldA) [Mass fraction] 97 % Samia Marcusdyan Other [facility] Other 06-12-2021 13:40-0500 Systolic blood pressure 110 mm[Hg] Samia Saenz Other [facility] Other Encounters Encounter Date Encounter Type Care Provider Facility Start: 11-14-2023 End: 11-14-2023 Patient encounter procedure DO Samia Saenz Work Phone: [facility] Work Phone: Start: 11-14-2023 End: 11-14-2023 ambulatory DO Samia Saenz Work Phone: [facility] Work Phone: Start: 11-13-2023 Non-patient / Non-visit DO Samia Saenz Work Phone: [facility] [place] Work Phone: Start: 11-10-2023 Registered Recurring DO Samia Saenz Work Phone: [facility] Start: 11-10-2023 ambulatory Mingo Stewart acility:[facility] Start: 10-29-2023 End: 10-29-2023 ambulatory REY CHINCHILLA [place] Start: 10-29-2023 End: 10-29-2023 Patient encounter procedure REY CHINCHILLA [facility] Start: 10-22-2023 End: 10-22-2023 ambulatory DO Samia Saenz Work Phone: [facility] Work Phone: Start: 10-22-2023 End: 10-22-2023 Patient encounter procedure DO Samia Saenz Work Phone: [facility] [place] Work Phone: Start: 10-15-2023 End: 10-15-2023 ambulatory DO Samia Saenz Work Phone: [facility] Work Phone: Start: 10-15-2023 End: 10-15-2023 Patient encounter procedure DO Samia Saenz Work Phone: [facility] Gastroenterology Work Phone: Start: 10-01-2023 End: 10-01-2023 [facility] Start: 09-22-2023 End: 09-22-2023 Patient encounter procedure DO Samia Saenz Work Phone: [facility] [place] Work Phone: Start: 09-22-2023 End: 09-22-2023 ambulatory DO Samia Saenz Work Phone: [facility] Work Phone: Start: 08-18-2023 Registered Recurring DO Samia Saenz Work Phone: [facility] Start: 08-06-2023 ambulatory SAMIA SAENZ [facility] Start: 07-01-2023 End: 07-01-2023 ambulatory VEE Leonardo BENIGNO Facility:[facility] [place] Start: 07-01-2023 End: 07-01-2023 Patient encounter procedure VEE PELAEZ [facility] Start: 05-08-2023 End: 05-08-2023 ambulatory Steven Rory ANDRZEJ Facility:[facility] [place] Start: 05-07-2023 End: 05-07-2023 Patient encounter procedure DO Samia Saenz Work Phone: [facility] Work Phone: Start: 05-07-2023 End: 05-07-2023 ambulatory DO Samia Saenz Work Phone: [facility] Work Phone: Start: 05-06-2023 Non-patient / Non-visit DO Samia Saenz Work Phone: [facility] Work Phone: Start: 03-25-2023 End: 03-25-2023 Patient encounter procedure DO Samia Saenz Work Phone: [facility]MRI [address] Work Phone: Start: 03-25-2023 End: 03-25-2023 ambulatory Jerri Caro Facility:[facility] Start: 03-19-2023 End: 03-19-2023 ambulatory Samia Saenz Other [facility] [employer] Other Start: 03-19-2023 Office outpatient visit 25 minutes Samia Saenz [facility] Family [facility] Start: 03-19-2023 End: 03-19-2023 Patient encounter procedure DO Samia Saenz Work Phone: [facility] [place] Work Phone: Start: 03-17-2023 ambulatory REY Saumelenrico ty:[facility] [place] Start: 03-17-2023 End: 03-17-2023 Patient encounter procedure DO Samia Saenz Work Phone: [facility] [place] Work Phone: Start: 03-17-2023 End: 03-17-2023 ambulatory DO Samia Saenz Work Phone: [facility] Work Phone: Start: 03-11-2023 End: 03-11-2023 ambulatory VEE PELAEZ Facility:[facility] [place] Start: 03-11-2023 End: 03-11-2023 Patient encounter procedure VEE PELAEZ [facility] Start: 03-05-2023 End: 03-05-2023 ambulatory Aftab Acosta Other [facility] Other Start: 03-05-2023 Office outpatient visit 15 minutes Aftab Acosta [facility] Start: 03-05-2023 End: 03-05-2023 Patient encounter procedure DO Samia Saenz Work Phone: [facility] Work Phone: Start: 02-25-2023 End: 02-25-2023 ambulatory Samia Saenz Other [facility] Other Start: 02-25-2023 Telephone encounter Samia Saenz [facility] [place] Start: 01-20-2023 End: 01-20-2023 ambulatory Saima Saenz Facility:[facility] [place] Start: 12-19-2022 End: 12-19-2022 ambulatory Aftab Acosta Other [facility] Other Start: 12-19-2022 Telephone encounter Aftab Curry [facility] Start: 09-20-2022 End: 09-20-2022 ambulatory Samia Saenz Other [facility] Other Start: 09-20-2022 Telephone encounter Samia Saenz [facility] Start: 09-18-2022 End: 09-18-2022 ambulatory DO Samia Saenz Work Phone: [facility] Work Phone: Start: 09-18-2022 End: 09-18-2022 Departed Referred DO Samia Saenz Work Phone: [facility] [place] Work Phone: Start: 09-16-2022 End: 09-16-2022 ambulatory DO Samia Saenz Work Phone: [facility] Work Phone: Start: 09-16-2022 End: 09-16-2022 Patient encounter procedure DO Samia Saenz Work Phone: [facility] [place] Work Phone: Start: 09-04-2022 Registered Recurring DO Samia Saenz Work Phone: [facility] Start: 03-16-2022 End: 03-16-2022 ambulatory DO Samia Saenz Work Phone: [facility] Work Phone: Start: 03-16-2022 End: 03-16-2022 Patient encounter procedure DO Samia Saenz Work Phone: [facility] Main [place] Start: 01-15-2022 End: 01-15-2022 ambulatory Samia Saenz Other [facility] Other Start: 01-15-2022 Office outpatient visit 25 minutes Samia Saenz [facility] Start: 01-11-2022 End: 01-11-2022 Patient encounter procedure DO Samia Saenz Work Phone: [facility] Start: 12-28-2021 End: 12-28-2021 ambulatory Aftab Acosta Other [facility] Other Start: 12-28-2021 Telephone encounter Aftab Breauxольгаrayshawn vieira [facility] Start: 12-18-2021 End: 12-18-2021 ambulatory Samia Saenz Other [facility] Other Start: 12-18-2021 Telephone encounter Samia Saenz [facility] [place] Start: 11-07-2021 End: 11-07-2021 Patient encounter procedure DO Samia Saenz Work Phone: [facility] [address] Start: 10-12-2021 End: 10-12-2021 Patient encounter procedure DO Samia Saenz Work Phone: [facility] Start: 10-11-2021 End: 10-11-2021 ambulatory Aftab Acosta Other [facility] Other Start: 10-11-2021 Telephone encounter Aftab vieira [facility] Start: 10-09-2021 End: 10-09-2021 Patient encounter procedure DO Samia Saenz Work Phone: [facility] Start: 10-01-2021 End: 10-01-2021 ambulatory Aftab Acosta Other [facility] Other Start: 10-01-2021 Telephone encounter Aftab Breauxольгаrayshawn vieira [facility] Start: 07-16-2021 End: 07-16-2021 ambulatory Aftab Acosta Other [facility] Other Start: 07-16-2021 Telephone encounter Aftab vieira [facility] Start: 07-06-2021 End: 07-06-2021 ambulatory Samia Saenz Other [facility] Other Start: 07-06-2021 Telephone encounter Samia Saenz [facility] [place] Start: 06-12-2021 End: 06-12-2021 ambulatory Samia Saenz Other [facility] Other Start: 06-12-2021 Office outpatient visit 25 minutes Samia Saenz [facility] [place] Start: 05-11-2021 End: 05-11-2021 ambulatory Samia Saenz Other [facility] Other Start: 05-11-2021 Telephone encounter Samia Saenz [facility] [place] Start: 05-04-2021 End: 05-04-2021 ambulatory Samia Saenz Other [facility] Other Start: 05-04-2021 Telephone encounter Samia Saenz [facility] [place] Start: 05-03-2021 End: 05-03-2021 ambulatory Samia Saenz Other [facility] Other Start: 05-03-2021 Telephone encounter Samia Saenz [facility] [place] Start: 05-02-2021 ([facility] C Vac) [facility] Covid Vaccine Cristy Fabian [facility] Start: 05-02-2021 End: 05-02-2021 ambulatory Cristy Fabian Other [facility] Other Start: 04-02-2021 End: 04-02-2021 ambulatory Aftab Acosta Other [facility] Other Start: 04-02-2021 Telephone encounter Aftab Curry [facility] Start: 03-22-2021 End: 03-22-2021 ambulatory Samia Saenz Other [facility] Other Start: 03-22-2021 Telephone encounter Samia Saenz [facility] [place] Procedures Date Procedure Procedure Detail Performing Clinician Start: 11-14-2023 Screening mammograph y of bilateral breasts DO Samia Saenz Ray[place] Phone: Start: 05-08-2023 Cystourethroscopy wi th dilation of urethral stricture VEE PELAEZ Start: 03-25-2023 XR pre/post mri xray DO Samia Saenz Ray[place] Phone: Start: 03-25-2023 MRI of lumbar spine with contrast DO Samia Saenz Work Phone: Start: 03-17-2023 Urine culture DO Samia Saenz Work Phone: Start: 06-12-2022 Neurostimulator, dev ice (physical object) VEE PELAEZ Start: 03-16-2022 X-ray of right knee DO Samia Saenz Rayn Phone: Start: 11-07-2021 CT of head without contrast DO Samia Saenz Work Phone: Start: 03-16-2020 Colonoscopy VEE GUNDERSON Start: 08-13-2015 Colonoscopy VEE GUNDERSON Comment on above: Dr. Acosta Start: 04-14-2011 Procedure on lower leg VEE PELAEZ Start: 04-14-2009 Cervical arthrodesis REGULO PELAEZ Comment on above: C3-C4, C4-C5, and C5 -C6 Dr. Ugalde Start: 03-14-2009 MRI guided ablation of uterine fibroid VEE PELAEZ Start: 04-14-1999 Decompression of median nerve VEE PELAEZ Appendectomy VEE PELAEZ Cervical arthrodesis BRITTANIE PELAEZ Dilation and curettage THAIS PELAEZ Procedure on pilonidal sinus VEE PELAEZ Urine culture DO Samia silveira Work Phone: Plan of Treatment Date Care Activity Detail Author Start: 03-17-2023 [facility] Start: 09-18-2022 Bacteria identified in Urine by Culture [facility] Start: 11-29-2021 [facility] Work Phone: Start: 11-26-2021 Duplex scan of lower limb veins US venous duplex LE BI [facility] Start: 11-26-2021 Referral to neurologist [facility] Work Phone: Start: 11-26-2021 Hospital admission [facility] Work Phone: Start: 11-26-2021 End: 11-29-2021 Evaluation and management of inpatient Anxiety [facility] [place] [facility] Bacteria identified in Urine by Culture [facility] Bacteria identified in Urine by Culture [facility] Comprehensive metabo lic 2000 panel - Serum or Plasma [facility] Glucose measurement estimated from glycated hemoglobin [facility] MG Breast - bilatera l Screening [facility] Patient referral [facility] Work Phone: [facility] Immunizations Immunization Date Immunization Notes Care Provider Trace patel 05-02-2021 COVID-19 Pfizer Cristy Fitt Other [facility] 01-08-2021 influenza virus vacc ine, unspecified formulation VEE PELAEZ [facility] 01-08-2021 influenza, injectabl e, quadrivalent, preservative free DO Samia Saenz Work Phone: [facility] 08-17-2020 COVID-19 Vaccine Pfi zer - Documentation Purposes Only Samia Saenz Other [facility] 07-27-2020 COVID-19 Vaccine Pfi zer - Documentation Purposes Only Samia Saenz Other [facility] 03-05-2020 zoster vaccine recombinant VEE PELAEZ [facility] 02-14-2020 influenza virus vacc ine, unspecified formulation VEE PELAEZ [facility] 02-14-2020 influenza, injectabl e, quadrivalent, preservative free DO Samia Saenz Work Phone: [facility] 02-14-2020 influenza, seasonal, injectable Samia Saenz Other [facility] 01-16-2019 influenza virus vacc ine, unspecified formulation VEE PELAEZ [facility] 01-16-2019 Influenza, injectabl e, Madin Jessica Canine Kidney, preservative free, quadrivalent DO Samia Saenz Work Phone: [facility] 01-16-2019 tetanus toxoid, redu garfield diphtheria toxoid, and acellular pertussis vaccine, adsorbed VEE PELAEZ [facility] 10-04-2017 tetanus toxoid, redu garfield diphtheria toxoid, and acellular pertussis vaccine, adsorbed DO Samia Saenz Work Phone: [facility] 04-23-2012 influenza, seasonal, injectable, preservative free Samia Saenz Other [facility] Payers Date Payer Category Payer Unknown [id number] 2022 Medicare [id number] 2022 Self-pay [id number] 2022 Unknown [id number] 2012 Private Health Insurance [id number] 1964 Unknown [id number] 6 1964 Unknown [id number] 6 1964 Unknown [id number] 1964 Unknown [id number] 2..[id number] 1964 Unknown [id number] [id number] 1964 Unknown [id number] 1964 Unknown [id number] Medicaid Medicaid [id number] Medicare Medicare [id number] Unknown HCAP/HFA/FAP Active [id number] Unknown [id number] Unknown [id number] Unknown [id number] .[id number] Unknown [id number] .[id number] Unknown [id number] .[id number] Unknown [id number] Social History Date Type Detail Facility Unknown if ever smoked [facility] Other Start: 04-14-1978 Sex Assigned At F [facility] Start: 11-26-2021 End: 10-22-2023 Tobacco smoking status NHIS Smoker (finding) [facility] Start: 1965 Sex Assigned At Female F [facility] Start: 03-11-2023 End: 05-08-2023 Tobacco smoking status Heavy tobacco smoker (finding) [facility] Tobacco smoking status Never [facility] Goals Date Patient Goal Desired Activity /State Functional Status Date Assessment Result Facility 03-11-2023 Functional Status N/A [facility] 11-29-2021 Functional status Patient at Baseline [facility] Work Phone: 11-26-2021 Functional status Disability Sta tus Patient at Baseline [facility] Work Phone: Mental Status Date Assessment Result Facility 11-29-2021 Cognitive function Cognitive Sta tus Patient at Baseline [facility] Work Phone: Clinical Notes 04-02-2021 to 10-22-2023 Note Date & Type Note Facility 10-22-2023 Evaluation note Authored October 22, 2023 4:34 pm The above note written by __ _Júnior Carrillo____ acting as human recorder, note dictated by Dr. Bradshaw .I performed the above HPI, ROS, and Examination. I formulated and dictated the treatment plan and was present for entire encounter. Samia Saenz D.O. [facility] Work Phone: [phone]) 995-334412-06-2023 Evaluation note* Encounter Date Diagnosis Assessment Notes Treatment Notes Treatment Clinical Notes Mar, Hypothyroidism (ICD-10 - E03.9) Discussed thyroid results with patient today. TSH is 3.65. Free T3 is 2.54. Free T4 is 0.70. At this time she is to continue with the same dose of Levothyroxine (125 MCG) daily. Mar, Hematuria (ICD-10 - R31.9) She just saw the urologist on 03/11/23 and the urine checked there did not show any blood. Her urinalysis we ordered did show blood in it so I would like her to show them this urinalysis. She is going to have a cystoscopy and urodynamics done. Mar, Vitamin B 12 deficiency (ICD-10 - E53.8) Her Vitamin B12 level is 763. Folate is 10.5. Continue with the same dose of B12. Mar, Hyperglycemia (ICD-10 - R73.9) Discussed blood sugar results with patient today. Glucose is 100. HgA1C is 5.9 which is at the higher end of normal. Recommend she watch her intake of carbs and sugars. Stay active as tolerated. Mar, Vitamin D deficiency (ICD-10 - E55.9) Her Vitamin D level is 53.3. She is to continue with her supplement as directed. Mar, Anemia (ICD-10 - D64.9) Her HGB is down from 12.9 to 12.4. Iron is 68. Ferritin is 16.4. I would like her to continue with the iron supplements as she has been taking them. Mar, Hyperlipidemia (ICD-10 - E78.5) Discussed cholesterol results with patient today. Total is 174. HDL is 50. LDL is 98. Triglycerides are 129. VLDL is 25. She is to continue to monitor her intake of carbs and sugars. Mar, RSD lower limb (ICD-10 - G90.529) Continue to follow with specialists as directed. Mar, Anxiety and depression (ICD-10 - F41.8) She voices that she is currently dealing with alot, her boyfriend has been messaging someone else for a couple of months so they are . She is in the process of trying to find a new place to leave. Mar, Nocturia (ICD-10 - R35.1) Mar, Weight loss (ICD-10 - R63.4) She has lost 2.9 pounds since last seen, she contributes this to stress. Mar, Allergic rhinitis (ICD-10 - J30.9) She voices that her allergies are acting up and she did request a Kenalog injection. She understands that there may be atrophy at the injection site and still would like to have the injection. Mar, Other She continues t o fall asleep randomly and is going to have a sleep study done on 05/07/23 ordered by the neurologist. She voices that they do not believe it is the Xanax is causing this. She can take it three times a day and it does not make her tired. She is taking Provigil to try and keep her awake. [facility] Other 11-28-2023 Hospital Discharge instructions Patient Education 03/11/2023 14:34:44 Steps to Quit Smoking Steps to Quit Smoking Smoking tobacco is the leading cause of preventable . It can affect almost every organ in the body. Smoking puts you and those around you at risk for developing many serious chronic diseases. Quitting smoking can be very challenging. Do not get discouraged if you are not successful the first time. Some people need to make many attempts to quit before they achieve long-term success. Do your best to stick to your quit plan, and talk with your health care provider if you have any questionsor concerns. How do I get ready to quit? When you decide to quit smoking, create a plan to help you succeed. Before you quit: Pick a date to quit. Set a date within the next 2 weeks to give you time to prepare. Write down the reasons why you are quitting. Keep this list in places where you will see it often. Tell your family, friends, and co-workers that you are quitting. Support from people you are close to can make quitting easier. Talk with your health care provider about your options for quitting smoking. Find out what treatment options are covered by your health insurance. Identify people, places, things, and activities that make you want to smoke (triggers). Avoid them. What first steps can I take to quit smoking? Throw away all cigarettes at home, at work, and in your car. Throw away smoking accessories, such as ashtrays and lighters. Clean your car. Make sure to empty the ashtray. Clean your home, including curtains and carpets. What strategies can I use to quit smoking? Talk with your health care provider about combining strategies, such as taking medicines while you are also receiving in-person counseling. Using these two strategies together makes you more likely to succeed in quitting than if you used either strategy on its own. If you are or , talk with your health care provider about finding counseling or other support strategies to quit smoking. Do not take medicine to help you quit smoking unless your health care provider tells you to. Quit right away Quit smoking completely, instead of gradually reducing how much you smoke over a period of time. Stopping smoking right away may be more successful than gradually quitting. Attend in-person counseling to help you build problem-solving skills. You are more likely to succeed in quitting if you attend counseling sessions regularly. Even short sessions of 10 minutes can be effective. Take medicine You may take medicines to help you quit smoking. Some medicines require a prescription. You can also purchase qrdm-lxc-meksulb medicines. Medicines may have nicotine in them to replace the nicotine in cigarettes. Medicines may: Help to stop cravings. Help to relieve withdrawal symptoms. Your health care provider may recommend: Nicotine patches, gum, or lozenges. Nicotine inhalers or sprays. Non-nicotine medicine that you take by mouth. Find resources Find resources and support systems that can help you quit smoking and remain smoke-free after you quit. These resources are most helpful when you use them often. They include: Online chats with a counselor. Telephone quitlines. Printed self-help materials. Support groups or group counseling. Text messaging programs. Mobile phone apps or applications. Use apps that can help you stick to your quit plan by providing reminders, tips, and encouragement. Examples of free services include Quit Guide from the CDC and smokefree.gov What can I do to make it easier to quit? Reach out to your family and friends for support and encouragement. Call telephone quitlines, such as 7-553-FZIZ-NOW, reach out to support groups, or work with a counselor for support. Ask people who smoke to avoid smoking around you. Avoid places that trigger you to smoke, such as bars, parties, or smoke-break areas at work. Spend time with people who do not smoke. Lessen the stress in your life. Stress can be a smoking trigger for some people. To lessen stress, try: ?Exercising regularly. ?Doing deep-breathing exercises. ?Doing yoga. ?Meditating. What benefits will I see if I quit smoking? Over time, you should start to see positive results, such as: Improved sense of smell and taste. Decreased coughing and sore throat. Slower heart rate. Lower blood pressure. Clearer and healthier skin. The ability to breathe more easily. Fewer sick days. Summary Quitting smoking can be very challenging. Do not get discouraged if you are not successful the first time. Some people need to make many attempts to quit before they achieve long-term success. When you decide to quit smoking, create a plan to help you succeed. Quit smoking right away, not slowly over a period of time. Find resources and support systems that can help you quit smoking and remain smoke-free after you quit. This information is not intended to replace advice given to you by your health care provider. Make sure you discuss any questions you have with your health care provider. Document Revised: 03/22/2022 Document Reviewed: 03/22/2022 [employer] Patient Education 2022 Plan B Acq[employer]itions. Follow Up Care 01/07/2023 10:14:37 With:[facility] Address: [address] [place] [address] Business (1) When: Unknown Comments:our master scheduler will be contacting you for follow-up [facility] 11-28-2023 NoteChief Complaint Referral * Urgency HPI Staff 57 yo female new pt referred by Dr. Samia Saenz for urgency. Never seen in our office before (verified on DA). Neg ucx 09/18/22. Biggest complaint is nocturia x2 and Moderate urgency but with hesitancy once she gets to restroom.Sometimes has to strain, other times just has to wait. Good stream & amount once it gets going.Ongoing for the past year. Does not feel empty. PVR 41ml. Occasional double voids. Denies loss of bladder control. Denies Hx of Bladder Meds. Is a smoker. Half a pack a day. Denies visible blood in urine. Denies Family Hx of Bladder Cancer. Denies pain/burning. Former Hx of UTI's in teenage yrs but none recently. had ablation previously so doesn't bleed monthly. still has ovaries. hasn't had menopause sx like hot flashes etc so not sure if she has went through it yet or not. Review of Systems PHQ Score Initial Depression Screen Score: 0 SCORE no fever, chills, malaise, myalgia. no rash/lesions. no chest pain, palpitations, or SOB. no abdominal pain, nausea, vomiting. no unilateral calf swelling, redness, pain Physical Exam Vitals & Measurements HR: 72(Peripheral) RR: 16 BP: 120/69 HT: 64 in HT: 163 cm WT: 54 kg WT: 118.8 lb BMI: 20.32 General: nontoxic, NAD Mouth: moist mucosa Lungs: normal respiratory effort Cardio: regular rate, good distal perfusion Abdomen: nondistended, no suprapubic distention or tenderness, no CVA tenderness Neurologic: Grossly normal Skin: No rashes or suspicious lesions Assessment/Plan 1. Urinary urgency (R39.15: Urgency of urination) not always, maybe about half the time she can hold it and the other half of the time she feels likeshe has to umanzor there (but then has hesitancy once she gets to restroom). no UUI. Ordered: 47544 Measure Post Void residual urine and/or bladder capacity by US- non-imaging E&M of New Patient Moderate 45-59 Min 99728 Urnls Dip Stick Auto w/o Microscopy POC 76622 2. Urinary hesitancy (R39.11: Hesitancy of micturition) worsening over the past year or so. has never had similar sx previously. no intermittency, once stream starts it goes. Ordered: E&M of New Patient Moderate 45-59 Min 30982 3. Nocturia (R35.1: Nocturia) x2. this is new over the past year or so. Ordered: E&M of New Patient Moderate 45-59 Min 49159 4. Smoker (F17.200: Nicotine dependence, unspecified, uncomplicated) cessation encouraged. denies gross hematuria. increased risk ca. sx are pretty vague/mild but we talked about how they could be consistent with urethral stricture. they are bothersome to pt. recommend cysto w possible UD if stricture found. then f/u w me 6 wks later. if all sx improve then can f/u PRN after that. if no improvement w UD (or no stricture found) then we can consider alternative tx options (maybe anticholinergic trial?) Will schedule Cysto with UD. The procedure risks, benefits, details, and treatment alternatives have been discussed with the patient. These include bleeding, infection, recurrent scar in over 50%, need for repeat dilation or other procedures, no symptom relief with dilation, among others. Full informed consent has been obtained. Will order Local anesthesia. Follow-up With When Contact Information [facility] [address] [place] [phone] Business (1) Additional Instructions: our master scheduler will be contacting you for follow-up Patient Education Steps to Quit Smoking Problem List/Past Medical History Ongoing Allergic rhinitis Depression Fibromyalgia Lumbar pain Lumbar strain Nasal cavity polyp Nocturia Paresthesia Pneumonia Sinusitis Urinary hesitancy Historical No qualifying data Procedure/Surgical History Nerve stimulator (06/12/2022), Colonoscopy (03/16/2020), Colonoscopy (08/2015), Procedure on lower leg (04/2011), Cervical spinal fusion (2009), Ablation of uterine fibroid using magnetic resonance imaging guidance (03/2009), Carpal tunnel release (1999), Appendectomy, Cervical spinal fusion, Cervical spinal fusion, Cervical spinal fusion, Dilation and curettage, Procedure on pilonidal sinus. Medications alprazolam 1 mg Tab, 1 mg= 1 tab(s), Oral, TID, PRN buprenorphine 8 mg sublingual tablet colestipol 1 g Tab gabapentin 800 mg Tab levothyroxine 125 mcg (0.125 mg) Tab modafinil 200 mg Tab Nucynta 75 mg oral tablet oxcarbazepine 300 mg Tab Potassium Chloride (Ymg-Fhjl-Rkh 10) 10 mEq oral tablet, extended release topiramate 100 mg Tab Trintellix 10 mg oral tablet Allergies Augmentin (Nausea) Omnicef (Unknown) sulfamethoxazole (Edema) Social History Tobacco 10 or more cigarettes (1/2 pack or more)/day in last 30 days Tobacco Use:. Never Smokeless Tobacco Use:. Cigarettes, 10 per day. Ready to change: No. Household tobacco concerns: No. Yes, 03/11/2023 Family History Diabetes mellitus type 2: Father. Heart disease: Father (more content not included)...[facility] Comment on above:Result Comment: Electronically Signed By: VEE PELAEZ PA-C\Date and Time Signed: 03/11/2314:36 [id number] Evaluation note* Encounter Date Diagnosis Assessment Notes Treatment Notes Treatment Clinical Notes Feb, Microscopic colitis (ICD-10 - K52.89) Pt to stay on budesonide. Pt RTO in 6 months [facility] Other 10-04-2022 Evaluation note* Encounter Date Diagnosis Assessment Notes Treatment Notes Treatment Clinical Notes Jan, Hypothyroidism (ICD-10 - E03.9) Discussed thyroid results with patient today. TSH is 0.66. Free T3 is 3.06. Free T4 is 0.76. At this time I would like her to decrease her Levothyroxine back to 112 MCG daily. She voices that she still has this dose on hand at home and will begin taking this daily. Jan, Vitamin B 12 deficiency (ICD-10 - E53.8) Her Vitamin B12 level is 496. Folate is 10.1. She is taking B12 every other day and can continue with this. She does not drink much alcohol, maybe once a month or once every couple of months. Jan, Hyperglycemia (ICD-10 - R73.9) Discussed blood sugar results with patient today. Glucose is 97. HgA1C is 5.7. Continue to watch intake of carbs and sugars. Stay active. She voices that when she checks this at home her readings are high. She has wanted sugar lately and admits to eating alot of sugar. I explained to her that sugar is addictive, the more she has the more her brain wants it. She needs to cut back and avoid it if she can. Jan, Anxiety and depression (ICD-10 - F41.8) Continue with above medications, follow with specialist as directed. Jan, RSD lower limb (ICD-10 - G90.529) She is following with Dr. Luis a pain specialist who is going to replace the stimulator in her back and the goal is to take her off some more of her medications. Jan, Vitamin D deficiency (ICD-10 - E55.9) Her Vitamin D is 54.3. Jan, Anemia (ICD-10 - D64.9) Her HGB is 12.5. Iron is 71. Ferritin is 30.8. She does take Iron daily and should continue with this. Jan, Hyperlipidemia (ICD-10 - E78.5) Jan, Hypokalemia (ICD-10 - E87.6) Her potassium level is 3.6. Continue with above medication as directed. 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 She voices that her boyfriend observes seizures and she has had them since she was released from the hospital. She has an appointment with [facility] tomorrow but had to reschedule this due to a conflict with her pain management doctor. Her medications were adjusted when she was in the hospital and overall she feels better. She was not officially diagnosed with seizures. She had a sleep study done and was diagnosed with Sleep Apnea, she hopes to have a sleep apnea machine by next month. She did have COVID-19 in early Dec (2021) and took Paxlovid to help her symptoms. She feels she has recovered from this infection. I did recommend that she wait three months before getting the new COVID-19 bivalent booster shot. [facility] Other 09-16-2022 Evaluation note* Encounter Date Diagnosis Assessment Notes Treatment Notes Treatment Clinical Notes Dec, Microscopic colitis (ICD-10 - K52.89) [facility] Other 06-30-2022 Evaluation note* Encounter Date Diagnosis Assessment Notes Treatment Notes Treatment Clinical Notes Sep, Microscopic colitis (ICD-10 - K52.89) [facility] Other 06-20-2022 Evaluation note* Encounter Date Diagnosis Assessment Notes Treatment Notes Treatment Clinical Notes Sep, C. difficile diarrhea (ICD-10 - A04.72) [facility] Other 04-04-2022 Evaluation note* Encounter Date Diagnosis Assessment Notes Treatment Notes Treatment Clinical Notes Jul, Microscopic colitis (ICD-10 - K52.89) [facility] Other 03-25-2022 Evaluation note* Encounter Date Diagnosis Assessment Notes Treatment Notes Treatment Clinical Notes Jun, Cough (ICD-10 - R05.9) Jun, Body aches (ICD-10 - R52) [facility] Other 03-01-2022 Evaluation note* Encounter Date Diagnosis Assessment Notes Treatment Notes Treatment Clinical Notes Jun, Hypothyroidism (ICD-10 - E03.9) Discussed thyroid results with patient today. TSH is 5.21. Free T3 is 2.03. Free T4 is 0.63. At this time I would like to increase her dose of Levothyroxine to 125 MCG daily. Guidance is given on how to take the increase in dose. Will repeat lab in three months. Jun, Hyperglycemia (ICD-10 - R73.9) Discussed blood sugar results with patient today. Glucose is 66. HgA1C is normal at 5.5. She voices that she did not feel good the day her blood work was drawn, I suspect this is due to her blood sugar being low. Jun, Vitamin B 12 deficiency (ICD-10 - E53.8) Her B12 level is 601. Folate is >22.3. She is to continue with the B12 three days a week. Jun, Vitamin D deficiency (ICD-10 - E55.9) Her Vitamin D level is 56.0. She is to continue with the Vitamin D daily as directed. Jun, Hypokalemia (ICD-10 - E87.6) Right now she is not taking the potassium supplement. Her potassium level is 3.7. I did recommend that she take her potassium supplement three days a week (Fri, Fri and Friday). Will repeat lab in three months. Jun, Anemia (ICD-10 - D64.9) Her HGB is 12.6. Iron is 77. Ferritin is 25.4. Continue with the Iron supplement daily as directed. Jun, RSD lower limb (ICD-10 - G90.529) She is to continue to follow with her specialist as directed. Jun, Anxiety and depression (ICD-10 - F41.8) Continue to follow with specialist as directed. Jun, Hyperlipidemia (ICD-10 - E78.5) Discussed cholesterol results with patient today. Total is 143. HDL is 40. LDL is 80. Triglycerides are 117. Readings are at goal. She is to continue to monitor her intake of carbs and sugars. Stay active as tolerated. 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 Jun, Weight gain (ICD-10 - R63.5) She has gained weight since last seen. Jun, Microscopic colitis (ICD-10 - K52.89) Continue to follow with Dr. Acosta as scheduled. Jun, C. difficile diarrhea (ICD-10 - A04.72) Continue with Dr. Acosta as scheduled. Jun, Other She voices that she began to have seizures at night when she is sleeping, her boyfriend told her that she is out of it when these happen and she sounds like she is drowning in her own saliva. These happen 3-4 times a month, maybe more frequently. She saw Dr. Rand for evaluation but says he didn't really seem concerned and did not say anything. He did an EEG but she has not seen him yet to review the results. She has a sleep study on 06-18-21. She will see him again on 07-04-21. [facility] Other 01-19-2022 Evaluation note* Encounter Date Diagnosis Assessment Notes Treatment Notes Treatment Clinical Notes Apr, Encounter for immunization (ICD-10 - Z23) Patient presents for COVID-19 vaccination BOOSTER. Pre-screening form answers evaluated with patient. Patient denies current illness or allergic reaction to component of COVID-19 vaccine. Patient provided with current copy of EUA. [facility] Other 12-20-2021 Evaluation note* Encounter Date Diagnosis Assessment Notes Treatment Notes Treatment Clinical Notes Mar, C. difficile diarrhea (ICD-10 - A04.72) [facility] Other Evaluation + Plan note No data available for this section [facility] evaluation noteNo [employer] Other Evaluation note* Diagnosis Onset Date Resolution Status Anxiety acute Depression acute Fibromyalgia acute Hypothyroid acute Polypharmacy acute Reflex sympathetic dystrophy acute Seizure-like activity acute Tobacco abuse acute Tobacco abuse counseling acu te [facility] Work Phone: Evaluation noteNo assessment information available [facility] Work Phone: Evaluation note* Diagnosis Onset Date Resolution Status Microscopic colitis acute [facility] Work Phone: Evaluation note* Diagnosis Onset Date Resolution Status Microscopic colitis acute Anemia acute Breast cancer screening by mammogram acute GERD (gastroesophageal reflux disease) acute Hyperglycemia acute Hyperlipidemia acute Hypothyroidism acute Reflex sympathetic dystrophy acute Vitamin D deficiency acute [facility] Work Phone: History general Narrative - Reported* Type Description Date Medical History sinusitis Medical History polyp/nasal cavity Medical History fibromyalgia Medical History allergic rhinitis Medical History paresthesia Medical History lumbar pain Medical History lumbar strain Medical History MRI Cervical Spine 08-07-09; [facility] [place] Medical History X-Ray Cervical Spine 01-09-12; [facility] Medical History MRI Cervical Spine 01-09-12; [facility] [place] Medical History Pneumonia Medical History Lumbar Block 09-25 Medical History Depression Surgical History appendectomy Surgical History carpal tunnel release Surgical History cervical fusion x3 Surgical History D&C Surgical History sinus surgery Surgical History thoracic outlet syndrome Surgical History uterine ablation 03/22 Surgical History carpal tunnel, right wrist, Dr Doe (approx 1999) Surgical History uterine ablation 03/22 Surgical History Left leg pins, plates, and scre ws removed Surgical History Cervical fusion C3-C 4, C4-C5, and C5-C6 per Dr. Ugalde 2009 Surgical History ankle scope 09/2011 Surgical History Colonoscopy, Normal, Dr. Skyler willis Surgical History HIDA, EGD Itzkowitz 06/2017 Hospitalization History see above Hospitalization History Septic shock and pneumon ia Hospitalization History UTI UC 06/26/15 [facility] Other history general Narrative - Reported* Type Description Date Medical History sinusitis Medical History polyp/nasal cavity Medical History fibromyalgia Medical History allergic rhinitis Medical History paresthesia Medical History lumbar pain Medical History lumbar strain Medical History MRI Cervical Spine 08-07-09; [facility] Medical History X-Ray Cervical Spine 01-09-12; [facility] Medical History MRI Cervical Spine 01-09-12; [facility] [place] Medical History Pneumonia Medical History Lumbar Block 09-25 Medical History Depression Surgical History appendectomy Surgical History carpal tunnel release Surgical History cervical fusion x3 Surgical History D&C Surgical History sinus surgery Surgical History thoracic outlet syndrome Surgical History uterine ablation 03/22 Surgical History carpal tunnel, right wrist, Dr Doe (approx 1999) Surgical History uterine ablation 03/22 Surgical History Left leg pins, plates, and scre ws removed Surgical History Cervical fusion C3-C 4, C4-C5, and C5-C6 per Dr. Ugalde 2009 Surgical History ankle scope 09/2011 Surgical History Colonoscopy, Normal, Dr. Skyler willis Surgical History HIDA, EGD Itzkowitz 06/2017 Surgical History Colonoscopy 03/16/2020 Hospitalization History see above Hospitalization History Septic shock and pneumon ia Hospitalization History UTI UC 06/26/15 [facility] Other history general Narrative - Reported* Type Description Date Medical History sinusitis Medical History polyp/nasal cavity Medical History fibromyalgia Medical History allergic rhinitis Medical History paresthesia Medical History lumbar pain Medical History lumbar strain Medical History MRI Cervical Spine 08-07-09; [facility] [place] Medical History X-Ray Cervical Spine 01-09-12; [facility] Medical History MRI Cervical Spine 01-09-12; [facility] [place] Medical History Pneumonia Medical History Lumbar Block 09-25 Medical History Depression Surgical History appendectomy Surgical History carpal tunnel release Surgical History cervical fusion x3 Surgical History D&C Surgical History sinus surgery Surgical History thoracic outlet syndrome Surgical History uterine ablation 03/22 Surgical History carpal tunnel, right wrist, Dr Doe (approx 1999) Surgical History uterine ablation 03/22 Surgical History Left leg pins, plates, and scre ws removed Surgical History Cervical fusion C3-C 4, C4-C5, and C5-C6 per Dr. Ugalde 2009 Surgical History ankle scope 09/2011 Surgical History Colonoscopy, Normal, Dr. Skyler willis Surgical History HIDA, EGD Itzkowitz 06/2017 Surgical History Colonoscopy/ Dr. Acosta/ rep eat in 202503/16/2020 Surgical History nerve stimulater 06/12/2022 Hospitalization History see above Hospitalization History Septic shock and pneumon ia Hospitalization History UTI UC 06/26/15 [facility] Other Hospital Discharge instructions No data available for this section [facility] progress note No data available for this section [facility] Chief Complaint and Reason for Visit Chief Complaint E87.6 E03.9 r53.83 d64.9 e53.8 r41.9 r41.9 Reason for Visit Anxiety Depression Fibromyalgia Hypothyroid Polypharmacy Reflex sympathetic dystrophy Seizure-like activity Tobacco abuse Tobacco abuse counseling Chief Complaint See order see order(s) Chief Complaint Z79.899 R73.9 D64.9 E03.9 E78.5 Chief Complaint d64.9/z12.31/e03.9/r 53.8/r73.9/e55.9/z79.899 Chief Complaint 1 Year Follow Up//Ov erdue d64.9/z12.31/e03.9/r53.8/r73.9/e55.9/z79.899 Review Labs M54.50 M54.16 CC Adult Risk Stratification G47.00 Chief Complaint e53.8 Chief Complaint e53.8 6 MONTH FOLLOW UP-MICROSCOPIC COLITIS Reason for Visit Microscopic colitis Chief Complaint e53.8 6 MONTH FOLLOW UP-MICROSCOPIC COLITIS telephone/review labs Reason for Visit Microscopic colitis Anemia Breast cancer screening by mammogram GERD (gastroesophageal reflux disease) Hyperglycemia Hyperlipidemia Hypothyroidism Reflex sympathetic dystrophy Vitamin D deficiency Chief Complaint e53.8 6 MONTH FOLLOW UP-MICROSCOPIC COLITIS telephone/review labs Z12.31 Reason for Visit Microscopic colitis Anemia Breast cancer screening by mammogram GERD (gastroesophageal reflux disease) Hyperglycemia Hyperlipidemia Hypothyroidism Reflex sympathetic dystrophy Vitamin D deficiency Family History No Family History Records Found Relationship Condition Age at Onset Recorded Date/T bernadette father Diabetes mellitus Unknown Presence of cardiac pacemaker Unknown Carla-Holt virus infection Unknown Not Specified Leukemia Unknown grandparent Malignant neoplasm of lung Unknown Relationship Condition Age at Onset Recorded Date/T bernadette father Diabetes mellitus Unknown Presence of cardiac pacemaker Unknown Carla-Holt virus infection Unknown Not Specified Leukemia Unknown grandparent Malignant neoplasm of lung Unknown daughter Neurological disorder Unknown Heart disease Unknown grandparent Unknown Family history of lung cancer Unknown Not Specified Malignant neoplasm Unknown Unknown Leukemia Unknown Relationship Condition Age at Onset Recorded Date/T bernadette father Diabetes mellitus Unknown Presence of cardiac pacemaker Unknown Carla-Holt virus infection Unknown mother Leukemia Unknown grandparent Malignant neoplasm of lung Unknown daughter Neurological disorder Unknown Heart disease Unknown grandparent Unknown Family history of lung cancer Unknown mother Malignant neoplasm Unknown Unknown Leukemia Unknown Relationship Condition Age at Onset Recorded Date/T bernadette father Diabetes mellitus Unknown Presence of cardiac pacemaker Unknown Carla-Holt virus infection Unknown Myocardial infarction Unknown mother Leukemia Unknown grandparent Malignant neoplasm of lung Unknown daughter Neurological disorder Unknown Heart disease Unknown grandparent Unknown Family history of lung cancer Unknown mother Malignant neoplasm Unknown Unknown Leukemia Unknown Advance Directives No Advanced Directives Records Found Advance Directive Response Recorded Date/ Time Advance Directives No January 21, 2017 2:03pm Advance Directive Response Recorded Date/ Time Advance Directives No January 21, 2017 1:03pm Advance Directive Response Recorded Date/ Time Advance Directives No October 21 4:17pm Reason for Referral Reason appt consult to ramesh sims urinary urgency Diagnosis 1 Urinary urgency (R39 .15) Referral Organization [facility] Family Gabbi Rahman Referring Provider First Name Samia Referring Provider Last Name Cain Referring Provider Specialty Family Prac bonilla Referred Organization [facility] Referred Provider YOVANA SALMON Referred Address [address] [place] [address] sheree Regalado,[place], [place],[address] Referred Provider Specialty Urology Referral Priority Routine General Notes Cate Higgins 09/30/2022 01:40:14 PM > referral faxed with TE message, last visit note and insurance card. pt understands she will be contacted to schedule this appt. Summary Purpose Additional Source Comments REASON FOR VISIT (unrecogniz ed section and content) coldclinicalPFIZER VACCINE B OOSTERNo InformationclinicalFR ERreview labscoldmedicationFR ERMEDICATIONmedicationClinicalmedicationreview labsUA resultsClinicalClinical/labs requestPatient here for 1 yr follow upreview labs Care Teams (unrecognized sec tion and content) Team Status: Active Member Role Status Dates Samia Saenz DO Primary Care Provider Active Team Status: Inactive Member Role Status Dates Samia Saenz DO Primary Care Provider, Attending Pro vider Active Team Status: Active Member Role Status Dates Samia Saenz DO Primary Care Provider Active Brad Butterfield MD Attending Provider Active Team Status: Inactive Member Role Status Dates Samia Saenz DO Primary Care Provider Active Whit Tyson MD Admit Provider, Attending Provider Active Esdras Rand MD Other Provider Active Team Status: Inactive Member Role Status Dates Samia Saenz DO Primary Care Provider Active Rosemary Starr PA-C Attending Provider Active Team Status: Inactive Member Role Status Dates Samia Saenz DO Primary Care Provider Active Dlian Luis II, MD Attending Provider Active Team Status: Inactive Member Role Status Dates Samia Saenz DO Attending Provider Active Team Status: Active Member Role Status Dates Júnior Carrillo LPN Care Manager Active Samia Saenz DO Primary Care Provider Active Team Status: Inactive Member Role Status Dates Aftab Acosta MD Attending Provider Active Start: March 05, 2023 End: March 05, 2023 Team Status: Inactive Member Role Status Dates Samia Saenz DO Primary Care Provide r, Attending Provider Active Start: March 17, 2023 End: March 17, 2023 Team Status: Inactive Member Role Status Shawn Saenz DO Attending Provider Active Star t: March 19, 2023 End: March 19, 2023 Team Status: Inactive Member Role Status Dates GREGORY Feldman Attending Provider Active Start: March 25, 2023 End: March 25, 2023 Samia Saenz DO Primary Care Provider Active S tart: March 25, 2023 End: March 25, 2023 Team Status: Active Member Role Status Dates Samia Saenz DO Primary Care Provide r, Attending Provider Active Start: May 06, 2023 Team Status: Inactive Member Role Status Dates Dianne Ann PA-C Referring Provider Active Sta rt: May 07, 2023 End: May 07, 2023 Samia Saenz DO Primary Care Provider Active S tart: May 07, 2023 End: May 07, 2023 Samia Qiu MD Attending Provider Active S tart: May 07, 2023 End: May 07, 2023 Team Status: Active Member Role Status Dates Samia Girvin , DO Primary Care Provider Active S tart: August 18, 2023 Mingo Butterfield MD Attending Provider Active Start: August 18, 2023 Team Status: Inactive Member Role Status Dates Samia Saenz DO Primary Care Provide r, Attending Provider Active Start: September 22, 2023 End: September 22, 2023 Team Status: Inactive Member Role Status Dates Samia Saenz DO Primary Care Provider Active S tart: October 15, 2023 End: October 15, 2023 Brandy Dominguez DO Attending Provider Active St art: October 15, 2023 End: October 15, 2023 Team Status: Inactive Member Role Status Dates Samia Saenz DO Primary Care Provide r, Attending Provider Active Start: October 22, 2023 End: October 22, 2023 Team Status: Active Member Role Status Dates Samia Saenz DO Primary Care Provider Active S tart: November 10, 2023 Mingo Butterfield MD Attending Provider Active Start: November 10, 2023 Team Status: Active Member Role Status Dates Samia Saenz DO Primary Care Provide r, Attending Provider Active Start: November 13, 2023 Team Status: Inactive Member Role Status Dates Samia Saenz DO Primary Care Provide r, Attending Provider Active Start: November 14, 2023 End: November 14, 2023 Goals (unrecognized section and content) Goals may be documented in a n alternate section INFORMATION SOURCE (unrecogn ized section and content) DATE CREATED AUTHOR 10/02/2023 [facility] DATE CREATED AUTHOR AUTHOR'S ORGANIZ ATION 10/02/2023 [facility] DATE CREATED AUTHOR AUTHOR'S ORGANIZ ATION 11/06/2023 [facility] DATE CREATED AUTHOR AUTHOR'S ORGANIZ ATION 11/17/2023 [facility] FOR RECORDS PERTAINING TO PATIENTS WHO ARE OR HAVE BEEN ENROLLED IN A CHEMICAL DEPENDENCY/SUBSTANCEABUSE PROGRAM, SOME INFORMATION MAY BE OMITTED. This clinical summary was aggregated from multiple sources. Caution should be exercised in using it in the provision of clinical care. This summary normalizes information from multiple sources, and as a consequence, information in this document may materially change the coding, format and clinical context of patient data. In addition, data may be omitted in some cases. CLINICAL DECISIONS SHOULD BE BASED ON THE PRIMARY CLINICAL RECORDS. [facility]. provides no warranty or guarantee of the accuracy or completeness of information in this document.
[2023-11-27 09:26] LABS: Glucometer 98 mg/dL (74-106)
--- NOTE | 2023-11-27 09:32 | PC.NURSE ---
left leg worse than right
[2023-11-27] MEDS: LACTATED RINGER'S SOLUTION 1,000 ML 50 ML IV ×2 (09:35→11:00)
[2023-11-27] MEDS: CEFAZOLIN SODIUM 2 GM/50 ML D5W PREMIX IV (09:59)
[2023-11-27] MEDS: BETAMETHASONE ACE/BETAMETHASONE SOD PHOS 30 MG/5 ML INJ (10:58)
[2023-11-27] MEDS: LIDOCAINE HCL 1% PF 50 MG/5 ML VIAL INJ (11:00)
[2023-11-27] MEDS: BUPIVACAINE HCL 0.5% PF 50 MG/10 ML VIAL 20 ML INJ (11:00)
--- NOTE | 2023-11-27 11:15 | P.ORON_ITS ---
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 Over the last 10 years she has had worsening pain and dysfunction associated with her left ankle relating to pain in her anterior ankle as well as difficulty with uneven surfaces and feeling as if the ankle would give way. On examination she had no significant deformity but did had restricted range of motion and guarded anterior drawer. Due to her failure to respond to nonsurgical treatment which included ASO ankle bracing, OTC pain medicine, shoe and activity modification she wished to undergo surgical treatment I recommended the above procedures. Intraoperative findings: Stress examination of the left ankle revealed stable lateral collateral ligaments and stable syndesmosis. Arthroscopy revealed chronic synovitis and moderate degenerative changes to the ankle joint. No osteochondral defect. Procedure in detail: Patient was identified in pre op and consent was reviewed. Correct side and site were identified and marked. Pre-op antibiotics were started. Patient was brought to OR suite and place on table in a supine position. General anesthesia was administered. Thigh tourniquet applied. Under fluoroscopy the ankle joint was stressed in anterior drawer, varus and valgus as well as syndesmotic stress testing. All ligaments were stable with no instability observed. Operative extremity was prepped and draped in usual sterile fashion and place in a well-padded leg rob. Formal time-out was performed. The intermediate dorsal cutaneous nerve was identified and marked. The ankle was insufflated with 15 cc of sterile saline and the foot, ankle and calf were exsanguinated and tourniquet inflated. Marcaine was injected proximal to the surgical field. No anesthetic was injected into the joint. On the anterior left ankle, a 1 cm incision over the medial ankle gutter was created is standard safe zone. Blunt dissection was performed then the trochar and cannula were inserted with the ankle held in maximum dorsiflexion. Inspection of the ankle demonstrated significant acute and chronic synovitis with impingement. A needle was inserted into the anterior lateral ankle in standard safe zone and was identified then removed. A second 1 cm incision was created over anterior lateral ankle followed by blunt dissection to ensure the intermediate dorsal cutaneous nerve was protected. A 3.5 mm aggressive shaver was inserted into this portal and used to resect all impingement and synovitic tissue. Portal incisions were closed with nylon suture. A dry sterile dressing and cam boot were then applied. Patient tolerated the procedure and anesthesia well was transported to the recovery room with vital signs stable and brisk capillary refill to the left toes. Postoperative plan discharge home under boyfriend's care. Weightbearing as tolerated in cam boot. Follow-up in 1 week for incision check Prescriptions were sent to her pharmacy via my office EMR. No opioids were prescribed due to previous dependence May remove surgical bandage tomorrow and wash the surgical sites with soap and water and replace the bandage with gauze dressing Anesthesia: General-LMA Surgeon: Hubert Munoz Estimated blood loss (mL): 10 Tourniquet time (min): 18 Pathology: none sent Condition: stable Disposition: PACU
[2023-11-27 11:50] LABS: Glucometer 101 mg/dL (74-106)
== END 2023-11-27 12:46 | disposition home or self-care (01) ==
PROVIDERS: PCP Family Medicine; Visit Provider Podiatrist Foot & Ankle Surgery
PROC: (CPT 29898; principal; 2023-11-27 09:40)
DX: M19.172 Post-traumatic osteoarthritis, left ankle and foot (principal); M25.372 Other instability, left ankle; M65.872 Other synovitis and tenosynovitis, left ankle and foot; F17.210 Nicotine dependence, cigarettes, uncomplicated; G47.33 Obstructive sleep apnea (adult) (pediatric); E03.9 Hypothyroidism, unspecified; Z79.899 Other long term (current) drug therapy
CPT/HCPCS: 29898; 36415; 76000; 82948; J0131; J0665; J0690; J0702; J1100; J1885; J2250; J2371; J2405; J2704

== ENCOUNTER 2024-01-01 15:52 | Outpatient (OUT) | payer MEDICARE, SELFPAY ==
--- NOTE | 2024-01-01 16:01 | US_ITS ---
The [address] [address] Patient Name: SVETLANA BRADY MRN: [id number] date: 1965 Sex: F Assigned Patient Location: [place] Current Patient Location: [place] Accession/Order Number: [id number] Exam Date: 01/01/2024 16:50 Report Date: 01/01/2024 17:40 At the request of: FRANCISCO HERRERA Procedure: US venous doppler LE LT EXAM: US venous doppler LE LT HISTORY: Left leg swelling R22.42 COMPARISON: None. TECHNIQUE: Multiple sonographic images of the deep veins of the left lower extremity were obtained, supplemented with Doppler. FINDINGS: The deep veins of the left lower extremity are fairly well-visualized from the groin to the mid calf. No filling defect is identified to indicate a thrombus. There is normal compression augmentation of flow throughout. Edema is seen in the superficial soft tissues of the calf. US/US venous doppler LE LT IMPRESSION: There is no direct or indirect evidence of deep vein thrombosis in the left lower extremity at this time. Electronically authenticated by: REY GRANT Date: 01/01/2024 17:40
--- OUTSIDE RECORDS SUMMARY | 2024-01-01 16:12 | XMS_ITS | CCD ---
Author Organization [facility] Care Team Providers Care Security Lead Name Role Phone Samia Saenz Unavailable Aftab Acosta Unavailable [phone] Cristy Fabian Unavailable DO Samia Saenz Primary Care Provider [phone] DO Samia Saenz Attending Provider YO Starr Attending Provider MD Whit Tyson Admit Provider MD Whit Tyson Attending Provider MD Esdras Rand Other Provider DO Samia Saenz Primary Care Provider DO Samia Saenz Attending Provider [phone] MD Dilan Luis II Attending Provider DO Samia Saenz Primary Care Provider [phone] MD Brad Butterfield Attending Provider DO Samia Saenz Attending Provider [phone] Samia Saenz Primary Care Physician DO Samia Saenz Primary Care Provider DO Samia Saenz Attending Provider GREGORY Caro Attending Provider OY Ann Referring Provider MD Samia Qiu Attending Provider DO Samia Saenz Primary Care Provider [phone] MD Mingo Butterfield Attending Provider DO Samia Saenz Attending Provider SHAYY DICKERSON Referring Unavailable SAMIA SAENZ Primary Care Unavailable SAMIA SAENZ Referring Unavailable SAMIA SAENZ Primary Care Unavailable LETTY, SAMIA Lewis Referring Unavailable SAMIA SAENZ Primary Care Unavailable SAMIA CORONA Attending Unavailable REY CHINCHILLA Referring Unavailable AMOR, REY Estrada Attending Unavailable REY CHINCHILLA Admitting Unavailable Samia Saenz Referring Unavailable Smith DALLAS Attending Unavailable Steven DONNELLY Attending Unavailable VEE PELAEZ Attending Unavailable Samia Saenz Referring Unavailable VEE PELAEZ Attending Unavailable DO Samia Saenz Primary Care Provider MD Mingo Butterfield Attending Provider [phone] Mingo Butterfield Admitting Unavailab Mingo Luna Attending Unavailab Samia Yeh Primary Care Unavailable Jerri Caro Admitting Unavailable Jerri Caro Attending Unavailable Letty, Samia Primary Care Unavailable Samia Qiu Admitting Unavailable Samia Qiu Attending Unavailable Dianne Ann Referring Unavailable Letty, Samia Primary Care Unavailable Letty, Samia Admitting Unavailable Letty, Samia Primary Care Unavailable Samia Saenz Attending Unavailable Samia Saenz Attending Unavailable Letty, Samia Admitting Unavailable Girdyan, Samia Primary Care Unavailable Letty, Samia Admitting Unavailable Letty, Samia Primary Care Unavailable Letty, Samia Attending Unavailable Allergies Allergy Classification Reported Allergen(s) Allergy Type Date of Onset Reaction(s) Facility Cephalosporins (antibiotic) (1 source) cefdinir Drug Allergy 3 with first one, able to finish the script. [facility] Clavulanate (1 source) Clavulanate Drug Allergy 3 1st dose made her ill, able to keep down next dose [facility] Penicillins (antibiotic) (1 source) Amoxicillin Drug Allergy 3 1st dose made her ill, able to keep down next dose [facility] Sulfonamides (antibiotic) (2 sources) Sulfonamides (Antibiotic) Drug Allergy 3 Edema [facility] (20 sources) Amoxicillin / Clavulanate; Translations: [amoxicillin-cla vulanate] Drug Allergy Nausea (finding) [facility] (20 sources) cefdinir; Translations: [cefdinir] Drug Allergy Unknown (qualifier value) [facility] (20 sources) Sulfamethoxazole ; Translations: [Sulfamethoxazol e] Drug Allergy 3 Edema (finding) [facility] (2 sources) Amoxicillin / Clavulanate; Translations: [Augmentin] Drug Allergy 1st dose made her ill, able to keep down next dose [facility] (4 sources) Amoxicillin; Translations: [amoxicillin] Drug Allergy 3 1st dose made her ill, able to keep down next dose [facility] (4 sources) cefdinir; Translations: [cefdinir] Drug Allergy 3 with first one, able to finish the script. [facility] (4 sources) Clavulanate; Translations: [clavulanic acid] Drug Allergy 3 1st dose made her ill, able to keep down next dose [facility] (7 sources) Sulfonamides (Antibiotic); Translations: [SULFA (SULFONAMIDE ANTIBIOTICS)] Allergy to substance 2 Unknown Reaction, Edema [facility] Medications Current Medications Medication Drug Class(es) Dates [...] a day; Note: Source Status: Continue; Provider: Letty Lewis azithromycin 250 mg oral tablet (20 [...] daily Budesonide Active 9 MG PO Daily June 24, 2023 8:21am take 3 capsules [...] a day; Note: Source Status: Continue; Provider: Letty Torres ( ) ciprofloxacin 500 mg oral tablet (2 sources) Quinolone Antimicrobial Start: 03-19-2023 Cipro 500 mg Tab See Instructions, Take 1 tab day prior to procedure and 1 tab day of procdure - afterwards, # 2 tab(s), Refills(s) 0, Pharmacy: [facility]/pharmacy #[id number], 163, cm, 03/11/23 13:48:00 EST, [...] Start: 09-24-2013 take 1 capsule by mo [facility] every twenty-four hours Cymbalta 60 MG 1 capsule Orally Once a day Sep, Active Start: 09-24-2013 take 1 capsule by mo [facility] once daily Cymbalta 120 mg 1 capsule Orally Once a day Sep, Active ferrous sulfate 325 mg oral tablet (20 sources) Start: 09-09-2023 Ferrous Sulfat e Active 325 MG PO Every 48 hours September 09, 2023 12:00am On Hold: hold while taking Folic Acid Start: 11-22-2019 take 1 tablet by kiki every other day Ferrous Sulfate 325 (65 [...] Start: 11-22-2019 take 1 tablet by kiki every twenty-four hours Ferrous Sulfate 325 (65 [...] 10:15am take 1 tablet by kiki every eight hours Gabapentin 800 MG 1 [...] a day; Note: Source Status: Not-Taking\PRNprn; Provider: Letty Lewis Start: 01-28-2017 take 1 tablet by [...] FRIDAY, FRIDAY) Start: 03-10-2023 Potassium Chlo ride ([id number] 10) 10 mEq oral tablet, extended release [...] Start: 09-09-2023 take 1 capsule by mo [facility] once daily Vitamin E (Dl, Acetate) Active [...] Start: 07-09-2021 take 2 capsules by m [facility] three times daily for cough Tessalon [...] Start: 11-30-2020 take 2 tablets by mo [facility] every twenty-four hours Colestipol HCl 1 GM [...] 2 Episodic Other aftercare (3 sources) Other terminal superintendent (current) drug therapy; Translations: [Long-term (current) use of other medications] Onset: 2 Resolved: 2 Episodic Other aftercare (10 sources) Polypharmacy ; Translations: [Other terminal superintendent (current) drug therapy] 11-26-2021 Episodic Other connective [...] n 11-14-2023 MM screening mammo BI w/CAD [facility] [place] [address] Mammography Report Signed Patient: Alla Brady MR#: [id number] : 1965 Acct:[id number] Age/Sex: 58 / F ADM Date: 11/14/23 Loc: [place] Room: Type: [facility] Attending Dr: Samia Saenz DO Copies to: [...] Reno Montero M.D.11/14/2023 3:43 PM Dictation Location: [facility] Transcribed By: [facility] 11/14/23 1543 Dictated By: Reno Montero DO 11/14/23 1532 Signed By: 11/14/23 1543 Normal [facility] Basophils Auto (Bld) [#/Vol] on 11-13-2023 Basophils (Bld) [#/Vol] 0.1 10 3/uL 0.0-0.1 [facility] Basophils/100 WBC Auto (Bld) on 11-13-2023 Basophils/100 WBC (Bld) 0.8 % 0.2-2.0 [facility] Eosinophils/100 WBC Auto (Bl d)on 11-13-2023 Eosinophils/100 WBC (Bld) 0.2 % Low 0.9-7.0 [facility] Erythrocyte distribution wid th Auto (RBC) [Ratio]on 11-13-2023 Erythrocyte distribution width (RBC) [Ratio] 13.1 % 11.0-15.0 [facility] Estimated glomerular filtrat ion rate (GFR) non- Americanon 11-13-2023 GFR/1.73 sq M.predicted among non-blacks MDRD (S/P/Bld) [Vol rate/Area] mL/min/{1.73_m2} >=60 [facility] Hematocrit Auto (Bld) [Volum e fraction]on 11-13-2023 Hematocrit (Bld) [Volume fraction] 38.2 % 36.0-48.0 [facility] Hemoglobin [Mass/volume] in Bloodon 11-13-2023 Hemoglobin (Bld) [Mass/Vol] 12.5 g/dL 12.0-16.0 [facility] Laboratory - Chemistry and C hemistry - challengeon 11-13-2023 Calcium [Mass/Vol] 8.9 mg/dL 8.5-10.1 [facility] Chloride [Moles/Vol] 106 mmol/L 98-107 [facility] CO2 [Moles/Vol] 29.7 mmol/L 21.0-32.0 [facility] Creatinine [Mass/Vol] 0.81 mg/dL 0.55-1.02 [facility] GFR/1.73 sq M.predicted MDRD (S/P/Bld) [Vol rate/Area] mL/min/{1.73_m2} >=60 [facility] Glucose [Mass/Vol] 83 mg/dL 74-106 [facility] Potassium [Moles/Vol] 3.9 mmol/L 3.5-5.1 [facility] Sodium [Moles/Vol] 141 mmol/L 136-145 [facility] Urea nitrogen [Mass/Vol] 13.0 mg/dL 7.0-18.0 [facility] Urea nitrogen/Creatinine [Mass ratio] 16.0 mg/mg [facility] Laboratory - Hematology and Cell countson 11-13-2023 Immature granulocytes/100 WBC (Bld) 0.6 % High 0.0-0.5 [facility] Leukocytes [#/volume] correc perico for nucleated erythrocytes in Blood by Automated counon 11-13-2023 WBC corrected for nucl RBC Auto (Bld) [#/Vol] 6.3 10 3/uL 4.0-11.0 [facility] Lymphocytes Auto (Bld) [#/Vo l]on 11-13-2023 Lymphocytes (Bld) [#/Vol] 1.5 10 3/uL 1.2-3.8 [facility] Lymphocytes/100 WBC Auto (Bl d)on 11-13-2023 Lymphocytes/100 WBC (Bld) 23.5 % 20.5-60.0 [facility] MCH Auto (RBC) [Entitic mass ]on 11-13-2023 MCH (RBC) [Entitic mass] 31.7 pg 26.7-34.0 [facility] MCHC Auto (RBC) [Mass/Vol]on 11-13-2023 MCHC (RBC) [Mass/Vol] 32.7 g/dL 29.9-35.2 [facility] MCV Auto (RBC) [Entitic vol] on 11-13-2023 MCV (RBC) [Entitic vol] 97.0 fL 81.0-99.0 [facility] Monocytes Auto (Bld) [#/Vol] on 11-13-2023 Monocytes (Bld) [#/Vol] 0.5 10 3/uL 0.3-0.8 [facility] Monocytes/100 WBC Auto (Bld) on 11-13-2023 Monocytes/100 WBC (Bld) 8.1 % 1.7-12.0 [facility] Neutrophils Auto (Bld) [#/Vo l]on 11-13-2023 Neutrophils (Bld) [#/Vol] 4.2 10 3/uL 1.4-6.5 [facility] Neutrophils/100 WBC Auto (Bl d)on 11-13-2023 Neutrophils/100 WBC (Bld) 66.8 % 43.0-75.0 [facility] No Panel Informationon 11-12 Eosinophils # (Auto) 0.0 10 3/uL 0.0-0.7 [facility] Immature Granulocyte # (Auto) 0.04 10 3/uL High 0.00-0.03 [facility] Platelet mean volume Auto (B ld) [Entitic vol]on 11-13-2023 Platelet mean volume (Bld) [Entitic vol] 9.6 fL 9.5-13.5 [facility] Platelets Auto (Bld) [#/Vol] on 11-13-2023 Platelets (Bld) [#/Vol] 228 10 3/uL 150-450 [facility] RBC Auto (Bld) [#/Vol]on RBC (Bld) [#/Vol] 3.94 10 6/uL Low 4.20-5.40 [facility] Serum or plasma anion gap de terminationon 11-13-2023 Anion gap [Moles/Vol] 9.2 mmol/L [facility] CT Lower Extremity w/o Contr ast Lefton [...] Carlos Freeman MD Transcribed by: PARAG Technologist: ASSOC[employer] PSYCHOLOGIST [facility] XR LUMBAR SPINE AP, LATERAL, FLEXION AND [...] Lynn MD on 10/01/2023 6:12 PM Normal [facility] A1C with Estimated Average G melanie 09-22-2023 Glucose [Mass/Vol] 114 mg/dL Normal [facility] Comment on above: Result Comment: PERF ORMED BY: [facility] [address] [place] [address] PATHOLOGIST [employer] SPECIALIST BALDEV HENNESSY M.D. Performed By: #### A 1C [facility] eA, TSH3, CBC, T4F, CMP, FE PRO, T3F, [id number], LIPID, [id number] #### [facility] [address] [place] [address] [place] Alanine aminotransferase [En zymatic activity/volume] in Serum or PlasmaOrdered By: Samia Saenz on 09-22-2023 ALT [Catalytic activity/Vol] 15 U/L Normal 7-52 [facility] Comment on above: Order Comment: PT FA STED 12 HOURS Performed By: #### V [id number], CBC, CMP, TSH3, B12, FOL, T4F, T3F, LIPID, FE PRO, A1C WT eA ####[facility] [id number] [place] [id number] [place] Albumin [Mass/volume] in Ser um or Plasma by Bromocresol green (BCG) dye binding methoOrdered By: Samia Saenz on 09-22-2023 Albumin BCG dye [Mass/Vol] 4.2 g/dL 3.5-5.7 [facility] Alkaline phosphatase [Enzyma tic activity/volume] in Serum or PlasmaOrdered By: Samia Saenz on 09-22-2023 ALP [Catalytic activity/Vol] 52 U/L Normal 34-104 [facility] Comment on above: Order Comment: PT FA STED 12 HOURS Performed By: #### V [id number], CBC, CMP, TSH3, B12, FOL, T4F, T3F, LIPID, FE PRO, A1C WTH eA ####[place] [id number] [place] [id number] [facility] Aspartate aminotransferase [ Enzymatic activity/volume] in Serum or PlasmaOrdered By: Samia Saenz on 09-22-2023 AST [Catalytic activity/Vol] 15 U/L Normal 13-39 [facility] Comment on above: Order Comment: PT FA STED 12 HOURS Performed By: #### V [id number], CBC, CMP, TSH3, B12, FOL, T4F, T3F, LIPID, FE PRO, A1C WT eA ####[place] [address] Automated basophil %Ordered By: Samia Saenz on 09-22-2023 Basophils/100 WBC (Bld) 0.7 % Normal . [facility] Comment on above: Performed By: #### V [id number], CBC, CMP, TSH3, B12, FOL, T4F, T3F, LIPID, FE PRO, A1C [facility] eA ####[place] [id number] [address] Automated basophil countOrde red By: Samia Saenz on 09-22-2023 Basophils (Bld) [#/Vol] 0.1 10*3/uL Normal 0.0-0.2 [facility] Comment on above: Result Comment: PERF ORMED BY: [facility] [address] [place] [address] PATHOLOGIST [employer] SPECIALIST BALDEV HENNESSY M.D. Performed By: #### V [id number], CBC, CMP, TSH3, B12, FOL, T4F, T3F, LIPID, FE PRO, A1C WT eA ####[address] Automated blood monocyte cou ntOrdered By: Samia Saenz on 09-22-2023 Monocytes (Bld) [#/Vol] 0.6 10*3/uL Normal 0.0-0.8 [facility] Comment on above: Performed By: #### V [id number], CBC, CMP, TSH3, B12, FOL, T4F, T3F, LIPID, FE PRO, A1C WTH eA ####[facility] [id number] Automated eosinophil %Ordere d By: Samia Saenz on 09-22-2023 Eosinophils/100 WBC (Bld) 0.1 % Normal . [facility] Comment on above: Performed By: #### V [id number], CBC, CMP, TSH3, B12, FOL, T4F, T3F, LIPID, FE PRO, A1C WT eA ####[address] Automated eosinophil countOr dered By: Samia Saenz on 09-22-2023 Eosinophils (Bld) [#/Vol] 0.0 10*3/uL Normal 0.0-0.45 [facility] Comment on above: Performed By: #### V [id number], CBC, CMP, TSH3, B12, FOL, T4F, T3F, LIPID, FE PRO, A1C WT eA ####[address] Automated monocyte %Ordered By: Samia Saenz on 09-22-2023 Monocytes/100 WBC (Bld) 7.4 % Normal . [facility] Comment on above: Performed By: #### V [id number], CBC, CMP, TSH3, B12, FOL, T4F, T3F, LIPID, FE PRO, A1C WT eA ####[address] Automated neutrophil %Ordere d By: Samia Saenz on 09-22-2023 Neutrophils/100 WBC (Bld) 72.5 % Normal . [facility] Comment on above: Performed By: #### V [id number], CBC, CMP, TSH3, B12, FOL, T4F, T3F, LIPID, FE PRO, A1C WTH eA ####[address] Bilirubin.total [Mass/volume ] in Serum or PlasmaOrdered By: Samia Saenz on 09-22-2023 Bilirubin [Mass/Vol] 0.2 mg/dL Low 0.3-1.0 [facility] Comment on above: Order Comment: PT FA STED 12 HOURS Performed By: #### V [id number], CBC, CMP, TSH3, B12, FOL, T4F, T3F, LIPID, FE PRO, A1C WTH eA ####[place] [address] [place] [id number] [facility] Calcium [Mass/volume] in Ser um or PlasmaOrdered By: Samia Saenz on 09-22-2023 Calcium [Mass/Vol] 9.5 mg/dL Normal 8.6-10.3 [facility] Comment on above: Order Comment: PT FA STED 12 HOURS Performed By: #### V [id number], CBC, CMP, TSH3, B12, FOL, T4F, T3F, LIPID, FE PRO, A1C WTH eA ####[place] [address] [place] [id number] [facility] Carbon dioxide, total [Moles /volume] in Serum or PlasmaOrdered By: Samia Saenz on 09-22-2023 CO2 [Moles/Vol] 29.3 mmol/L Normal 21.0-31.0 [facility] Comment on above: Order Comment: PT FA STED 12 HOURS Performed By: #### V [id number], CBC, CMP, TSH3, B12, FOL, T4F, T3F, LIPID, FE PRO, A1C WT eA ####[place] [id number] [place] Chloride [Moles/volume] in S santiago or PlasmaOrdered By: Samia Saenz on 09-22-2023 Chloride [Moles/Vol] 106 mmol/L Normal 98-107 [facility] Comment on above: Order Comment: PT FA STED 12 HOURS Performed By: #### V [id number], CBC, CMP, TSH3, B12, FOL, T4F, T3F, LIPID, FE PRO, A1C WTH eA ####[address] [address] [place] Cholesterol [Mass/volume] in Serum or PlasmaOrdered By: Samia Saenz on 09-22-2023 Cholesterol [Mass/Vol] 192 mg/dL Normal 140-200 [facility] Comment on above: Chol less than 200 m g/dl low riskChol 201-239 mg/dl borderline riskChol 240 mg/dl and greater high risk Order Comment: PT FA STED 12 HOURS Result Comment: Chol less than 200 mg/dl low risk Chol 201-239 mg/dl borderline risk Chol 240 mg/dl and greater high risk Performed By: #### V [id number], CBC, CMP, TSH3, B12, FOL, T4F, T3F, LIPID, FE PRO, A1C WTH eA ####[facility] Cholesterol in LDL Calc [Mas s/Vol]Ordered By: Samia Saenz on 09-22-2023 Cholesterol in LDL [Mass/Vol] 105 mg/dL High 0-100 [facility] Comment on above: LDL ATP III CLASSIFI CATIONLDL less than 100 mg/dL OptimalLDL 100-129 mg/dL Near or above optimalLDL 130-159 mg/dL Borderline highLDL 160-189 mg/dL HighLDL greater than 189 mg/dL Very high Cholesterol in VLDL Calc [Ma ss/Vol]Ordered By: Samia Saenz on 09-22-2023 Cholesterol in VLDL [Mass/Vol] 21 mg/dL [facility] Complete Blood Count Auto Di ffon 09-22-2023 Mean Corpuscular HGB Conc 33.5 g/dL Normal 32.0-35.0 [facility] Comment on above: Performed By: #### V [id number], CBC, CMP, TSH3, B12, FOL, T4F, T3F, LIPID, FE PRO, A1C WT eA ####[facility] [place] [id number] [facility] NRBC% 0.1 /100{WBC} Normal 0-0.5 [facility] Comment on above: Performed By: #### V [id number], CBC, CMP, TSH3, B12, FOL, T4F, T3F, LIPID, FE PRO, A1C WTH eA ####[facility] [place] [id number] [facility] Comprehensive Metabolic Pane denise 09-22-2023 Albumin [Mass/Vol] 4.2 g/dL Normal 3.5-5.7 [facility] Comment on above: Order Comment: PT FA STED 12 HOURS Performed By: #### V [id number], CBC, CMP, TSH3, B12, FOL, T4F, T3F, LIPID, FE PRO, A1C WTH eA ####[place] [address] [place] [id number] [facility] GFR/1.73 sq M.predicted MDRD (S/P/Bld) [Vol rate/Area] mL/min/{1.73_m2} Normal [facility] Comment on above: Order Comment: PT FA STED 12 HOURS Performed By: #### V [id number], CBC, CMP, TSH3, B12, FOL, T4F, T3F, LIPID, FE PRO, A1C WTH eA ####[place] [address] [place] [id number] [facility] Creatinine [Mass/volume] in Serum or PlasmaOrdered By: Samia Saenz on 09-22-2023 Creatinine [Mass/Vol] 0.70 mg/dL Normal 0.60-1.20 [facility] Comment on above: Order Comment: PT FA STED 12 HOURS Performed By: #### V [id number], CBC, CMP, TSH3, B12, FOL, T4F, T3F, LIPID, FE PRO, A1C WTH eA ####[place] [address] [place] [id number] [facility] Erythrocyte distribution wid th [Ratio] by Automated countOrdered By: Samia Saenz on 09-22-2023 Erythrocyte distribution width (RBC) [Ratio] 13.2 % Normal 11.9-15.3 [facility] Comment on above: Performed By: #### V [id number], CBC, CMP, TSH3, B12, FOL, T4F, T3F, LIPID, FE PRO, A1C WTH eA ####[place] [address] [place] [id number] [facility] Erythrocytes [#/volume] in B lood by Automated countOrdered By: Samia Saenz on 09-22-2023 RBC (Bld) [#/Vol] 3.87 10*6/uL Normal 3.60-5.00 [facility] Comment on above: Performed By: #### V [id number], CBC, CMP, TSH3, B12, FOL, T4F, T3F, LIPID, FE PRO, A1C WTH eA ####[place] [address] [place] [address] [facility] FE PROon 09-22-2023 % Iron Saturation 19.6 % Low 20-50 [facility] Comment on above: Order Comment: PT FA STED 12 HOURS Performed By: #### V [id number], CBC, CMP, TSH3, B12, FOL, T4F, T3F, LIPID, FE PRO, A1C WT eA ####[place] [address] [place] [id number] [facility] Total Iron Binding Capacity 393 ug/dL Normal 255-450 [facility] Comment on above: Order Comment: PT FA STED 12 HOURS Performed By: #### V [id number], CBC, CMP, TSH3, B12, FOL, T4F, T3F, LIPID, FE PRO, A1C WT eA ####[place] [address] [place] [address] [facility] Ferritin [Mass/volume] in Se rum or PlasmaOrdered By: Samia Saenz on 09-22-2023 Ferritin [Mass/Vol] 10.6 ng/mL Low 11.0-306.8 [facility] Comment on above: Order Comment: PT FA STED 12 HOURS Performed By: #### V [id number], CBC, CMP, TSH3, B12, FOL, T4F, T3F, LIPID, FE PRO, A1C WT eA ####[place] [address] [place] [address] [facility] Folateon 09-22-2023 Folate 5.6 ng/mL Low >5.9 [facility] Comment on above: Order Comment: PT FA STED 12 HOURS Result Comment: Jessica te reference range: >5.9 ng/ml The WHO technical consultation on folate and vitamin b12 deficiencies has determined that folate concentrations less than 4 ng/ml are considered deficient. Performed By: #### V [id number], CBC, CMP, TSH3, B12, FOL, T4F, T3F, LIPID, FE PRO, A1C WTH eA ####[facility] [place] [address] [facility] Folate [Mass/volume] in Seru m or PlasmaOrdered By: Samia Saenz on 09-22-2023 Folate [Mass/Vol] 5.6 ng/mL Low >5.9 [facility] Comment on above: Folate reference ran ge: >5.9 ng/mlThe WHO technical consultation on folate and vitamin [id number] has determined that folate concentrations lessthan 4 ng/ml are considered deficient. Glucose [Mass/volume] in Ser um or PlasmaOrdered By: Samia Saenz on 09-22-2023 Glucose [Mass/Vol] 101 mg/dL High 70-100 [facility] Comment on above: ADA recommended refe rence rangeRandom Glucose Reference Range is dependent on time and content of last meal. Glucose of more than 200 mg/dL in a nonstressed, ambulatory subject supports the diagnosis of Diabetes Mellitus. Order Comment: PT FA STED 12 HOURS Result Comment: [place] om Glucose Reference Range is dependent on time and content of last meal. Glucose of more than 200 mg/dL in a nonstressed, ambulatory subject supports the diagnosis of Diabetes Mellitus. ADA recommended reference range Performed By: #### V [id number], CBC, CMP, TSH3, B12, FOL, T4F, T3F, LIPID, FE PRO, A1C WT eA ####[facility] [place] [address] [facility] Glucose mean value [Mass/vol ume] in Blood Estimated from glycated hemoglobinOrdered By: Samia Saenz on 09-22-2023 Average glucose Estimated from glycated hemoglobin (Bld) [Mass/Vol] 114 mg/dL [facility] Hematocrit [Volume Fraction] of Blood by Automated countOrdered By: Samia Saenz on 09-22-2023 Hematocrit (Bld) [Volume fraction] 37.6 % Normal 34.0-46.4 [facility] Comment on above: Performed By: #### V [id number], CBC, CMP, TSH3, B12, FOL, T4F, T3F, LIPID, FE PRO, A1C WTH eA ####[facility] Hemoglobin A1c percentageOrd ered By: Samia Saenz on 09-22-2023 HbA1c (Bld) [Mass fraction] 5.6 % Normal 4.3-5.6 [facility] Comment on above: Increased risk for d iabetes: 5.7 - 6.4diabetes: >6.4glycemic control for adults with diabetes: <7.0 Result Comment: Incr eased risk for diabetes: 5.7 - 6.4 diabetes: >6.4 glycemic control for adults with diabetes: <7.0 Performed By: #### A 1C WT eA, TSH3, CBC, T4F, CMP, FE PRO, T3F, [id number], LIPID, [id number] #### [facility] [address] Hemoglobin [Mass/volume] in BloodOrdered By: Samia Saenz on 09-22-2023 Hemoglobin (Bld) [Mass/Vol] 12.6 g/dL Normal 11.8-15.4 [facility] Comment on above: Performed By: #### V [id number], CBC, CMP, TSH3, B12, FOL, T4F, T3F, LIPID, FE PRO, A1C WT eA ####[place] [address] [address] Iron [Mass/volume] in Serum or PlasmaOrdered By: Samia Saenz on 09-22-2023 Iron [Mass/Vol] 77 ug/dL Normal 50-212 [facility] Comment on above: Order Comment: PT FA STED 12 HOURS Performed By: #### V [id number], CBC, CMP, TSH3, B12, FOL, T4F, T3F, LIPID, FE PRO, A1C WT eA ####[address] Iron binding capacity [Mass/ volume] in Serum or PlasmaOrdered By: Samia Saenz on 09-22-2023 Iron binding capacity [Mass/Vol] 393 ug/dL 255-450 [facility] Iron saturation [Mass Fracti on] in Serum or PlasmaOrdered By: Samia Saenz on 09-22-2023 Iron saturation [Mass fraction] 19.6 % Low 20-50 [facility] Leukocytes [#/volume] correc perico for nucleated erythrocytes in Blood by Automated counOrdered By: Samia Saenz on 09-22-2023 WBC corrected for nucl RBC Auto (Bld) [#/Vol] 7.5 10*3/uL 3.8-11.6 [facility] Leukocytes [#/volume] in Blo od by Automated countOrdered By: Samia Saenz on 09-22-2023 WBC (Bld) [#/Vol] 7.5 10*3/uL Normal 3.8-11.6 [facility] Comment on above: Performed By: #### V [id number], CBC, CMP, TSH3, B12, FOL, T4F, T3F, LIPID, FE PRO, A1C WT eA ####[place] [id number] [address] Lipid Panelon 09-22-2023 LDL Cholesterol,Calculated 105 mg/dL High 0-100 [facility] Comment on above: Order Comment: PT FA STED 12 HOURS Result Comment: LDL ATP III CLASSIFICATION LDL less than 100 mg/dL Optimal LDL 100-129 mg/dL Near or above optimal LDL 130-159 mg/dL Borderline high LDL 160-189 mg/dL High LDL greater than 189 mg/dL Very high Performed By: #### V [id number], CBC, CMP, TSH3, B12, FOL, T4F, T3F, LIPID, FE PRO, A1C WT eA ####[place] [address] [address] Triglyceride w/Reflex 105 mg/dL Normal 0-149 [facility] Comment on above: Order Comment: PT FA STED 12 HOURS Result Comment: TRIG ATP III CLASSIFICATION TRIG less than 150 mg/dL Normal TRIG 150-199 mg/dL Borderline high TRIG 200-500 mg/dL High TRIG greater than 500 mg/dL Very high Standard traceable to the Center for Disease Conrtrol and Prevention (CDC) test method. Performed By: #### V [id number], CBC, CMP, TSH3, B12, FOL, T4F, T3F, LIPID, FE PRO, A1C WT eA ####[facility] VLDL CHOLESTEROL 21 mg/dL Normal [facility] Comment on above: Order Comment: PT FA STED 12 HOURS Performed By: #### V [id number], CBC, CMP, TSH3, B12, FOL, T4F, T3F, LIPID, FE PRO, A1C WT eA ####[address] Lymphocytes [#/volume] in Bl ood by Automated countOrdered By: Samia Saenz on 09-22-2023 Lymphocytes (Bld) [#/Vol] 1.5 10*3/uL Normal 1.00-4.8 [facility] Comment on above: Performed By: #### V [id number], CBC, CMP, TSH3, B12, FOL, T4F, T3F, LIPID, FE PRO, A1C WT eA ####[address] Lymphocytes/100 leukocytes i n Blood by Automated countOrdered By: Samia Saenz on 09-22-2023 Lymphocytes/100 WBC (Bld) 19.3 % Normal . [facility] Comment on above: Performed By: #### V [id number], CBC, CMP, TSH3, B12, FOL, T4F, T3F, LIPID, FE PRO, A1C WT eA ####[address] MCH [Entitic mass] by Automa perico countOrdered By: Samia Saenz on 09-22-2023 MCH (RBC) [Entitic mass] 32.5 pg Normal 24.7-34.3 [facility] Comment on above: Performed By: #### V [id number], CBC, CMP, TSH3, B12, FOL, T4F, T3F, LIPID, FE PRO, A1C WTH eA ####[address] MCHC Auto (RBC) [Mass/Vol]Or dered By: Samia Saenz on 09-22-2023 MCHC (RBC) [Mass/Vol] 33.5 g/dL 32.0-35.0 [facility] MCV [Entitic volume] by Auto mated countOrdered By: Samia Saenz on 09-22-2023 MCV (RBC) [Entitic vol] 97.0 fL Normal 80-100 [facility] Comment on above: Performed By: #### V [id number], CBC, CMP, TSH3, B12, FOL, T4F, T3F, LIPID, FE PRO, A1C WTH eA ####[facility]1111 [place] [id number] [facility] Neutrophils [#/volume] in Bl ood by Automated countOrdered By: Samia Saenz on 09-22-2023 Neutrophils (Bld) [#/Vol] 5.5 10*3/uL Normal 1.8-7.7 [facility] Comment on above: Performed By: #### V [id number], CBC, CMP, TSH3, B12, FOL, T4F, T3F, LIPID, FE PRO, A1C [facility] eA ####[place] [address] [address] No Panel InformationOrdered By: Samia Saenz on 09-22-2023 Estimated GFR (CKD-EPI) > 60.0 mL/Min [facility] Creatinine Clearance (Chem N/A [facility] Nucleated erythrocytes [Pres ence] in Blood by Automated countOrdered By: Samia Saenz on 09-22-2023 Nucleated RBC Auto Ql (Bld) 0.1 /100{WBC} 0-0.5 [facility] Platelet mean volume [Entiti c volume] in Blood by Automated countOrdered By: Samia Saenz on 09-22-2023 Platelet mean volume (Bld) [Entitic vol] 7.7 fL Normal 6.3-10.7 [facility] Comment on above: Performed By: #### V [id number], CBC, CMP, TSH3, B12, FOL, T4F, T3F, LIPID, FE PRO, A1C [facility] eA ####[place] [address] [address] Platelets [#/volume] in Bloo d by Automated countOrdered By: Samia Saenz on 09-22-2023 Platelets (Bld) [#/Vol] 271 10*3/uL Normal 150-450 [facility] Comment on above: Performed By: #### V [id number], CBC, CMP, TSH3, B12, FOL, T4F, T3F, LIPID, FE PRO, A1C WT eA ####[place] [address] [place] [id number] [facility] Potassium [Moles/volume] in Serum or PlasmaOrdered By: Samia Saenz on 09-22-2023 Potassium [Moles/Vol] 4.0 mmol/L Normal 3.5-5.1 [facility] Comment on above: Order Comment: PT FA STED 12 HOURS Performed By: #### V [id number], CBC, CMP, TSH3, B12, FOL, T4F, T3F, LIPID, FE PRO, A1C WT eA ####[place] [address] [place] [id number] [facility] Protein [Mass/volume] in Ser um or PlasmaOrdered By: Samia Saenz on 09-22-2023 Protein [Mass/Vol] 6.9 g/dL Normal 6.4-8.9 [facility] Comment on above: Order Comment: PT FA STED 12 HOURS Performed By: #### V [id number], CBC, CMP, TSH3, B12, FOL, T4F, T3F, LIPID, FE PRO, A1C WT eA ####[place] [address] [place] [id number] [facility] Serum globulin measurement b y calculation (mass/volume)Ordered By: Samia Saenz on 09-22-2023 Globulin (S) [Mass/Vol] 2.7 g/dL Normal [facility] Comment on above: Order Comment: PT FA STED 12 HOURS Performed By: #### V [id number], CBC, CMP, TSH3, B12, FOL, T4F, T3F, LIPID, FE PRO, A1C WTH eA ####[place] [address] [place] [id number] [facility] Serum or plasma albumin/glob ulin mass ratioOrdered By: Samia Saenz on 09-22-2023 Albumin/Globulin [Mass ratio] 1.6 {ratio} [facility] Comment on above: Order Comment: PT FA STED 12 HOURS Performed By: #### V [id number], CBC, CMP, TSH3, B12, FOL, T4F, T3F, LIPID, FE PRO, A1C WTH eA ####[facility] [place] [address] [facility] Serum or plasma anion gap de terminationOrdered By: Samia Saenz on 09-22-2023 Anion gap [Moles/Vol] 8.7 mmol/L Normal 6.0-15.0 [facility] Comment on above: Order Comment: PT FA STED 12 HOURS Performed By: #### V [id number], CBC, CMP, TSH3, B12, FOL, T4F, T3F, LIPID, FE PRO, A1C WT eA ####[place] [address] [place] [id number] [facility] Serum or plasma high density lipoprotein (HDL) cholesterol measurementOrdered By: Samia Saenz on 09-22-2023 Cholesterol in HDL [Mass/Vol] 66 mg/dL Normal 23-92 [facility] Comment on above: HDL CHOL ATP-III CLA SSIFICATION Cardiovascular RiskHDL > or equal to 60 mg/dL LOWHDL < 40 mg/dL HIGH Order Comment: PT FA STED 12 HOURS Result Comment: HDL CHOL ATP-III CLASSIFICATION Cardiovascular Risk HDL > or equal to 60 mg/dL LOW HDL < 40 mg/dL HIGH Performed By: #### V [id number], CBC, CMP, TSH3, B12, FOL, T4F, T3F, LIPID, FE PRO, A1C WT eA ####[place] [address] [place] [address] [facility] Serum or plasma total choles terol/high density lipoprotein (HDL) cholesterol mass ratOrdered By: Samia Saenz on 09-22-2023 Cholesterol.total/Theresa sterol in HDL [Mass ratio] 2.9 {ratio} Normal <5.0 [facility] Comment on above: Order Comment: PT FA STED 12 HOURS Performed By: #### V [id number], CBC, CMP, TSH3, B12, FOL, T4F, T3F, LIPID, FE PRO, A1C WTH eA ####[place] [address] [place] [id number] [facility] Sodium [Moles/volume] in Ser um or PlasmaOrdered By: Samia Saenz on 09-22-2023 Sodium [Moles/Vol] 140 mmol/L Normal 136-145 [facility] Comment on above: Order Comment: PT FA STED 12 HOURS Performed By: #### V [id number], CBC, CMP, TSH3, B12, FOL, T4F, T3F, LIPID, FE PRO, A1C WTH eA ####[facility] [place] [id number] [facility] Thyrotropin [Units/volume] i n Serum or PlasmaOrdered By: Samia Saenz on 09-22-2023 TSH Qn 4.07 m[IU]/L Normal 0.45-5.33 [facility] Comment on above: Order Comment: PT FA STED 12 HOURS Performed By: #### A 1C WT eA, TSH3, CBC, T4F, CMP, FE PRO, T3F, [id number], LIPID, [id number] #### [facility] [address] Thyroxine (T4) free [Mass/vo lume] in Serum or PlasmaOrdered By: Samia Saenz on 09-22-2023 Free T4 [Mass/Vol] 0.59 ng/dL Low 0.61-1.12 [facility] Comment on above: Order Comment: PT FA STED 12 HOURS Performed By: #### V [id number], CBC, CMP, TSH3, B12, FOL, T4F, T3F, LIPID, FE PRO, A1C WT eA ####[facility] [place] [id number] [place] Transferrin [Mass/volume] in Serum or PlasmaOrdered By: Samia Saenz on 09-22-2023 Transferrin [Mass/Vol] 281 mg/dL Normal 203-362 [facility] Comment on above: Order Comment: PT FA STED 12 HOURS Performed By: #### V [id number], CBC, CMP, TSH3, B12, FOL, T4F, T3F, LIPID, FE PRO, A1C WTH eA ####[facility] [id number] [place] [address] [facility] Triglyceride [Mass/volume] i n Serum or PlasmaOrdered By: Samia Saenz on 09-22-2023 Triglyceride [Mass/Vol] 105 mg/dL 0-149 [facility] Comment on above: TRIG ATP III CLASSIF ICATIONTRIG less than 150 mg/dL NormalTRIG 150-199 mg/dL Borderline highTRIG 200-500 mg/dL High TRIG greater than 500 mg/dL Very highStandard traceable to the Center for Disease Conrtrol and Prevention (CDC) test method. Triiodothyronine (T3) Freeon 09-22-2023 Triiodothyronine (T3) Free 2.95 pg/mL Normal 2.50-3.90 [facility] Comment on above: Result Comment: PERF ORMED BY: [facility] [address] [facility] [place] [id number] PATHOLOGIST [employer] SPECIALIST BALDEV HENNESSY M.D. Performed By: #### V [id number], CBC, CMP, TSH3, B12, FOL, T4F, T3F, LIPID, FE PRO, A1C WTH eA ####[place] [address] [place] [address] [facility] Triiodothyronine (T3) Free [ Mass/volume] in Serum or PlasmaOrdered By: Samai Saenz on 09-22-2023 Free T3 [Mass/Vol] 2.95 pg/mL 2.50-3.90 [facility] Urea nitrogen [Mass/volume] in Serum or PlasmaOrdered By: Samia Saenz on 09-22-2023 Urea nitrogen [Mass/Vol] 15 mg/dL Normal 7-25 [facility] Comment on above: Order Comment: PT FA STED 12 HOURS Performed By: #### V [id number], CBC, CMP, TSH3, B12, FOL, T4F, T3F, LIPID, FE PRO, A1C WTH eA ####[facility] [id number] [place] [address] [facility] Vitamin B12 ser/plasOrdered By: Samia Saenz on 09-22-2023 Cobalamin (Vitamin B12) [Mass/Vol] 534 pg/mL Normal 180-914 [facility] Comment on above: Order Comment: PT FA STED 12 HOURS Performed By: #### V [id number], CBC, CMP, TSH3, B12, FOL, T4F, T3F, LIPID, FE PRO, A1C WTH eA ####[facility] [id number] [place] [address] [facility] Vitamin D 25 Hydroxy Totalon 09-22-2023 Vitamin D 25 Hydroxy Total 33.3 ng/mL Normal 30-100 [facility] Comment on above: Order Comment: PT FA STED 12 HOURS Result Comment: [place] MIN D STATUS 25(OH)VITAMIN D RANGE (ng/mL) Deficient <20 Insufficient 20 to <30 Sufficient 30 to 100 Reference: Shakir Akbar, Darius SHAW, et al. Evaluation,treatment, and prevention of vitamin D deficiency; an Endocrine Society clinical practice guideline. JCEM. 2010; 96(7):1911-. PERFORMED BY: [facility] [address] [place] [address] PATHOLOGIST [employer] SPECIALIST BALDEV HENNESSY M.D. Performed By: #### A 1C [facility] eA, TSH3, CBC, T4F, CMP, FE PRO, T3F, [id number], LIPID, [id number] #### [facility] [address] [place] [id number] [facility] Vitamin D+Metabolites [Mass/ volume] in Serum or PlasmaOrdered By: Samia Saenz on 09-22-2023 Vitamin D+Metabolites [Mass/Vol] 33.3 ng/mL 30-100 [facility] Comment on above: VITAMIN D STATUS 25( [place])VITAMIN D RANGE (ng/mL) Deficient <20 Insufficient 20 to <30Sufficient 30 to 100Reference: Shakir Akbar, Darius SHAW, et al. Evaluation,treatment, and prevention of vitamin D deficiency; an Endocrine Society clinical practice guideline. JCEM. 2010; 96(7):1911-30. Consent for Procedure/Surger yon 05-09-2023 Consent for Procedure/Surgery [id number] 1.00TIFF Normal [facility] Ambulatory Visit Summaryon 0 05-08-2023 Ambulatory [...] 300 mg Tab) potassium chloride (Potassium Chloride (Uvj-Wrgq-Avx 10) 10 mEq oral tablet, extended release) [...] Follow-Up Appointments Friday 3:00 PM EDT With: VEE PELAEZ PA-C Where: [facility] Patient Educationon 05-08-19 Patient Education Urology Urinary Frequency, Pediatric Sometimes, [...] provider. Document Revised: 11/03/2020 Document Reviewed: 11/03/2020 [employer] Patient Education ? 2022 [employer]. [facility] Urology Office/Clinic Noteon 05-08-2023 Urology Office/Clinic Note [...] urine The Urethra was dilated to: 16-30 Bangladeshi with sounds. Specimens Removed: None Removal: Cystoscope [...] a tight urinary channel at about 16 Bangladeshi and tolerated to dilatation to 30 Bangladeshi. Hopefully this will help her urinary symptomatology. There is some moderate vaginal/periurethral atrophy. Follow-up with TIM Davis-see within the next 6 weeks or so. She is to monitor her urinary flow pattern after UD today. Follow-up With When Contact Information ANDRZEJ JONES, Steven Valadez, URL [address] [phone]- Additional Instructions: f/u w/MUKUND on 07/01/23 Patient Education Urinary Frequency, Pediatric I, Delmi Louis, personally scribed for Dr. Donnelly on 05/08/2023 15:27:54. . Documentation recorded by the scribe, Delmi Louis, accurately reflects the services(s) I performed and decisions made by me. Authenticated by Dr. Donnelly on 05/08/2023 15:30:16. Portions of this record may have been created with voice recognition artificial intelligence software, specifically [employer], [employer] and or [employer]. Substitutions may have occurred due to the [...] Cervical spinal (more content not included)... Normal [facility] Comment on above: Result Comment: Elec tronically Signed By: Steven DONNELLY MD\.br\Date and Time Signed: 05/08/23 15:33 EST\.br\Electronically Co-Signed By: Delmi Louis\.br\Date and Time Co-Signed: 05/08/23 15:28 EST Lab Report[facility] 03-30-2023 Lab Reports [id number] .00TIFF Normal [facility] Reportson 03-28-2023 Lab Reports [id number] .00TIFF Normal [facility] XR pre/post mri xrayon 03-25 XR pre/post mri xray [facility] [place] [address] MRI Report Signed Patient: Alla Brady MR#: [id number] : 1965 Acct:[id number] Age/Sex: 57 / F ADM Date: 03/25/23 Loc: [facility] Room: Type: [facility] CL Attending Dr: Jerri JENKINS Copies to: GREGORY Feldman Ordering Provider: GREGORY Feldman Date of Service: 03/25/23 MR/MR lumbar spine wo/w con: m54.5, m54.16 ([id number]) XR/XR pre/post mri xray: post MRI lumbar [...] Winston Garzon M.D.03/25/2023 3:39 PM Dictation Location: [place] [address] Transcribed By: [facility] 03/25/23 1539 Dictated By: Winston Garzon II, MD 03/25/23 1526 Signed By: 03/25/23 1539 Normal [facility] Lab Reportson 03-21-2023 Lab Reports [id number] .00TIFF Normal [facility] A1C with Estimated Average G melanie 03-17-2023 Glucose [Mass/Vol] 123 mg/dL Normal [facility] Comment on above: Result Comment: PERF ORMED BY: [facility] [address] [place] [address] PATHOLOGIST [employer] SPECIALIST BALDEV HENNESSY M.D. Performed By: #### A 1C WTH eA, TSH3, CBC, T4F, CMP, FE PRO, T3F, [id number], LIPID, [id number] ####[facility] [id number] Alanine aminotransferase [En zymatic activity/volume] in Serum or PlasmaOrdered By: Samia Saenz on 03-17-2023 ALT [Catalytic activity/Vol] 24 U/L Normal 7-52 [facility] Comment on above: Performed By: #### A 1C WTH eA, TSH3, CBC, T4F, CMP, FE PRO, T3F, [id number], LIPID, [id number] #### [facility] [address] [place] [address] [place] Albumin [Mass/volume] in Ser um or Plasma by Bromocresol green (BCG) dye binding methoOrdered By: Samia Saenz on 03-17-2023 Albumin BCG dye [Mass/Vol] 4.0 g/dL 3.5-5.7 [facility] Alkaline phosphatase [Enzyma tic activity/volume] in Serum or PlasmaOrdered By: Samia Saenz on 03-17-2023 ALP [Catalytic activity/Vol] 47 U/L Normal 34-104 [facility] Comment on above: Performed By: #### A 1C WTH eA, TSH3, CBC, T4F, CMP, FE PRO, T3F, [id number], LIPID, [id number] #### [facility] [address] Aspartate aminotransferase [ Enzymatic activity/volume] in Serum or PlasmaOrdered By: Samia Saenz on 03-17-2023 AST [Catalytic activity/Vol] 22 U/L Normal 13-39 [facility] Comment on above: Performed By: #### A 1C WTH eA, TSH3, CBC, T4F, CMP, FE PRO, T3F, [id number], LIPID, [id number] #### [facility] [address] [place] [address] [place] Automated basophil %Ordered By: Samia Saenz on 03-17-2023 Basophils/100 WBC (Bld) 1.3 % Normal . [facility] Comment on above: Performed By: #### A 1C WTH eA, TSH3, CBC, T4F, CMP, FE PRO, T3F, [id number], LIPID, [id number] #### [address] Automated basophil countOrde red By: Samia Saenz on 03-17-2023 Basophils (Bld) [#/Vol] 0.1 10*3/uL Normal 0.0-0.2 [facility] Comment on above: Result Comment: PERF ORMED BY: [place] [address] PATHOLOGIST [employer] SPECIALIST BALDEV HENNESSY M.D. Performed By: #### A 1C WTH eA, TSH3, CBC, T4F, CMP, FE PRO, T3F, [id number], LIPID, [id number] #### [address] Automated blood monocyte cou ntOrdered By: Samia Saenz on 03-17-2023 Monocytes (Bld) [#/Vol] 0.4 10*3/uL Normal 0.0-0.8 [facility] Comment on above: Performed By: #### A 1C WTH eA, TSH3, CBC, T4F, CMP, FE PRO, T3F, [id number], LIPID, [id number] #### [address] Automated eosinophil %Ordere d By: Samia Saenz on 03-17-2023 Eosinophils/100 WBC (Bld) 0.2 % Normal . [facility] Comment on above: Performed By: #### A 1C WTH eA, TSH3, CBC, T4F, CMP, FE PRO, T3F, [id number], LIPID, [id number] #### [address] Automated eosinophil countOr dered By: Samia Saenz on 03-17-2023 Eosinophils (Bld) [#/Vol] 0.0 10*3/uL Normal 0.0-0.45 [facility] Comment on above: Performed By: #### A 1C WTH eA, TSH3, CBC, T4F, CMP, FE PRO, T3F, [id number], LIPID, [id number] #### [facility] [address] Automated erythrocytes count in urine sediment (number/area)Ordered By: Samia Saenz on 03-17-2023 RBC Auto (Urine sed) [#/Area] 20-49 [HPF] 0-4 [facility] Automated leukocytes count i n urine sediment (number/area)Ordered By: Samia Saenz on 03-17-2023 WBC Auto (Urine sed) [#/Area] 5-9 [HPF] 0-4 [facility] Automated monocyte %Ordered By: Samia Saenz on 03-17-2023 Monocytes/100 WBC (Bld) 5.8 % Normal . [facility] Comment on above: Performed By: #### A 1C WT eA, TSH3, CBC, T4F, CMP, FE PRO, T3F, [id number], LIPID, [id number] #### [facility] [address] Automated neutrophil %Ordere d By: Samia Saenz on 03-17-2023 Neutrophils/100 WBC (Bld) 75.7 % Normal . [facility] Comment on above: Performed By: #### A 1C WT eA, TSH3, CBC, T4F, CMP, FE PRO, T3F, [id number], LIPID, [id number] #### [facility] [address] Automated urine color determ inationOrdered By: Samia Saenz on 03-17-2023 Color (U) Yellow Normal Yellow [facility] Comment on above: Order Comment: Name Collection Type:: Clean-Voided Midstream Performed By: #### A 1C WTH eA, TSH3, CBC, T4F, CMP, FE PRO, T3F, [id number], LIPID, [id number] #### [facility] [address] Bilirubin Test strip Ql (U)O rdered By: Samia Saenz on 03-17-2023 Bilirubin Ql (U) Negative Negative [facility] Bilirubin.total [Mass/volume ] in Serum or PlasmaOrdered By: Samia Saenz on 03-17-2023 Bilirubin [Mass/Vol] 0.2 mg/dL Low 0.3-1.0 [facility] Comment on above: Performed By: #### A 1C WT eA, TSH3, CBC, T4F, CMP, FE PRO, T3F, [id number], LIPID, [id number] #### [facility] [address] Calcium [Mass/volume] in Ser um or PlasmaOrdered By: Samia Saenz on 03-17-2023 Calcium [Mass/Vol] 9.4 mg/dL Normal 8.6-10.3 [facility] Comment on above: Performed By: #### A 1C WT eA, TSH3, CBC, T4F, CMP, FE PRO, T3F, [id number], LIPID, [id number] #### [facility] [address] Carbon dioxide, total [Moles /volume] in Serum or PlasmaOrdered By: Samia Saenz on 03-17-2023 CO2 [Moles/Vol] 28.9 mmol/L Normal 21.0-31.0 [facility] Comment on above: Performed By: #### A 1C WT eA, TSH3, CBC, T4F, CMP, FE PRO, T3F, [id number], LIPID, [id number] #### [facility] [address] [place] [id number] [place] Chloride [Moles/volume] in S santiago or PlasmaOrdered By: Samia Saenz on 03-17-2023 Chloride [Moles/Vol] 107 mmol/L Normal 98-107 [facility] Comment on above: Performed By: #### A 1C WTH eA, TSH3, CBC, T4F, CMP, FE PRO, T3F, [id number], LIPID, [id number] #### [facility] [address] [place] [id number] [place] Cholesterol [Mass/volume] in Serum or PlasmaOrdered By: Samia Saenz on 03-17-2023 Cholesterol [Mass/Vol] 174 mg/dL Normal 140-200 [facility] Comment on above: Chol less than 200 m g/dl low riskChol 201-239 mg/dl borderline riskChol 240 mg/dl and greater high risk Result Comment: Chol less than 200 mg/dl low risk Chol 201-239 mg/dl borderline risk Chol 240 mg/dl and greater high risk Performed By: #### A 1C WTH eA, TSH3, CBC, T4F, CMP, FE PRO, T3F, [id number], LIPID, [id number] #### [facility] [address] Cholesterol in LDL Calc [Mas s/Vol]Ordered By: Samia Saenz on 03-17-2023 Cholesterol in LDL [Mass/Vol] 98 mg/dL 0-100 [facility] Comment on above: LDL ATP III CLASSIFI CATIONLDL less than 100 mg/dL OptimalLDL 100-129 mg/dL Near or above optimalLDL 130-159 mg/dL Borderline highLDL 160-189 mg/dL HighLDL greater than 189 mg/dL Very high Cholesterol in VLDL Calc [Ma ss/Vol]Ordered By: Samia Saenz on 03-17-2023 Cholesterol in VLDL [Mass/Vol] 25 mg/dL [facility] Complete Blood Count Auto Di ffon 03-17-2023 Mean Corpuscular HGB Conc 33.7 g/dL Normal 32.0-35.0 [facility] Comment on above: Performed By: #### A 1C WTH eA, TSH3, CBC, T4F, CMP, FE PRO, T3F, [id number], LIPID, [id number] #### [facility] [address] NRBC% 0.2 /100{WBC} Normal 0-0.5 [facility] Comment on above: Performed By: #### A 1C WTH eA, TSH3, CBC, T4F, CMP, FE PRO, T3F, [id number], LIPID, [id number] #### [facility] [address] Comprehensive Metabolic Pane denise 03-17-2023 Albumin [Mass/Vol] 4.0 g/dL Normal 3.5-5.7 [facility] Comment on above: Performed By: #### A 1C WTH eA, TSH3, CBC, T4F, CMP, FE PRO, T3F, [id number], LIPID, [id number] #### [facility] [address] [place] [address] [place] GFR/1.73 sq M.predicted MDRD (S/P/Bld) [Vol rate/Area] mL/min/{1.73_m2} Normal [facility] Comment on above: Performed By: #### A 1C WTH eA, TSH3, CBC, T4F, CMP, FE PRO, T3F, [id number], LIPID, [id number] #### [facility] [address] Creatinine [Mass/volume] in Serum or PlasmaOrdered By: Samia Saenz on 03-17-2023 Creatinine [Mass/Vol] 0.74 mg/dL Normal 0.60-1.20 [facility] Comment on above: Performed By: #### A 1C WT eA, TSH3, CBC, T4F, CMP, FE PRO, T3F, [id number], LIPID, [id number] #### [facility] [address] Dipstick and Microscopicon 1 05-18-2022 Appearance (U) Cloudy Critically abnormal Clear [facility] Comment on above: Order Comment: Name Collection Type:: Clean-Voided Midstream Performed By: #### A 1C WTH eA, TSH3, CBC, T4F, CMP, FE PRO, T3F, [id number], LIPID, [id number] #### [facility] [address] Bacteria,Urine 1+ High None Seen [facility] Comment on above: Order Comment: Name Collection Type:: Clean-Voided Midstream Performed By: #### A 1C WTH eA, TSH3, CBC, T4F, CMP, FE PRO, T3F, [id number], LIPID, [id number] #### [facility] [address] Bilirubin,Urine Negative Normal Negative [facility] Comment on above: Order Comment: Name Collection Type:: Clean-Voided Midstream Performed By: #### A 1C WTH eA, TSH3, CBC, T4F, CMP, FE PRO, T3F, [id number], LIPID, [id number] #### [address] Glucose Ql (U) Normal Normal Normal [facility] Comment on above: Order Comment: Name Collection Type:: Clean-Voided Midstream Performed By: #### A 1C WTH eA, TSH3, CBC, T4F, CMP, FE PRO, T3F, [id number], LIPID, [id number] #### [address] Hyaline Casts,Urine 0-8 Normal 0-8 [facility] Comment on above: Order Comment: Name Collection Type:: Clean-Voided Midstream Result Comment: PERF ORMED BY: [place] [address] PATHOLOGIST [employer] SPECIALIST BALDEV HENNESSY M.D. Performed By: #### A 1C WT eA, TSH3, CBC, T4F, CMP, FE PRO, T3F, [id number], LIPID, [id number] #### [address] Ketones Ql (U) Trace High Negative [facility] Comment on above: Order Comment: Name Collection Type:: Clean-Voided Midstream Performed By: #### A 1C WTH eA, TSH3, CBC, T4F, CMP, FE PRO, T3F, [id number], LIPID, [id number] #### [address] Leukocyte esterase Test strip Ql (U) 1+ High Negative [facility] Comment on above: Order Comment: Name Collection Type:: Clean-Voided Midstream Performed By: #### A 1C WTH eA, TSH3, CBC, T4F, CMP, FE PRO, T3F, [id number], LIPID, [id number] #### [address] Nitrite,Urine Negative Normal Negative [facility] Comment on above: Order Comment: Name Collection Type:: Clean-Voided Midstream Performed By: #### A 1C WTH eA, TSH3, CBC, T4F, CMP, FE PRO, T3F, [id number], LIPID, [id number] #### [facility] [address] Occult Blood,Urine Negative Normal Negative [facility] Comment on above: Order Comment: Name Collection Type:: Clean-Voided Midstream Performed By: #### A 1C WTH eA, TSH3, CBC, T4F, CMP, FE PRO, T3F, [id number], LIPID, [id number] #### [address] Protein,Urine Negative Normal Negative [facility] Comment on above: Order Comment: Name Collection Type:: Clean-Voided Midstream Performed By: #### A 1C WTH eA, TSH3, CBC, T4F, CMP, FE PRO, T3F, [id number], LIPID, [id number] #### [address] RBC,Urine 20-49 High 0-4 [facility] Comment on above: Order Comment: Name Collection Type:: Clean-Voided Midstream Performed By: #### A 1C WTH eA, TSH3, CBC, T4F, CMP, FE PRO, T3F, [id number], LIPID, [id number] #### [address] Specificy [place],Urine 1.039 High 1.001-1.030 [facility] Comment on above: Order Comment: Name Collection Type:: Clean-Voided Midstream Performed By: #### A 1C WTH eA, TSH3, CBC, T4F, CMP, FE PRO, T3F, [id number], LIPID, [id number] #### [address] Squamous Epithelial Cell,Urine 5-9 High 0-2 [facility] Comment on above: Order Comment: Name Collection Type:: Clean-Voided Midstream Performed By: #### A 1C WTH eA, TSH3, CBC, T4F, CMP, FE PRO, T3F, [id number], LIPID, [id number] #### [address] Urobilinogen,Urine Normal Normal Normal [facility] Comment on above: Order Comment: Name Collection Type:: Clean-Voided Midstream Performed By: #### A 1C WTH eA, TSH3, CBC, T4F, CMP, FE PRO, T3F, [id number], LIPID, [id number] #### [address] WBC,Urine 5-9 High 0-4 [facility] Comment on above: Order Comment: Name Collection Type:: Clean-Voided Midstream Performed By: #### A 1C WTH eA, TSH3, CBC, T4F, CMP, FE PRO, T3F, [id number], LIPID, [id number] #### [address] Erythrocyte distribution wid th [Ratio] by Automated countOrdered By: Samia Saenz on 03-17-2023 Erythrocyte distribution width (RBC) [Ratio] 13.4 % Normal 11.9-15.3 [facility] Comment on above: Performed By: #### A 1C WTH eA, TSH3, CBC, T4F, CMP, FE PRO, T3F, [id number], LIPID, [id number] #### [address] Erythrocytes [#/volume] in B lood by Automated countOrdered By: Samia Saenz on 03-17-2023 RBC (Bld) [#/Vol] 3.75 10*6/uL Normal 3.60-5.00 [facility] Comment on above: Performed By: #### A 1C WTH eA, TSH3, CBC, T4F, CMP, FE PRO, T3F, [id number], LIPID, [id number] #### [address] FE PROon 12-04-2023 % Iron Saturation 21.1 % Normal 20-50 [facility] Comment on above: Performed By: #### A 1C WTH eA, TSH3, CBC, T4F, CMP, FE PRO, T3F, [id number], LIPID, [id number] #### [facility] [address] [place] [id number] [facility] Total Iron Binding Capacity 322 ug/dL Normal 255-450 [facility] Comment on above: Performed By: #### A 1C WTH eA, TSH3, CBC, T4F, CMP, FE PRO, T3F, [id number], LIPID, [id number] #### [facility] [address] Ferritin [Mass/volume] in Se rum or PlasmaOrdered By: Samia Saenz on 03-17-2023 Ferritin [Mass/Vol] 16.4 ng/mL Normal 11.0-306.8 [facility] Comment on above: Performed By: #### A 1C WTH eA, TSH3, CBC, T4F, CMP, FE PRO, T3F, [id number], LIPID, [id number] #### [facility] [address] Folate [Mass/volume] in Seru m or PlasmaOrdered By: Samia Saenz on 03-17-2023 Folate [Mass/Vol] 10.5 ng/mL >5.9 [facility] Comment on above: Folate reference ran ge: >5.9 ng/mlThe WHO technical consultation on folate and vitamin [id number] has determined that folate concentrations lessthan 4 ng/ml are considered deficient. Glucose [Mass/volume] in Ser um or PlasmaOrdered By: Samia Saenz on 03-17-2023 Glucose [Mass/Vol] 100 mg/dL Normal 70-100 [facility] Comment on above: ADA recommended refe rence rangeRandom Glucose Reference Range is dependent on time and content of last meal. Glucose of more than 200 mg/dL in a nonstressed, ambulatory subject supports the diagnosis of Diabetes Mellitus. Result Comment: [place] om Glucose Reference Range is dependent on time and content of last meal. Glucose of more than 200 mg/dL in a nonstressed, ambulatory subject supports the diagnosis of Diabetes Mellitus. ADA recommended reference range Performed By: #### A 1C WTH eA, TSH3, CBC, T4F, CMP, FE PRO, T3F, [id number], LIPID, [id number] #### [facility] [address] Glucose mean value [Mass/vol ume] in Blood Estimated from glycated hemoglobinOrdered By: Samia Saenz on 03-17-2023 Average glucose Estimated from glycated hemoglobin (Bld) [Mass/Vol] 123 mg/dL [facility] Hematocrit [Volume Fraction] of Blood by Automated countOrdered By: Samia Saenz on 03-17-2023 Hematocrit (Bld) [Volume fraction] 36.7 % Normal 34.0-46.4 [facility] Comment on above: Performed By: #### A 1C WTH eA, TSH3, CBC, T4F, CMP, FE PRO, T3F, [id number], LIPID, [id number] #### [facility] [address] Hemoglobin A1c percentageOrd ered By: Samia Saenz on 03-17-2023 HbA1c (Bld) [Mass fraction] 5.9 % High 4.3-5.6 [facility] Comment on above: Increased risk for d iabetes: 5.7 - 6.4diabetes: >6.4glycemic control for adults with diabetes: <7.0 Result Comment: Incr eased risk for diabetes: 5.7 - 6.4 diabetes: >6.4 glycemic control for adults with diabetes: <7.0 Performed By: #### A 1C WTH eA, TSH3, CBC, T4F, CMP, FE PRO, T3F, [id number], LIPID, [id number] ####[facility] [id number] Hemoglobin [Mass/volume] in BloodOrdered By: Samia Saenz on 03-17-2023 Hemoglobin (Bld) [Mass/Vol] 12.4 g/dL Normal 11.8-15.4 [facility] Comment on above: Performed By: #### A 1C WTH eA, TSH3, CBC, T4F, CMP, FE PRO, T3F, [id number], LIPID, [id number] #### [facility] [address] Iron [Mass/volume] in Serum or PlasmaOrdered By: Samia Saenz on 03-17-2023 Iron [Mass/Vol] 68 ug/dL Normal 50-212 [facility] Comment on above: Performed By: #### A 1C WTH eA, TSH3, CBC, T4F, CMP, FE PRO, T3F, [id number], LIPID, [id number] #### [facility] [address] Iron binding capacity [Mass/ volume] in Serum or PlasmaOrdered By: Samia Saenz on 03-17-2023 Iron binding capacity [Mass/Vol] 322 ug/dL 255-450 [facility] Iron saturation [Mass Fracti on] in Serum or PlasmaOrdered By: Samia Saenz on 03-17-2023 Iron saturation [Mass fraction] 21.1 % 20-50 [facility] Ketones Auto test strip (U) [Mass/Vol]Ordered By: Samia Saenz on 03-17-2023 Ketones (U) [Mass/Vol] Trace Negative [facility] - UrinalysisOrder ed By: Samia Saenz on 03-17-2023 Hyaline casts LM Ql (Urine sed) 0-8 [LPF] 0-8 [facility] Leukocytes [#/volume] correc perico for nucleated erythrocytes in Blood by Automated counOrdered By: Samia Saenz on 03-17-2023 WBC corrected for nucl RBC Auto (Bld) [#/Vol] 7.7 10*3/uL 3.8-11.6 [facility] Leukocytes [#/volume] in Blo od by Automated countOrdered By: Samia Saenz on 03-17-2023 WBC (Bld) [#/Vol] 7.7 10*3/uL Normal 3.8-11.6 [facility] Comment on above: Performed By: #### A 1C WTH eA, TSH3, CBC, T4F, CMP, FE PRO, T3F, [id number], LIPID, [id number] #### [facility] [address] Lipid Panelon 03-17-2023 LDL Cholesterol,Calculated 98 mg/dL Normal 0-100 [facility] Comment on above: Result Comment: LDL ATP III CLASSIFICATION LDL less than 100 mg/dL Optimal LDL 100-129 mg/dL Near or above optimal LDL 130-159 mg/dL Borderline high LDL 160-189 mg/dL High LDL greater than 189 mg/dL Very high Performed By: #### A 1C WTH eA, TSH3, CBC, T4F, CMP, FE PRO, T3F, [id number], LIPID, [id number] #### [facility] [address] Triglyceride w/Reflex 129 mg/dL Normal 0-149 [facility] Comment on above: Result Comment: TRIG ATP III CLASSIFICATION TRIG less than 150 mg/dL Normal TRIG 150-199 mg/dL Borderline high TRIG 200-500 mg/dL High TRIG greater than 500 mg/dL Very high Standard traceable to the Center for Disease Conrtrol and Prevention (CDC) test method. Performed By: #### A 1C WTH eA, TSH3, CBC, T4F, CMP, FE PRO, T3F, [id number], LIPID, [id number] #### [address] VLDL CHOLESTEROL 25 mg/dL Normal [facility] Comment on above: Performed By: #### A 1C WTH eA, TSH3, CBC, T4F, CMP, FE PRO, T3F, [id number], LIPID, [id number] #### [facility] [address] Lymphocytes [#/volume] in Bl ood by Automated countOrdered By: Samia Saenz on 03-17-2023 Lymphocytes (Bld) [#/Vol] 1.3 10*3/uL Normal 1.00-4.8 [facility] Comment on above: Performed By: #### A 1C WTH eA, TSH3, CBC, T4F, CMP, FE PRO, T3F, [id number], LIPID, [id number] #### [facility] [address] Lymphocytes/100 leukocytes i n Blood by Automated countOrdered By: Samia Saenz on 03-17-2023 Lymphocytes/100 WBC (Bld) 17.0 % Normal . [facility] Comment on above: Performed By: #### A 1C WTH eA, TSH3, CBC, T4F, CMP, FE PRO, T3F, [id number], LIPID, [id number] #### [facility] [address] MCH [Entitic mass] by Automa perico countOrdered By: Samia Saenz on 03-17-2023 MCH (RBC) [Entitic mass] 33.0 pg Normal 24.7-34.3 [facility] Comment on above: Performed By: #### A 1C WTH eA, TSH3, CBC, T4F, CMP, FE PRO, T3F, [id number], LIPID, [id number] #### [address] MCHC Auto (RBC) [Mass/Vol]Or dered By: Samia Saenz on 03-17-2023 MCHC (RBC) [Mass/Vol] 33.7 g/dL 32.0-35.0 [facility] MCV [Entitic volume] by Auto mated countOrdered By: Samia Saenz on 03-17-2023 MCV (RBC) [Entitic vol] 97.9 fL Normal 80-100 [facility] Comment on above: Performed By: #### A 1C WTH eA, TSH3, CBC, T4F, CMP, FE PRO, T3F, [id number], LIPID, [id number] #### [facility] [address] Neutrophils [#/volume] in Bl ood by Automated countOrdered By: Samia Saenz on 03-17-2023 Neutrophils (Bld) [#/Vol] 5.8 10*3/uL Normal 1.8-7.7 [facility] Comment on above: Performed By: #### A 1C WTH eA, TSH3, CBC, T4F, CMP, FE PRO, T3F, [id number], LIPID, [id number] #### [facility] [address] Nitrite Test strip Ql (U)Ord ered By: Samia Saenz on 03-17-2023 Nitrite Ql (U) Negative Negative [facility] No Panel InformationOrdered By: Samia Saenz on 03-17-2023 Estimated GFR (CKD-EPI) > 60.0 mL/Min [facility] Creatinine Clearance (Chem N/A [facility] Nucleated erythrocytes [Pres ence] in Blood by Automated countOrdered By: Samia Saenz on 03-17-2023 Nucleated RBC Auto Ql (Bld) 0.2 /100{WBC} 0-0.5 [facility] Platelet mean volume [Entiti c volume] in Blood by Automated countOrdered By: Samia Saenz on 03-17-2023 Platelet mean volume (Bld) [Entitic vol] 8.0 fL Normal 6.3-10.7 [facility] Comment on above: Performed By: #### A 1C WT eA, TSH3, CBC, T4F, CMP, FE PRO, T3F, [id number], LIPID, [id number] #### [facility] [address] [place] [address] [place] Platelets [#/volume] in Bloo d by Automated countOrdered By: Samia Saenz on 03-17-2023 Platelets (Bld) [#/Vol] 224 10*3/uL Normal 150-450 [facility] Comment on above: Performed By: #### A 1C WT eA, TSH3, CBC, T4F, CMP, FE PRO, T3F, [id number], LIPID, [id number] #### [facility] [address] Potassium [Moles/volume] in Serum or PlasmaOrdered By: Samia Saenz on 03-17-2023 Potassium [Moles/Vol] 3.7 mmol/L Normal 3.5-5.1 [facility] Comment on above: Performed By: #### A 1C WTH eA, TSH3, CBC, T4F, CMP, FE PRO, T3F, [id number], LIPID, [id number] #### [facility] [address] Protein Auto test strip (U) [Mass/Vol]Ordered By: Samia Saenz on 03-17-2023 Protein (U) [Mass/Vol] Negative Negative [facility] Protein [Mass/volume] in Ser um or PlasmaOrdered By: Samia Saenz on 03-17-2023 Protein [Mass/Vol] 6.4 g/dL Normal 6.4-8.9 [facility] Comment on above: Performed By: #### A 1C WTH eA, TSH3, CBC, T4F, CMP, FE PRO, T3F, [id number], LIPID, [id number] #### [facility] [address] Serum globulin measurement b y calculation (mass/volume)Ordered By: Samia Saenz on 03-17-2023 Globulin (S) [Mass/Vol] 2.4 g/dL Normal [facility] Comment on above: Performed By: #### A 1C WTH eA, TSH3, CBC, T4F, CMP, FE PRO, T3F, [id number], LIPID, [id number] #### [facility] [address] Serum or plasma albumin/glob ulin mass ratioOrdered By: Samia Saenz on 03-17-2023 Albumin/Globulin [Mass ratio] 1.7 {ratio} [facility] Comment on above: Performed By: #### A 1C WTH eA, TSH3, CBC, T4F, CMP, FE PRO, T3F, [id number], LIPID, [id number] #### [facility] [address] Serum or plasma anion gap de terminationOrdered By: Samia Saenz on 03-17-2023 Anion gap [Moles/Vol] 8.8 mmol/L Normal 6.0-15.0 [facility] Comment on above: Performed By: #### A 1C WTH eA, TSH3, CBC, T4F, CMP, FE PRO, T3F, [id number], LIPID, [id number] #### [facility] [address] Serum or plasma high density lipoprotein (HDL) cholesterol measurementOrdered By: Samia Saenz on 03-17-2023 Cholesterol in HDL [Mass/Vol] 50 mg/dL Normal 23-92 [facility] Comment on above: HDL CHOL ATP-III CLA SSIFICATION Cardiovascular RiskHDL > or equal to 60 mg/dL LOWHDL < 40 mg/dL HIGH Result Comment: HDL CHOL ATP-III CLASSIFICATION Cardiovascular Risk HDL > or equal to 60 mg/dL LOW HDL < 40 mg/dL HIGH Performed By: #### A 1C WTH eA, TSH3, CBC, T4F, CMP, FE PRO, T3F, [id number], LIPID, [id number] #### [address] Serum or plasma total choles terol/high density lipoprotein (HDL) cholesterol mass ratOrdered By: Samia Saenz on 03-17-2023 Cholesterol.total/Theresa sterol in HDL [Mass ratio] 3.5 {ratio} Normal <5.0 [facility] Comment on above: Performed By: #### A 1C WTH eA, TSH3, CBC, T4F, CMP, FE PRO, T3F, [id number], LIPID, [id number] #### [address] Sodium [Moles/volume] in Ser um or PlasmaOrdered By: Samia Saenz on 03-17-2023 Sodium [Moles/Vol] 141 mmol/L Normal 136-145 [facility] Comment on above: Performed By: #### A 1C WTH eA, TSH3, CBC, T4F, CMP, FE PRO, T3F, [id number], LIPID, [id number] #### [address] Specific gravity Auto test s trip (U) [Rel density]Ordered By: Samia Saenz on 03-17-2023 Specific gravity (U) [Rel density] 1.039 1.001-1.030 [facility] Squamous epithelial cells de tection in urine sediment by light microscopyOrdered By: Samia Saenz on 03-17-2023 Epithelial cells.squamous LM Ql (Urine sed) 5-9 [HPF] 0-2 [facility] Thyrotropin [Units/volume] i n Serum or PlasmaOrdered By: Samia Saenz on 03-17-2023 TSH Qn 3.65 m[IU]/L Normal 0.45-5.33 [facility] Comment on above: Performed By: #### A 1C [facility] eA, TSH3, CBC, T4F, CMP, FE PRO, T3F, [id number], LIPID, [id number] #### [facility] [address] Thyroxine (T4) free [Mass/vo lume] in Serum or PlasmaOrdered By: Samia Saenz on 03-17-2023 Free T4 [Mass/Vol] 0.70 ng/dL Normal 0.61-1.12 [facility] Comment on above: Performed By: #### A 1C [facility] eA, TSH3, CBC, T4F, CMP, FE PRO, T3F, [id number], LIPID, [id number] #### [facility] [address] Transferrin [Mass/volume] in Serum or PlasmaOrdered By: Samia Saenz on 03-17-2023 Transferrin [Mass/Vol] 230 mg/dL Normal 203-362 [facility] Comment on above: Performed By: #### A 1C WT eA, TSH3, CBC, T4F, CMP, FE PRO, T3F, [id number], LIPID, [id number] #### [facility] [address] [place] [id number] [facility] Triglyceride [Mass/volume] i n Serum or PlasmaOrdered By: Samia Saenz on 03-17-2023 Triglyceride [Mass/Vol] 129 mg/dL 0-149 [facility] Comment on above: TRIG ATP III CLASSIF ICATIONTRIG less than 150 mg/dL NormalTRIG 150-199 mg/dL Borderline highTRIG 200-500 mg/dL High TRIG greater than 500 mg/dL Very highStandard traceable to the Center for Disease Conrtrol and Prevention (CDC) test method. Triiodothyronine (T3) Freeon 03-17-2023 Triiodothyronine (T3) Free 2.54 pg/mL Normal 2.50-3.90 [facility] Comment on above: Result Comment: PERF ORMED BY: [place] [address] PATHOLOGIST [employer] SPECIALIST BALDEV HENNESSY M.D. Performed By: #### A 1C WTH eA, TSH3, CBC, T4F, CMP, FE PRO, T3F, [id number], LIPID, [id number] #### [address] Triiodothyronine (T3) Free [ Mass/volume] in Serum or PlasmaOrdered By: Samia Saenz on 03-17-2023 Free T3 [Mass/Vol] 2.54 pg/mL 2.50-3.90 [facility] Urea nitrogen [Mass/volume] in Serum or PlasmaOrdered By: Samia Saenz on 03-17-2023 Urea nitrogen [Mass/Vol] 19 mg/dL Normal 7-25 [facility] Comment on above: Performed By: #### A 1C WTH eA, TSH3, CBC, T4F, CMP, FE PRO, T3F, [id number], LIPID, [id number] #### [place] [id number] [facility] Urine Cultureon 03-17-2023 Bacteria identified Cx Nom (U) ORGANISM: Lactobacillus jensenii (O:LACJEN) Weiner Count >100,000 Organism Comments Organism not Routinely Tested for Susceptibilities PERFORMED BY: [place] [address] PATHOLOGIST [employer] SPECIALIST BALDEV HENNESSY M.D. Normal [facility] Comment on above: Performed By: #### A 1C WTH eA, TSH3, CBC, T4F, CMP, FE PRO, T3F, [id number], LIPID, [id number] #### [address] [address] [facility] Urine bacteria detection by automated methodOrdered By: Samia Saenz on 03-17-2023 Bacteria Auto Ql (U) 1+ None Seen [facility] Urine clarity by refractomet ry automatedOrdered By: Samia Saenz on 03-17-2023 Clarity Refractometry automated (U) Cloudy Clear [facility] Urine culture routineOrdered By: Samia Saenz on 03-17-2023 Bacteria identified Cx Nom (U) Lactobacillus jensenii [facility] Urine glucose measurement by automated test strip (mass/volume)Ordered By: Samia Saenz on 03-17-2023 Glucose Auto test strip (U) [Mass/Vol] Normal mg/dL Normal [facility] Urine hemoglobin detection b y automated test stripOrdered By: Samia Saenz on 03-17-2023 Hemoglobin Auto test strip Ql (U) Negative Negative [facility] Urine leukocyte esterase det ection by automated test stripOrdered By: Samia Saenz on 03-17-2023 Leukocyte esterase Auto test strip Ql (U) 1+ Negative [facility] Urine pH measurement by auto mated test stripOrdered By: Samia Saenz on 03-17-2023 pH (U) 5.0 [pH] Normal 5.0-9.0 [facility] Comment on above: Order Comment: Name Collection Type:: Clean-Voided Midstream Performed By: #### A 1C WTH eA, TSH3, CBC, T4F, CMP, FE PRO, T3F, [id number], LIPID, [id number] #### [address] Urobilinogen Auto test strip (U) [Mass/Vol]Ordered By: Samia Saenz on 03-17-2023 Urobilinogen (U) [Mass/Vol] Normal mg/dL Normal [facility] Vit. B12/Folate Profileon Folate 10.5 ng/mL Normal >5.9 [facility] Comment on above: Result Comment: Jessica te reference range: >5.9 ng/ml The WHO technical consultation on folate and vitamin b12 deficiencies has determined that folate concentrations less than 4 ng/ml are considered deficient. Performed By: #### A 1C WTH eA, TSH3, CBC, T4F, CMP, FE PRO, T3F, [id number], LIPID, [id number] #### [facility] [address] [id number] [facility] Vitamin B12 ser/plasOrdered By: Samia Saenz on 03-17-2023 Cobalamin (Vitamin B12) [Mass/Vol] 763 pg/mL Normal 180-914 [facility] Comment on above: Performed By: #### A 1C WTH eA, TSH3, CBC, T4F, CMP, FE PRO, T3F, [id number], LIPID, [id number] #### [facility] [address] [id number] [facility] Vitamin D 25 Hydroxy Totalon 03-17-2023 Vitamin D 25 Hydroxy Total 53.3 ng/mL Normal 30-100 [facility] Comment on above: Result Comment: [place] MIN D STATUS 25(OH)VITAMIN D RANGE (ng/mL) Deficient <20 Insufficient 20 to <30 Sufficient 30 to 100 Reference: Shakir Akbar, Darius SHAW, et al. Evaluation,treatment, and prevention of vitamin D deficiency; an Endocrine Society clinical practice guideline. JCEM. 2010; 96(7):1911-30. PERFORMED BY: [place] [address] PATHOLOGIST [employer] SPECIALIST BALDEV HENNESSY M.D. Performed By: #### A 1C WTH eA, TSH3, CBC, T4F, CMP, FE PRO, T3F, [id number], LIPID, [id number] ####[facility] [id number] [id number] [facility] Vitamin D+Metabolites [Mass/ volume] in Serum or PlasmaOrdered By: Samia Saenz on 03-17-2023 Vitamin D+Metabolites [Mass/Vol] 53.3 ng/mL 30-100 [facility] Comment on above: VITAMIN D STATUS 25( [place])VITAMIN D RANGE (ng/mL) Deficient <20 Insufficient 20 to <30Sufficient 30 to 100Reference: Shakir Akbar, Darius SHAW, et al. Evaluation,treatment, and prevention of vitamin D deficiency; an Endocrine Society clinical practice guideline. JCEM. 2010; 96(7):1911-30. Screenson 03-12-2023 Screens [id number]# 1.00TIFF Aníbal Lin [facility] Ambulatory Visit Summaryon 1 05-11-2022 Ambulatory Visit Summary ALLA BRADY :1965 Visit Date:03/11/2023 Ambulatory Visit Instructions Your Diagnosis Urinary urgency Tests Performed Urnls Dip Stick Auto w/o Microscopy POC 64316 Your Care Team Attending Physician - VEE [...] 300 mg Tab) potassium chloride (Potassium Chloride (Apm-Pese-Ezq 10) 10 mEq oral tablet, extended release) [...] or concerns Unchanged potassium chloride (Potassium Chloride (Imj-Knab-Qja 10) 10 mEq oral tablet, extended release) [...] Urnls Dip Stick Auto w/o Microscopy POC 69456 (03/11/2023) Bilirubin Urine Dipstick - Negative Blood Urine Dipstick - Negative Glucose Urine Dipstick - Negative Ketones Urine Dipstick - Negative Leukocytes Urine Dipstick - Negative Nitrite Urine Dipstick - Negative Protein Urine Dipstick - Negative Specific [place] Urine Dipstick - 1.025 Urine Appearance Urine [...] you for choosing us for your care. [facility] Patient Educationon 03-11-20 23 Patient Education Pulmonary Medicine Steps to [...] require a prescription. You can also purchase gbgl-cjr-egnstmf medicines. Medicines may have nicotine in them [...] and encouragement. Call telephone quitlines, such as 4-917-HYCP-NOW, reach out to support groups, or work [...] quit smoki (more content not included)... Normal [facility] Automated erythrocytes count in urine sediment (number/area)Ordered By: Samia Saenz on 09-18-2022 RBC Auto (Urine sed) [#/Area] 1-2 [HPF] 0-4 [facility] Automated leukocytes count i n urine sediment (number/area)Ordered By: Samia Saenz on 09-18-2022 WBC Auto (Urine sed) [#/Area] 0-1 [HPF] 0-4 [facility] Automated urine sediment aaron cium oxalate crystal count by microscopy (number/high powOrdered By: Samia Saenz on 09-18-2022 Calcium oxalate crystals LM.HPF (Urine sed) [#/Area] 2+ [HPF] [facility] Bilirubin Test strip Ql (U)O rdered By: Samia Saenz on 09-18-2022 Bilirubin Ql (U) Negative Negative [facility] Color Auto (U)Ordered By: Dequan Saenz on 09-18-2022 Color (U) Yellow Yellow [facility] Ketones Auto test strip (U) [Mass/Vol]Ordered By: Samia Saenz on 09-18-2022 Ketones (U) [Mass/Vol] Negative Negative [facility] - UrinalysisOrder ed By: Samia Saenz on 09-18-2022 Hyaline casts LM Ql (Urine sed) 0-8 [LPF] 0-8 [facility] Nitrite Test strip Ql (U)Ord ered By: Samia Saenz on 09-18-2022 Nitrite Ql (U) Negative Negative [facility] Protein Auto test strip (U) [Mass/Vol]Ordered By: Samia Saenz on 09-18-2022 Protein (U) [Mass/Vol] Negative Negative [facility] Specific gravity Auto test s trip (U) [Rel density]Ordered By: Samia Saenz on 09-18-2022 Specific gravity (U) [Rel density] 1.021 1.001-1.030 [facility] Squamous epithelial cells de tection in urine sediment by light microscopyOrdered By: Samia Saenz on 09-18-2022 Epithelial cells.squamous LM Ql (Urine sed) 0-1 [HPF] 0-2 [facility] Urine bacteria detection by automated methodOrdered By: Samia Saenz on 09-18-2022 Bacteria Auto Ql (U) None seen None Seen [facility] Urine clarity by refractomet ry automatedOrdered By: Samia Saenz on 09-18-2022 Clarity Refractometry automated (U) Clear Clear [facility] Urine glucose measurement by automated test strip (mass/volume)Ordered By: Samia Saenz on 09-18-2022 Glucose Auto test strip (U) [Mass/Vol] Normal mg/dL Normal [facility] Urine hemoglobin detection b y automated test stripOrdered By: Samia Saenz on 09-18-2022 Hemoglobin Auto test strip Ql (U) Negative Negative [facility] Urine leukocyte esterase det ection by automated test stripOrdered By: Samia Saenz on 09-18-2022 Leukocyte esterase Auto test strip Ql (U) Negative Negative [facility] Urine sediment crystal ident ification by light microscopyOrdered By: Samia Saenz on 09-18-2022 Crystals LM Nom (Urine sed) N/A [facility] Urobilinogen Auto test strip (U) [Mass/Vol]Ordered By: Samia Saenz on 09-18-2022 Urobilinogen (U) [Mass/Vol] Normal mg/dL Normal [facility] pH Auto test strip (U)Ordere d By: Samia Saenz on 09-18-2022 pH (U) 5.5 [pH] 5.0-9.0 [facility] Alanine aminotransferase [En zymatic activity/volume] in Serum or PlasmaOrdered By: Samia Saenz on 09-16-2022 ALT [Catalytic activity/Vol] 13 U/L 7-52 [facility] Albumin [Mass/volume] in Ser um or Plasma by Bromocresol green (BCG) dye binding methoOrdered By: Samia Saenz on 09-16-2022 Albumin BCG dye [Mass/Vol] 4.4 g/dL 3.5-5.7 [facility] Alkaline phosphatase [Enzyma tic activity/volume] in Serum or PlasmaOrdered By: Samia Saenz on 09-16-2022 ALP [Catalytic activity/Vol] 49 U/L 34-104 [facility] Aspartate aminotransferase [ Enzymatic activity/volume] in Serum or PlasmaOrdered By: Samia Saenz on 09-16-2022 AST [Catalytic activity/Vol] 11 U/L 13-39 [facility] Basophils Auto (Bld) [#/Vol] Ordered By: Samia Saenz on 09-16-2022 Basophils (Bld) [#/Vol] 0.0 10*3/uL 0.0-0.2 [facility] Basophils/100 WBC Auto (Bld) Ordered By: Samia Saenz on 09-16-2022 Basophils/100 WBC (Bld) 0.6 % . F [facility] Bilirubin.total [Mass/volume ] in Serum or PlasmaOrdered By: Samia Saenz on 09-16-2022 Bilirubin [Mass/Vol] 0.3 mg/dL 0.3-1.0 [facility] Calcium [Mass/volume] in Ser um or PlasmaOrdered By: Samia Saenz on 09-16-2022 Calcium [Mass/Vol] 9.3 mg/dL 8.6-10.3 [facility] Carbon dioxide, total [Moles /volume] in Serum or PlasmaOrdered By: Samia Saenz on 09-16-2022 CO2 [Moles/Vol] 27.0 mmol/L 21.0-31.0 [facility] Chloride [Moles/volume] in S santiago or PlasmaOrdered By: Samia Saenz on 09-16-2022 Chloride [Moles/Vol] 107 mmol/L 98-107 [facility] Cholesterol [Mass/volume] in Serum or PlasmaOrdered By: Samia Saenz on 09-16-2022 Cholesterol [Mass/Vol] 179 mg/dL 140-200 [facility] Comment on above: Chol less than 200 m g/dl low riskChol 201-239 mg/dl borderline riskChol 240 mg/dl and greater high risk Cholesterol in LDL Calc [Mas s/Vol]Ordered By: Samia Saenz on 09-16-2022 Cholesterol in LDL [Mass/Vol] 105 mg/dL 0-100 [facility] Comment on above: LDL ATP III CLASSIFI CATIONLDL less than 100 mg/dL OptimalLDL 100-129 mg/dL Near or above optimalLDL 130-159 mg/dL Borderline highLDL 160-189 mg/dL HighLDL greater than 189 mg/dL Very high Cholesterol in VLDL Calc [Ma ss/Vol]Ordered By: Samia Saenz on 09-16-2022 Cholesterol in VLDL [Mass/Vol] 29 mg/dL [facility] Creatinine [Mass/volume] in Serum or PlasmaOrdered By: Samia Saenz on 09-16-2022 Creatinine [Mass/Vol] 0.72 mg/dL 0.60-1.20 [facility] Eosinophils Auto (Bld) [#/Vo l]Ordered By: Samia Saenz on 09-16-2022 Eosinophils (Bld) [#/Vol] 0.0 10*3/uL 0.0-0.45 [facility] Eosinophils/100 WBC Auto (Bl d)Ordered By: Samia Saenz on 09-16-2022 Eosinophils/100 WBC (Bld) 0.2 % . [facility] Erythrocyte distribution wid th Auto (RBC) [Ratio]Ordered By: Samia Saenz on 09-16-2022 Erythrocyte distribution width (RBC) [Ratio] 13.1 % 11.9-15.3 [facility] Ferritin [Mass/volume] in Se rum or PlasmaOrdered By: Samia Saenz on 09-16-2022 Ferritin [Mass/Vol] 27.4 ng/mL 11.0-306.8 [facility] Folate [Mass/volume] in Seru m or PlasmaOrdered By: Samia Saenz on 09-16-2022 Folate [Mass/Vol] 28.0 ng/mL >5.9 [facility] Comment on above: Folate reference ran ge: >5.9 ng/mlThe WHO technical consultation on folate and vitamin [id number] has determined that folate concentrations lessthan 4 ng/ml are considered deficient. Globulin Calc (S) [Mass/Vol] Ordered By: Samia Saenz on 09-16-2022 Globulin (S) [Mass/Vol] 2.1 g/dL F [facility] Glucose [Mass/volume] in Ser um or PlasmaOrdered By: Samia Saenz on 09-16-2022 Glucose [Mass/Vol] 87 mg/dL 70-100 [facility] Comment on above: ADA recommended refe rence rangeRandom Glucose Reference Range is dependent on time and content of last meal. Glucose of more than 200 mg/dL in a nonstressed, ambulatory subject supports the diagnosis of Diabetes Mellitus. Glucose mean value [Mass/vol ume] in Blood Estimated from glycated hemoglobinOrdered By: Samia Saenz on 09-16-2022 Average glucose Estimated from glycated hemoglobin (Bld) [Mass/Vol] 120 mg/dL [facility] Hematocrit Auto (Bld) [Volum e fraction]Ordered By: Samia Saenz on 09-16-2022 Hematocrit (Bld) [Volume fraction] 38.5 % 34.0-46.4 [facility] Hemoglobin A1c percentageOrd ered By: Samia Saenz on 09-16-2022 HbA1c (Bld) [Mass fraction] 5.8 % 4.3-5.6 [facility] Comment on above: Increased risk for d iabetes: 5.7 - 6.4diabetes: >6.4glycemic control for adults with diabetes: <7.0 Hemoglobin [Mass/volume] in BloodOrdered By: Samia Saenz on 09-16-2022 Hemoglobin (Bld) [Mass/Vol] 12.9 g/dL 11.8-15.4 [facility] Iron [Mass/volume] in Serum or PlasmaOrdered By: Samia Saenz on 09-16-2022 Iron [Mass/Vol] 34 ug/dL 50-212 [facility] Iron binding capacity [Mass/ volume] in Serum or PlasmaOrdered By: Samia Saenz on 09-16-2022 Iron binding capacity [Mass/Vol] 323 ug/dL 255-450 [facility] Iron saturation [Mass Fracti on] in Serum or PlasmaOrdered By: Samia Saenz on 09-16-2022 Iron saturation [Mass fraction] 10.5 % 20-50 [facility] Leukocytes [#/volume] correc perico for nucleated erythrocytes in Blood by Automated counOrdered By: Samia Saenz on 09-16-2022 WBC corrected for nucl RBC Auto (Bld) [#/Vol] 8.7 10*3/uL 3.8-11.6 [facility] Lymphocytes Auto (Bld) [#/Vo l]Ordered By: Samia Saenz on 09-16-2022 Lymphocytes (Bld) [#/Vol] 1.6 10*3/uL 1.00-4.8 [facility] Lymphocytes/100 WBC Auto (Bl d)Ordered By: Samia Saenz on 09-16-2022 Lymphocytes/100 WBC (Bld) 18.4 % . [facility] MCH Auto (RBC) [Entitic mass ]Ordered By: Samia Saenz on 09-16-2022 MCH (RBC) [Entitic mass] 31.8 pg 24.7-34.3 [facility] MCHC Auto (RBC) [Mass/Vol]Or dered By: Samia Saenz on 09-16-2022 MCHC (RBC) [Mass/Vol] 33.6 g/dL 32.0-35.0 [facility] MCV Auto (RBC) [Entitic vol] Ordered By: Samia Saenz on 09-16-2022 MCV (RBC) [Entitic vol] 94.5 fL 80-100 F [facility] Monocytes Auto (Bld) [#/Vol] Ordered By: Samia Saenz on 09-16-2022 Monocytes (Bld) [#/Vol] 0.6 10*3/uL 0.0-0.8 [facility] Monocytes/100 WBC Auto (Bld) Ordered By: Samia Saenz on 09-16-2022 Monocytes/100 WBC (Bld) 6.8 % . F [facility] Neutrophils Auto (Bld) [#/Vo l]Ordered By: Samia Saenz on 09-16-2022 Neutrophils (Bld) [#/Vol] 6.5 10*3/uL 1.8-7.7 [facility] Neutrophils/100 WBC Auto (Bl d)Ordered By: Samia Saenz on 09-16-2022 Neutrophils/100 WBC (Bld) 74.0 % . [facility] No Panel InformationOrdered By: Samia Saenz on 09-16-2022 Estimated GFR (CKD-EPI) > 60.0 mL/Min [facility] Creatinine Clearance (Chem N/A [facility] Nucleated erythrocytes [Pres ence] in Blood by Automated countOrdered By: Samia Saenz on 09-16-2022 Nucleated RBC Auto Ql (Bld) 0.0 /100{WBC} 0-0.5 [facility] Platelet mean volume Auto (B ld) [Entitic vol]Ordered By: Samia Saenz on 09-16-2022 Platelet mean volume (Bld) [Entitic vol] 7.6 fL 6.3-10.7 [facility] Platelets Auto (Bld) [#/Vol] Ordered By: Samia Saenz on 09-16-2022 Platelets (Bld) [#/Vol] 250 10*3/uL 150-450 [facility] Potassium [Moles/volume] in Serum or PlasmaOrdered By: Samia Saenz on 09-16-2022 Potassium [Moles/Vol] 3.8 mmol/L 3.5-5.1 [facility] Protein [Mass/volume] in Ser um or PlasmaOrdered By: Samia Saenz on 09-16-2022 Protein [Mass/Vol] 6.5 g/dL 6.4-8.9 [facility] RBC Auto (Bld) [#/Vol]Ordere d By: Samia Saenz on 09-16-2022 RBC (Bld) [#/Vol] 4.07 10*6/uL 3.60-5.00 [facility] Serum or plasma albumin/glob ulin mass ratioOrdered By: Samia Saenz on 09-16-2022 Albumin/Globulin [Mass ratio] 2.1 {ratio} [facility] Serum or plasma anion gap de terminationOrdered By: Samia Saenz on 09-16-2022 Anion gap [Moles/Vol] 9.8 mmol/L 6.0-15.0 [facility] Serum or plasma high density lipoprotein (HDL) cholesterol measurementOrdered By: Samia Saenz on 09-16-2022 Cholesterol in HDL [Mass/Vol] 45 mg/dL 23-92 [facility] Comment on above: HDL CHOL ATP-III CLA SSIFICATION Cardiovascular RiskHDL > or equal to 60 mg/dL LOWHDL < 40 mg/dL HIGH Serum or plasma total choles terol/high density lipoprotein (HDL) cholesterol mass ratOrdered By: Samia Saenz on 09-16-2022 Cholesterol.total/Theresa sterol in HDL [Mass ratio] 4.0 {ratio} <5.0 [facility] Sodium [Moles/volume] in Ser um or PlasmaOrdered By: Samia Saenz on 09-16-2022 Sodium [Moles/Vol] 140 mmol/L 136-145 [facility] Thyrotropin [Units/volume] i n Serum or PlasmaOrdered By: Samia Saenz on 09-16-2022 TSH Qn 1.50 m[IU]/L 0.45-5.33 [facility] Thyroxine (T4) free [Mass/vo lume] in Serum or PlasmaOrdered By: Samia Saenz on 09-16-2022 Free T4 [Mass/Vol] 0.75 ng/dL 0.61-1.12 [facility] Transferrin [Mass/volume] in Serum or PlasmaOrdered By: Samia Saenz on 09-16-2022 Transferrin [Mass/Vol] 231 mg/dL 203-362 [facility] Triglyceride [Mass/volume] i n Serum or PlasmaOrdered By: Samia Saenz on 09-16-2022 Triglyceride [Mass/Vol] 147 mg/dL 0-149 [facility] Comment on above: TRIG ATP III CLASSIF ICATIONTRIG less than 150 mg/dL NormalTRIG 150-199 mg/dL Borderline highTRIG 200-500 mg/dL High TRIG greater than 500 mg/dL Very highStandard traceable to the Center for Disease Conrtrol and Prevention (CDC) test method. Triiodothyronine (T3) Free [ Mass/volume] in Serum or PlasmaOrdered By: Samia Saenz on 09-16-2022 Free T3 [Mass/Vol] 2.64 pg/mL 2.50-3.90 [facility] Urea nitrogen [Mass/volume] in Serum or PlasmaOrdered By: Samia Saenz on 09-16-2022 Urea nitrogen [Mass/Vol] 16 mg/dL 7-25 [facility] Vitamin B12 ser/plasOrdered By: Samia Saenz on 09-16-2022 Cobalamin (Vitamin B12) [Mass/Vol] 484 pg/mL 180-914 [facility] Vitamin D+Metabolites [Mass/ volume] in Serum or PlasmaOrdered By: Samia Saenz on 09-16-2022 Vitamin D+Metabolites [Mass/Vol] 78.1 ng/mL 30-100 [facility] Comment on above: VITAMIN D STATUS 25( [place])VITAMIN D RANGE (ng/mL) Deficient <20 Insufficient 20 to <30Sufficient 30 to 100Reference: Melvin MF,Shakir ESTRADA, Darius SHAW, et al. Evaluation,treatment, and prevention of vitamin D deficiency; an Endocrine Society clinical practice guideline. JCEM. 2010; 96(7):1911-30. WBC Auto (Bld) [#/Vol]Ordere d By: Samia Saenz on 09-16-2022 WBC (Bld) [#/Vol] 8.7 10*3/uL 3.8-11.6 [facility] Urine culture routineOrdered By: Samia Saenz on 01-13-2022 Bacteria identified Cx Nom (U) 2 Days [facility] Albumin [Mass/volume] in Ser um or PlasmaOrdered By: Samia Saenz on 01-11-2022 Albumin [Mass/Vol] 3.7 g/dL 3.2-5.5 [facility] Basophils Auto (Bld) [#/Vol] Ordered By: Samia Saenz on 01-11-2022 Basophils (Bld) [#/Vol] 0.0 10*3/uL 0.0-0.2 [facility] Basophils/100 WBC Auto (Bld) Ordered By: Samia Saenz on 01-11-2022 Basophils/100 WBC (Bld) 0.5 % . F [facility] Bilirubin Test strip Ql (U)O rdered By: Samia Saenz on 01-11-2022 Bilirubin Ql (U) Negative Negative [facility] CT biopsyOrdered By: Samia mina on 01-11-2022 Transferrin [Mass/Vol] 239 mg/dL 180-380 [facility] Color Auto (U)Ordered By: Dequan Saenz on 01-11-2022 Color (U) Yellow Yellow [facility] Creatinine and Glomerular fi ltration rate.predicted panel (S/P/Bld)Ordered By: Samia Saenz on 01-11-2022 Creatinine [Mass/Vol] 0.68 mg/dL 0.44-1.03 [facility] Eosinophils Auto (Bld) [#/Vo l]Ordered By: Samia Saenz on 01-11-2022 Eosinophils (Bld) [#/Vol] 0.0 10*3/uL 0.0-0.45 [facility] Eosinophils/100 WBC Auto (Bl d)Ordered By: Samia Saenz on 01-11-2022 Eosinophils/100 WBC (Bld) 0.2 % . [facility] Erythrocyte distribution wid th Auto (RBC) [Ratio]Ordered By: Samia Saenz on 01-11-2022 Erythrocyte distribution width (RBC) [Ratio] 15.2 % 11.9-15.3 [facility] Estimated glomerular filtrat ion rate (GFR) non- AmericanOrdered By: Samia Saenz on 01-11-2022 GFR/1.73 sq M.predicted among non-blacks MDRD (S/P/Bld) [Vol rate/Area] > 60 mL/Min [facility] Ferritin [Mass/volume] in Se rum or PlasmaOrdered By: Samia Saenz on 01-11-2022 Ferritin [Mass/Vol] 30.8 ng/mL 11-306.8 [facility] Folate [Mass/volume] in Seru m or PlasmaOrdered By: Samia Saenz on 01-11-2022 Folate [Mass/Vol] 10.1 ng/mL >5.9 [facility] Comment on above: Folate reference ran ge: >5.9 ng/mlThe WHO technical consultation on folate and vitamin [id number] has determined that folate concentrations lessthan 4 ng/ml are considered deficient. Globulin Calc (S) [Mass/Vol] Ordered By: Samia Saenz on 01-11-2022 Globulin (S) [Mass/Vol] 2.9 g/dL F [facility] Glucose mean value [Mass/vol ume] in Blood Estimated from glycated hemoglobinOrdered By: Samia Saenz on 01-11-2022 Average glucose Estimated from glycated hemoglobin (Bld) [Mass/Vol] 117 mg/dL [facility] Hematocrit Auto (Bld) [Volum e fraction]Ordered By: Samia Saenz on 01-11-2022 Hematocrit (Bld) [Volume fraction] 38.7 % 34.0-46.4 [facility] Hemoglobin A1c percentageOrd ered By: Samia Saenz on 01-11-2022 HbA1c (Bld) [Mass fraction] 5.7 % 4.3-5.6 [facility] Comment on above: Increased risk for d iabetes: 5.7 - 6.4diabetes: >6.4glycemic control for adults with diabetes: <7.0 Hemoglobin [Mass/volume] in BloodOrdered By: Samia Saenz on 01-11-2022 Hemoglobin (Bld) [Mass/Vol] 12.5 g/dL 11.8-15.4 [facility] Iron [Mass/volume] in Serum or PlasmaOrdered By: Samia Saenz on 01-11-2022 Iron [Mass/Vol] 71 ug/dL 40-150 [facility] Iron binding capacity [Mass/ volume] in Serum or PlasmaOrdered By: Samia Saenz on 01-11-2022 Iron binding capacity [Mass/Vol] 335 ug/dL 255-450 [facility] Iron saturation [Mass Fracti on] in Serum or PlasmaOrdered By: Samia Saenz on 01-11-2022 Iron saturation [Mass fraction] 21.0 % 20-50 [facility] Ketones Auto test strip (U) [Mass/Vol]Ordered By: Samia Saenz on 01-11-2022 Ketones (U) [Mass/Vol] Negative Negative [facility] - Chemistry and C hemistry - challengeOrdered By: Samia Saenz on 01-11-2022 Cobalamin (Vitamin B12) [Mass/Vol] 496 pg/mL 180-914 [facility] - Hematology and Cell countsOrdered By: Samia Saenz on 01-11-2022 Nucleated RBC/100 WBC (Bld) [Ratio] 0.0 % 0-0.5 [facility] Leukocytes [#/volume] in Blo od by Automated countOrdered By: Samia Saenz on 01-11-2022 WBC (Bld) [#/Vol] 5.3 10*3/uL 4.5-11.0 [facility] Lymphocytes Auto (Bld) [#/Vo l]Ordered By: Samia Saenz on 01-11-2022 Lymphocytes (Bld) [#/Vol] 1.6 10*3/uL 1.00-4.8 [facility] Lymphocytes/100 WBC Auto (Bl d)Ordered By: Samia Saenz on 01-11-2022 Lymphocytes/100 WBC (Bld) 30.7 % . [facility] MCH Auto (RBC) [Entitic mass ]Ordered By: Samia Saenz on 01-11-2022 MCH (RBC) [Entitic mass] 30.6 pg 24.7-34.3 [facility] MCHC Auto (RBC) [Mass/Vol]Or dered By: Samia Saenz on 01-11-2022 MCHC (RBC) [Mass/Vol] 32.4 g/dL 32.0-35.0 [facility] MCV Auto (RBC) [Entitic vol] Ordered By: Samia Saenz on 01-11-2022 MCV (RBC) [Entitic vol] 94.6 fL 80-100 F [facility] Monocytes Auto (Bld) [#/Vol] Ordered By: Samia Saenz on 01-11-2022 Monocytes (Bld) [#/Vol] 0.3 10*3/uL 0.0-0.8 [facility] Monocytes/100 WBC Auto (Bld) Ordered By: Samia Saenz on 01-11-2022 Monocytes/100 WBC (Bld) 6.3 % . F [facility] Neutrophils Auto (Bld) [#/Vo l]Ordered By: Samia Saenz on 01-11-2022 Neutrophils (Bld) [#/Vol] 3.3 10*3/uL 1.8-7.7 [facility] Neutrophils/100 WBC Auto (Bl d)Ordered By: Samia Saenz on 01-11-2022 Neutrophils/100 WBC (Bld) 62.3 % . [facility] Nitrite Test strip Ql (U)Ord ered By: Samai Saenz on 01-11-2022 Nitrite Ql (U) Negative Negative [facility] No Panel InformationOrdered By: Samia Saenz on 01-11-2022 25-Hydroxy Vitamin D Total 54.3 ng/mL 30-100 [facility] Comment on above: VITAMIN D STATUS 25( OH)VITAMIN D RANGE (ng/mL) Deficient <20 Insufficient 20 to <30Sufficient 30 to 100Reference: Melvin LOZANO,Shakir ESTRADA, Darius SHAW, et al. Evaluation,treatment, and prevention of vitamin D deficiency; an Endocrine Society clinical practice guideline. JCEM. 2010; 96(7):1911-30. Estimated GFR () > 60 mL/Min [facility] Comment on above: GFR estimated refere nce range: According to KDOQI guidelines, <60 ml/min/1.73m2 is sufficient to diagnose a patient with chronic kidney disease. Pharmacy Creatinine Clearance (Chem N/A [facility] Platelet mean volume Auto (B ld) [Entitic vol]Ordered By: Samia Saenz on 01-11-2022 Platelet mean volume (Bld) [Entitic vol] 7.7 fL 6.3-10.7 [facility] Platelets Auto (Bld) [#/Vol] Ordered By: Samia Saenz on 01-11-2022 Platelets (Bld) [#/Vol] 262 10*3/uL 150-450 [facility] Protein Auto test strip (U) [Mass/Vol]Ordered By: Samia Saenz on 01-11-2022 Protein (U) [Mass/Vol] Negative Negative Fi [facility] Protein [Mass/volume] in Ser um or PlasmaOrdered By: Samia Saenz on 01-11-2022 Protein [Mass/Vol] 6.6 g/dL 6.1-7.9 [facility] RBC Auto (Bld) [#/Vol]Ordere d By: Samia Saenz on 01-11-2022 RBC (Bld) [#/Vol] 4.08 10*6/uL 3.60-5.00 [facility] Serum or plasma alanine guerrero otransferase measurement without P-5'-P (enzymatic activiOrdered By: Samia Saenz on 01-11-2022 ALT No additional P-5'-P [Catalytic activity/Vol] 16 U/L 10-60 [facility] Serum or plasma albumin/glob ulin mass ratioOrdered By: Samia Saenz on 01-11-2022 Albumin/Globulin [Mass ratio] 1.3 {ratio} [facility] Serum or plasma alkaline lv sphatase measurement (enzymatic activity/volume)Ordered By: Samia Saenz on 01-11-2022 ALP [Catalytic activity/Vol] 62 U/L 32-92 [facility] Serum or plasma anion gap de terminationOrdered By: Samia Saenz on 01-11-2022 Anion gap [Moles/Vol] 12.4 mmol/L 6.0-15.0 [facility] Serum or plasma aspartate am inotransferase measurement (enzymatic activity/volume)Ordered By: Samia Saenz on 01-11-2022 AST [Catalytic activity/Vol] 16 U/L 10-42 [facility] Serum or plasma calcium bev urement (mass/volume)Ordered By: Samia Saenz on 01-11-2022 Calcium [Mass/Vol] 9.5 mg/dL 8.2-10.2 [facility] Serum or plasma chloride del surement (moles/volume)Ordered By: Samia Saenz on 01-11-2022 Chloride [Moles/Vol] 105 mmol/L 95-114 [facility] Serum or plasma glucose bev urement (mass/volume)Ordered By: Samia Saenz on 01-11-2022 Glucose [Mass/Vol] 97 mg/dL 70-100 [facility] Comment on above: ADA recommended refe rence rangeRandom Glucose Reference Range is dependent on time and content of last meal. Glucose of more than 200 mg/dL in a nonstressed, ambulatory subject supports the diagnosis of Diabetes Mellitus. Serum or plasma potassium me asurement (moles/volume)Ordered By: Samia Saenz on 01-11-2022 Potassium [Moles/Vol] 3.6 mmol/L 3.5-5.1 [facility] Serum or plasma sodium measu rement (moles/volume)Ordered By: Samia Saenz on 01-11-2022 Sodium [Moles/Vol] 138 mmol/L 136-146 [facility] Serum or plasma total biliru bin measurement (mass/volume)Ordered By: Samia Saenz on 01-11-2022 Bilirubin [Mass/Vol] 0.4 mg/dL 0.3-1.2 [facility] Serum or plasma total carbon dioxide measurement (moles/volume)Ordered By: Samia Saenz on 01-11-2022 CO2 [Moles/Vol] 24.2 mmol/L 22.0-30.0 [facility] Serum or plasma urea nitroge n measurement (mass/volume)Ordered By: Samia Saenz on 01-11-2022 Urea nitrogen [Mass/Vol] 7 mg/dL 9- [facility] Specific gravity Auto test s trip (U) [Rel density]Ordered By: Samia Saenz on 01-11-2022 Specific gravity (U) [Rel density] 1.020 1.001-1.030 [facility] TSH DL <= 0.005 mIU/L QnOrde red By: Samia Saenz on 01-11-2022 TSH Qn 0.66 m[IU]/L 0.45-5.33 [facility] Thyroxine (T4) free [Mass/vo lume] in Serum or PlasmaOrdered By: Samia Saenz on 01-11-2022 Free T4 [Mass/Vol] 0.76 ng/dL 0.61-1.12 [facility] Triiodothyronine (T3) Free [ Mass/volume] in Serum or PlasmaOrdered By: Samia Saenz on 01-11-2022 Free T3 [Mass/Vol] 3.06 pg/mL 2.50-3.90 [facility] Urine clarity by refractomet ry automatedOrdered By: Samia Saenz on 01-11-2022 Clarity Refractometry automated (U) Clear Clear [facility] Urine glucose measurement by automated test strip (mass/volume)Ordered By: Samia Saenz on 01-11-2022 Glucose Auto test strip (U) [Mass/Vol] Normal mg/dL Normal [facility] Urine hemoglobin detection b y automated test stripOrdered By: Samia Saenz on 01-11-2022 Hemoglobin Auto test strip Ql (U) Negative Negative [facility] Urine leukocyte esterase det ection by automated test stripOrdered By: Samia Saenz on 01-11-2022 Leukocyte esterase Auto test strip Ql (U) Negative Negative [facility] Urobilinogen Auto test strip (U) [Mass/Vol]Ordered By: Samia Saenz on 01-11-2022 Urobilinogen (U) [Mass/Vol] Normal mg/dL Normal [facility] pH Auto test strip (U)Ordere d By: Samia Saenz on 01-11-2022 pH (U) 6.5 [pH] 5.0-9.0 [facility] Basophils Auto (Bld) [#/Vol] Ordered By: Whit Tyson on 11-26-2021 Basophils (Bld) [#/Vol] 0.0 10*3/uL 0.0-0.2 [facility] Basophils/100 WBC Auto (Bld) Ordered By: Whit Tyson on 11-26-2021 Basophils/100 WBC (Bld) 0.7 % . F [facility] Blood hemoglobin measurement (mass/volume)Ordered By: Whit Montalvo on 11-26-2021 Hemoglobin (Bld) [Mass/Vol] 12.3 g/dL 11.8-15.4 [facility] Blood leukocytes automated c ount (number/volume)Ordered By: Whit Montalvo on 11-26-2021 WBC (Bld) [#/Vol] 6.4 10*3/uL 4.5-11.0 [facility] Body fluid albumin measureme nt (mass/volume)[facility]: [facility]21 Albumin (Body fld) [Mass/Vol] 3.5 g/dL 3.2-5.5 [facility] COVID-19 Positive/NegativeOr dered By: Whit Tyson on 11-26-2021 SARS-CoV-2 (COVID-19) N gene KWASI+probe Ql (Resp) Negative Negative [facility] Comment on above: Testing for SARS-CoV -2 by RT-PCR This test was developed and its performance characteristics determined by [employer] and validated at the [facility]. This test has not been FDA cleared [...] on 11-26-2021 Creatinine [Mass/Vol] 0.88 mg/dL 0.44-1.03 [facility] Eosinophils Auto (Bld) [#/Vo l]Ordered By: Whit Tyson on 11-26-2021 Eosinophils (Bld) [#/Vol] 0.0 10*3/uL 0.0-0.45 [facility] Eosinophils/100 WBC Auto (Bl d)Ordered By: Whit Tyson on 11-26-2021 Eosinophils/100 WBC (Bld) 0.2 % . [facility] Erythrocyte distribution wid th Auto (RBC) [Ratio]Ordered By: Whit Tyson on 11-26-2021 Erythrocyte distribution width (RBC) [Ratio] 13.7 % 11.9-15.3 [facility] Estimated glomerular filtrat ion rate (GFR) non- AmericanOrdered By: Whit Tyson on 11-26-2021 GFR/1.73 sq M.predicted among non-blacks MDRD (S/P/Bld) [Vol rate/Area] > 60 mL/Min [facility] Globulin Calc (S) [Mass/Vol] Ordered By: Whit Tyson on 11-26-2021 Globulin (S) [Mass/Vol] 3.2 g/dL [facility] Hematocrit Auto (Bld) [Volum e fraction]Ordered By: Whit Tyson on 11-26-2021 Hematocrit (Bld) [Volume fraction] 37.4 % 34.0-46.4 [facility] Laboratory - Chemistry and C hemistry - challengeOrdered By: Whit Tyson on 11-26-2021 Magnesium [Mass/Vol] 2.0 mg/dL 1.6-2.6 [facility] Laboratory - Hematology and Cell countsOrdered By: Whit Tyson on 11-26-2021 Nucleated RBC/100 WBC (Bld) [Ratio] 0.0 % 0-0.5 [facility] Lymphocytes Auto (Bld) [#/Vo l]Ordered By: Whit Tyson on 11-26-2021 Lymphocytes (Bld) [#/Vol] 1.7 10*3/uL 1.00-4.8 [facility] Lymphocytes/100 WBC Auto (Bl d)Ordered By: Whit Tyson on 11-26-2021 Lymphocytes/100 WBC (Bld) 26.6 % . [facility] MCH Auto (RBC) [Entitic mass ]Ordered By: Whit Tyson on 11-26-2021 MCH (RBC) [Entitic mass] 30.7 pg 24.7-34.3 [facility] MCHC Auto (RBC) [Mass/Vol]Or dered By: Whit Tyson on 11-26-2021 MCHC (RBC) [Mass/Vol] 32.9 g/dL 32.0-35.0 [facility] MCV Auto (RBC) [Entitic vol] Ordered By: Whit Tyson on 11-26-2021 MCV (RBC) [Entitic vol] 93.3 fL 80-100 F [facility] Monocytes Auto (Bld) [#/Vol] Ordered By: Whit Tyson on 11-26-2021 Monocytes (Bld) [#/Vol] 0.4 10*3/uL 0.0-0.8 [facility] Monocytes/100 WBC Auto (Bld) Ordered By: Whit Tyson on 11-26-2021 Monocytes/100 WBC (Bld) 6.3 % . F [facility] Neutrophils Auto (Bld) [#/Vo l]Ordered By: Whit Tyson on 11-26-2021 Neutrophils (Bld) [#/Vol] 4.2 10*3/uL 1.8-7.7 [facility] Neutrophils/100 WBC Auto (Bl d)Ordered By: Whit Tyson on 11-26-2021 Neutrophils/100 WBC (Bld) 66.2 % . [facility] No Panel InformationOrdered By: Whit Tyson on 11-26-2021 Estimated GFR () > 60 mL/Min [facility] Comment on above: GFR estimated refere nce range: According to KDOQI guidelines, <60 ml/min/1.73m2 is sufficient to diagnose a patient with chronic kidney disease. Pharmacy Creatinine Clearance (Chem 60.91 [facility] Phosphate [Mass/volume] in S s[place] or PlasmaOrdered By: Whit Tyson on 11-26-2021 Phosphate [Mass/Vol] 3.6 mg/dL 2.5-4.6 [facility] Platelet mean volume Auto (B ld) [Entitic vol]Ordered By: Whit Tyson on 11-26-2021 Platelet mean volume (Bld) [Entitic vol] 8.3 fL 6.3-10.7 [facility] Platelets Auto (Bld) [#/Vol] Ordered By: Whit Tyson on 11-26-2021 Platelets (Bld) [#/Vol] 262 10*3/uL 150-450 [facility] Protein [Mass/volume] in Ser um or PlasmaOrdered By: Whit Tyson on 11-26-2021 Protein [Mass/Vol] 6.7 g/dL 6.1-7.9 [facility] RBC Auto (Bld) [#/Vol]Ordere d By: Whit Tyson on 11-26-2021 RBC (Bld) [#/Vol] 4.01 10*6/uL 3.60-5.00 [facility] Serum or plasma alanine guerrero otransferase measurement without P-5'-P (enzymatic activiOrdered By: Whit Tyson on 11-26-2021 ALT No additional P-5'-P [Catalytic activity/Vol] 20 U/L 10-60 [facility] Serum or plasma albumin/glob ulin mass ratioOrdered By: Whit Tyson on 11-26-2021 Albumin/Globulin [Mass ratio] 1.1 {ratio} [facility] Serum or plasma alkaline lv sphatase measurement (enzymatic activity/volume)Ordered By: Whit Tyson on 11-26-2021 ALP [Catalytic activity/Vol] 56 U/L 32-92 [facility] Serum or plasma aspartate am inotransferase measurement (enzymatic activity/volume)Ordered By: Whit Tyson on 11-26-2021 AST [Catalytic activity/Vol] 19 U/L 10-42 [facility] Serum or plasma calcium bev urement (mass/volume)Ordered By: Whit Tyson on 11-26-2021 Calcium [Mass/Vol] 9.4 mg/dL 8.2-10.2 [facility] Serum or plasma chloride del surement (moles/volume)Ordered By: Whit Tyson on 11-26-2021 Chloride [Moles/Vol] 102 mmol/L 95-114 [facility] Serum or plasma glucose bev urement (mass/volume)Ordered By: Whit Tyson on 11-26-2021 Glucose [Mass/Vol] 92 mg/dL 70-100 [facility] Comment on above: ADA recommended refe rence range Random Glucose Reference Range is dependent on time and content of last meal. Glucose of more than 200 mg/dL in a nonstressed, ambulatory subject supports the diagnosis of Diabetes Mellitus. Serum or plasma potassium me asurement (moles/volume)Ordered By: Whit Tyson on 11-26-2021 Potassium [Moles/Vol] 3.6 mmol/L 3.5-5.1 [facility] Serum or plasma sodium measu rement (moles/volume)Ordered By: Whit Tyson on 11-26-2021 Sodium [Moles/Vol] 135 mmol/L 136-146 [facility] Serum or plasma total biliru bin measurement (mass/volume)Ordered By: Whit Tyson on 11-26-2021 Bilirubin [Mass/Vol] 0.3 mg/dL 0.3-1.2 [facility] Serum or plasma total carbon dioxide measurement (moles/volume)Ordered By: Whit Tyson on 11-26-2021 CO2 [Moles/Vol] 21.8 mmol/L 22.0-30.0 [facility] Serum or plasma urea nitroge n measurement (mass/volume)Ordered By: Whit Tyson on 11-26-2021 Urea nitrogen [Mass/Vol] 14 mg/dL 9-23 [facility] Basophils Auto (Bld) [#/Vol] Ordered By: Samia Saenz on 10-12-2021 Basophils (Bld) [#/Vol] 0.0 10*3/uL 0.0-0.2 [facility] Basophils/100 WBC Auto (Bld) Ordered By: Samia Saenz on 10-12-2021 Basophils/100 WBC (Bld) 1.0 % . F [facility] Blood hemoglobin measurement (mass/volume)Ordered By: Samia Saenz on 10-12-2021 Hemoglobin (Bld) [Mass/Vol] 12.6 g/dL 11.8-15.4 [facility] Blood leukocytes automated c ount (number/volume)Ordered By: Samia Saenz on 10-12-2021 WBC (Bld) [#/Vol] 4.6 10*3/uL 4.5-11.[address] [facility] [address] biopsyOrdered By: Samia mina on 10-12-2021 Transferrin [Mass/Vol] 254 mg/dL 180-380 [facility] Eosinophils Auto (Bld) [#/Vo l]Ordered By: Samia Saenz on 10-12-2021 Eosinophils (Bld) [#/Vol] 0.0 10*3/uL 0.0-0.45 [facility] Eosinophils/100 WBC Auto (Bl d)Ordered By: Samia Saenz on 10-12-2021 Eosinophils/100 WBC (Bld) 0.2 % . [facility] Erythrocyte distribution wid th Auto (RBC) [Ratio]Ordered By: Samia Saenz on 10-12-2021 Erythrocyte distribution width (RBC) [Ratio] 13.8 % 11.9-15.3 [facility] Ferritin [Mass/volume] in Se rum or PlasmaOrdered By: Samia Saenz on 10-12-2021 Ferritin [Mass/Vol] 20.4 ng/mL 11-306.8 [facility] Folate [Mass/volume] in Seru m or PlasmaOrdered By: Samia Saenz on 10-12-2021 Folate [Mass/Vol] 18.2 ng/mL >5.9 [facility] Comment on above: Folate reference ran ge: >5.9 ng/ml The WHO technical consultation on folate and vitamin b12 deficiencies has determined that folate concentrations less than 4 ng/ml are considered deficient. Hematocrit Auto (Bld) [Volum e fraction]Ordered By: Samia Saenz on 10-12-2021 Hematocrit (Bld) [Volume fraction] 38.2 % 34.0-46.4 [facility] Iron [Mass/volume] in Serum or PlasmaOrdered By: Samia Saenz on 10-12-2021 Iron [Mass/Vol] 56 ug/dL 40-150 [facility] Iron binding capacity [Mass/ volume] in Serum or PlasmaOrdered By: Samia Saenz on 10-12-2021 Iron binding capacity [Mass/Vol] 356 ug/dL 255-450 [facility] Iron saturation [Mass Fracti on] in Serum or PlasmaOrdered By: Samia Saenz on 10-12-2021 Iron saturation [Mass fraction] 15.0 % 20-50 [facility] Laboratory - Chemistry and C hemistry - challengeOrdered By: Samia Saenz on 10-12-2021 Cobalamin (Vitamin B12) [Mass/Vol] 428 pg/mL 180-914 [facility] Laboratory - Hematology and Cell countsOrdered By: Samia Saenz on 10-12-2021 Nucleated RBC/100 WBC (Bld) [Ratio] 0.0 % 0-0.5 [facility] Lymphocytes Auto (Bld) [#/Vo l]Ordered By: Samia Saenz on 10-12-2021 Lymphocytes (Bld) [#/Vol] 1.7 10*3/uL 1.00-4.8 [facility] Lymphocytes/100 WBC Auto (Bl d)Ordered By: Samia Saenz on 10-12-2021 Lymphocytes/100 WBC (Bld) 37.4 % . [facility] MCH Auto (RBC) [Entitic mass ]Ordered By: Samia Saenz on 10-12-2021 MCH (RBC) [Entitic mass] 31.0 pg 24.7-34.3 [facility] MCHC Auto (RBC) [Mass/Vol]Or dered By: Samia Saenz on 10-12-2021 MCHC (RBC) [Mass/Vol] 32.9 g/dL 32.0-35.0 [facility] MCV Auto (RBC) [Entitic vol] Ordered By: Samia Saenz on 10-12-2021 MCV (RBC) [Entitic vol] 94.3 fL 80-100 F [facility] Monocytes Auto (Bld) [#/Vol] Ordered By: Samia Saenz on 10-12-2021 Monocytes (Bld) [#/Vol] 0.4 10*3/uL 0.0-0.8 [facility] Monocytes/100 WBC Auto (Bld) Ordered By: Samia Saenz on 10-12-2021 Monocytes/100 WBC (Bld) 9.0 % . F [facility] Neutrophils Auto (Bld) [#/Vo l]Ordered By: Samia Saenz on 10-12-2021 Neutrophils (Bld) [#/Vol] 2.4 10*3/uL 1.8-7.7 [facility] Neutrophils/100 WBC Auto (Bl d)Ordered By: Samia Saenz on 10-12-2021 Neutrophils/100 WBC (Bld) 52.4 % . [facility] Platelet mean volume Auto (B ld) [Entitic vol]Ordered By: Samia Saenz on 10-12-2021 Platelet mean volume (Bld) [Entitic vol] 7.8 fL 6.3-10.7 [facility] Platelets Auto (Bld) [#/Vol] Ordered By: Samia Saenz on 10-12-2021 Platelets (Bld) [#/Vol] 272 10*3/uL 150-450 [facility] RBC Auto (Bld) [#/Vol]Ordere d By: Samia Saenz on 10-12-2021 RBC (Bld) [#/Vol] 4.04 10*6/uL 3.60-5.00 [facility] Creatinine and Glomerular fi ltration rate.predicted panel (S/P/Bld)Ordered By: Samia Saenz on 10-09-2021 Creatinine [Mass/Vol] 0.70 mg/dL 0.44-1.03 [facility] Estimated glomerular filtrat ion rate (GFR) non- AmericanOrdered By: Samia Saenz on 10-09-2021 GFR/1.73 sq M.predicted among non-blacks MDRD (S/P/Bld) [Vol rate/Area] > 60 mL/Min [facility] No Panel InformationOrdered By: Samia Saenz on 10-09-2021 Estimated GFR () > 60 mL/Min [facility] Comment on above: GFR estimated refere nce range: According to KDOQI guidelines, <60 ml/min/1.73m2 is sufficient to diagnose a patient with chronic kidney disease. Pharmacy Creatinine Clearance (Chem N/A [facility] Serum or plasma calcium bev urement (mass/volume)Ordered By: Samia Saenz on 10-09-2021 Calcium [Mass/Vol] 9.1 mg/dL 8.2-10.2 [facility] Serum or plasma chloride del surement (moles/volume)Ordered By: Samia Saenz on 10-09-2021 Chloride [Moles/Vol] 103 mmol/L 95-114 [facility] Serum or plasma glucose bev urement (mass/volume)Ordered By: Samia Saenz on 10-09-2021 Glucose [Mass/Vol] 108 mg/dL 70-100 [facility] Comment on above: ADA recommended refe rence range Random Glucose Reference Range is dependent on time and content of last meal. Glucose of more than 200 mg/dL in a nonstressed, ambulatory subject supports the diagnosis of Diabetes Mellitus. Serum or plasma potassium me asurement (moles/volume)Ordered By: Samia Saenz on 10-09-2021 Potassium [Moles/Vol] 3.7 mmol/L 3.5-5.1 [facility] Serum or plasma sodium measu rement (moles/volume)Ordered By: Samia Saenz on 10-09-2021 Sodium [Moles/Vol] 136 mmol/L 136-146 [facility] Serum or plasma total carbon dioxide measurement (moles/volume)Ordered By: Samia Saenz on 10-09-2021 CO2 [Moles/Vol] 24.8 mmol/L 22.0-30.0 [facility] Serum or plasma urea nitroge n measurement (mass/volume)Ordered By: Samia Saenz on 10-09-2021 Urea nitrogen [Mass/Vol] 10 mg/dL 9-23 [facility] TSH DL <= 0.005 mIU/L QnOrde red By: Samia Saenz on 10-09-2021 TSH Qn 0.86 m[IU]/L 0.45-5.33 [facility] Thyroxine (T4) free [Mass/vo lume] in Serum or PlasmaOrdered By: Samia Saezn on 10-09-2021 Free T4 [Mass/Vol] 0.69 ng/dL 0.61-1.12 [facility] Triiodothyronine (T3) Free [ Mass/volume] in Serum or PlasmaOrdered By: Samia Saenz on 10-09-2021 Free T3 [Mass/Vol] 2.90 pg/mL 2.50-3.90 [facility] Vital Signs Date Time Vital Sign Value Performing Clinician Facility 10-15-2023 11:24-0400 Body height 162.56 cm DO Samia Saenz Work Phone: [facility] 10-15-2023 11:24-040 Body mass index (BMI) [Ratio] 19 kg/m2 DO Samia Saenz Work Phone: [facility] 10-15-2023 11:24-0400 Body weight 50.34 kg DO Samia Saenz Work Phone: [facility] 03-25-2023 14:11-0500 Body height 162.56 cm DO Samia Saenz Work Phone: [facility] 03-25-2023 14:11-0500 Body weight 54.43 kg DO Samia Saenz Work Phone: [facility] 03-19-2023 13:20-0500 Body height 162.56 cm Samia Saenz Other [facility] Other 03-19-2023 13:20-0500 Body mass index (BMI) [Ratio] 19.91 kg/m2 Samia Saenz Other [facility] Other 03-19-2023 13:20-0500 Body temperature 98.7 [degF] Samia Saenz Other [facility] Other 03-19-2023 13:20-0500 Body weight 52.62 kg Samia Saenz Other [facility] Other 03-19-2023 13:20-0500 Diastolic blood pressure 88 mm[Hg] Samia Saenz Other [facility] Other 03-19-2023 13:20-0500 Respiratory rate 18 /min Samia Saenz Other [facility] Other 03-19-2023 13:20-0500 SaO2% (BldA) [Mass fraction] 96 % Samia Saenz Other [facility] Other 03-19-2023 13:20-0500 Systolic blood pressure 136 mm[Hg] Samia Saenz Other [facility] Other 03-11-2023 13:46-0500 Blood Pressure Location VEE BENIGNO [facility] 03-11-2023 13:46-0500 Diastolic blood pressure 69 mm[Hg] VEE BENIGNO [facility] 03-11-2023 13:46-0500 Heart rate 72 /min VEE BENIGNO [facility] 03-11-2023 13:46-0500 Respiratory rate 16 /min VEE BENIGNO [facility] 03-11-2023 13:46-0500 Systolic blood pressure 120 mm[Hg] VEE BENIG[facility] 03-05-2023 09:30-0500 Body height 162.56 cm Aftab Acosta Other [facility] Other 03-05-2023 09:30-0500 Body mass index (BMI) [Ratio] 20.41 kg/m2 Aftab Acosta Other [facility] Other 03-05-2023 09:30-0500 Body weight 53.93 kg Aftab Acosta Other [facility] Other 03-05-2023 09:30-0500 Diastolic blood pressure 85 mm[Hg] Aftab Acosta Other [facility] Other 03-05-2023 09:30-0500 Systolic blood pressure 124 mm[Hg] Aftab Acosta Other [facility] Other 01-15-2022 12:10-0400 Body height 162.56 cm Samia Saenz Other [facility] Other 01-15-2022 12:10-0400 Body mass index (BMI) [Ratio] 21.45 kg/m2 Samia Saenz Other [facility] Other 01-15-2022 12:10-0400 Body temperature 97.3 [degF] Samia Saenz Other [facility] Other 01-15-2022 12:10-0400 Body weight 56.7 kg Samia Saenz Other [facility] Other 01-15-2022 12:10-0400 Diastolic blood pressure 68 mm[Hg] Samia Saenz Other [facility] Other 01-15-2022 12:10-0400 Respiratory rate 16 /min Samia Saenz Other [facility] Other 01-15-2022 12:10-0400 SaO2% (BldA) [Mass fraction] 98 % Samia Saenz Other [facility] Other 01-15-2022 12:10-0400 Systolic blood pressure 108 mm[Hg] Samia Saenz Other [facility] Other 11-29-2021 07:37-0400 Body temperature 98.1 [degF] DO Samia Saenz Work Phone: [facility] 11-29-2021 07:37-0400 Diastolic blood pressure 55 mm[Hg] DO Samia Saenz Work Phone: [facility] 11-29-2021 07:37-0400 Heart rate 72 /min DO Samia Saenz Work Phone: [facility] 11-29-2021 07:37-0400 Respiratory rate 16 /min DO Samia Saenz Work Phone: [facility] 11-29-2021 07:37-0400 SaO2% (BldA) [Mass fraction] 97 % DO Samia Saenz Work Phone: [facility] 11-29-2021 07:37-0400 Systolic blood pressure 85 mm[Hg] DO Samia Saenz Work Phone: [facility] 11-29-2021 06:00-0400 Body weight 60.3 kg DO Samia Saenz Work Phone: [facility] 11-27-2021 12:17-0400 Body height 162.56 cm DO Samia Saenz Work Phone: [facility] 06-12-2021 13:40-0500 Body height 162.56 cm Samia Saenz Other [facility] Other 06-12-2021 13:40-0500 Body mass index (BMI) [Ratio] 21.54 kg/m2 Samia Saenz Other [facility] Other 06-12-2021 13:40-0500 Body temperature 97.9 [degF] Samia Saenz Other [facility] Other 06-12-2021 13:40-0500 Body weight 56.93 kg Samia Marcusdyan Other [facility] Other 06-12-2021 13:40-0500 Diastolic blood pressure 72 mm[Hg] Samia Letty Other [facility] Other 06-12-2021 13:40-0500 Respiratory rate 18 /min Samia Letty Other [facility] Other 06-12-2021 13:40-0500 SaO2% (BldA) [Mass fraction] 97 % Samia Marcusdyan Other [facility] Other 06-12-2021 13:40-0500 Systolic blood pressure 110 mm[Hg] Samia Saenz Other [facility] Other Encounters Encounter Date Encounter Type Care Provider Facility Start: 12-17-2023 ambulatory Mingo Stewart acility:[facility] Start: 11-14-2023 End: 11-14-2023 Patient encounter procedure DO Samia Saenz Work Phone: [facility] Work Phone: Start: 11-14-2023 End: 11-14-2023 ambulatory DO Samia Letty Work Phone: [facility] Work Phone: Start: 11-13-2023 Non-patient / Non-visit DO Samia Saenz Work Phone: [facility] [employer] Work Phone: Start: 11-10-2023 Registered Recurring DO Samia Saenz Work Phone: [facility] Start: 10-29-2023 End: 10-29-2023 ambulatory REY Estrada [facility] Facility:[facility] Start: 10-29-2023 End: 10-29-2023 Patient encounter procedure REY CHINCHILLA [facility] Start: 10-22-2023 End: 10-22-2023 ambulatory DO Samia Saenz Work Phone: [facility] Work Phone: Start: 10-22-2023 End: 10-22-2023 Patient encounter procedure DO Samia Saenz Work Phone: [facility] [place] Work Phone: Start: 10-15-2023 End: 10-15-2023 ambulatory DO Samia Saenz Work Phone: [facility] Work Phone: Start: 10-15-2023 End: 10-15-2023 Patient encounter procedure DO Samia Saenz Work Phone: [facility] Gastroenterology Work Phone: Start: 10-01-2023 End: 10-01-2023 ambulatory SHAYY Singha [facility] pital Start: 09-22-2023 End: 09-22-2023 Patient encounter procedure DO Samia Saenz Work Phone: [facility] [place] Work Phone: Start: 09-22-2023 End: 09-22-2023 ambulatory DO Samia Saenz Work Phone: [facility] Work Phone: Start: 08-18-2023 Registered Recurring DO Samia Saenz Work Phone: [facility] Start: 08-06-2023 ambulatory SAMIA SAENZ [facility] Start: 07-01-2023 End: 07-01-2023 ambulatory VEE PELAEZ Facility: [place] Start: 07-01-2023 End: 07-01-2023 Patient encounter procedure VEE PELAEZ [facility] [place] Start: 05-08-2023 End: 05-08-2023 ambulatory Steven DONNELLY Facility: [place] Start: 05-07-2023 End: 05-07-2023 Patient encounter procedure DO Samia Saenz Work Phone: [facility] C[facility]-Sleep Lab Work Phone: Start: 05-07-2023 End: 05-07-2023 ambulatory DO Samia Saenz Work Phone: [facility] Work Phone: Start: 05-06-2023 Non-patient / Non-visit DO Samia Saenz Work Phone: [facility] Work Phone: Start: 03-25-2023 End: 03-25-2023 Patient encounter procedure DO Samia Saenz Work Phone: [facility]-MRI [address] Work Phone: Start: 03-25-2023 End: 03-25-2023 ambulatory Jerri Caro Facility:[facility] Start: 03-19-2023 End: 03-19-2023 ambulatory Samia Saenz Other [facility] Other Start: 03-19-2023 Office outpatient visit 25 minutes Samia Saenz [facility] [place] Start: 03-19-2023 End: 03-19-2023 Patient encounter procedure DO Samia Saenz Work Phone: [facility] [place] Work Phone: Start: 03-17-2023 ambulatory REY Kirby ty:[facility] Start: 03-17-2023 End: 03-17-2023 Patient encounter procedure DO Samia Saenz Work Phone: [facility] [place] Work Phone: Start: 03-17-2023 End: 03-17-2023 ambulatory DO Samia Saenz Work Phone: [facility] Work Phone: Start: 03-11-2023 End: 03-11-2023 ambulatory VEE PELAEZ Facility:[facility] [place] Start: 03-11-2023 End: 03-11-2023 Patient encounter procedure VEE PELAEZ [facility] [place] Start: 03-05-2023 End: 03-05-2023 ambulatory Aftab Acosta Other [facility] Other Start: 03-05-2023 Office outpatient visit 15 minutes Aftab Acosta [facility] Start: 03-05-2023 End: 03-05-2023 Patient encounter procedure DO Samai Saenz Work Phone: [facility] Work Phone: Start: 02-25-2023 End: 02-25-2023 ambulatory Samia Saenz Other [facility] Other Start: 02-25-2023 Telephone encounter Samia Saenz [facility] [place] Start: 01-20-2023 End: 01-20-2023 ambulatory Samia Saenz Facility:[facility] Start: 12-19-2022 End: 12-19-2022 ambulatory Aftab Acosta Other [facility] Other Start: 12-19-2022 Telephone encounter Aftab Curry [facility] Start: 09-20-2022 End: 09-20-2022 ambulatory Smaia Saenz Other [facility] Other Start: 09-20-2022 Telephone encounter Samia Saenz [facility] [place] Start: 09-18-2022 End: 09-18-2022 ambulatory DO Samia Saenz Work Phone: [facility] Work Phone: Start: 09-18-2022 End: 09-18-2022 Departed Referred DO Samia Saenz Work Phone: [facility] [place] Work Phone: Start: 09-16-2022 End: 09-16-2022 ambulatory DO Samia Letty Work Phone: [facility] Work Phone: Start: 09-16-2022 End: 09-16-2022 Patient encounter procedure DO Samia Saenz Work Phone: [facility] [place] Work Phone: Start: 09-04-2022 Registered Recurring DO Samia Saenz Work Phone: [facility] C[facility] Start: 03-16-2022 End: 03-16-2022 ambulatory DO Samia Saenz Work Phone: [facility] Work Phone: Start: 03-16-2022 End: 03-16-2022 Patient encounter procedure DO Samia Saenz Work Phone: [facility] C[facility]-XRay [facility] Start: 01-15-2022 End: 01-15-2022 ambulatory Samia Saenz Other [facility] Other Start: 01-15-2022 Office outpatient visit 25 minutes Samia Saenz [facility] [place] Start: 01-11-2022 End: 01-11-2022 Patient encounter procedure DO Samia Saenz Work Phone: [facility] [place] Start: 12-28-2021 End: 12-28-2021 ambulatory Aftab Acosta Other [facility] Other Start: 12-28-2021 Telephone encounter Aftab vieira [facility] Start: 12-18-2021 End: 12-18-2021 ambulatory Samia Saenz Other [facility] Other Start: 12-18-2021 Telephone encounter Samia Saenz [facility] [place] Start: 11-07-2021 End: 11-07-2021 Patient encounter procedure DO Samia Saenz Work Phone: [facility] C[facility]-CT [address] Start: 10-12-2021 End: 10-12-2021 Patient encounter procedure DO Samia Saenz Work Phone: [facility] Start: 10-11-2021 End: 10-11-2021 ambulatory Aftab Acosta Other [facility] Other Start: 10-11-2021 Telephone encounter Aftab vieira [facility] Start: 10-09-2021 End: 10-09-2021 Patient encounter procedure DO Samia Saenz Work Phone: [facility] Start: 10-01-2021 End: 10-01-2021 ambulatory Aftab Acosta Other [facility] Other Start: 10-01-2021 Telephone encounter Aftab vieira [facility] Start: 07-16-2021 End: 07-16-2021 ambulatory Aftab Acosta Other [facility] Other Start: 07-16-2021 Telephone encounter Aftab vieira [facility] Start: 07-06-2021 End: 07-06-2021 ambulatory Samia Saenz Other [facility] Other Start: 07-06-2021 Telephone encounter Samia Saenz [facility] [place] Start: 06-12-2021 End: 06-12-2021 ambulatory Samia Saenz Other [facility] Other Start: 06-12-2021 Office outpatient visit 25 minutes Samia Saenz [facility] [place] Start: 05-11-2021 End: 05-11-2021 ambulatory Samia Saenz Other [facility] Other Start: 05-11-2021 [facility] Start: 05-04-2021 End: 05-04-2021 ambulatory Samia Saenz Other [facility] Other Start: 05-04-2021 Telephone encounter [facility] Start: 05-03-2021 End: 05-03-2021 ambulatory Samia Saenz Other [facility] Other Start: 05-03-2021 Telephone encounter [facility] Start: 05-02-2021 ([facility] C Vac) [facility] Covid Vaccine Cristy Fabian [facility] Start: 05-02-2021 End: 05-02-2021 ambulatory Cristy Fabian Other [facility] Other Start: 04-02-2021 End: 04-02-2021 ambulatory Aftab Acosta Other [facility] Other Start: 04-02-2021 Telephone encounter Aftab Curry [facility] Gastroenterology Start: 03-22-2021 End: 03-22-2021 ambulatory Samia Saenz Other [facility] Other Start: 03-22-2021 Telephone encounter Samia Saenz [facility] Procedures Date Procedure Procedure Detail Performing Clinician Start: 11-14-2023 Screening mammograph y of bilateral breasts DO Samia Saenz Work Phone: Start: 05-08-2023 Cystourethroscopy wi th dilation of urethral stricture VEE PELAEZ Start: 03-25-2023 XR pre/post mri xray DO Samia Saenz Work Phone: Start: 03-25-2023 MRI of lumbar spine with contrast DO Samia Saenz Work Phone: Start: 03-17-2023 Urine culture DO Samia Saenz Work Phone: Start: 06-12-2022 Neurostimulator, dev ice (physical object) VEE PELAEZ Start: 03-16-2022 X-ray of right knee DO Samia Saenz Work Phone: Start: 11-07-2021 CT of head without [...] Date Care Activity Detail Author Start: 03-17-2023 [facility] Start: 09-18-2022 Bacteria identified in Urine by Culture [facility] Start: 11-29-2021 [facility] Work Phone: Start: 11-26-2021 Duplex scan of lower limb veins US venous duplex LE BI [facility] Start: 11-26-2021 Referral to neurologist [facility] Work Phone: Start: 11-26-2021 Hospital admission [facility] Work Phone: Start: 11-26-2021 End: 11-29-2021 Evaluation and management of inpatient Anxiety [facility] Bacteria identified in Urine by Culture [facility] Bacteria identified in Urine by Culture [facility] Comprehensive metabo lic 2000 panel - Serum or Plasma [facility] Glucose measurement estimated from glycated hemoglobin [facility] MG Breast - bilatera l Screening [facility] Patient referral [facility] Work Phone: [facility] Immunizations Immunization Date Immunization Notes Care Provider Trace patel 05-02-2021 COVID-19 Pfizer Cristy Fitt Other [facility] 01-08-2021 influenza virus vacc ine, unspecified formulation VEE BENIGNO [facility] 01-08-2021 influenza, injectabl e, quadrivalent, preservative free DO Samia Saenz Work Phone: [facility] 08-17-2020 COVID-19 Vaccine Pfi zer - Documentation Purposes Only Samia Saenz Other [facility] 07-27-2020 COVID-19 Vaccine Pfi zer - Documentation Purposes Only Samia Saenz Other [facility] 03-05-2020 zoster vaccine recombinant VEE BENIGNO [facility] 02-14-2020 influenza virus vacc ine, unspecified formulation VEE BENIGNO [facility] 02-14-2020 influenza, injectabl e, quadrivalent, preservative free DO Samia Saenz Work Phone: [facility] 02-14-2020 influenza, seasonal, injectable Samia Saenz Other [facility] 01-16-2019 influenza virus vacc ine, unspecified formulation VEE PELAEZ [facility] 01-16-2019 Influenza, injectabl e, Madin Jessica Canine Kidney, preservative free, quadrivalent DO Samia Saenz Work Phone: [facility] 01-16-2019 tetanus toxoid, redu garfield diphtheria toxoid, and acellular pertussis vaccine, adsorbed VEE PELAEZ [facility] 10-04-2017 tetanus toxoid, redu garfield diphtheria toxoid, and acellular pertussis vaccine, adsorbed DO Saima Saenz Work Phone: [facility] 04-23-2012 influenza, seasonal, injectable, preservative free Samia Saenz Other [facility] Payers Date Payer Category Payer Unknown [id number] 2022 Medicare [id number] 2022 Self-pay [id number] 2022 Unknown [id number] 2012 Private Health Insurance [id number] 1965 Unknown [id number] 6 1964 Unknown [id number] 6 1964 Unknown [id number] 1964 Unknown [id number] 1964 Unknown [id number] 1964 Unknown [id number] 1965 Unknown [id number] Medicaid Medicaid [id number] Medicare Medicare [id number] Unknown HCAP/HFA/FAP Active [id number] Unknown [id number] Unknown [id number] Unknown [id number] Unknown [id number] Unknown [id number] Unknown [id number] Social History Date Type Detail Facility Unknown if ever smoked [facility] Other Start: 04-14-1978 Sex Assigned At F [facility] Start: 11-26-2021 End: 10-22-2023 Tobacco smoking status NHIS Smoker (finding) [facility] Start: 1965 Sex Assigned At Female F [facility] Start: 03-11-2023 End: 05-08-2023 Tobacco smoking status Heavy tobacco smoker (finding) [facility] Tobacco smoking status Never [facility] Goals Date Patient Goal Desired Activity /State Functional Status Date Assessment Result Facility 03-11-2023 Functional Status N/A [facility] 11-29-2021 Functional status Patient at Baseline [facility] Work Phone: 11-26-2021 Functional status Disability Sta tus Patient at Baseline [facility] Work Phone: Mental Status Date Assessment Result Facility 11-29-2021 Cognitive function Cognitive Sta tus Patient at Baseline [facility] Work Phone: Clinical Notes 04-02-2021 to 10-22-2023 Note Date & Type Note Facility 10-22-2023 Evaluation note Authored October 22, 2023 4:34 pm The above note written by __ _Júnior Carrillo____ acting as human recorder, note dictated by Dr. Bradshaw .I performed the above HPI, ROS, and Examination. I formulated and dictated the treatment plan and was present for entire encounter. Samia Saenz D.O. [facility] Work Phone: [phone] 323-536912-06-2023 Evaluation note* Encounter Date Diagnosis Assessment Notes [...] Provigil to try and keep her awake. [facility] Other 11-28-2023 Hospital Discharge instructions Patient Education [...] require a prescription. You can also purchase geas-ujh-hhpnuti medicines. Medicines may have nicotine in them [...] and encouragement. Call telephone quitlines, such as 6-219-JEZJ-NOW, reach out to support groups, or work [...] provider. Document Revised: 03/22/2022 Document Reviewed: 03/22/2022 [employer] Patient Education 2022 [employer]. Follow Up Care 01/07/2023 10:14:37 With:[facility] [place] Address: [address] [place] [address] Business (1) When: Unknown Comments:our appointment scheduler will be contacting you for follow-up [facility] [place] 11-28-2023 NoteChief Complaint Referral * Urgency HPI [...] she gets to restroom). no UUI. Ordered: 74575 Measure Post Void residual urine and/or bladder capacity by US- non-imaging E&M of New Patient Moderate 45-59 Min 35682 Urnls Dip Stick Auto w/o Microscopy POC 88362 2. Urinary hesitancy (R39.11: Hesitancy of micturition) worsening over the past year or so. has never had similar sx previously. no intermittency, once stream starts it goes. Ordered: E&M of New Patient Moderate 45-59 Min 84596 3. Nocturia (R35.1: Nocturia) x2. this is new over the past year or so. Ordered: E&M of New Patient Moderate 45-59 Min 82155 4. Smoker (F17.200: Nicotine dependence, unspecified, uncomplicated) [...] With When Contact Information [facility] [place] [address] Business (1) Additional Instructions: our appointment scheduler will be contacting you for follow-up [...] tablet oxcarbazepine 300 mg Tab Potassium Chloride (Wqz-Fjhk-Buc 10) 10 mEq oral tablet, extended release [...] Father. Heart disease: Father (more content not included)...[facility] Comment on above:Result Comment: Electronically Signed By: VEE PELAEZ PA-C\.ras\Date and Time Signed: 03/11/2314:36 [id number] Evaluation note* Encounter Date Diagnosis Assessment Notes Treatment Notes Treatment Clinical Notes Feb, Microscopic colitis (ICD-10 - K52.89) Pt to stay on budesonide. Pt RTO in 6 months [facility] Other 10-04-2022 Evaluation note* Encounter Date Diagnosis [...] directed. 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 [facility] Other 09-16-2022 Evaluation note* Encounter Date Diagnosis Assessment Notes Treatment Notes Treatment Clinical Notes Dec, Microscopic colitis (ICD-10 - K52.89) [facility] Other 06-30-2022 Evaluation note* Encounter Date Diagnosis Assessment Notes Treatment Notes Treatment Clinical Notes Sep, Microscopic colitis (ICD-10 - K52.89) [facility] Other 06-20-2022 Evaluation note* Encounter Date Diagnosis Assessment Notes Treatment Notes Treatment Clinical Notes Sep, C. difficile diarrhea (ICD-10 - A04.72) [facility] Other 04-04-2022 Evaluation note* Encounter Date Diagnosis Assessment Notes Treatment Notes Treatment Clinical Notes Jul, Microscopic colitis (ICD-10 - K52.89) [facility] Other 03-25-2022 Evaluation note* Encounter Date Diagnosis Assessment Notes Treatment Notes Treatment Clinical Notes Jun, Cough (ICD-10 - R05.9) Jun, Body aches (ICD-10 - R52) [facility] Other 03-01-2022 Evaluation note* Encounter Date Diagnosis [...] and sugars. Stay active as tolerated. Jun, FPC use of drug (ICD-10 - Z79.899) Jun, [...] She will see him again on 07-04-21. [facility] Other 01-19-2022 Evaluation note* Encounter Date Diagnosis Assessment Notes Treatment Notes Treatment Clinical Notes Apr, Encounter for immunization (ICD-10 - Z23) Patient presents for COVID-19 vaccination BOOSTER. Pre-screening form answers evaluated with patient. Patient denies current illness or allergic reaction to component of COVID-19 vaccine. Patient provided with current copy of EUA. [facility] Other 12-20-2021 Evaluation note* Encounter Date Diagnosis Assessment Notes Treatment Notes Treatment Clinical Notes Mar, C. difficile diarrhea (ICD-10 - A04.72) [facility] Other Evaluation + Plan note No data available for this section [facility] [employer] evaluation noteNo InformationNortPox[employer] Other Evaluation note* Diagnosis Onset Date Resolution Status Anxiety acute Depression acute Fibromyalgia acute Hypothyroid acute Polypharmacy acute Reflex sympathetic dystrophy acute Seizure-like activity acute Tobacco abuse acute Tobacco abuse counseling acu te [facility] Work Phone: Evaluation noteNo assessment information available [facility] Work Phone: Evaluation note* Diagnosis Onset Date Resolution Status Microscopic colitis acute [facility] Work Phone: Evaluation note* Diagnosis Onset Date Resolution Status Microscopic colitis acute Anemia acute Breast cancer screening by mammogram acute GERD (gastroesophageal reflux disease) acute Hyperglycemia acute Hyperlipidemia acute Hypothyroidism acute Reflex sympathetic dystrophy acute Vitamin D deficiency acute [facility] Work Phone: History general Narrative - Reported* Type Description Date Medical History sinusitis Medical History polyp/nasal cavity Medical History fibromyalgia Medical History allergic rhinitis Medical History paresthesia Medical History lumbar pain Medical History lumbar strain Medical History MRI Cervical Spine 08-07-09; [facility] Medical History X-Ray Cervical Spine 01-09-12; [facility] Medical History MRI Cervical Spine 01-09-12; [facility] Medical History Pneumonia Medical History Lumbar Block [...] scope 09/2011 Surgical History Colonoscopy, Normal, Dr. Holland ack Surgical History HIDA, EGD It[place] 06/2017 Hospitalization History see above Hospitalization History Septic shock and pneumon ia Hospitalization History UTI [facility] 06/26/15 [facility] [place] general Narrative - Reported* Type Description Date Medical History sinusitis Medical History polyp/nasal cavity Medical History fibromyalgia Medical History allergic rhinitis Medical History paresthesia Medical History lumbar pain Medical History lumbar strain Medical History MRI Cervical Spine 08-07-09; [facility] Medical History X-Ray Cervical Spine 01-09-12; [facility] Medical History MRI Cervical Spine 01-09-12; [facility] Medical History Pneumonia Medical History Lumbar Block - Medical History Depression Surgical History appendectomy Surgical History carpal tunnel release Surgical History cervical fusion x3 Surgical History D&C Surgical History sinus surgery Surgical History thoracic outlet syndrome Surgical History uterine ablation 03/22 Surgical History carpal tunnel, right wrist, Dr Doe (approx 2000) Surgical History uterine ablation 03/22 Surgical History [...] pneumon ia Hospitalization History UTI [facility] 06/26/15 [facility] Other History general Narrative - Reported* Type Description Date Medical History sinusitis Medical History polyp/nasal cavity Medical History fibromyalgia Medical History allergic rhinitis Medical History paresthesia Medical History lumbar pain Medical History lumbar strain Medical History MRI Cervical Spine 08-07-09; [facility] Medical History X-Ray Cervical Spine 01-09-12; [facility] Medical History MRI Cervical Spine 01-09-12; [facility] Medical History Pneumonia Medical History Lumbar Block 09-25 Medical History Depression Surgical History appendectomy Surgical History carpal tunnel release Surgical History cervical fusion x3 Surgical History D&C Surgical History sinus surgery Surgical History thoracic outlet syndrome Surgical History uterine ablation 03/22 Surgical History carpal tunnel, right wrist, Dr Doe (approx 2000) Surgical History uterine ablation 03/22 Surgical History Left leg pins, plates, and scre ws removed Surgical History Cervical fusion C3-C 4, C4-C5, and C5-C6 per Dr. Ugalde 2009 Surgical History ankle scope 09/2011 Surgical History Colonoscopy, Aníbal, Dr. Skyler willis Surgical History HIDA, EGD Itzkowitz 06/2017 Surgical History Colonoscopy/ Dr. Acosta/ rep eat in 202503/16/2020 Surgical History nerve stimulater 06/12/2022 Hospitalization History see above Hospitalization History Septic shock and pneumon ia Hospitalization History UTI [facility] 06/26/15 [facility] Other [facility] Discharge instructions No data available for this section [facility] progress note No data available for this section [facility] Chief Complaint and Reason for Visit Chief [...] Relationship Condition Age at Onset Recorded Date/T ebrnadette father Diabetes mellitus Unknown Presence of cardiac [...] 1 Urinary urgency (R39 .15) Referral Organization [facility] Family Medicin e Posen Referring Provider First Name Samia Referring Provider Last Name Letty Referring Provider Specialty Family Prac bonilla Referred Organization [facility] Referred Provider YOVANA SALMON Referred Address [address],[place], [place],[address] Referred Provider Specialty Urology Referral Priority Routine General Notes RonaldoDorcash 09/30/2022 01:40:14 PM > referral faxed with TE message, last visit note and insurance card. pt understands she will be contacted to schedule this appt. Summary Purpose Additional Source Comments REASON FOR VISIT (unrecogniz ed section and content) coldclinicalPFIZER VACCINE B OOSTERNo InformationclinicalFR ERreview labscoldmedicationMARY [facility] ERMEDICATIONmedicationClinicalmedicationreview labsUA resultsClinicalClinical/labs requestPatient here for 1 yr follow upreview labs Care Teams (unrecognized sec tion and content) Team Status: Active Member Role Status Dates Samia Saenz , Primary Care Provider Active Team Status: Inactive Member Role Status Dates Samia Saenz , DO Primary Care Provider, Attending Pro vider Active Team Status: Active Member Role Status Dates Samia Saenz DO Primary Care Provider Active Brad Butterfield MD Attending Provider Active Team Status: Inactive Member Role Status Dates Samia Saenz , Primary Care Provider Active Whit Tyson MD Admit Provider, Attending Provider Active Esdras Rand MD Other Provider Active Team Status: Inactive Member Role Status Dates Samia Saenz DO Primary Care Provider Active Rosemary Starr PA-C Attending Provider Active Team Status: Inactive Member Role Status Dates Samia Saenz DO Primary Care Provider Active Dilan Luis II, MD Attending Provider Active Team [...] 2023 Team Status: Active Member Role Status Shawn Saenz DO Primary Care Provide r, Attending [...] Inactive Member Role Status Shawn Saenz DO Primary Care Provide r, Attending Provider Active Start: September 22, 2023 End: September 22, 2023 Team Status: Inactive Member Role Status Shawn Saenz DO Primary Care Provider Active S [...] section and content) DATE CREATED AUTHOR 10/02/2023 [facility] DATE CREATED AUTHOR AUTHOR'S ORGANIZ ATION 10/02/2023 [facility] DATE CREATED AUTHOR AUTHOR'S ORGANIZ ATION 11/06/2023 [facility] DATE CREATED AUTHOR AUTHOR'S ORGANIZ ATION 12/19/2023 [facility] FOR RECORDS PERTAINING TO PATIENTS [...] BE BASED ON THE PRIMARY CLINICAL RECORDS. [employer] [facility]. provides no warranty or guarantee of the accuracy or completeness of information in this document.
== END 2024-01-01 15:53 | disposition home or self-care (01) ==
LOC: US 15:54
PROVIDERS: PCP Family Medicine; Visit Provider Physician Assistant
DX: R22.42 Localized swelling, mass and lump, left lower limb (principal)
CPT/HCPCS: 93971

== ENCOUNTER 2024-01-21 10:08 | Outpatient (OUT) | payer MEDICARE, SELFPAY ==
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
--- NOTE | 2024-01-21 09:43 | P.DS_ITS ---
Discharge Plan Discharge Disposition: Home, Self-Care Outpatient Diagnostics: [facility] Facility EST LMTD (Routine) Timeframe: 1 Year Facility: [facility] - Location[facility] Ordered By: Esdras Romeo Follow Up Appointments: 04/23/24 Plan of Treatment: Wear compression stockings for 3 months then follow up with physician. Patient Instructions: Varicose Veins (GEN), Endovenous Ablation (GEN) Print Language: Lebanese Discharge Date/Time: 01/21/24 11:45
[2024-01-21 09:44] VITALS: BP 142/84; PULSE 94; O2SAT 95; BMI 22.3
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
--- NOTE | 2024-01-21 10:13 | VEIN_ITS ---
Patient Name: SVETLANA BRADY MR#: [id number] : 1965 Exam Date: 01/21/2024 Ordering Doctor: DR SAMIA GASPAR M.D. RADIOLOGY REPORT PROCEDURE: [facility] - OFFICE VISIT INITIAL COMPARISON: None. PROGRESS NOTES: [age] year old female who presents with a 5 month history of lower extremity pain, swelling, , heaviness, and redness. The patient's left leg symptoms are worse than the right. There has been a progression of symptoms over time. This increases with prolonged leg dependency. The patient describes an improvement with rest, elevation, compression stockings, and analgesics. The patient denies any signs and symptoms to suggest arterial ischemia. The patient describes a family history of varicose veins. The patient has drinking and smoking history of colon occasional alcohol consumption, daily smoker, some cannabis use. Patient has a past medical history significant for (see review of medical history on patient H&P). The patient denies a history of deep venous thrombus or pulmonary embolus. See separate history and physical for medication list. No prior treatment for varicose or spider veins. Current use of compression stockings for 1 week. After review of nurse notes, history and physical exam I discussed at length the pathophysiology of venous hypertension and possible treatments, therapies and strategies available. We discussed at length the importance of elevating the lower extremities above the level of the heart, increased physical activity and compression stocking use. Ultrasound venous reflux study performed today was discussed at length with the patient. The report demonstrates mild abnormal dilation and significant reflux within the right great saphenous, right small saphenous, left great saphenous, small saphenous, and anterior accessory saphenous veins along with associated incompetent branch saphenous varicosities bilaterally.. PHYSICAL EXAM: The right leg demonstrates a few varicosities, a few spider veins, no ulceration, moderate edema, no skin discoloration. The left leg demonstrates a few varicosities, a few spider veins, no ulceration, moderate edema, no skin discoloration. Both thighs, legs and feet were symmetrically warm to the touch. Good posterior tibial and dorsalis pedis pulses were present bilaterally. VEIN/ Facility EST Comprehensive IMPRESSION: 1. Bilateral lower extremity venous insufficiency 2. Bilateral lower extremity varicose veins 3. Moderate bilateral lower extremity subcutaneous edema 4. No flow significant arterial disease 5. CEAP: C3, EC, , [place] PLAN: 1. Continued use of compression stockings 2. Elevated legs and increased physical activity symptomatic relief 3. Endovenous laser ablation of left great saphenous, right great saphenous, left small saphenous, right small saphenous, and left anterior accessory saphenous veins. 4. Microfoam chemical ablation of incompetent branch saphenous varicosities. 5. Sclerotherapy as needed. Nurse notes, history and physical were reviewed and confirmed, see attached forms. The nurse was present throughout the physical exam and consultation Dictated by: Esdras Romeo M.D. on 01/21/2024 at 12:28 Approved by: Esdras Romeo M.D. on 01/21/2024 at 12:35
--- NOTE | 2024-01-21 10:13 | VEIN_ITS ---
Patient Name: SVETLANA BRADY MR#: [id number] : 1965 Exam Date: 01/21/2024 Ordering Doctor: DR SAMIA GASPAR M.D. RADIOLOGY REPORT PROCEDURE: VC EXT VENOUS REFLUX LINDSAY LMTD COMPARISON: None. INDICATIONS: I83.813 Bilateral painful varicose veins TECHNIQUE: Duplex imaging of the lower extremity to assess the deep and superficial venous system for the presence of deep or superficial venous incompetence and to document the location and severity of disease. The study includes evaluation of the great saphenous vein (GSV), anterior accessory saphenous vein (AASV) and small saphenous vein (SSV). Patient scanned in reverse Trendelenburg and standing. FINDINGS: RIGHT LOWER EXTREMITY: Saphenofemoral Junction Reflux: Yes 6.8mm 0.8 sec GSV: Diam (mm) Reflux/ Time (sec) Proximal Thigh 5.5 Yes 0.6 Mid Thigh 3.8 Yes 2.2 Distal Thigh 3.9 Yes 0.4 Prox Calf 3.2 Yes 4.8 Mid Calf 2.8 Yes 0.7 Saphenopopliteal Junction Reflux: 6.1mm Yes 1.6 SSV: Proximal Calf 5.5 Yes 0.7 Mid Calf 3.0 Yes 0.5 AASV: Not present Proximal Thigh Mid Thigh Distal Thigh Thrombi: Thickening of prox SSV benítez. Compressibility: Partial compression of prox SSV Flow: No significant deep venous reflux. Preforator: Distal medial lower leg 3.9 mm with 3.8s reflux. Proximal posterior calf measures 2.8 mm with 2.1s reflux. Tech Note: Incompetent varicose vein mid anterior thigh measures 4.3 mm with 0.6s reflux. Varicose vein proximal posterior calf measures 3.4 mm with 0.5s reflux. LEFT LOWER EXTREMITY: Saphenofemoral Junction Reflux: Yes 11.6 mm 1.5 sec GSV: Diam (mm) Reflux/Time (sec) Proximal Thigh 8.0 Yes 0.5 Mid Thigh 5.5 Yes 1.2 Distal Thigh 5.4 Yes 1.1 Prox Calf 4.3 Yes 0.6 Mid Calf 2.2 Yes 0.6 Saphenopopliteal Junction Relux: 5.6 mm Yes 0.6 SSV: Proximal Calf 6.2 Yes 0.7 Mid Calf 4.5 Yes 2.8 AASV: Proximal Thigh 5.8 Yes 0.6 Mid Thigh 4.8 Yes 2.6 Distal Thigh Thrombi: Thickening of prox SSV benítez. Compressibility: Partial compression of prox SSV. Flow: Mild deep venous reflux. Clinical Account Executive: No significant perforators. Tech Note: Incompetent varicose vein distal medial thigh measures 4.1 mm with 1.2s reflux. Varicose vein proximal anterior lower leg measures 3.3 mm with 0.5s reflux. CONCLUSION: 1. Mildly dilated, but significantly abnormal reflux, within the right great and small saphenous veins and the left great saphenous, small saphenous, and anterior accessory saphenous veins. Dictated by: Esdras Romeo M.D. on 01/21/2024 at 11:33 Approved by: Esdras Romeo M.D. on 01/21/2024 at 12:28
--- NOTE | 2024-01-21 10:13 | VEIN_ITS ---
The [address] [address] Patient Name: SVETLANA BRADY MRN: [id number] date: 1965 Sex: F Assigned Patient Location: Current Patient Location: Accession/Order Number: [id number] Exam Date: 01/21/2024 10:14 Report Date: 01/21/2024 20:21 At the request of: SAMIA GASPAR Procedure: VC SEGMENTAL PRESSURES EXAM: VC SEGMENTAL PRESSURES HISTORY: PVD I73.9 COMPARISON: None. TECHNIQUE: Resting ABIs and segmental pressures were obtained. FINDINGS: Right resting LUAN 1.12. Left resting LUAN 1.1. No pressure gradients were noted. Toe brachial indices are normal. Waveforms are multiphasic. VEIN/VC SEGMENTAL PRESSURES IMPRESSION: Normal resting ABIs. No pressure gradients. Normal toe brachial indices. Electronically authenticated by: Francisco Javier RIVERA Date: 01/21/2024 20:21
--- OUTSIDE RECORDS SUMMARY | 2024-01-21 10:24 | XMS_ITS | CCD ---
Author Organization [facility] Care Team Providers Care Educational Paraprofessional Name Role Phone Samia Saenz Unavailable Aftab Acosta Unavailable Cristy Fabian Unavailable DO Samia Saenz Primary Care Provider DO Samia Saenz Attending Provider YO Starr Attending Provider [phone] MD Whit Tyson Admit Provider MD Whit Tyson Attending Provider MD Esdras Rand Other Provider [phone] DO Samia Saenz Primary Care Provider [phone] DO Samia Saenz Attending Provider MD Dilan Luis II Attending Provider [phone] DO Samia Saenz Primary Care Provider MD Brad Butterfield Attending Provider DO Samia Saenz Attending Provider Samia Saenz Primary Care Physician [phone] DO Samia Saenz Primary Care Provider DO Samia Saenz Attending Provider GREGORY Caro Attending Provider YO Church Referring Provider MD Samia Qiu Attending Provider DO Samia Saenz Primary Care Provider [phone] MD Mingo Butterfield Attending Provider [phone] DO Samia Saenz Attending Provider [phone] SHAYY DICKERSON Referring Unavailable SAMIA SAENZ Primary Care Unavailable LETTY, SAMIA Lewis Referring Unavailable GIRKATY, SAMIA Lewis Primary Care Unavailable GIRKATY, SAMIA Lewis Referring Unavailable GIRKATY, SAMIA Lewis Primary Care Unavailable SAMIA CORONA Attending Unavailable REY CHINCHILLA Referring Unavailable AMOR, REY Estrada Attending Unavailable REY CHINCHILLA Admitting Unavailable Samia Saenz Referring Unavailable Smith DALLAS Attending Unavailable Steven DONNELLY Attending Unavailable VEE PELAEZ Attending Unavailable Samia Saenz Referring Unavailable VEE PELAEZ Attending Unavailable DO Samia Saenz Primary Care Provider MD Mingo Butterfield Attending Provider Samia Saenz Primary Care Unavailable Mingo Butterfield Admitting Unavailab Mingo Luna Attending Unavailab Jerri Day Admitting Unavailable Jerri Caro Attending Unavailable Letty, Samia Primary Care Unavailable Letty, Samia Admitting Unavailable Girkaty, Samia Primary Care Unavailable Letty, Samia Attending Unavailable Samia Qiu Admitting Unavailable Samia Qiu Attending Unavailable Dianne Church Referring Unavailable Letty, Samia Primary Care Unavailable Girkaty, Samia Attending Unavailable Letty, Samia Admitting Unavailable Girkaty, Samia Primary Care Unavailable Letty, Samia Admitting Unavailable Girkaty, Samia Primary Care Unavailable Letty, Samia Attending Unavailable Samia Saenz MD Primary Care Provider [phone] Esdras Rand MD Unavailable DIANNE CHURCH Unavailable Allergies Allergy Classification Reported Allergen(s) Allergy Type Date of Onset Reaction(s) Facility Cephalosporins (antibiotic) (1 source) cefdinir Drug Allergy 3 with first one, able to finish the script. [facility] Clavulanate (1 source) Clavulanate Drug Allergy 3 1st dose made her ill, able to keep down next dose [facility] Penicillins (antibiotic) (1 source) Amoxicillin Drug Allergy 3 1st dose made her ill, able to keep down next dose [facility] Sulfonamides (antibiotic) (2 sources) Sulfonamides (Antibiotic) Drug Allergy 3 Edema [facility] (20 sources) Amoxicillin / Clavulanate; Translations: [amoxicillin-clav ulanate] Drug Allergy Nausea (finding) [facility] (20 sources) cefdinir; Translations: [cefdinir] Drug Allergy Unknown (qualifier value) [facility] (20 sources) Sulfamethoxazole; Translations: [Sulfamethoxazole ] Drug Allergy 3 Edema (finding) [facility] (2 sources) Amoxicillin / Clavulanate; Translations: [Augmentin] Drug Allergy 1st dose made her ill, able to keep down next dose [facility] (4 sources) Amoxicillin; Translations: [amoxicillin] Drug Allergy 3 1st dose made her ill, able to keep down next dose [facility] (4 sources) cefdinir; Translations: [cefdinir] Drug Allergy 3 with first one, able to finish the script. [facility] (4 sources) Clavulanate; Translations: [clavulanic acid] Drug Allergy 3 1st dose made her ill, able to keep down next dose [facility] (7 sources) Sulfonamides (Antibiotic); Translations: [SULFA (SULFONAMIDE ANTIBIOTICS)] Allergy to substance 2 Unknown Reaction, Edema [facility] (3 sources) Sulfacetamide Drug Allergy 4 Swelling [facility] Medications Current Medications Medication Drug Class(es) Dates [...] 12:00am take 1 tablet by kiki th once daily ARIPiprazole (Abilify) 15 MG disintegrating tablet Take 15 mg by mouth Daily Active take 1 tablet by kiki th [...] a day for 5 day(s) Mar, Not-Taking biotin 10 mg oral tablet (3 sources) take 1 tablet by mouth once daily biotin 10 MG tablet Take 1 tablet by mouth Daily Active budesonide 3 mg delayed release oral capsule [...] 12, 2021 12:00am November 26, 2021 9:41am buprenorphine (S ubtex) [address] under the tongue Active take 1 tablet under the tongue once daily Subutex 8 MG 1 tablet under the tongue and allow to dissolve Sublingual Once a day Active Cannabinoids (medical cannabis) (3 sources) Cannabinoids (me dical cannabis) Take 1 each by mouth Active cholecalciferol 0.025 mg oral capsule (4 sources) Vitamin D Start: 024 take 2 capsules by mouth once daily Cholecalciferol (Vitamin D3) Active 2 CAP PO Daily September 09, 2023 12:00am FreeTextSi capsules Orally Once a day; Note: Source Status: Continue; Provider: Letty Torres ( ) ciprofloxacin 500 mg oral tablet (2 sources) Quinolone Antimicrobial Start: 023 Cipro 500 mg Tab See Instructions, Take 1 tab day prior to procedure and 1 tab day of procdure - afterwards, # 2 tab(s), Refills(s) 0, Pharmacy: [facility]/pharmacy #[id number], 163, cm, 03/11/23 13:48:00 EST, Height/Length Dosing, 54, kg, 03/11/23 13:48:00 EST, Weight Dosing Start Date: 03/19/23 Status: Ordered cyclobenzaprine hydrochloride 10 mg oral tablet (10 sources) Muscle Relaxant Start: take 10 mg by mouth once daily [...] Start: 11-26-2019 take 1 tablet by kiki th every six hours Dicyclomine HCl 20 MG [...] 10:15am Start: 09-24-[address] [facility] every twenty-four hours Cymbalta 60 MG 1 capsule Orally Once a day Sep, Active Start: 09-24-2013 take 1 capsule by mo [facility] once daily Cymbalta 120 mg 1 capsule [...] oral tablet (20 sources) Anti-epileptic Agent Start: 12-18-2023 take 1 tablet by mouth in the morning, then take 1 tablet by mouth in the evening, then take 1 tablet by mouth at bedtime gabapentin (Neurontin) 800 MG tablet Indications: Neuropathic pain Take 1 tablet (800 mg) by mouth in the morning and 1 tablet (800 mg) in the evening and 1 tablet (800 mg) before bedtime. 270 tablet 12/18/2023 Active Start: 11-26-2021 take 800 mg by mouth [...] stomach take 1 tablet by kiki th before mealtime levothyroxine (Synthroid) 112 MCG tablet Take 1 tablet by mouth in the morning. Take before meals. Active take 1 tablet by kiki th once [...] 26, 2021 12:00am take 1 tablet by mouth once olinda y modafinil (Provigil) 200 MG tablet Take 200 mg by mouth Daily Active Multivitamin preparation (4 sources) Start: 09-09-2023 take 1 tablet by mouth once daily Multivitamin Active 1 TAB PO Daily September 09, 2023 12:00am Multivitamins (20 sources) Multivitamins as directed Orally Active OXcarbazepine 300 mg oral tablet (20 sources) Anti-epilepti c Agent Start: 12-18-2023 take 1 tablet by mouth once daily OXcarbazepine (Trileptal) 300 MG tablet Indications: Headache Take 1 tablet (300 mg) by mouth Daily 90 tablet 12/18/2023 Active Start: 11-27-2023 take 1 tablet by kiki th twice daily Oxcarbazepine (Trileptal) 300 mg tablet [...] FRIDAY, FRIDAY) Start: 03-10-2023 Potassium Chlo ride (Igg-Vuxp-Ewm 10) 10 mEq oral tablet, extended release [...] Start: 11-26-2021 take 1 tablet by kiki four times daily Tapentadol (Nucynta) 50 mg [...] Start: 03-10-2023 take 1 tablet by mouth at bedtime topiramate (Topamax) 100 MG tablet Indications: Nonintractable headache, unspecified chronicity pattern, unspecified headache type Take 1 tablet (100 mg) by mouth at bedtime 90 tablet 2 09/29/2023 Active Start: 10-04-2017 End: 09-09-2023 take 100 mg [...] Active vitamin e 100 unt oral capsule (7 sources) Start: 09-09-2023 take 1 capsule by mouth once daily Vitamin E (Dl, Acetate) Active 0 PO Daily September 09, 2023 12:00am 1 capsule Orally Once a day Start: 09-09-2023 take 1 capsule by mo [facility] once daily Vitamin E (Dl, Acetate) Active 0 PO Daily September 09, 2023 12:00am 1 capsule Orally Once a day take 1 capsule by mo mdh once daily alpha tocopherol (Vitamin E) 100 units capsule Take 100 Units by mouth Daily Active Vitamin E 100 UNIT (20 sources) take 1 capsule by mouth once daily Vitamin E 100 UNIT 1 capsule Orally Once a day Active vortioxetine 10 mg oral tablet (16 sources) Start: 11-26-2021 take 1 tablet by mouth once daily Vortioxetine (Trintellix) 10 mg Tablet Active 10 MG PO Every morning November 26, 2021 12:00am take at same time each day Start: 11-26-2021 take 1 tablet by kiki th once daily Vortioxetine (Trintellix) 10 mg Tablet Active 10 MG PO Every morning November 26, 2021 12:00am take at same time each day take 1 tablet by kiki once daily Vortioxetine HBr (Trintellix) 10 MG tablet Take 10 mg by mouth Daily Active Completed/Discontinued Medications Medication Drug Class(es) Dates Sig [...] 9:40am Start: 07-09-2021 take 2 capsules by [facility] three times daily for cough Tessalon Perles 100 MG 2 capsules Orally Three times a day for cough Jun, Active bupivacaine hydrochloride 2.5 mg/ml injectable solution (4 sources) Amide Local Anesthetic Start: 01-13-2024 End: 01-13-2024 bupivacaine (Marcaine) 0.25 % injection 3 mL Start: 01-13-2024 End: 01-13-2024 3 mL, Injection, Once PRN Pr ocedure, Starting on Fri01/13/24 at 0840, For 1 dose buprenorphine 8 mg / naloxone 2 mg [...] Ordered Start: 11-30-[address] [facility] every twenty-four hours Colestipol HCl 1 GM [...] 04, 2017 12:00am March 16, 2020 3:19pm methylPREDNISolone 40 mg injection (4 sources) Corticosteroid Start: 01-13-2024 End: 01-13-2024 methylPREDNISolone Na Suc (PF) reconstituted solution 40 mg Start: 01-13-2024 End: 01-13-2024 40 mg, Injection, Once PRN P rocedure, Starting on Fri01/13/24 at 0840, For 1 dose oxyCODONE hydrochloride 15 mg oral tablet (10 [...] to urinate] Onset: 2 Resolved: 2 Episodic Headache; including migraine (2 sources) Headache disorder; Translations: [Headache disorder] 01-14-2024 Episodic Intestinal infection (20 sources) Clostridial enteric [...] deficiency, unspecified] Onset: 2 Resolved: 2 Chronic Other aftercare (3 sources) 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; Translations: [Long-term (current) use of other medications] Onset: 2 Resolved: 2 Episodic Other aftercare (10 sources) Polypharmacy ; Translations: [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] 11-26-2021 Episodic Other connective tissue disease (10 sources) Pain in lower limb; Translations: [Pain in leg, unspecified] 11-26-2021 Episodic Other connective tissue disease (13 sources) Fibromyalgia; Translations: [Fibromyalgia] 11-26-2021 Episodic Other connective tissue disease (1 source) Fibromyalgia; Translations: [Myalgia and myositis, unspecified] 11-29-2021 Episodic Other connective tissue disease (2 sources) Muscle pain; Translations: [Myalgia, unspecified site] 01-14-2024 Episodic Other gastrointestinal disorders (20 sources) Irritable bowel syndrome with diarrhea; Translations: [Irritable bowel syndrome with diarrhea] Chronic Other gastrointestinal disorders (20 sources) Diarrhea; Translations: [Diarrhea, unspecified] Episodic Other injuries and conditions due to external causes (3 sources) Fracture of bone; Translations: [Other injury of unspecified body region, initial encounter] Onset: 4 01-12-2024 Episodic Other nervous system disorders (20 sources) Reflex sympathetic dystrophy of lower extremity; Translations: [Complex regional pain syndrome I of unspecified lower limb] Chronic Other nervous system disorders (20 sources) Chronic pain; Translations: [Other chronic pain] Chronic Other nervous system disorders (3 sources) Complex regional pain syndrome I of unspecified lower limb Onset: 2 Resolved: 2 Chronic Other nervous system disorders (15 sources) Complex regional pain syndrome; Translations: [Complex regional pain syndrome I, unspecified] Onset: 4 11-26-2021 Chronic Other nervous system disorders (3 sources) Complex regional pain syndrome I, unspecified; Translations: [Reflex sympathetic dystrophy, unspecified] 11-29-2021 Chronic Other nervous system disorders (5 sources) Neuropathy; Translations: [Polyneuropathy, unspecified] Onset: 4 01-12-2024 Chronic Other nervous system disorders (3 sources) Cervical syndrome; Translations: [Cervical root disorders, not elsewhere classified] Onset: 4 01-12-2024 Chronic Other nervous system disorders (3 sources) Complex regional pain syndrome of lower limb; Translations: [Complex regional pain syndrome I of unspecified lower limb] Onset: 4 01-12-2024 Chronic Other nervous system disorders (3 sources) Brachial plexus disorder; Translations: [Brachial plexus disorders] Onset: 4 01-12-2024 Chronic Other nervous system disorders (3 sources) [...] (pediatric)] Onset: 4 Chronic Residual codes; unclassified (3 sources) Hypersomnia; Translations: [Hypersomnia, unspecified] Onset: 4 01-12-2024 Chronic Residual codes; unclassified (5 sources) Obstructive sleep apnea syndrome; Translations: [Obstructive sleep apnea (adult) (pediatric)] Onset: 4 01-12-2024 Chronic Residual codes; unclassified (2 sources) Pain, unspecified; Translations: [Pain, unspecified] Onset: 2 Resolved: 2 Episodic Residual codes; unclassified (10 sources) Tobacco user; Translations: [Tobacco use] 11-26-2021 Episodic Residual codes; unclassified (1 source) Tobacco use; Translations: [Tobacco use disorder] 11-29-2021 Episodic Residual codes; unclassified (5 sources) Lack of awareness; Translations: [Unspecified symptoms and signs involving cognitive functions and awareness] Onset: 4 01-12-2024 Episodic Spondylosis; intervertebral disc disorders; other back problems (20 sources) Cervical disc disorder; Translations: [Cervical disc disorder, unspecified, unspecified cervical region] Onset: 4 Chronic Spondylosis; intervertebral disc disorders; other back problems (6 sources) Low back pain; Translations: [Radiculopathy, lumbar region] Onset: 3 01-01-2023 Episodic Sprains and strains (3 sources) Low back [...] for immunization Onset: 05-02-2021 Resolved: 05-02-2021 Episodic Nutritional deficiencies (4 sources) Deficiency of other specified B group vitamins; Translations: [Deficiency of other specified B group vitamins] Onset: 06-12-2021 Resolved: 06-12-2021 Episodic Other nutritional; endocrine; and metabolic disorders (1 source) Abnormal weight gain Onset: 06-12-2021 Resolved: 06-12-2021 Episodic Unclassified (1 source) Cough R05.9 Onset: 07-06-2021 Resolved: 07-06-2021 Results Test Name Value Interpretation Reference Range Facility MM screening mammo BI w/CADo n 11-14-2023 MM screening mammo BI w/CAD [facility] [address] [place] [id number] Mammography Report Signed Patient: Alla Brady MR#: [id number] : 1965 Acct:[id number] Age/Sex: 58 / F ADM Date: 11/14/23 Loc: [place] Room: Type: [facility] Attending Dr: Samia Saenz DO Copies to: [...] Reno Montero M.D.11/14/2023 3:43 PM Dictation Location: [facility] Transcribed By: [facility] 11/14/23 1543 Dictated By: Reno Montero DO 11/14/23 1532 Signed By: 11/14/23 1543 Normal [facility] Basophils Auto (Bld) [#/Vol] on 11-13-2023 Basophils (Bld) [#/Vol] 0.1 10 3/uL 0.0-0.1 [facility] Basophils/100 WBC Auto (Bld) on 11-13-2023 Basophils/100 WBC (Bld) 0.8 % 0.2-2.0 [facility] Eosinophils/100 WBC Auto (Bl d)on 11-13-2023 Eosinophils/100 WBC (Bld) 0.2 % Low 0.9-7.0 [facility] Erythrocyte distribution wid th Auto (RBC) [Ratio]on 11-13-2023 Erythrocyte distribution width (RBC) [Ratio] 13.1 % 11.0-15.0 [facility] Estimated glomerular filtrat ion rate (GFR) non- Americanon 11-13-2023 GFR/1.73 sq M.predicted among non-blacks MDRD (S/P/Bld) [Vol rate/Area] mL/min/{1.73_m2} >=60 [facility] Hematocrit Auto (Bld) [Volum e fraction]on 11-13-2023 Hematocrit (Bld) [Volume fraction] 38.2 % 36.0-48.0 [facility] Hemoglobin [Mass/volume] in Bloodon 11-13-2023 Hemoglobin (Bld) [Mass/Vol] 12.5 g/dL 12.0-16.0 [facility] Laboratory - Chemistry and C hemistry - challengeon 11-13-2023 Calcium [Mass/Vol] 8.9 mg/dL 8.5-10.1 [facility] Chloride [Moles/Vol] 106 mmol/L 98-107 [facility] CO2 [Moles/Vol] 29.7 mmol/L 21.0-32.0 [facility] Creatinine [Mass/Vol] 0.81 mg/dL 0.55-1.02 [facility] GFR/1.73 sq M.predicted MDRD (S/P/Bld) [Vol rate/Area] mL/min/{1.73_m2} >=60 [facility] Glucose [Mass/Vol] 83 mg/dL 74-106 [facility] Potassium [Moles/Vol] 3.9 mmol/L 3.5-5.1 [facility] Sodium [Moles/Vol] 141 mmol/L 136-145 [facility] Urea nitrogen [Mass/Vol] 13.0 mg/dL 7.0-18.0 [facility] Urea nitrogen/Creatinine [Mass ratio] 16.0 mg/mg [facility] Laboratory - Hematology and Cell countson 11-13-2023 Immature granulocytes/100 WBC (Bld) 0.6 % High 0.0-0.5 [facility] Leukocytes [#/volume] correc perico for nucleated erythrocytes in Blood by Automated counon 11-13-2023 WBC corrected for nucl RBC Auto (Bld) [#/Vol] 6.3 10 3/uL 4.0-11.0 [facility] Lymphocytes Auto (Bld) [#/Vo l]on 11-13-2023 Lymphocytes (Bld) [#/Vol] 1.5 10 3/uL 1.2-3.8 [facility] Lymphocytes/100 WBC Auto (Bl d)on 11-13-2023 Lymphocytes/100 WBC (Bld) 23.5 % 20.5-60.0 [facility] MCH Auto (RBC) [Entitic mass ]on 11-13-2023 MCH (RBC) [Entitic mass] 31.7 pg 26.7-34.0 [facility] MCHC Auto (RBC) [Mass/Vol]on 11-13-2023 MCHC (RBC) [Mass/Vol] 32.7 g/dL 29.9-35.2 [facility] MCV Auto (RBC) [Entitic vol] on 11-13-2023 MCV (RBC) [Entitic vol] 97.0 fL 81.0-99.0 [facility] Monocytes Auto (Bld) [#/Vol] on 11-13-2023 Monocytes (Bld) [#/Vol] 0.5 10 3/uL 0.3-0.8 [facility] Monocytes/100 WBC Auto (Bld) on 11-13-2023 Monocytes/100 WBC (Bld) 8.1 % 1.7-12.0 [facility] Neutrophils Auto (Bld) [#/Vo l]on 11-13-2023 Neutrophils (Bld) [#/Vol] 4.2 10 3/uL 1.4-6.5 [facility] Neutrophils/100 WBC Auto (Bl d)on 11-13-2023 Neutrophils/100 WBC (Bld) 66.8 % 43.0-75.0 [facility] No Panel Informationon 11-12 Eosinophils # (Auto) 0.0 10 3/uL 0.0-0.7 [facility] Immature Granulocyte # (Auto) 0.04 10 3/uL High 0.00-0.03 [facility] Platelet mean volume Auto (B ld) [Entitic vol]on 11-13-2023 Platelet mean volume (Bld) [Entitic vol] 9.6 fL 9.5-13.5 [facility] Platelets Auto (Bld) [#/Vol] on 11-13-2023 Platelets (Bld) [#/Vol] 228 10 3/uL 150-450 [facility] RBC Auto (Bld) [#/Vol]on RBC (Bld) [#/Vol] 3.94 10 6/uL Low 4.20-5.40 [facility] Serum or plasma anion gap de terminationon 11-13-2023 Anion gap [Moles/Vol] 9.2 mmol/L [facility] CT Lower Extremity w/o Contr ast Lefton [...] Carlos Freeman MD Transcribed by: PARAG Technologist: MATTI [facility] XR LUMBAR SPINE AP, LATERAL, FLEXION [...] Lynn MD on 10/01/2023 6:12 PM Normal [facility] A1C with Estimated Average G melanie 09-22-2023 Glucose [Mass/Vol] 114 mg/dL Normal [facility] Comment on above: Result Comment: PERF ORMED BY: [place] [address] PATHOLOGIST NEUROPSYCHOLOGY MEDICAL CONSULTANT BALDEV HENNESSY M.D. Performed By: #### A 1C WTH eA, TSH3, CBC, T4F, CMP, FE PRO, T3F, [id number], LIPID, [id number] #### [facility] [address] [place], [place] [id number] [place] Alanine aminotransferase [En zymatic activity/volume] in Serum or PlasmaOrdered By: Samia Saenz on 09-22-2023 ALT [Catalytic activity/Vol] 15 U/L Normal 7-52 [facility] Comment on above: Order Comment: PT FA STED 12 HOURS Performed By: #### A 1C WTH eA, TSH3, CBC, T4F, CMP, FE PRO, T3F, [id number], LIPID, [id number] #### [facility] [address] [place], [place] [id number] [place] Albumin [Mass/volume] in Ser um or Plasma by Bromocresol green (BCG) dye binding methoOrdered By: Samia Saenz on 09-22-2023 Albumin BCG dye [Mass/Vol] 4.2 g/dL 3.5-5.7 [facility] Alkaline phosphatase [Enzyma tic activity/volume] in Serum or PlasmaOrdered By: Samia Saenz on 09-22-2023 ALP [Catalytic activity/Vol] 52 U/L Normal 34-104 [facility] Comment on above: Order Comment: PT FA STED 12 HOURS Performed By: #### A 1C WTH eA, TSH3, CBC, T4F, CMP, FE PRO, T3F, [id number], LIPID, [id number] #### [facility] [address] Aspartate aminotransferase [ Enzymatic activity/volume] in Serum or PlasmaOrdered By: Samia Saenz on 09-22-2023 AST [Catalytic activity/Vol] 15 U/L Normal 13-39 [facility] Comment on above: Order Comment: PT FA STED 12 HOURS Performed By: #### A 1C WTH eA, TSH3, CBC, T4F, CMP, FE PRO, T3F, [id number], LIPID, [id number] #### [address] Automated basophil %Ordered By: Samia Saenz on 09-22-2023 Basophils/100 WBC (Bld) 0.7 % Normal . [facility] Comment on above: Performed By: #### A 1C WTH eA, TSH3, CBC, T4F, CMP, FE PRO, T3F, [id number], LIPID, [id number] #### [facility] [address] [place] [address] Automated basophil countOrde red By: Samia Saenz on 09-22-2023 Basophils (Bld) [#/Vol] 0.1 10*3/uL Normal 0.0-0.2 [facility] Comment on above: Result Comment: PERF ORMED BY: [place] [address] PATHOLOGIST NEUROPSYCHOLOGY MEDICAL CONSULTANT BALDEV HENNESSY M.D. Performed By: #### A 1C WTH eA, TSH3, CBC, T4F, CMP, FE PRO, T3F, [id number], LIPID, [id number] #### [address] Automated blood monocyte cou ntOrdered By: Samia Saenz on 09-22-2023 Monocytes (Bld) [#/Vol] 0.6 10*3/uL Normal 0.0-0.8 [facility] Comment on above: Performed By: #### A 1C WT eA, TSH3, CBC, T4F, CMP, FE PRO, T3F, [id number], LIPID, [id number] #### [facility] [address] Automated eosinophil %Ordere d By: Samia Saenz on 09-22-2023 Eosinophils/100 WBC (Bld) 0.1 % Normal . [facility] Comment on above: Performed By: #### A 1C WTH eA, TSH3, CBC, T4F, CMP, FE PRO, T3F, [id number], LIPID, [id number] #### [address] Automated eosinophil countOr dered By: Samia Saenz on 09-22-2023 Eosinophils (Bld) [#/Vol] 0.0 10*3/uL Normal 0.0-0.45 [facility] Comment on above: Performed By: #### A 1C WT eA, TSH3, CBC, T4F, CMP, FE PRO, T3F, [id number], LIPID, [id number] #### [address] Automated monocyte %Ordered By: Samia Saenz on 09-22-2023 Monocytes/100 WBC (Bld) 7.4 % Normal . [facility] Comment on above: Performed By: #### A 1C WTH eA, TSH3, CBC, T4F, CMP, FE PRO, T3F, [id number], LIPID, [id number] #### [address] Automated neutrophil %Ordere d By: Samia Saenz on 09-22-2023 Neutrophils/100 WBC (Bld) 72.5 % Normal . [facility] Comment on above: Performed By: #### A 1C WTH eA, TSH3, CBC, T4F, CMP, FE PRO, T3F, [id number], LIPID, [id number] #### [address] Bilirubin.total [Mass/volume ] in Serum or PlasmaOrdered By: Samia Saenz on 09-22-2023 Bilirubin [Mass/Vol] 0.2 mg/dL Low 0.3-1.0 [facility] Comment on above: Order Comment: PT FA STED 12 HOURS Performed By: #### A 1C WTH eA, TSH3, CBC, T4F, CMP, FE PRO, T3F, [id number], LIPID, [id number] #### [facility] [facility] [id number] [facility] Calcium [Mass/volume] in Ser um or PlasmaOrdered By: Samia Saenz on 09-22-2023 Calcium [Mass/Vol] 9.5 mg/dL Normal 8.6-10.3 [facility] Comment on above: Order Comment: PT FA STED 12 HOURS Performed By: #### A 1C WTH eA, TSH3, CBC, T4F, CMP, FE PRO, T3F, [id number], LIPID, [id number] #### [facility] [id number] [facility] Carbon dioxide, total [Moles /volume] in Serum or PlasmaOrdered By: Samia Saenz on 09-22-2023 CO2 [Moles/Vol] 29.3 mmol/L Normal 21.0-31.0 [facility] Comment on above: Order Comment: PT FA STED 12 HOURS Performed By: #### A 1C WTH eA, TSH3, CBC, T4F, CMP, FE PRO, T3F, [id number], LIPID, [id number] #### [facility] [address] [id number] [place] Chloride [Moles/volume] in S santiago or PlasmaOrdered By: Samia Saenz on 09-22-2023 Chloride [Moles/Vol] 106 mmol/L Normal 98-107 [facility] Comment on above: Order Comment: PT FA STED 12 HOURS Performed By: #### A 1C WTH eA, TSH3, CBC, T4F, CMP, FE PRO, T3F, [id number], LIPID, [id number] #### [facility] [address] [id number] [place] Cholesterol [Mass/volume] in Serum or PlasmaOrdered By: Samia Saenz on 09-22-2023 Cholesterol [Mass/Vol] 192 mg/dL Normal 140-200 [facility] Comment on above: Chol less than [...] TSH3, CBC, T4F, CMP, FE PRO, T3F, [id number], LIPID, [id number] #### [facility] [address] Cholesterol in LDL Calc [Mas s/Vol]Ordered By: Samia Saenz on 09-22-2023 Cholesterol in LDL [Mass/Vol] 105 mg/dL High 0-100 [facility] Comment on above: LDL ATP III CLASSIFI CATIONLDL less than 100 mg/dL OptimalLDL 100-129 mg/dL Near or above optimalLDL 130-159 mg/dL Borderline highLDL 160-189 mg/dL HighLDL greater than 189 mg/dL Very high Cholesterol in VLDL Calc [Ma ss/Vol]Ordered By: Samia Saenz on 09-22-2023 Cholesterol in VLDL [Mass/Vol] 21 mg/dL [facility] Complete Blood Count Auto Di ffon 09-22-2023 Mean Corpuscular HGB Conc 33.5 g/dL Normal 32.0-35.0 [facility] Comment on above: Performed By: #### A 1C WTH eA, TSH3, CBC, T4F, CMP, FE PRO, T3F, [id number], LIPID, [id number] #### [facility] [address] NRBC% 0.1 /100{WBC} Normal 0-0.5 [facility] Comment on above: Performed By: #### A 1C WTH eA, TSH3, CBC, T4F, CMP, FE PRO, T3F, [id number], LIPID, [id number] #### [facility] [address] Comprehensive Metabolic Pane denise 09-22-2023 Albumin [Mass/Vol] 4.2 g/dL Normal 3.5-5.7 [facility] Comment on above: Order Comment: PT FA STED 12 HOURS Performed By: #### A 1C WTH eA, TSH3, CBC, T4F, CMP, FE PRO, T3F, [id number], LIPID, [id number] #### [address] GFR/1.73 sq M.predicted MDRD (S/P/Bld) [Vol rate/Area] mL/min/{1.73_m2} Normal [facility] Comment on above: Order Comment: PT FA STED 12 HOURS Performed By: #### A 1C WTH eA, TSH3, CBC, T4F, CMP, FE PRO, T3F, [id number], LIPID, [id number] #### [address] Creatinine [Mass/volume] in Serum or PlasmaOrdered By: Samia Saenz on 09-22-2023 Creatinine [Mass/Vol] 0.70 mg/dL Normal 0.60-1.20 [facility] Comment on above: Order Comment: PT FA STED 12 HOURS Performed By: #### A 1C WTH eA, TSH3, CBC, T4F, CMP, FE PRO, T3F, [id number], LIPID, [id number] #### [address] Erythrocyte distribution wid th [Ratio] by Automated countOrdered By: Samia Saenz on 09-22-2023 Erythrocyte distribution width (RBC) [Ratio] 13.2 % Normal 11.9-15.3 [facility] Comment on above: Performed By: #### A 1C WTH eA, TSH3, CBC, T4F, CMP, FE PRO, T3F, [id number], LIPID, [id number] #### [address] Erythrocytes [#/volume] in B lood by Automated countOrdered By: Samia Saenz on 09-22-2023 RBC (Bld) [#/Vol] 3.87 10*6/uL Normal 3.60-5.00 [facility] Comment on above: Performed By: #### A 1C WTH eA, TSH3, CBC, T4F, CMP, FE PRO, T3F, [id number], LIPID, [id number] #### [facility] [id number] [facility] FE PROon 09-22-2023 % Iron Saturation 19.6 % Low 20-50 [facility] Comment on above: Order Comment: PT FA STED 12 HOURS Performed By: #### A 1C WTH eA, TSH3, CBC, T4F, CMP, FE PRO, T3F, [id number], LIPID, [id number] #### [facility] [address] Total Iron Binding Capacity 393 ug/dL Normal 255-450 [facility] Comment on above: Order Comment: PT FA STED 12 HOURS Performed By: #### A 1C WTH eA, TSH3, CBC, T4F, CMP, FE PRO, T3F, [id number], LIPID, [id number] #### [facility] [address] [place] [address] [place] Ferritin [Mass/volume] in Se rum or PlasmaOrdered By: Samia Saenz on 09-22-2023 Ferritin [Mass/Vol] 10.6 ng/mL Low 11.0-306.8 [facility] Comment on above: Order Comment: PT FA STED 12 HOURS Performed By: #### A 1C WTH eA, TSH3, CBC, T4F, CMP, FE PRO, T3F, [id number], LIPID, [id number] #### [facility] [id number] [facility] Folateon 09-22-2023 Folate 5.6 ng/mL Low >5.9 [facility] Comment on above: Order Comment: PT FA STED 12 HOURS Result Comment: Jessica te reference range: >5.9 ng/ml The WHO technical consultation on folate and vitamin b12 deficiencies has determined that folate concentrations less than 4 ng/ml are considered deficient. Performed By: #### A 1C WTH eA, TSH3, CBC, T4F, CMP, FE PRO, T3F, [id number], LIPID, [id number] #### [facility] [address] Folate [Mass/volume] in Seru m or PlasmaOrdered By: Samia Saenz on 09-22-2023 Folate [Mass/Vol] 5.6 ng/mL Low >5.9 [facility] Comment on above: Folate reference ran ge: >5.9 ng/mlThe WHO technical consultation on folate and vitamin [id number] has determined that folate concentrations lessthan 4 ng/ml are considered deficient. Glucose [Mass/volume] in Ser um or PlasmaOrdered By: Samia Saenz on 09-22-2023 Glucose [Mass/Vol] 101 mg/dL High 70-100 [facility] Comment on above: ADA recommended refe rence rangeRandom Glucose Reference Range is dependent on time and content of last meal. Glucose of more than 200 mg/dL in a nonstressed, ambulatory subject supports the diagnosis of Diabetes Mellitus. Order Comment: PT FA STED 12 HOURS Result Comment: Taberg om Glucose Reference Range is dependent on time and content of last meal. Glucose of more than 200 mg/dL in a nonstressed, ambulatory subject supports the diagnosis of Diabetes Mellitus. ADA recommended reference range Performed By: #### A 1C WTH eA, TSH3, CBC, T4F, CMP, FE PRO, T3F, [id number], LIPID, [id number] #### [facility] [address] Glucose mean value [Mass/vol ume] in Blood Estimated from glycated hemoglobinOrdered By: Samia Saenz on 09-22-2023 Average glucose Estimated from glycated hemoglobin (Bld) [Mass/Vol] 114 mg/dL [facility] Hematocrit [Volume Fraction] of Blood by Automated countOrdered By: Samia Saenz on 09-22-2023 Hematocrit (Bld) [Volume fraction] 37.6 % Normal 34.0-46.4 [facility] Comment on above: Performed By: #### A 1C WTH eA, TSH3, CBC, T4F, CMP, FE PRO, T3F, [id number], LIPID, [id number] #### [facility] [address] Hemoglobin A1c percentageOrd ered By: Samia Saenz on 09-22-2023 HbA1c (Bld) [Mass fraction] 5.6 % Normal 4.3-5.6 [facility] Comment on above: Increased risk for d iabetes: 5.7 - 6.4diabetes: >6.4glycemic control for adults with diabetes: <7.0 Result Comment: Incr eased risk for diabetes: 5.7 - 6.4 diabetes: >6.4 glycemic control for adults with diabetes: <7.0 Performed By: #### A 1C WTH eA, TSH3, CBC, T4F, CMP, FE PRO, T3F, [id number], LIPID, [id number] #### [address] Hemoglobin [Mass/volume] in BloodOrdered By: Samia Saenz on 09-22-2023 Hemoglobin (Bld) [Mass/Vol] 12.6 g/dL Normal 11.8-15.4 [facility] Comment on above: Performed By: #### A 1C WTH eA, TSH3, CBC, T4F, CMP, FE PRO, T3F, [id number], LIPID, [id number] #### [address] Iron [Mass/volume] in Serum or PlasmaOrdered By: Samia Saenz on 09-22-2023 Iron [Mass/Vol] 77 ug/dL Normal 50-212 [facility] Comment on above: Order Comment: PT FA STED 12 HOURS Performed By: #### A 1C WTH eA, TSH3, CBC, T4F, CMP, FE PRO, T3F, [id number], LIPID, [id number] #### [address] Iron binding capacity [Mass/ volume] in Serum or PlasmaOrdered By: Samia Saenz on 09-22-2023 Iron binding capacity [Mass/Vol] 393 ug/dL 255-450 [facility] Iron saturation [Mass Fracti on] in Serum or PlasmaOrdered By: Samia Saenz on 09-22-2023 Iron saturation [Mass fraction] 19.6 % Low 20-50 [facility] Leukocytes [#/volume] correc perico for nucleated erythrocytes in Blood by Automated counOrdered By: Samia Saenz on 09-22-2023 WBC corrected for nucl RBC Auto (Bld) [#/Vol] 7.5 10*3/uL 3.8-11.6 [facility] Leukocytes [#/volume] in Blo od by Automated countOrdered By: Samia Saenz on 09-22-2023 WBC (Bld) [#/Vol] 7.5 10*3/uL Normal 3.8-11.6 [facility] Comment on above: Performed By: #### A 1C WTH eA, TSH3, CBC, T4F, CMP, FE PRO, T3F, [id number], LIPID, [id number] #### [facility] [address] Lipid Panelon 09-22-2023 LDL Cholesterol,Calculated 105 mg/dL High 0-100 [facility] Comment on above: Order Comment: PT FA STED 12 HOURS Result Comment: LDL ATP III CLASSIFICATION LDL less than 100 mg/dL Optimal LDL 100-129 mg/dL Near or above optimal LDL 130-159 mg/dL Borderline high LDL 160-189 mg/dL High LDL greater than 189 mg/dL Very high Performed By: #### A 1C WTH eA, TSH3, CBC, T4F, CMP, FE PRO, T3F, [id number], LIPID, [id number] #### [facility] [address] Triglyceride w/Reflex 105 mg/dL Normal 0-149 [facility] Comment on above: Order [...] TSH3, CBC, T4F, CMP, FE PRO, T3F, [id number], LIPID, [id number] #### [address] VLDL CHOLESTEROL 21 mg/dL Normal [facility] Comment on above: Order Comment: PT FA STED 12 HOURS Performed By: #### A 1C WT eA, TSH3, CBC, T4F, CMP, FE PRO, T3F, [id number], LIPID, [id number] #### [address] Lymphocytes [#/volume] in Bl ood by Automated countOrdered By: Samia Saenz on 09-22-2023 Lymphocytes (Bld) [#/Vol] 1.5 10*3/uL Normal 1.00-4.8 [facility] Comment on above: Performed By: #### A 1C [facility] eA, TSH3, CBC, T4F, CMP, FE PRO, T3F, [id number], LIPID, [id number] #### [address] Lymphocytes/100 leukocytes i n Blood by Automated countOrdered By: Samia Saenz on 09-22-2023 Lymphocytes/100 WBC (Bld) 19.3 % Normal . [facility] Comment on above: Performed By: #### A 1C WT eA, TSH3, CBC, T4F, CMP, FE PRO, T3F, [id number], LIPID, [id number] #### [address] MCH [Entitic mass] by Automa perico countOrdered By: Samia Saenz on 09-22-2023 MCH (RBC) [Entitic mass] 32.5 pg Normal 24.7-34.3 [facility] Comment on above: Performed By: #### A 1C WTH eA, TSH3, CBC, T4F, CMP, FE PRO, T3F, [id number], LIPID, [id number] #### [address] MCHC Auto (RBC) [Mass/Vol]Or dered By: Samia Saenz on 09-22-2023 MCHC (RBC) [Mass/Vol] 33.5 g/dL 32.0-35.0 [facility] MCV [Entitic volume] by Auto mated countOrdered By: Samia Saenz on 09-22-2023 MCV (RBC) [Entitic vol] 97.0 fL Normal 80-100 [facility] Comment on above: Performed By: #### A 1C WT eA, TSH3, CBC, T4F, CMP, FE PRO, T3F, [id number], LIPID, [id number] #### [facility] [address] Neutrophils [#/volume] in Bl ood by Automated countOrdered By: Samia Saenz on 09-22-2023 Neutrophils (Bld) [#/Vol] 5.5 10*3/uL Normal 1.8-7.7 [facility] Comment on above: Performed By: #### A 1C WT eA, TSH3, CBC, T4F, CMP, FE PRO, T3F, [id number], LIPID, [id number] #### [facility] [address] No Panel InformationOrdered By: Samia Saenz on 09-22-2023 Estimated GFR (CKD-EPI) > 60.0 mL/Min [facility] Creatinine Clearance (Chem N/A [facility] Nucleated erythrocytes [Pres ence] in Blood by Automated countOrdered By: Samia Saenz on 09-22-2023 Nucleated RBC Auto Ql (Bld) 0.1 /100{WBC} 0-0.5 [facility] Platelet mean volume [Entiti c volume] in Blood by Automated countOrdered By: Samia Saenz on 09-22-2023 Platelet mean volume (Bld) [Entitic vol] 7.7 fL Normal 6.3-10.7 [facility] Comment on above: Performed By: #### A 1C WTH eA, TSH3, CBC, T4F, CMP, FE PRO, T3F, [id number], LIPID, [id number] #### [facility] [address] Platelets [#/volume] in Bloo d by Automated countOrdered By: Samia Saenz on 09-22-2023 Platelets (Bld) [#/Vol] 271 10*3/uL Normal 150-450 [facility] Comment on above: Performed By: #### A 1C WTH eA, TSH3, CBC, T4F, CMP, FE PRO, T3F, [id number], LIPID, [id number] #### [facility] [address] Potassium [Moles/volume] in Serum or PlasmaOrdered By: Samia Saenz on 09-22-2023 Potassium [Moles/Vol] 4.0 mmol/L Normal 3.5-5.1 [facility] Comment on above: Order Comment: PT FA STED 12 HOURS Performed By: #### A 1C WTH eA, TSH3, CBC, T4F, CMP, FE PRO, T3F, [id number], LIPID, [id number] #### [address] Protein [Mass/volume] in Ser um or PlasmaOrdered By: Samia Saenz on 09-22-2023 Protein [Mass/Vol] 6.9 g/dL Normal 6.4-8.9 [facility] Comment on above: Order Comment: PT FA STED 12 HOURS Performed By: #### A 1C WTH eA, TSH3, CBC, T4F, CMP, FE PRO, T3F, [id number], LIPID, [id number] #### [facility] [id number] [facility] Serum globulin measurement b y calculation (mass/volume)Ordered By: Samia Saenz on 09-22-2023 Globulin (S) [Mass/Vol] 2.7 g/dL Normal [facility] Comment on above: Order Comment: PT FA STED 12 HOURS Performed By: #### A 1C WTH eA, TSH3, CBC, T4F, CMP, FE PRO, T3F, [id number], LIPID, [id number] #### [facility] [id number] [facility] Serum or plasma albumin/glob ulin mass ratioOrdered By: Samia Saenz on 09-22-2023 Albumin/Globulin [Mass ratio] 1.6 {ratio} Normal [facility] Comment on above: Order Comment: PT FA STED 12 HOURS Performed By: #### A 1C WTH eA, TSH3, CBC, T4F, CMP, FE PRO, T3F, [id number], LIPID, [id number] #### [facility] [address] Serum or plasma anion gap de terminationOrdered By: Samia Saenz on 09-22-2023 Anion gap [Moles/Vol] 8.7 mmol/L Normal 6.0-15.0 [facility] Comment on above: Order Comment: PT FA STED 12 HOURS Performed By: #### A 1C WTH eA, TSH3, CBC, T4F, CMP, FE PRO, T3F, [id number], LIPID, [id number] #### [facility] [address] Serum or plasma high density lipoprotein (HDL) cholesterol measurementOrdered By: Samia Saenz on 09-22-2023 Cholesterol in HDL [Mass/Vol] 66 mg/dL Normal 23-92 [facility] Comment on above: HDL CHOL ATP-III CLA SSIFICATION Cardiovascular RiskHDL > or equal to 60 mg/dL LOWHDL < 40 mg/dL HIGH Order Comment: PT FA STED 12 HOURS Result Comment: HDL CHOL ATP-III CLASSIFICATION Cardiovascular Risk HDL > or equal to 60 mg/dL LOW HDL < 40 mg/dL HIGH Performed By: #### A 1C WTH eA, TSH3, CBC, T4F, CMP, FE PRO, T3F, [id number], LIPID, [id number] #### [facility] [address] Serum or plasma total choles terol/high density lipoprotein (HDL) cholesterol mass ratOrdered By: Samia Saenz on 09-22-2023 Cholesterol.total/Theresa sterol in HDL [Mass ratio] 2.9 {ratio} Normal <5.0 [facility] Comment on above: Order Comment: PT FA STED 12 HOURS Performed By: #### A 1C WTH eA, TSH3, CBC, T4F, CMP, FE PRO, T3F, [id number], LIPID, [id number] #### [facility] [address] [id number] [place] Sodium [Moles/volume] in Ser um or PlasmaOrdered By: Samia Saenz on 09-22-2023 Sodium [Moles/Vol] 140 mmol/L Normal 136-145 [facility] Comment on above: Order Comment: PT FA STED 12 HOURS Performed By: #### A 1C WTH eA, TSH3, CBC, T4F, CMP, FE PRO, T3F, [id number], LIPID, [id number] #### [facility] [address] [id number] [place] Thyrotropin [Units/volume] i n Serum or PlasmaOrdered By: Samia Saenz on 09-22-2023 TSH Qn 4.07 m[IU]/L Normal 0.45-5.33 [facility] Comment on above: Order Comment: PT FA STED 12 HOURS Performed By: #### A 1C WTH eA, TSH3, CBC, T4F, CMP, FE PRO, T3F, [id number], LIPID, [id number] #### [facility] [id number] [facility] Thyroxine (T4) free [Mass/vo lume] in Serum or PlasmaOrdered By: Samia Saenz on 09-22-2023 Free T4 [Mass/Vol] 0.59 ng/dL Low 0.61-1.12 [facility] Comment on above: Order Comment: PT FA STED 12 HOURS Performed By: #### A 1C WTH eA, TSH3, CBC, T4F, CMP, FE PRO, T3F, [id number], LIPID, [id number] #### [facility] [address] [id number] [place] Transferrin [Mass/volume] in Serum or PlasmaOrdered By: Samia Saenz on 09-22-2023 Transferrin [Mass/Vol] 281 mg/dL Normal 203-362 [facility] Comment on above: Order Comment: PT FA STED 12 HOURS Performed By: #### A 1C WTH eA, TSH3, CBC, T4F, CMP, FE PRO, T3F, [id number], LIPID, [id number] #### [address] Triglyceride [Mass/volume] i n Serum or PlasmaOrdered By: Saima Saenz on 09-22-2023 Triglyceride [Mass/Vol] 105 mg/dL 0-149 [facility] Comment on above: TRIG ATP III CLASSIF ICATIONTRIG less than 150 mg/dL NormalTRIG 150-199 mg/dL Borderline highTRIG 200-500 mg/dL High TRIG greater than 500 mg/dL Very highStandard traceable to the Center for Disease Conrtrol and Prevention (CDC) test method. Triiodothyronine (T3) Freeon 09-22-2023 Triiodothyronine (T3) Free 2.95 pg/mL Normal 2.50-3.90 [facility] Comment on above: Result Comment: PERF ORMED BY: [place] [address] PATHOLOGIST NEUROPSYCHOLOGY MEDICAL CONSULTANT BALDEV HENNESSY M.D. Performed By: #### A 1C WT eA, TSH3, CBC, T4F, CMP, FE PRO, T3F, [id number], LIPID, [id number] #### [address] Triiodothyronine (T3) Free [ Mass/volume] in Serum or PlasmaOrdered By: Samia Saenz on 09-22-2023 Free T3 [Mass/Vol] 2.95 pg/mL 2.50-3.90 [facility] Urea nitrogen [Mass/volume] in Serum or PlasmaOrdered By: Samia Saenz on 09-22-2023 Urea nitrogen [Mass/Vol] 15 mg/dL Normal 7-25 [facility] Comment on above: Order Comment: PT FA STED 12 HOURS Performed By: #### A 1C WTH eA, TSH3, CBC, T4F, CMP, FE PRO, T3F, [id number], LIPID, [id number] #### [address] Vitamin B12 ser/plasOrdered By: Samia Saenz on 09-22-2023 Cobalamin (Vitamin B12) [Mass/Vol] 534 pg/mL Normal 180-914 [facility] Comment on above: Order Comment: PT FA STED 12 HOURS Performed By: #### A 1C WTH eA, TSH3, CBC, T4F, CMP, FE PRO, T3F, [id number], LIPID, [id number] #### [facility] [id number] [facility] Vitamin D 25 Hydroxy Totalon 09-22-2023 Vitamin D 25 Hydroxy Total 33.3 ng/mL Normal 30-100 [facility] Comment on above: Order Comment: PT FA STED 12 HOURS Result Comment: [place] MIN D STATUS 25(OH)VITAMIN D RANGE (ng/mL) Deficient <20 Insufficient 20 to <30 Sufficient 30 to 100 Reference: Shakir Akbar, Darius SHAW, et al. Evaluation,treatment, and prevention of vitamin D deficiency; an Endocrine Society clinical practice guideline. JCEM. 2010; 96(7):1911-. PERFORMED BY: [place] [address] PATHOLOGIST NEUROPSYCHOLOGY MEDICAL CONSULTANT BALDEV HENNESSY M.D. Performed By: #### A 1C WTH eA, TSH3, CBC, T4F, CMP, FE PRO, T3F, [id number], LIPID, [id number] #### [facility] [address] [place], [place] [id number] [facility] Vitamin D+Metabolites [Mass/ volume] in Serum or PlasmaOrdered By: Samia Saenz on 09-22-2023 Vitamin D+Metabolites [Mass/Vol] 33.3 ng/mL 30-100 [facility] Comment on above: VITAMIN D STATUS 25( [place])VITAMIN D RANGE (ng/mL) Deficient <20 Insufficient 20 to <30Sufficient 30 to 100Reference: Shakir Akbar, Darius SHAW, et al. Evaluation,treatment, and prevention of vitamin D deficiency; an Endocrine Society clinical practice guideline. JCEM. 2010; 96(7):1911-30. Consent for Procedure/Surger yon 05-09-2023 Consent for Procedure/Surgery [id number]# 1.00TIFF [facility] Ambulatory Visit Summaryon 0 05-08-2023 Ambulatory [...] 300 mg Tab) potassium chloride (Potassium Chloride (Jvy-Apce-Lsu 10) 10 mEq oral tablet, extended release) [...] RAM, VEE Leonardo Where: [facility] Patient Educationon 05-08-19 24 Patient Education Urology [...] provider. Document Revised: 11/03/2020 Document Reviewed: 11/03/2020 [employer] Patient Education ? 2022 [employer]. Normal [facility] Urology Office/Clinic Noteon 05-08-2023 Urology Office/Clinic Note [...] urine The Urethra was dilated to: 16-30 Filipino with sounds. Specimens Removed: None Removal: Cystoscope [...] a tight urinary channel at about 16 Filipino and tolerated to dilatation to 30 Filipino. Hopefully this will help her urinary symptomatology. There is some moderate vaginal/periurethral atrophy. Follow-up with TIM Davis-see within the next 6 weeks or so. She is to monitor her urinary flow pattern after UD today. Follow-up With When Contact Information ANDRZEJ JONES, Steven Valadez, URL [address] [address]- Additional Instructions: f/u w/MUKUND on 07/01/23 Patient Education Urinary Frequency, Pediatric I, Delmi Louis, personally scribed for Dr. Donnelly on 05/08/2023 15:27:54. . Documentation recorded by the scribe, Delmi Louis, accurately reflects the services(s) I performed and decisions made by me. Authenticated by Dr. Donnelly on 05/08/2023 15:30:16. Portions of this record may have been created with voice recognition artificial intelligence software, specifically [employer], [email or web address] and or [employer]. Substitutions may have occurred due to the [...] Cervical spinal (more content not included)... Normal [facility] Comment on above: Result Comment: Elec tronically Signed By: Steven DONNELLY MD\.br\Date and Time Signed: 05/08/23 15:33 EST\.br\Electronically Co-Signed By: Delmi Louis\.br\Date and Time Co-Signed: 05/08/23 15:28 EST [facility] 03-30-2023 Lab Reports [id number]#1 .00TIFF Normal [facility] Lab Reportson 03-28-2023 Lab Reports [id number] .00TIFF Normal [facility] XR pre/post mri xrayon 03-25 XR pre/post mri xray [facility] [address] [place] [address] MRI Report Signed Patient: Alla Brady MR#: [id number] : 1965 Acct:[id number] Age/Sex: 57 / F ADM Date: 03/25/23 Loc: [facility] Room: Type: [facility] CLI Attending Dr: Jerri JENKINS Copies to: GREGORY Feldman Ordering Provider: GREGORY Feldman Date of Service: 03/25/23 MR/MR lumbar spine wo/w con: m54.5, m54.16 ([id number]) XR/XR pre/post mri xray: post MRI lumbar [...] Winston Garzon M.D.03/25/2023 3:39 PM Dictation Location: [place] [address] Transcribed By: [facility] 03/25/23 1539 Dictated By: Winston Garzon II, MD 03/25/23 1526 Signed By: 03/25/23 1539 Normal [facility] 03-21-2023 Lab Reports [id number] .00TIFF [facility] [facility] A1C with Estimated Average [facility] 03-17-2023 Glucose [Mass/Vol] 123 mg/dL Normal [facility] Comment on above: Result Comment: PERF ORMED BY: [place] [address] PATHOLOGIST NEUROPSYCHOLOGY MEDICAL CONSULTANT BALDEV HENNESSY M.D. Performed By: #### A 1C WTH eA, TSH3, CBC, T4F, CMP, FE PRO, T3F, [id number], LIPID, [id number] #### [place] [address] [place] Alanine aminotransferase [En zymatic activity/volume] in Serum or PlasmaOrdered By: Samia Saenz on 03-17-2023 ALT [Catalytic activity/Vol] 24 U/L Normal 7-52 [facility] Comment on above: Performed By: #### A 1C WTH eA, TSH3, CBC, T4F, CMP, FE PRO, T3F, [id number], LIPID, [id number] #### [place] [address] [place] Albumin [Mass/volume] in Ser um or Plasma by Bromocresol green (BCG) dye binding methoOrdered By: Samia Saenz on 03-17-2023 Albumin BCG dye [Mass/Vol] 4.0 g/dL 3.5-5.7 [facility] Alkaline phosphatase [Enzyma tic activity/volume] in Serum or PlasmaOrdered By: Samia Saenz on 03-17-2023 ALP [Catalytic activity/Vol] 47 U/L Normal 34-104 [facility] Comment on above: Performed By: #### A 1C WTH eA, TSH3, CBC, T4F, CMP, FE PRO, T3F, [id number], LIPID, [id number] #### [place] [address] [place] Aspartate aminotransferase [ Enzymatic activity/volume] in Serum or PlasmaOrdered By: Samia Saenz on 03-17-2023 AST [Catalytic activity/Vol] 22 U/L Normal 13-39 [facility] Comment on above: Performed By: #### A 1C WTH eA, TSH3, CBC, T4F, CMP, FE PRO, T3F, [id number], LIPID, [id number] #### [facility] [address] Automated basophil %Ordered By: Samia Saenz on 03-17-2023 Basophils/100 WBC (Bld) 1.3 % Normal . [facility] Comment on above: Performed By: #### A 1C WTH eA, TSH3, CBC, T4F, CMP, FE PRO, T3F, [id number], LIPID, [id number] #### [facility] [address] Automated basophil countOrde red By: Samia Saenz on 03-17-2023 Basophils (Bld) [#/Vol] 0.1 10*3/uL Normal 0.0-0.2 [facility] Comment on above: Result Comment: PERF ORMED BY: [place] [address] PATHOLOGIST NEUROPSYCHOLOGY MEDICAL CONSULTANT BALDEV HENNESSY M.D. Performed By: #### A 1C WTH eA, TSH3, CBC, T4F, CMP, FE PRO, T3F, [id number], LIPID, [id number] #### [address] Automated blood monocyte cou ntOrdered By: Samia Saenz on 03-17-2023 Monocytes (Bld) [#/Vol] 0.4 10*3/uL Normal 0.0-0.8 [facility] Comment on above: Performed By: #### A 1C WTH eA, TSH3, CBC, T4F, CMP, FE PRO, T3F, [id number], LIPID, [id number] #### [address] Automated eosinophil %Ordere d By: Samia Saenz on 03-17-2023 Eosinophils/100 WBC (Bld) 0.2 % Normal . [facility] Comment on above: Performed By: #### A 1C WTH eA, TSH3, CBC, T4F, CMP, FE PRO, T3F, [id number], LIPID, [id number] #### [facility] [address] [place] [address] Automated eosinophil countOr dered By: Samia Saenz on 03-17-2023 Eosinophils (Bld) [#/Vol] 0.0 10*3/uL Normal 0.0-0.45 [facility] Comment on above: Performed By: #### A 1C WTH eA, TSH3, CBC, T4F, CMP, FE PRO, T3F, [id number], LIPID, [id number] #### [address] Automated erythrocytes count in urine sediment (number/area)Ordered By: Samia Saenz on 03-17-2023 RBC Auto (Urine sed) [#/Area] 20-49 [HPF] 0-4 [facility] Automated leukocytes count i n urine sediment (number/area)Ordered By: Samia Saenz on 03-17-2023 WBC Auto (Urine sed) [#/Area] 5-9 [HPF] 0-4 [facility] Automated monocyte %Ordered By: Samia Saenz on 03-17-2023 Monocytes/100 WBC (Bld) 5.8 % Normal . [facility] Comment on above: Performed By: #### A 1C WTH eA, TSH3, CBC, T4F, CMP, FE PRO, T3F, [id number], LIPID, [id number] #### [address] Automated neutrophil %Ordere d By: Samia Saenz on 03-17-2023 Neutrophils/100 WBC (Bld) 75.7 % Normal . [facility] Comment on above: Performed By: #### A 1C WTH eA, TSH3, CBC, T4F, CMP, FE PRO, T3F, [id number], LIPID, [id number] #### [address] Automated urine color determ inationOrdered By: Samia Saenz on 03-17-2023 Color (U) Yellow Normal Yellow [facility] Comment on above: Order Comment: Name Collection Type:: Clean-Voided Midstream Performed By: #### A 1C WTH eA, TSH3, CBC, T4F, CMP, FE PRO, T3F, [id number], LIPID, [id number] #### [facility] [address] Bilirubin Test strip Ql (U)O rdered By: Samia Saenz on 03-17-2023 Bilirubin Ql (U) Negative Negative [facility] Bilirubin.total [Mass/volume ] in Serum or PlasmaOrdered By: Samia Saenz on 03-17-2023 Bilirubin [Mass/Vol] 0.2 mg/dL Low 0.3-1.0 [facility] Comment on above: Performed By: #### A 1C WTH eA, TSH3, CBC, T4F, CMP, FE PRO, T3F, [id number], LIPID, [id number] #### [address] Calcium [Mass/volume] in Ser um or PlasmaOrdered By: Samia Saezn on 03-17-2023 Calcium [Mass/Vol] 9.4 mg/dL Normal 8.6-10.3 [facility] Comment on above: Performed By: #### A 1C WTH eA, TSH3, CBC, T4F, CMP, FE PRO, T3F, [id number], LIPID, [id number] #### [facility] [address] Carbon dioxide, total [Moles /volume] in Serum or PlasmaOrdered By: Samia Saenz on 03-17-2023 CO2 [Moles/Vol] 28.9 mmol/L Normal 21.0-31.0 [facility] Comment on above: Performed By: #### A 1C WTH eA, TSH3, CBC, T4F, CMP, FE PRO, T3F, [id number], LIPID, [id number] #### [facility] [address] [place] [address] [place] Chloride [Moles/volume] in S santiago or PlasmaOrdered By: Samia Saenz on 03-17-2023 Chloride [Moles/Vol] 107 mmol/L Normal 98-107 [facility] Comment on above: Performed By: #### A 1C WTH eA, TSH3, CBC, T4F, CMP, FE PRO, T3F, [id number], LIPID, [id number] #### [facility] [address] Cholesterol [Mass/volume] in Serum or PlasmaOrdered By: Samia Saenz on 03-17-2023 Cholesterol [Mass/Vol] 174 mg/dL Normal 140-200 [facility] Comment on above: Chol less than 200 m g/dl low riskChol 201-239 mg/dl borderline riskChol 240 mg/dl and greater high risk Result Comment: Chol less than 200 mg/dl low risk Chol 201-239 mg/dl borderline risk Chol 240 mg/dl and greater high risk Performed By: #### A 1C WTH eA, TSH3, CBC, T4F, CMP, FE PRO, T3F, [id number], LIPID, [id number] #### [facility] [address] Cholesterol in LDL Calc [Mas s/Vol]Ordered By: Samia Saenz on 03-17-2023 Cholesterol in LDL [Mass/Vol] 98 mg/dL 0-100 [facility] Comment on above: LDL ATP III CLASSIFI CATIONLDL less than 100 mg/dL OptimalLDL 100-129 mg/dL Near or above optimalLDL 130-159 mg/dL Borderline highLDL 160-189 mg/dL HighLDL greater than 189 mg/dL Very high Cholesterol in VLDL Calc [Ma ss/Vol]Ordered By: Samia Saenz on 03-17-2023 Cholesterol in VLDL [Mass/Vol] 25 mg/dL [facility] Complete Blood Count Auto Di ffon 03-17-2023 Mean Corpuscular HGB Conc 33.7 g/dL Normal 32.0-35.0 [facility] Comment on above: Performed By: #### A 1C WTH eA, TSH3, CBC, T4F, CMP, FE PRO, T3F, [id number], LIPID, [id number] #### [facility] [address] [place] [id number] [facility] NRBC% 0.2 /100{WBC} Normal 0-0.5 [facility] Comment on above: Performed By: #### A 1C WTH eA, TSH3, CBC, T4F, CMP, FE PRO, T3F, [id number], LIPID, [id number] #### [facility] [address] Comprehensive Metabolic Pane denise 03-17-2023 Albumin [Mass/Vol] 4.0 g/dL Normal 3.5-5.7 [facility] Comment on above: Performed By: #### A 1C WT eA, TSH3, CBC, T4F, CMP, FE PRO, T3F, [id number], LIPID, [id number] #### [address] GFR/1.73 sq M.predicted MDRD (S/P/Bld) [Vol rate/Area] mL/min/{1.73_m2} Normal [facility] Comment on above: Performed By: #### A 1C WT eA, TSH3, CBC, T4F, CMP, FE PRO, T3F, [id number], LIPID, [id number] #### [address] Creatinine [Mass/volume] in Serum or PlasmaOrdered By: Samia Saenz on 03-17-2023 Creatinine [Mass/Vol] 0.74 mg/dL Normal 0.60-1.20 [facility] Comment on above: Performed By: #### A 1C WT eA, TSH3, CBC, T4F, CMP, FE PRO, T3F, [id number], LIPID, [id number] #### [address] Dipstick and Microscopicon 1 05-18-2022 Appearance (U) Cloudy Critically abnormal Clear [facility] Comment on above: Order Comment: Name Collection Type:: Clean-Voided Midstream Performed By: #### A 1C WTH eA, TSH3, CBC, T4F, CMP, FE PRO, T3F, [id number], LIPID, [id number] #### [address] Bacteria,Urine 1+ High None Seen [facility] Comment on above: Order Comment: Name Collection Type:: Clean-Voided Midstream Performed By: #### A 1C WT eA, TSH3, CBC, T4F, CMP, FE PRO, T3F, [id number], LIPID, [id number] #### [address] Bilirubin,Urine Negative Normal Negative [facility] Comment on above: Order Comment: Name Collection Type:: Clean-Voided Midstream Performed By: #### A 1C WT eA, TSH3, CBC, T4F, CMP, FE PRO, T3F, [id number], LIPID, [id number] #### [address] Glucose Ql (U) Normal Normal Normal [facility] Comment on above: Order Comment: Name Collection Type:: Clean-Voided Midstream Performed By: #### A 1C WT eA, TSH3, CBC, T4F, CMP, FE PRO, T3F, [id number], LIPID, [id number] #### [address] Hyaline Casts,Urine 0-8 Normal 0-8 [facility] Comment on above: Order Comment: Name Collection Type:: Clean-Voided Midstream Result Comment: PERF ORMED BY: [place] [address] PATHOLOGIST NEUROPSYCHOLOGY MEDICAL CONSULTANT BALDEV HENNESSY M.D. Performed By: #### A 1C [facility] eA, TSH3, CBC, T4F, CMP, FE PRO, T3F, [id number], LIPID, [id number] #### [address] Ketones Ql (U) Trace High Negative [facility] Comment on above: Order Comment: Name Collection Type:: Clean-Voided Midstream Performed By: #### A 1C WTH eA, TSH3, CBC, T4F, CMP, FE PRO, T3F, [id number], LIPID, [id number] #### [address] Leukocyte esterase Test strip Ql (U) 1+ High Negative [facility] Comment on above: Order Comment: Name Collection Type:: Clean-Voided Midstream Performed By: #### A 1C WTH eA, TSH3, CBC, T4F, CMP, FE PRO, T3F, [id number], LIPID, [id number] #### [address] Nitrite,Urine Negative Normal Negative [facility] Comment on above: Order Comment: Name Collection Type:: Clean-Voided Midstream Performed By: #### A 1C WTH eA, TSH3, CBC, T4F, CMP, FE PRO, T3F, [id number], LIPID, [id number] #### [address] Occult Blood,Urine Negative Normal Negative [facility] Comment on above: Order Comment: Name Collection Type:: Clean-Voided Midstream Performed By: #### A 1C WT eA, TSH3, CBC, T4F, CMP, FE PRO, T3F, [id number], LIPID, [id number] #### [place] [address] [place] Protein,Urine Negative Normal Negative [facility] Comment on above: Order Comment: Name Collection Type:: Clean-Voided Midstream Performed By: #### A 1C WTH eA, TSH3, CBC, T4F, CMP, FE PRO, T3F, [id number], LIPID, [id number] #### [address] RBC,Urine 20-49 High 0-4 [facility] Comment on above: Order Comment: Name Collection Type:: Clean-Voided Midstream Performed By: #### A 1C WTH eA, TSH3, CBC, T4F, CMP, FE PRO, T3F, [id number], LIPID, [id number] #### [address] Specificy [place],Urine 1.039 High 1.001-1.030 [facility] Comment on above: Order Comment: Name Collection Type:: Clean-Voided Midstream Performed By: #### A 1C WTH eA, TSH3, CBC, T4F, CMP, FE PRO, T3F, [id number], LIPID, [id number] #### [address] Squamous Epithelial Cell,Urine 5-9 High 0-2 [facility] Comment on above: Order Comment: Name Collection Type:: Clean-Voided Midstream Performed By: #### A 1C WTH eA, TSH3, CBC, T4F, CMP, FE PRO, T3F, [id number], LIPID, [id number] #### [address] Urobilinogen,Urine Normal Normal Normal [facility] Comment on above: Order Comment: Name Collection Type:: Clean-Voided Midstream Performed By: #### A 1C WTH eA, TSH3, CBC, T4F, CMP, FE PRO, T3F, [id number], LIPID, [id number] #### [address] WBC,Urine 5-9 High 0-4 [facility] Comment on above: Order Comment: Name Collection Type:: Clean-Voided Midstream Performed By: #### A 1C WTH eA, TSH3, CBC, T4F, CMP, FE PRO, T3F, [id number], LIPID, [id number] #### [address] Erythrocyte distribution wid th [Ratio] by Automated countOrdered By: Samia Saenz on 03-17-2023 Erythrocyte distribution width (RBC) [Ratio] 13.4 % Normal 11.9-15.3 [facility] Comment on above: Performed By: #### A 1C WTH eA, TSH3, CBC, T4F, CMP, FE PRO, T3F, [id number], LIPID, [id number] #### [address] Erythrocytes [#/volume] in B lood by Automated countOrdered By: Samia Saenz on 03-17-2023 RBC (Bld) [#/Vol] 3.75 10*6/uL Normal 3.60-5.00 [facility] Comment on above: Performed By: #### A 1C WTH eA, TSH3, CBC, T4F, CMP, FE PRO, T3F, [id number], LIPID, [id number] #### [facility] [address] FE PROon 03-17-2023 % Iron Saturation 21.1 % Normal 20-50 [facility] Comment on above: Performed By: #### A 1C WTH eA, TSH3, CBC, T4F, CMP, FE PRO, T3F, [id number], LIPID, [id number] #### [facility] [address] Total Iron Binding Capacity 322 ug/dL Normal 255-450 [facility] Comment on above: Performed By: #### A 1C WTH eA, TSH3, CBC, T4F, CMP, FE PRO, T3F, [id number], LIPID, [id number] #### [facility] [address] Ferritin [Mass/volume] in Se rum or PlasmaOrdered By: Samia Saenz on 03-17-2023 Ferritin [Mass/Vol] 16.4 ng/mL Normal 11.0-306.8 [facility] Comment on above: Performed By: #### A 1C WTH eA, TSH3, CBC, T4F, CMP, FE PRO, T3F, [id number], LIPID, [id number] #### [address] Folate [Mass/volume] in Seru m or PlasmaOrdered By: Samia Saenz on 03-17-2023 Folate [Mass/Vol] 10.5 ng/mL >5.9 [facility] Comment on above: Folate reference ran ge: >5.9 ng/mlThe WHO technical consultation on folate and vitamin [id number] has determined that folate concentrations lessthan 4 ng/ml are considered deficient. Glucose [Mass/volume] in Ser um or PlasmaOrdered By: Samia Saenz on 12-04-2023 Glucose [Mass/Vol] 100 mg/dL Normal 70-100 [facility] Comment on above: ADA recommended refe rence rangeRandom Glucose Reference Range is dependent on time and content of last meal. Glucose of more than 200 mg/dL in a nonstressed, ambulatory subject supports the diagnosis of Diabetes Mellitus. Result Comment: [place] om Glucose Reference Range is dependent on time and content of last meal. Glucose of more than 200 mg/dL in a nonstressed, ambulatory subject supports the diagnosis of Diabetes Mellitus. ADA recommended reference range Performed By: #### A 1C WTH eA, TSH3, CBC, T4F, CMP, FE PRO, T3F, [id number], LIPID, [id number] #### [facility] [address] Glucose mean value [Mass/vol ume] in Blood Estimated from glycated hemoglobinOrdered By: Samia Saenz on 03-17-2023 Average glucose Estimated from glycated hemoglobin (Bld) [Mass/Vol] 123 mg/dL [facility] Hematocrit [Volume Fraction] of Blood by Automated countOrdered By: Samia Saenz on 03-17-2023 Hematocrit (Bld) [Volume fraction] 36.7 % Normal 34.0-46.4 [facility] Comment on above: Performed By: #### A 1C WTH eA, TSH3, CBC, T4F, CMP, FE PRO, T3F, [id number], LIPID, [id number] #### [facility] [address] Hemoglobin A1c percentageOrd ered By: Samia Saenz on 03-17-2023 HbA1c (Bld) [Mass fraction] 5.9 % High 4.3-5.6 [facility] Comment on above: Increased risk for d iabetes: 5.7 - 6.4diabetes: >6.4glycemic control for adults with diabetes: <7.0 Result Comment: Incr eased risk for diabetes: 5.7 - 6.4 diabetes: >6.4 glycemic control for adults with diabetes: <7.0 Performed By: #### A 1C WTH eA, TSH3, CBC, T4F, CMP, FE PRO, T3F, [id number], LIPID, [id number] #### [facility] [address] [place] [address] [place] Hemoglobin [Mass/volume] in BloodOrdered By: Samia Saenz on 03-17-2023 Hemoglobin (Bld) [Mass/Vol] 12.4 g/dL Normal 11.8-15.4 [facility] Comment on above: Performed By: #### A 1C WTH eA, TSH3, CBC, T4F, CMP, FE PRO, T3F, [id number], LIPID, [id number] #### [facility] [address] [place] [id number] [facility] Iron [Mass/volume] in Serum or PlasmaOrdered By: Samia Saenz on 03-17-2023 Iron [Mass/Vol] 68 ug/dL Normal 50-212 [facility] Comment on above: Performed By: #### A 1C WTH eA, TSH3, CBC, T4F, CMP, FE PRO, T3F, [id number], LIPID, [id number] #### [facility] [address] [place] [id number] [facility] Iron binding capacity [Mass/ volume] in Serum or PlasmaOrdered By: Samia Saenz on 03-17-2023 Iron binding capacity [Mass/Vol] 322 ug/dL 255-450 [facility] Iron saturation [Mass Fracti on] in Serum or PlasmaOrdered By: Samia Saenz on 03-17-2023 Iron saturation [Mass fraction] 21.1 % 20-50 [facility] Ketones Auto test strip (U) [Mass/Vol]Ordered By: Samia Saenz on 03-17-2023 Ketones (U) [Mass/Vol] Trace Negative [facility] - UrinalysisOrder ed By: Samia Saenz on 03-17-2023 Hyaline casts LM Ql (Urine sed) 0-8 [LPF] 0-8 [facility] Leukocytes [#/volume] correc perico for nucleated erythrocytes in Blood by Automated counOrdered By: Samia Saenz on 03-17-2023 WBC corrected for nucl RBC Auto (Bld) [#/Vol] 7.7 10*3/uL 3.8-11.6 [facility] Leukocytes [#/volume] in Blo od by Automated countOrdered By: Samia Saenz on 03-17-2023 WBC (Bld) [#/Vol] 7.7 10*3/uL Normal 3.8-11.6 [facility] Comment on above: Performed By: #### A 1C WTH eA, TSH3, CBC, T4F, CMP, FE PRO, T3F, [id number], LIPID, [id number] #### [facility] [address] Lipid Panelon 03-17-2023 LDL Cholesterol,Calculated 98 mg/dL Normal 0-100 [facility] Comment on above: Result Comment: LDL ATP III CLASSIFICATION LDL less than 100 mg/dL Optimal LDL 100-129 mg/dL Near or above optimal LDL 130-159 mg/dL Borderline high LDL 160-189 mg/dL High LDL greater than 189 mg/dL Very high Performed By: #### A 1C WT eA, TSH3, CBC, T4F, CMP, FE PRO, T3F, [id number], LIPID, [id number] #### [facility] [address] Triglyceride w/Reflex 129 mg/dL Normal 0-149 [facility] Comment on above: Result Comment: TRIG ATP III CLASSIFICATION TRIG less than 150 mg/dL Normal TRIG 150-199 mg/dL Borderline high TRIG 200-500 mg/dL High TRIG greater than 500 mg/dL Very high Standard traceable to the Center for Disease Conrtrol and Prevention (CDC) test method. Performed By: #### A 1C WTH eA, TSH3, CBC, T4F, CMP, FE PRO, T3F, [id number], LIPID, [id number] #### [facility] [address] VLDL CHOLESTEROL 25 mg/dL Normal [facility] Comment on above: Performed By: #### A 1C WTH eA, TSH3, CBC, T4F, CMP, FE PRO, T3F, [id number], LIPID, [id number] #### [facility] [address] Lymphocytes [#/volume] in Bl ood by Automated countOrdered By: Samia Saenz on 03-17-2023 Lymphocytes (Bld) [#/Vol] 1.3 10*3/uL Normal 1.00-4.8 [facility] Comment on above: Performed By: #### A 1C WTH eA, TSH3, CBC, T4F, CMP, FE PRO, T3F, [id number], LIPID, [id number] #### [facility] [address] Lymphocytes/100 leukocytes i n Blood by Automated countOrdered By: Samia Saenz on 03-17-2023 Lymphocytes/100 WBC (Bld) 17.0 % Normal . [facility] Comment on above: Performed By: #### A 1C WT eA, TSH3, CBC, T4F, CMP, FE PRO, T3F, [id number], LIPID, [id number] #### [address] MCH [Entitic mass] by Automa perico countOrdered By: Samia Saenz on 03-17-2023 MCH (RBC) [Entitic mass] 33.0 pg Normal 24.7-34.3 [facility] Comment on above: Performed By: #### A 1C WT eA, TSH3, CBC, T4F, CMP, FE PRO, T3F, [id number], LIPID, [id number] #### [address] MCHC Auto (RBC) [Mass/Vol]Or dered By: Samia Saenz on 03-17-2023 MCHC (RBC) [Mass/Vol] 33.7 g/dL 32.0-35.0 [facility] MCV [Entitic volume] by Auto mated countOrdered By: Samia Saenz on 03-17-2023 MCV (RBC) [Entitic vol] 97.9 fL Normal 80-100 [facility] Comment on above: Performed By: #### A 1C WTH eA, TSH3, CBC, T4F, CMP, FE PRO, T3F, [id number], LIPID, [id number] #### [address] Neutrophils [#/volume] in Bl ood by Automated countOrdered By: Samia Saenz on 03-17-2023 Neutrophils (Bld) [#/Vol] 5.8 10*3/uL Normal 1.8-7.7 [facility] Comment on above: Performed By: #### A 1C WTH eA, TSH3, CBC, T4F, CMP, FE PRO, T3F, [id number], LIPID, [id number] #### [facility] [address] Nitrite Test strip Ql (U)Ord ered By: Samia Saenz on 03-17-2023 Nitrite Ql (U) Negative Negative [facility] No Panel InformationOrdered By: Samia Saenz on 03-17-2023 Estimated GFR (CKD-EPI) > 60.0 mL/Min [facility] Creatinine Clearance (Chem N/A [facility] Nucleated erythrocytes [Pres ence] in Blood by Automated countOrdered By: Samia Saenz on 03-17-2023 Nucleated RBC Auto Ql (Bld) 0.2 /100{WBC} 0-0.5 [facility] Platelet mean volume [Entiti c volume] in Blood by Automated countOrdered By: Samia Saenz on 03-17-2023 Platelet mean volume (Bld) [Entitic vol] 8.0 fL Normal 6.3-10.7 [facility] Comment on above: Performed By: #### A 1C WTH eA, TSH3, CBC, T4F, CMP, FE PRO, T3F, [id number], LIPID, [id number] #### [facility] [address] Platelets [#/volume] in Bloo d by Automated countOrdered By: Samia Saenz on 03-17-2023 Platelets (Bld) [#/Vol] 224 10*3/uL Normal 150-450 [facility] Comment on above: Performed By: #### A 1C WTH eA, TSH3, CBC, T4F, CMP, FE PRO, T3F, [id number], LIPID, [id number] #### [facility] [address] Potassium [Moles/volume] in Serum or PlasmaOrdered By: Samia Saenz on 03-17-2023 Potassium [Moles/Vol] 3.7 mmol/L Normal 3.5-5.1 [facility] Comment on above: Performed By: #### A 1C [facility] eA, TSH3, CBC, T4F, CMP, FE PRO, T3F, [id number], LIPID, [id number] #### [facility] [address] Protein Auto test strip (U) [Mass/Vol]Ordered By: Samia Saenz on 03-17-2023 Protein (U) [Mass/Vol] Negative Negative [facility] Protein [Mass/volume] in Ser um or PlasmaOrdered By: Samia Saenz on 03-17-2023 Protein [Mass/Vol] 6.4 g/dL Normal 6.4-8.9 [facility] Comment on above: Performed By: #### A 1C [facility] eA, TSH3, CBC, T4F, CMP, FE PRO, T3F, [id number], LIPID, [id number] #### [facility] [address] Serum globulin measurement b y calculation (mass/volume)Ordered By: Samia Saenz on 03-17-2023 Globulin (S) [Mass/Vol] 2.4 g/dL Normal [facility] Comment on above: Performed By: #### A 1C WT eA, TSH3, CBC, T4F, CMP, FE PRO, T3F, [id number], LIPID, [id number] #### [facility] [address] Serum or plasma albumin/glob ulin mass ratioOrdered By: Samia Saenz on 03-17-2023 Albumin/Globulin [Mass ratio] 1.7 {ratio} Normal [facility] Comment on above: Performed By: #### A 1C WT eA, TSH3, CBC, T4F, CMP, FE PRO, T3F, [id number], LIPID, [id number] #### [facility] [address] Serum or plasma anion gap de terminationOrdered By: Samia Saenz on 03-17-2023 Anion gap [Moles/Vol] 8.8 mmol/L Normal 6.0-15.0 [facility] Comment on above: Performed By: #### A 1C WTH eA, TSH3, CBC, T4F, CMP, FE PRO, T3F, [id number], LIPID, [id number] #### [facility] [address] Serum or plasma high density lipoprotein (HDL) cholesterol measurementOrdered By: Samia Saenz on 03-17-2023 Cholesterol in HDL [Mass/Vol] 50 mg/dL Normal 23-92 [facility] Comment on above: HDL CHOL ATP-III CLA SSIFICATION Cardiovascular RiskHDL > or equal to 60 mg/dL LOWHDL < 40 mg/dL HIGH Result Comment: HDL CHOL ATP-III CLASSIFICATION Cardiovascular Risk HDL > or equal to 60 mg/dL LOW HDL < 40 mg/dL HIGH Performed By: #### A 1C WTH eA, TSH3, CBC, T4F, CMP, FE PRO, T3F, [id number], LIPID, [id number] #### [facility] [address] Serum or plasma total choles terol/high density lipoprotein (HDL) cholesterol mass ratOrdered By: Samia Saenz on 03-17-2023 Cholesterol.total/Theresa sterol in HDL [Mass ratio] 3.5 {ratio} Normal <5.0 [facility] Comment on above: Performed By: #### A 1C WTH eA, TSH3, CBC, T4F, CMP, FE PRO, T3F, [id number], LIPID, [id number] #### [facility] [address] Sodium [Moles/volume] in Ser um or PlasmaOrdered By: Samia Saenz on 03-17-2023 Sodium [Moles/Vol] 141 mmol/L Normal 136-145 [facility] Comment on above: Performed By: #### A 1C WTH eA, TSH3, CBC, T4F, CMP, FE PRO, T3F, [id number], LIPID, [id number] #### [facility] [address] Specific gravity Auto test s trip (U) [Rel density]Ordered By: Samia Saenz on 03-17-2023 Specific gravity (U) [Rel density] 1.039 1.001-1.030 [facility] Squamous epithelial cells de tection in urine sediment by light microscopyOrdered By: Samia Saenz on 03-17-2023 Epithelial cells.squamous LM Ql (Urine sed) 5-9 [HPF] 0-2 [facility] Thyrotropin [Units/volume] i n Serum or PlasmaOrdered By: Samia Saenz on 03-17-2023 TSH Qn 3.65 m[IU]/L Normal 0.45-5.33 [facility] Comment on above: Performed By: #### A 1C WT eA, TSH3, CBC, T4F, CMP, FE PRO, T3F, [id number], LIPID, [id number] #### [address] Thyroxine (T4) free [Mass/vo lume] in Serum or PlasmaOrdered By: Samia Saenz on 03-17-2023 Free T4 [Mass/Vol] 0.70 ng/dL Normal 0.61-1.12 [facility] Comment on above: Performed By: #### A 1C WT eA, TSH3, CBC, T4F, CMP, FE PRO, T3F, [id number], LIPID, [id number] #### [facility] [address] Transferrin [Mass/volume] in Serum or PlasmaOrdered By: Samia Saenz on 03-17-2023 Transferrin [Mass/Vol] 230 mg/dL Normal 203-362 [facility] Comment on above: Performed By: #### A 1C WTH eA, TSH3, CBC, T4F, CMP, FE PRO, T3F, [id number], LIPID, [id number] #### [address] Triglyceride [Mass/volume] i n Serum or PlasmaOrdered By: Samia Saenz on 03-17-2023 Triglyceride [Mass/Vol] 129 mg/dL 0-149 [facility] Comment on above: TRIG ATP III CLASSIF ICATIONTRIG less than 150 mg/dL NormalTRIG 150-199 mg/dL Borderline highTRIG 200-500 mg/dL High TRIG greater than 500 mg/dL Very highStandard traceable to the Center for Disease Conrtrol and Prevention (CDC) test method. Triiodothyronine (T3) Freeon 03-17-2023 Triiodothyronine (T3) Free 2.54 pg/mL Normal 2.50-3.90 [facility] Comment on above: Result Comment: PERF ORMED BY: [place] [address] PATHOLOGIST NEUROPSYCHOLOGY MEDICAL CONSULTANT BALDEV HENNESSY M.D. Performed By: #### A 1C WT eA, TSH3, CBC, T4F, CMP, FE PRO, T3F, [id number], LIPID, [id number] #### [facility] [address] Triiodothyronine (T3) Free [ Mass/volume] in Serum or PlasmaOrdered By: Samia Saenz on 03-17-2023 Free T3 [Mass/Vol] 2.54 pg/mL 2.50-3.90 [facility] Urea nitrogen [Mass/volume] in Serum or PlasmaOrdered By: Samia Saenz on 03-17-2023 Urea nitrogen [Mass/Vol] 19 mg/dL Normal 7-25 [facility] Comment on above: Performed By: #### A 1C WTH eA, TSH3, CBC, T4F, CMP, FE PRO, T3F, [id number], LIPID, [id number] #### [facility] [address] [place], [place] [id number] [facility] Urine Cultureon 03-17-2023 Bacteria identified Cx Nom (U) ORGANISM: Lactobacillus jensenii (O:LACJEN) Superior Count >100,000 Organism Comments Organism not Routinely Tested for Susceptibilities PERFORMED BY: [place] [address] PATHOLOGIST NEUROPSYCHOLOGY MEDICAL CONSULTANT BALDEV HENNESSY M.D. Normal [facility] Comment on above: Performed By: #### A 1C [facility] eA, TSH3, CBC, T4F, CMP, FE PRO, T3F, [id number], LIPID, [id number] #### [facility] [address] Urine bacteria detection by automated methodOrdered By: Samia Saenz on 03-17-2023 Bacteria Auto Ql (U) 1+ None Seen [facility] Urine clarity by refractomet ry automatedOrdered By: Samia Saenz on 03-17-2023 Clarity Refractometry automated (U) Cloudy Clear [facility] Urine culture routineOrdered By: Samia Saenz on 03-17-2023 Bacteria identified Cx Nom (U) Lactobacillus jensenii [facility] Urine glucose measurement by automated test strip (mass/volume)Ordered By: Samia Saenz on 03-17-2023 Glucose Auto test strip (U) [Mass/Vol] Normal mg/dL Normal [facility] Urine hemoglobin detection b y automated test stripOrdered By: Samia Saenz on 03-17-2023 Hemoglobin Auto test strip Ql (U) Negative Negative [facility] Urine leukocyte esterase det ection by automated test stripOrdered By: Samia Saenz on 03-17-2023 Leukocyte esterase Auto test strip Ql (U) 1+ Negative [facility] Urine pH measurement by auto mated test stripOrdered By: Samia Saenz on 03-17-2023 pH (U) 5.0 [pH] Normal 5.0-9.0 [facility] Comment on above: Order Comment: Name Collection Type:: Clean-Voided Midstream Performed By: #### A 1C [facility] eA, TSH3, CBC, T4F, CMP, FE PRO, T3F, [id number], LIPID, [id number] #### [facility] [address] Urobilinogen Auto test strip (U) [Mass/Vol]Ordered By: Samia Saenz on 03-17-2023 Urobilinogen (U) [Mass/Vol] Normal mg/dL Normal [facility] Vit. B12/Folate Profileon Folate 10.5 ng/mL Normal >5.9 [facility] Comment on above: Result Comment: Jessica te reference range: >5.9 ng/ml The WHO technical consultation on folate and vitamin b12 deficiencies has determined that folate concentrations less than 4 ng/ml are considered deficient. Performed By: #### A 1C WTH eA, TSH3, CBC, T4F, CMP, FE PRO, T3F, [id number], LIPID, [id number] #### [facility] [address] Vitamin B12 ser/plasOrdered By: Samia Saenz on 03-17-2023 Cobalamin (Vitamin B12) [Mass/Vol] 763 pg/mL Normal 180-914 [facility] Comment on above: Performed By: #### A 1C WTH eA, TSH3, CBC, T4F, CMP, FE PRO, T3F, [id number], LIPID, [id number] #### [facility] [address] [place] [id number] [facility] Vitamin D 25 Hydroxy Totalon 03-17-2023 Vitamin D 25 Hydroxy Total 53.3 ng/mL Normal 30-100 [facility] Comment on above: Result Comment: [place] MIN D STATUS 25(OH)VITAMIN D RANGE (ng/mL) Deficient <20 Insufficient 20 to <30 Sufficient 30 to 100 Reference: Melvin MF,Shakir NC, Darius SHAW, et al. Evaluation,treatment, and prevention of vitamin D deficiency; an Endocrine Society clinical practice guideline. JCEM. 2010; 96(7):1911-30. PERFORMED BY: [place] [address] PATHOLOGIST NEUROPSYCHOLOGY MEDICAL CONSULTANT BALDEV HENNESSY M.D. Performed By: #### A 1C WTH eA, TSH3, CBC, T4F, CMP, FE PRO, T3F, [id number], LIPID, [id number] #### [address] Vitamin D+Metabolites [Mass/ volume] in Serum or PlasmaOrdered By: Samia Saenz on 03-17-2023 Vitamin D+Metabolites [Mass/Vol] 53.3 ng/mL 30-100 [facility] Comment on above: VITAMIN D STATUS 25( [place])VITAMIN D RANGE (ng/mL) Deficient <20 Insufficient 20 to <30Sufficient 30 to 100Reference: Melvin MF,Shakir NC, Darius SHAW, et al. Evaluation,treatment, and prevention of vitamin D deficiency; an Endocrine Society clinical practice guideline. JCEM. 2010; 96(7):1911-30. [place] 03-12-2023 Screens [id number]# 1.00TIFF Normal [facility] Ambulatory Visit Summaryon 1 05-11-2022 Ambulatory Visit Summary ALLA BRADY :1965 Visit Date:03/11/2023 Ambulatory Visit Instructions Your Diagnosis Urinary urgency Tests Performed Urnls Dip Stick Auto w/o Microscopy POC 20257 Your Care Team Attending Physician - VEE [...] 300 mg Tab) potassium chloride (Potassium Chloride (Mnx-Btsz-Zzr 10) 10 mEq oral tablet, extended release) [...] or concerns Unchanged potassium chloride (Potassium Chloride (Xkm-Brxy-Ebh 10) 10 mEq oral tablet, extended release) [...] Urnls Dip Stick Auto w/o Microscopy POC 68863 (03/11/2023) Bilirubin Urine Dipstick - Negative Blood Urine Dipstick - Negative Glucose Urine Dipstick - Negative Ketones Urine Dipstick - Negative Leukocytes Urine Dipstick - Negative Nitrite Urine Dipstick - Negative Protein Urine Dipstick - Negative Specific [place] Urine Dipstick - 1.025 Urine Appearance Urine [...] you for choosing us for your care. Normal [facility] Patient Educationon 11-28-20 23 Patient Education Pulmonary [...] require a prescription. You can also purchase lpzu-tnb-dadyodp medicines. Medicines may have nicotine in them [...] and encouragement. Call telephone quitlines, such as 3-395-JGRK-NOW, reach out to support groups, or work [...] quit smoki (more content not included)... Normal [facility] Automated erythrocytes count in urine sediment (number/area)Ordered By: Samia Saenz on 09-18-2022 RBC Auto (Urine sed) [#/Area] 1-2 [HPF] 0-4 [facility] Automated leukocytes count i n urine sediment (number/area)Ordered By: Samia Saenz on 09-18-2022 WBC Auto (Urine sed) [#/Area] 0-1 [HPF] 0-4 [facility] Automated urine sediment aaron cium oxalate crystal count by microscopy (number/high powOrdered By: Samia Saenz on 09-18-2022 Calcium oxalate crystals LM.HPF (Urine sed) [#/Area] 2+ [HPF] [facility] Bilirubin Test strip Ql (U)O rdered By: Samia Saenz on 09-18-2022 Bilirubin Ql (U) Negative Negative [facility] Color Auto (U)Ordered By: Dequan Saenz on 09-18-2022 Color (U) Yellow Yellow [facility] Ketones Auto test strip (U) [Mass/Vol]Ordered By: Samia Saenz on 09-18-2022 Ketones (U) [Mass/Vol] Negative Negative [facility] - UrinalysisOrder ed By: Samia Saenz on 09-18-2022 Hyaline casts LM Ql (Urine sed) 0-8 [LPF] 0-8 [facility] Nitrite Test strip Ql (U)Ord ered By: Samia Saenz on 09-18-2022 Nitrite Ql (U) Negative Negative [facility] Protein Auto test strip (U) [Mass/Vol]Ordered By: Samia Saenz on 09-18-2022 Protein (U) [Mass/Vol] Negative Negative [facility] Specific gravity Auto test s trip (U) [Rel density]Ordered By: Samia Saenz on 09-18-2022 Specific gravity (U) [Rel density] 1.021 1.001-1.030 [facility] Squamous epithelial cells de tection in urine sediment by light microscopyOrdered By: Samia Saenz on 09-18-2022 Epithelial cells.squamous LM Ql (Urine sed) 0-1 [HPF] 0-2 [facility] Urine bacteria detection by automated methodOrdered By: Samia Saenz on 09-18-2022 Bacteria Auto Ql (U) None seen None Seen [facility] Urine clarity by refractomet ry automatedOrdered By: Samia Saenz on 09-18-2022 Clarity Refractometry automated (U) Clear Clear [facility] Urine glucose measurement by automated test strip (mass/volume)Ordered By: Samia Saenz on 09-18-2022 Glucose Auto test strip (U) [Mass/Vol] Normal mg/dL Normal [facility] Urine hemoglobin detection b y automated test stripOrdered By: Samia Saenz on 09-18-2022 Hemoglobin Auto test strip Ql (U) Negative Negative [facility] Urine leukocyte esterase det ection by automated test stripOrdered By: Samia Saenz on 09-18-2022 Leukocyte esterase Auto test strip Ql (U) Negative Negative [facility] Urine sediment crystal ident ification by light microscopyOrdered By: Samia Saenz on 09-18-2022 Crystals LM Nom (Urine sed) N/A [facility] Urobilinogen Auto test strip (U) [Mass/Vol]Ordered By: Samia Saenz on 09-18-2022 Urobilinogen (U) [Mass/Vol] Normal mg/dL Normal [facility] pH Auto test strip (U)Ordere d By: Samia Saenz on 09-18-2022 pH (U) 5.5 [pH] 5.0-9.0 [facility] Alanine aminotransferase [En zymatic activity/volume] in Serum or PlasmaOrdered By: Samia Saenz on 09-16-2022 ALT [Catalytic activity/Vol] 13 U/L 7-52 [facility] Albumin [Mass/volume] in Ser um or Plasma by Bromocresol green (BCG) dye binding methoOrdered By: Samia Saenz on 09-16-2022 Albumin BCG dye [Mass/Vol] 4.4 g/dL 3.5-5.7 [facility] Alkaline phosphatase [Enzyma tic activity/volume] in Serum or PlasmaOrdered By: Samia Saenz on 09-16-2022 ALP [Catalytic activity/Vol] 49 U/L 34-104 [facility] Aspartate aminotransferase [ Enzymatic activity/volume] in Serum or PlasmaOrdered By: Samia Saenz on 09-16-2022 AST [Catalytic activity/Vol] 11 U/L 13-39 [facility] Basophils Auto (Bld) [#/Vol] Ordered By: Samia Saenz on 09-16-2022 Basophils (Bld) [#/Vol] 0.0 10*3/uL 0.0-0.2 [facility] Basophils/100 WBC Auto (Bld) Ordered By: Samia Saenz on 09-16-2022 Basophils/100 WBC (Bld) 0.6 % . [facility] Bilirubin.total [Mass/volume ] in Serum or PlasmaOrdered By: Samia Saenz on 09-16-2022 Bilirubin [Mass/Vol] 0.3 mg/dL 0.3-1.0 [facility] Calcium [Mass/volume] in Ser um or PlasmaOrdered By: Samia Saenz on 09-16-2022 Calcium [Mass/Vol] 9.3 mg/dL 8.6-10.3 [facility] Carbon dioxide, total [Moles /volume] in Serum or PlasmaOrdered By: Samia Saenz on 09-16-2022 CO2 [Moles/Vol] 27.0 mmol/L 21.0-31.0 [facility] Chloride [Moles/volume] in S santiago or PlasmaOrdered By: Samia Saenz on 09-16-2022 Chloride [Moles/Vol] 107 mmol/L 98-107 [facility] Cholesterol [Mass/volume] in Serum or PlasmaOrdered By: Samia Saenz on 09-16-2022 Cholesterol [Mass/Vol] 179 mg/dL 140-200 [facility] Comment on above: Chol less than 200 m g/dl low riskChol 201-239 mg/dl borderline riskChol 240 mg/dl and greater high risk Cholesterol in LDL Calc [Mas s/Vol]Ordered By: Samia Saenz on 09-16-2022 Cholesterol in LDL [Mass/Vol] 105 mg/dL 0-100 [facility] Comment on above: LDL ATP III CLASSIFI CATIONLDL less than 100 mg/dL OptimalLDL 100-129 mg/dL Near or above optimalLDL 130-159 mg/dL Borderline highLDL 160-189 mg/dL HighLDL greater than 189 mg/dL Very high Cholesterol in VLDL Calc [Ma ss/Vol]Ordered By: Samia Saenz on 09-16-2022 Cholesterol in VLDL [Mass/Vol] 29 mg/dL [facility] Creatinine [Mass/volume] in Serum or PlasmaOrdered By: Samia Saenz on 09-16-2022 Creatinine [Mass/Vol] 0.72 mg/dL 0.60-1.20 [facility] Eosinophils Auto (Bld) [#/Vo l]Ordered By: Samia Saenz on 09-16-2022 Eosinophils (Bld) [#/Vol] 0.0 10*3/uL 0.0-0.45 [facility] Eosinophils/100 WBC Auto (Bl d)Ordered By: Samia Saenz on 09-16-2022 Eosinophils/100 WBC (Bld) 0.2 % . [facility] Erythrocyte distribution wid th Auto (RBC) [Ratio]Ordered By: Samia Saenz on 09-16-2022 Erythrocyte distribution width (RBC) [Ratio] 13.1 % 11.9-15.3 [facility] Ferritin [Mass/volume] in Se rum or PlasmaOrdered By: Samia Saenz on 09-16-2022 Ferritin [Mass/Vol] 27.4 ng/mL 11.0-306.8 [facility] Folate [Mass/volume] in Seru m or PlasmaOrdered By: Samia Saenz on 09-16-2022 Folate [Mass/Vol] 28.0 ng/mL >5.9 [facility] Comment on above: Folate reference ran ge: >5.9 ng/mlThe WHO technical consultation on folate and vitamin [id number] has determined that folate concentrations lessthan 4 ng/ml are considered deficient. Globulin Calc (S) [Mass/Vol] Ordered By: Samia Saenz on 09-16-2022 Globulin (S) [Mass/Vol] 2.1 g/dL [facility] Glucose [Mass/volume] in Ser um or PlasmaOrdered By: Samia Saenz on 09-16-2022 Glucose [Mass/Vol] 87 mg/dL 70-100 [facility] Comment on above: ADA recommended refe rence rangeRandom Glucose Reference Range is dependent on time and content of last meal. Glucose of more than 200 mg/dL in a nonstressed, ambulatory subject supports the diagnosis of Diabetes Mellitus. Glucose mean value [Mass/vol ume] in Blood Estimated from glycated hemoglobinOrdered By: Samia Saenz on 09-16-2022 Average glucose Estimated from glycated hemoglobin (Bld) [Mass/Vol] 120 mg/dL [facility] Hematocrit Auto (Bld) [Volum e fraction]Ordered By: Samia Saenz on 09-16-2022 Hematocrit (Bld) [Volume fraction] 38.5 % 34.0-46.4 [facility] Hemoglobin A1c percentageOrd ered By: Samia Saenz on 09-16-2022 HbA1c (Bld) [Mass fraction] 5.8 % 4.3-5.6 [facility] Comment on above: Increased risk for d iabetes: 5.7 - 6.4diabetes: >6.4glycemic control for adults with diabetes: <7.0 Hemoglobin [Mass/volume] in BloodOrdered By: Samia Saenz on 09-16-2022 Hemoglobin (Bld) [Mass/Vol] 12.9 g/dL 11.8-15.4 [facility] Iron [Mass/volume] in Serum or PlasmaOrdered By: Samia Saenz on 09-16-2022 Iron [Mass/Vol] 34 ug/dL 50-212 [facility] Iron binding capacity [Mass/ volume] in Serum or PlasmaOrdered By: Samia Saenz on 09-16-2022 Iron binding capacity [Mass/Vol] 323 ug/dL 255-450 [facility] Iron saturation [Mass Fracti on] in Serum or PlasmaOrdered By: Samia Saenz on 09-16-2022 Iron saturation [Mass fraction] 10.5 % 20-50 [facility] Leukocytes [#/volume] correc perico for nucleated erythrocytes in Blood by Automated counOrdered By: Samia Saenz on 09-16-2022 WBC corrected for nucl RBC Auto (Bld) [#/Vol] 8.7 10*3/uL 3.8-11.6 [facility] Lymphocytes Auto (Bld) [#/Vo l]Ordered By: Samia Saenz on 09-16-2022 Lymphocytes (Bld) [#/Vol] 1.6 10*3/uL 1.00-4.8 [facility] Lymphocytes/100 WBC Auto (Bl d)Ordered By: Samia Saenz on 09-16-2022 Lymphocytes/100 WBC (Bld) 18.4 % . [facility] MCH Auto (RBC) [Entitic mass ]Ordered By: Samia Saenz on 09-16-2022 MCH (RBC) [Entitic mass] 31.8 pg 24.7-34.3 [facility] MCHC Auto (RBC) [Mass/Vol]Or dered By: Samia Saenz on 09-16-2022 MCHC (RBC) [Mass/Vol] 33.6 g/dL 32.0-35.0 [facility] MCV Auto (RBC) [Entitic vol] Ordered By: Samia Saenz on 09-16-2022 MCV (RBC) [Entitic vol] 94.5 fL 80-100 [facility] Monocytes Auto (Bld) [#/Vol] Ordered By: Samia Saenz on 09-16-2022 Monocytes (Bld) [#/Vol] 0.6 10*3/uL 0.0-0.8 [facility] Monocytes/100 WBC Auto (Bld) Ordered By: Samia Saenz on 09-16-2022 Monocytes/100 WBC (Bld) 6.8 % . [facility] Neutrophils Auto (Bld) [#/Vo l]Ordered By: Samia Saenz on 09-16-2022 Neutrophils (Bld) [#/Vol] 6.5 10*3/uL 1.8-7.7 [facility] Neutrophils/100 WBC Auto (Bl d)Ordered By: Samia Saenz on 09-16-2022 Neutrophils/100 WBC (Bld) 74.0 % . [facility] No Panel InformationOrdered By: Samia Saenz on 09-16-2022 Estimated GFR (CKD-EPI) > 60.0 mL/Min [facility] Creatinine Clearance (Chem N/A [facility] Nucleated erythrocytes [Pres ence] in Blood by Automated countOrdered By: Samia Saenz on 09-16-2022 Nucleated RBC Auto Ql (Bld) 0.0 /100{WBC} 0-0.5 [facility] Platelet mean volume Auto (B ld) [Entitic vol]Ordered By: Samia Saenz on 09-16-2022 Platelet mean volume (Bld) [Entitic vol] 7.6 fL 6.3-10.7 [facility] Platelets Auto (Bld) [#/Vol] Ordered By: Samia Saenz on 09-16-2022 Platelets (Bld) [#/Vol] 250 10*3/uL 150-450 [facility] Potassium [Moles/volume] in Serum or PlasmaOrdered By: Samia Saenz on 09-16-2022 Potassium [Moles/Vol] 3.8 mmol/L 3.5-5.1 [facility] Protein [Mass/volume] in Ser um or PlasmaOrdered By: Samia Saenz on 09-16-2022 Protein [Mass/Vol] 6.5 g/dL 6.4-8.9 [facility] RBC Auto (Bld) [#/Vol]Ordere d By: Samia Saenz on 09-16-2022 RBC (Bld) [#/Vol] 4.07 10*6/uL 3.60-5.00 [facility] Serum or plasma albumin/glob ulin mass ratioOrdered By: Samia Saenz on 09-16-2022 Albumin/Globulin [Mass ratio] 2.1 {ratio} [facility] Serum or plasma anion gap de terminationOrdered By: Samia Saenz on 09-16-2022 Anion gap [Moles/Vol] 9.8 mmol/L 6.0-15.0 [facility] Serum or plasma high density lipoprotein (HDL) cholesterol measurementOrdered By: Samia Saenz on 09-16-2022 Cholesterol in HDL [Mass/Vol] 45 mg/dL 23-92 [facility] Comment on above: HDL CHOL ATP-III CLA SSIFICATION Cardiovascular RiskHDL > or equal to 60 mg/dL LOWHDL < 40 mg/dL HIGH Serum or plasma total choles terol/high density lipoprotein (HDL) cholesterol mass ratOrdered By: Samia Saenz on 09-16-2022 Cholesterol.total/Theresa sterol in HDL [Mass ratio] 4.0 {ratio} <5.0 [facility] Sodium [Moles/volume] in Ser um or PlasmaOrdered By: Samia Saenz on 09-16-2022 Sodium [Moles/Vol] 140 mmol/L 136-145 [facility] Thyrotropin [Units/volume] i n Serum or PlasmaOrdered By: Samia Saenz on 09-16-2022 TSH Qn 1.50 m[IU]/L 0.45-5.33 [facility] Thyroxine (T4) free [Mass/vo lume] in Serum or PlasmaOrdered By: Samia Saenz on 09-16-2022 Free T4 [Mass/Vol] 0.75 ng/dL 0.61-1.12 [facility] Transferrin [Mass/volume] in Serum or PlasmaOrdered By: Samia Saenz on 09-16-2022 Transferrin [Mass/Vol] 231 mg/dL 203-362 [facility] Triglyceride [Mass/volume] i n Serum or PlasmaOrdered By: Samia Saenz on 09-16-2022 Triglyceride [Mass/Vol] 147 mg/dL 0-149 [facility] Comment on above: TRIG ATP III CLASSIF ICATIONTRIG less than 150 mg/dL NormalTRIG 150-199 mg/dL Borderline highTRIG 200-500 mg/dL High TRIG greater than 500 mg/dL Very highStandard traceable to the Center for Disease Conrtrol and Prevention (CDC) test method. Triiodothyronine (T3) Free [ Mass/volume] in Serum or PlasmaOrdered By: Samia Saenz on 09-16-2022 Free T3 [Mass/Vol] 2.64 pg/mL 2.50-3.90 [facility] Urea nitrogen [Mass/volume] in Serum or PlasmaOrdered By: Samia Saenz on 09-16-2022 Urea nitrogen [Mass/Vol] 16 mg/dL 7-25 [facility] Vitamin B12 ser/plasOrdered By: Samia Saenz on 09-16-2022 Cobalamin (Vitamin B12) [Mass/Vol] 484 pg/mL 180-914 [facility] Vitamin D+Metabolites [Mass/ volume] in Serum or PlasmaOrdered By: Samia Saenz on 09-16-2022 Vitamin D+Metabolites [Mass/Vol] 78.1 ng/mL 30-100 [facility] Comment on above: VITAMIN D STATUS 25( [place])VITAMIN D RANGE (ng/mL) Deficient <20 Insufficient 20 to <30Sufficient 30 to 100Reference: Melvin MF,Shakir NC, Darius SHAW, et al. Evaluation,treatment, and prevention of vitamin D deficiency; an Endocrine Society clinical practice guideline. JCEM. 2010; 96(7):1911-30. WBC Auto (Bld) [#/Vol]Ordere d By: Samia Saenz on 09-16-2022 WBC (Bld) [#/Vol] 8.7 10*3/uL 3.8-11.6 [facility] Urine culture routineOrdered By: Samia Saenz on 01-13-2022 Bacteria identified Cx Nom (U) 2 Days [facility] Albumin [Mass/volume] in Ser um or PlasmaOrdered By: Samia Saenz on 01-11-2022 Albumin [Mass/Vol] 3.7 g/dL 3.2-5.5 [facility] Basophils Auto (Bld) [#/Vol] Ordered By: Samia Saenz on 01-11-2022 Basophils (Bld) [#/Vol] 0.0 10*3/uL 0.0-0.2 [facility] Basophils/100 WBC Auto (Bld) Ordered By: Samia Saenz on 01-11-2022 Basophils/100 WBC (Bld) 0.5 % . [facility] Bilirubin Test strip Ql (U)O rdered By: Samia Saenz on 01-11-2022 Bilirubin Ql (U) [facility] biopsyOrdered By: Samia mina on 01-11-2022 Transferrin [Mass/Vol] 239 mg/dL 180-380 Fi [facility] Color Auto (U)Ordered By: Dequan Saenz on 01-11-2022 Color (U) Yellow Yellow [facility] Creatinine and Glomerular fi ltration rate.predicted panel (S/P/Bld)Ordered By: Samia Saenz on 01-11-2022 Creatinine [Mass/Vol] 0.68 mg/dL 0.44-1.03 [facility] Eosinophils Auto (Bld) [#/Vo l]Ordered By: Samia Saenz on 01-11-2022 Eosinophils (Bld) [#/Vol] 0.0 10*3/uL 0.0-0.45 [facility] Eosinophils/100 WBC Auto (Bl d)Ordered By: Samia Saenz on 01-11-2022 Eosinophils/100 WBC (Bld) 0.2 % . [facility] Erythrocyte distribution wid th Auto (RBC) [Ratio]Ordered By: Samia Saenz on 01-11-2022 Erythrocyte distribution width (RBC) [Ratio] 15.2 % 11.9-15.3 [facility] Estimated glomerular filtrat ion rate (GFR) non- AmericanOrdered By: Samia Saenz on 01-11-2022 GFR/1.73 sq M.predicted among non-blacks MDRD (S/P/Bld) [Vol rate/Area] > 60 mL/Min [facility] Ferritin [Mass/volume] in Se rum or PlasmaOrdered By: Samia Saenz on 01-11-2022 Ferritin [Mass/Vol] 30.8 ng/mL 11-306.8 [facility] Folate [Mass/volume] in Seru m or PlasmaOrdered By: Samia Saenz on 01-11-2022 Folate [Mass/Vol] 10.1 ng/mL >5.9 [facility] Comment on above: Folate reference ran ge: >5.9 ng/mlThe WHO technical consultation on folate and vitamin [id number] has determined that folate concentrations lessthan 4 ng/ml are considered deficient. Globulin Calc (S) [Mass/Vol] Ordered By: Samia Saenz on 01-11-2022 Globulin (S) [Mass/Vol] 2.9 g/dL [facility] Glucose mean value [Mass/vol ume] in Blood Estimated from glycated hemoglobinOrdered By: Samia Saenz on 01-11-2022 Average glucose Estimated from glycated hemoglobin (Bld) [Mass/Vol] 117 mg/dL [facility] Hematocrit Auto (Bld) [Volum e fraction]Ordered By: Samia Saenz on 01-11-2022 Hematocrit (Bld) [Volume fraction] 38.7 % 34.0-46.4 [facility] Hemoglobin A1c percentageOrd ered By: Samia Saenz on 01-11-2022 HbA1c (Bld) [Mass fraction] 5.7 % 4.3-5.6 [facility] Comment on above: Increased risk for d iabetes: 5.7 - 6.4diabetes: >6.4glycemic control for adults with diabetes: <7.0 Hemoglobin [Mass/volume] in BloodOrdered By: Samia Saenz on 01-11-2022 Hemoglobin (Bld) [Mass/Vol] 12.5 g/dL 11.8-15.4 [facility] Iron [Mass/volume] in Serum or PlasmaOrdered By: Samia Saenz on 01-11-2022 Iron [Mass/Vol] 71 ug/dL 40-150 [facility] Iron binding capacity [Mass/ volume] in Serum or PlasmaOrdered By: Samia Saenz on 01-11-2022 Iron binding capacity [Mass/Vol] 335 ug/dL 255-450 [facility] Iron saturation [Mass Fracti on] in Serum or PlasmaOrdered By: Samia Saenz on 01-11-2022 Iron saturation [Mass fraction] 21.0 % 20-50 [facility] Ketones Auto test strip (U) [Mass/Vol]Ordered By: Samia Saenz on 01-11-2022 Ketones (U) [Mass/Vol] Negative Negative [facility] - Chemistry and C hemistry - challengeOrdered By: Samia Saenz on 01-11-2022 Cobalamin (Vitamin B12) [Mass/Vol] 496 pg/mL 180-914 [facility] Laboratory - Hematology and Cell countsOrdered By: Samia Saenz on 01-11-2022 Nucleated RBC/100 WBC (Bld) [Ratio] 0.0 % 0-0.5 [facility] Leukocytes [#/volume] in Blo od by Automated countOrdered By: Samia Saenz on 01-11-2022 WBC (Bld) [#/Vol] 5.3 10*3/uL 4.5-11.0 [facility] Lymphocytes Auto (Bld) [#/Vo l]Ordered By: Samia Saenz on 01-11-2022 Lymphocytes (Bld) [#/Vol] 1.6 10*3/uL 1.00-4.8 [facility] Lymphocytes/100 WBC Auto (Bl d)Ordered By: Samia Saenz on 01-11-2022 Lymphocytes/100 WBC (Bld) 30.7 % . [facility] MCH Auto (RBC) [Entitic mass ]Ordered By: Samia Saenz on 01-11-2022 MCH (RBC) [Entitic mass] 30.6 pg 24.7-34.3 [facility] MCHC Auto (RBC) [Mass/Vol]Or dered By: Samia Saenz on 01-11-2022 MCHC (RBC) [Mass/Vol] 32.4 g/dL 32.0-35.0 [facility] MCV Auto (RBC) [Entitic vol] Ordered By: Samia Saenz on 01-11-2022 MCV (RBC) [Entitic vol] 94.6 fL 80-100 [facility] Monocytes Auto (Bld) [#/Vol] Ordered By: Samia Saenz on 01-11-2022 Monocytes (Bld) [#/Vol] 0.3 10*3/uL 0.0-0.8 [facility] Monocytes/100 WBC Auto (Bld) Ordered By: Samia Saenz on 01-11-2022 Monocytes/100 WBC (Bld) 6.3 % . [facility] Neutrophils Auto (Bld) [#/Vo l]Ordered By: Samia Saenz on 01-11-2022 Neutrophils (Bld) [#/Vol] 3.3 10*3/uL 1.8-7.7 [facility] Neutrophils/100 WBC Auto (Bl d)Ordered By: Samia Saenz on 01-11-2022 Neutrophils/100 WBC (Bld) 62.3 % . [facility] Nitrite Test strip Ql (U)Ord ered By: Samia Saenz on 01-11-2022 Nitrite Ql (U) Negative Negative [facility] No Panel InformationOrdered By: Samia Saenz on 01-11-2022 25-Hydroxy Vitamin D Total 54.3 ng/mL 30-100 [facility] Comment on above: VITAMIN D STATUS 25( OH)VITAMIN D RANGE (ng/mL) Deficient <20 Insufficient 20 to <30Sufficient 30 to 100Reference: Melvin MF,Shakir NC, Daruis SHAW, et al. Evaluation,treatment, and prevention of vitamin D deficiency; an Endocrine Society clinical practice guideline. JCEM. 2010; 96(7):1911-30. Estimated GFR () > 60 mL/Min [facility] Comment on above: GFR estimated refere nce range: According to KDOQI guidelines, <60 ml/min/1.73m2 is sufficient to diagnose a patient with chronic kidney disease. Pharmacy Creatinine Clearance (Chem N/A [facility] Platelet mean volume Auto (B ld) [Entitic vol]Ordered By: Samia Saenz on 01-11-2022 Platelet mean volume (Bld) [Entitic vol] 7.7 fL 6.3-10.7 [facility] Platelets Auto (Bld) [#/Vol] Ordered By: Samia Saenz on 01-11-2022 Platelets (Bld) [#/Vol] 262 10*3/uL 150-450 [facility] Protein Auto test strip (U) [Mass/Vol]Ordered By: Samia Saenz on 01-11-2022 Protein (U) [Mass/Vol] Negative Negative [facility] Protein [Mass/volume] in Ser um or PlasmaOrdered By: Samia Saenz on 01-11-2022 Protein [Mass/Vol] 6.6 g/dL 6.1-7.9 [facility] RBC Auto (Bld) [#/Vol]Ordere d By: Samia Saenz on 01-11-2022 RBC (Bld) [#/Vol] 4.08 10*6/uL 3.60-5.00 [facility] Serum or plasma alanine guerrero otransferase measurement without P-5'-P (enzymatic activiOrdered By: Samia Saenz on 01-11-2022 ALT No additional P-5'-P [Catalytic activity/Vol] 16 U/L 10-60 [facility] Serum or plasma albumin/glob ulin mass ratioOrdered By: Samia Saenz on 01-11-2022 Albumin/Globulin [Mass ratio] 1.3 {ratio} [facility] Serum or plasma alkaline lv sphatase measurement (enzymatic activity/volume)Ordered By: Samia Saenz on 01-11-2022 ALP [Catalytic activity/Vol] 62 U/L 32-92 [facility] Serum or plasma anion gap de terminationOrdered By: Samia Saenz on 01-11-2022 Anion gap [Moles/Vol] 12.4 mmol/L 6.0-15.0 [facility] Serum or plasma aspartate am inotransferase measurement (enzymatic activity/volume)Ordered By: Samia Saenz on 01-11-2022 AST [Catalytic activity/Vol] 16 U/L 10-42 [facility] Serum or plasma calcium bev urement (mass/volume)Ordered By: Samia Saenz on 01-11-2022 Calcium [Mass/Vol] 9.5 mg/dL 8.2-10.2 [facility] Serum or plasma chloride del surement (moles/volume)Ordered By: Samia Saenz on 01-11-2022 Chloride [Moles/Vol] 105 mmol/L 95-114 [facility] Serum or plasma glucose bev urement (mass/volume)Ordered By: Samia Saenz on 01-11-2022 Glucose [Mass/Vol] 97 mg/dL 70-100 [facility] Comment on above: ADA recommended refe rence rangeRandom Glucose Reference Range is dependent on time and content of last meal. Glucose of more than 200 mg/dL in a nonstressed, ambulatory subject supports the diagnosis of Diabetes Mellitus. Serum or plasma potassium me asurement (moles/volume)Ordered By: Samia Saenz on 01-11-2022 Potassium [Moles/Vol] 3.6 mmol/L 3.5-5.1 [facility] Serum or plasma sodium measu rement (moles/volume)Ordered By: Samia Saenz on 01-11-2022 Sodium [Moles/Vol] 138 mmol/L 136-146 [facility] Serum or plasma total biliru bin measurement (mass/volume)Ordered By: Samia Saenz on 01-11-2022 Bilirubin [Mass/Vol] 0.4 mg/dL 0.3-1.2 [facility] Serum or plasma total carbon dioxide measurement (moles/volume)Ordered By: Samia Saenz on 01-11-2022 CO2 [Moles/Vol] 24.2 mmol/L 22.0-30.0 [facility] Serum or plasma urea nitroge n measurement (mass/volume)Ordered By: Samia Saenz on 01-11-2022 Urea nitrogen [Mass/Vol] 7 mg/dL 9- [facility] Specific gravity Auto test s trip (U) [Rel density]Ordered By: Samia Saenz on 01-11-2022 Specific gravity (U) [Rel density] 1.020 1.001-1.030 [facility] TSH DL <= 0.005 mIU/L QnOrde red By: Samia Saenz on 01-11-2022 TSH Qn 0.66 m[IU]/L 0.45-5.33 [facility] Thyroxine (T4) free [Mass/vo lume] in Serum or PlasmaOrdered By: Samia Saenz on 01-11-2022 Free T4 [Mass/Vol] 0.76 ng/dL 0.61-1.12 [facility] Triiodothyronine (T3) Free [ Mass/volume] in Serum or PlasmaOrdered By: Samia Saenz on 01-11-2022 Free T3 [Mass/Vol] 3.06 pg/mL 2.50-3.90 [facility] Urine clarity by refractomet ry automatedOrdered By: Samia Saenz on 01-11-2022 Clarity Refractometry automated (U) Clear Clear [facility] Urine glucose measurement by automated test strip (mass/volume)Ordered By: Samia Saenz on 01-11-2022 Glucose Auto test strip (U) [Mass/Vol] Normal mg/dL Normal [facility] Urine hemoglobin detection b y automated test stripOrdered By: Samia Saenz on 01-11-2022 Hemoglobin Auto test strip Ql (U) Negative Negative [facility] Urine leukocyte esterase det ection by automated test stripOrdered By: Samia Saenz on 01-11-2022 Leukocyte esterase Auto test strip Ql (U) Negative Negative [facility] Urobilinogen Auto test strip (U) [Mass/Vol]Ordered By: Samia Saenz on 01-11-2022 Urobilinogen (U) [Mass/Vol] Normal mg/dL Normal [facility] pH Auto test strip (U)Ordere d By: Samia Saenz on 01-11-2022 pH (U) 6.5 [pH] 5.0-9.0 [facility] Basophils Auto (Bld) [#/Vol] Ordered By: Whit Tyson on 11-26-2021 Basophils (Bld) [#/Vol] 0.0 10*3/uL 0.0-0.2 [facility] Basophils/100 WBC Auto (Bld) Ordered By: Whit Tyson on 11-26-2021 Basophils/100 WBC (Bld) 0.7 % . [facility] Blood hemoglobin measurement (mass/volume)Ordered By: Whit Tyson on 11-26-2021 Hemoglobin (Bld) [Mass/Vol] 12.3 g/dL 11.8-15.4 [facility] Blood leukocytes automated c ount (number/volume)Ordered By: Whit Tyson on 11-26-2021 WBC (Bld) [#/Vol] 6.4 10*3/uL 4.5-11.0 [facility] Body fluid albumin measureme nt (mass/volume)Ordered By: Whit Tyson on 11-26-2021 Albumin (Body fld) [Mass/Vol] 3.5 g/dL 3.2-5.5 [facility] COVID-19 Positive/NegativeOr dered By: Whit Tyson on 11-26-2021 SARS-CoV-2 (COVID-19) N gene KWASI+probe Ql (Resp) Negative Negative [facility] Comment on above: Testing for SARS-CoV -2 by RT-PCR This test was developed and its performance characteristics determined by [employer] ([employer]) and validated at the [facility]. This test has not been FDA cleared [...] on 11-26-2021 Creatinine [Mass/Vol] 0.88 mg/dL 0.44-1.03 [facility] Eosinophils Auto (Bld) [#/Vo l]Ordered By: Whit Tyson on 11-26-2021 Eosinophils (Bld) [#/Vol] 0.0 10*3/uL 0.0-0.45 [facility] Eosinophils/100 WBC Auto (Bl d)Ordered By: Whit Tyson on 11-26-2021 Eosinophils/100 WBC (Bld) 0.2 % . [facility] Erythrocyte distribution wid th Auto (RBC) [Ratio]Ordered By: Whit Tyson on 11-26-2021 Erythrocyte distribution width (RBC) [Ratio] 13.7 % 11.9-15.3 [facility] Estimated glomerular filtrat ion rate (GFR) non- AmericanOrdered By: Whit Tyson on 11-26-2021 GFR/1.73 sq M.predicted among non-blacks MDRD (S/P/Bld) [Vol rate/Area] > 60 mL/Min [facility] Globulin Calc (S) [Mass/Vol] Ordered By: Whit Tyson on 11-26-2021 Globulin (S) [Mass/Vol] 3.2 g/dL [facility] Hematocrit Auto (Bld) [Volum e fraction]Ordered By: Whit Tyson on 11-26-2021 Hematocrit (Bld) [Volume fraction] 37.4 % 34.0-46.4 [facility] Laboratory - Chemistry and C hemistry - challengeOrdered By: Whit Tyson on 11-26-2021 Magnesium [Mass/Vol] 2.0 mg/dL 1.6-2.6 [facility] - Hematology and Cell countsOrdered By: Whit Tyson on 11-26-2021 Nucleated RBC/100 WBC (Bld) [Ratio] 0.0 % 0-0.5 [facility] Lymphocytes Auto (Bld) [#/Vo l]Ordered By: Whit Tyson on 11-26-2021 Lymphocytes (Bld) [#/Vol] 1.7 10*3/uL 1.00-4.8 [facility] Lymphocytes/100 WBC Auto (Bl d)Ordered By: Whit Tyson on 11-26-2021 Lymphocytes/100 WBC (Bld) 26.6 % . [facility] MCH Auto (RBC) [Entitic mass ]Ordered By: Whit Tyson on 11-26-2021 MCH (RBC) [Entitic mass] 30.7 pg 24.7-34.3 [facility] MCHC Auto (RBC) [Mass/Vol]Or dered By: Whit Tyson on 11-26-2021 MCHC (RBC) [Mass/Vol] 32.9 g/dL 32.0-35.0 [facility] MCV Auto (RBC) [Entitic vol] Ordered By: Whit Tyson on 11-26-2021 MCV (RBC) [Entitic vol] 93.3 fL 80-100 [facility] Monocytes Auto (Bld) [#/Vol] Ordered By: Whit Tyson on 11-26-2021 Monocytes (Bld) [#/Vol] 0.4 10*3/uL 0.0-0.8 [facility] Monocytes/100 WBC Auto (Bld) Ordered By: Whit Tyson on 11-26-2021 Monocytes/100 WBC (Bld) 6.3 % . [facility] Neutrophils Auto (Bld) [#/Vo l]Ordered By: Whit Tyson on 11-26-2021 Neutrophils (Bld) [#/Vol] 4.2 10*3/uL 1.8-7.7 [facility] Neutrophils/100 WBC Auto (Bl d)Ordered By: Whit Tyson on 11-26-2021 Neutrophils/100 WBC (Bld) 66.2 % . [facility] No Panel InformationOrdered By: Whit Tyson on 11-26-2021 Estimated GFR () > 60 mL/Min [facility] Comment on above: GFR estimated refere nce range: According to KDOQI guidelines, <60 ml/min/1.73m2 is sufficient to diagnose a patient with chronic kidney disease. Pharmacy Creatinine Clearance (Chem 60.91 [facility] Phosphate [Mass/volume] in S santiago or PlasmaOrdered By: Whit Tyson on 11-26-2021 Phosphate [Mass/Vol] 3.6 mg/dL 2.5-4.6 [facility] Platelet mean volume Auto (B ld) [Entitic vol]Ordered By: Whit Tyson on 11-26-2021 Platelet mean volume (Bld) [Entitic vol] 8.3 fL 6.3-10.7 [facility] Platelets Auto (Bld) [#/Vol] Ordered By: Whit Tyson on 11-26-2021 Platelets (Bld) [#/Vol] 262 10*3/uL 150-450 [facility] Protein [Mass/volume] in Ser um or PlasmaOrdered By: Whit Tyson on 11-26-2021 Protein [Mass/Vol] 6.7 g/dL 6.1-7.9 [facility] RBC Auto (Bld) [#/Vol]Ordere d By: Whit Tyson on 11-26-2021 RBC (Bld) [#/Vol] 4.01 10*6/uL 3.60-5.00 [facility] Serum or plasma alanine guerrero otransferase measurement without P-5'-P (enzymatic activiOrdered By: Whit Tyson on 11-26-2021 ALT No additional P-5'-P [Catalytic activity/Vol] 20 U/L 10-60 [facility] Serum or plasma albumin/glob ulin mass ratioOrdered By: Whit Tyson on 11-26-2021 Albumin/Globulin [Mass ratio] 1.1 {ratio} [facility] Serum or plasma alkaline vl sphatase measurement (enzymatic activity/volume)Ordered By: Whit Tyson on 11-26-2021 ALP [Catalytic activity/Vol] 56 U/L 32-92 [facility] Serum or plasma aspartate am inotransferase measurement (enzymatic activity/volume)Ordered By: Whit Tyson on 11-26-2021 AST [Catalytic activity/Vol] 19 U/L 10-42 [facility] Serum or plasma calcium bev urement (mass/volume)Ordered By: Whit Tyson on 11-26-2021 Calcium [Mass/Vol] 9.4 mg/dL 8.2-10.2 [facility] Serum or plasma chloride del surement (moles/volume)Ordered By: Whit Tyson on 11-26-2021 Chloride [Moles/Vol] 102 mmol/L 95-114 [facility] Serum or plasma glucose bev urement (mass/volume)Ordered By: Whit Tyson on 11-26-2021 Glucose [Mass/Vol] 92 mg/dL 70-100 [facility] Comment on above: ADA recommended refe rence range Random Glucose Reference Range is dependent on time and content of last meal. Glucose of more than 200 mg/dL in a nonstressed, ambulatory subject supports the diagnosis of Diabetes Mellitus. Serum or plasma potassium me asurement (moles/volume)Ordered By: Whit Tyson on 11-26-2021 Potassium [Moles/Vol] 3.6 mmol/L 3.5-5.1 [facility] Serum or plasma sodium measu rement (moles/volume)Ordered By: Whit Tyson on 11-26-2021 Sodium [Moles/Vol] 135 mmol/L 136-146 [facility] Serum or plasma total biliru bin measurement (mass/volume)Ordered By: Whit Tyson on 11-26-2021 Bilirubin [Mass/Vol] 0.3 mg/dL 0.3-1.2 [facility] Serum or plasma total carbon dioxide measurement (moles/volume)Ordered By: Whit Tyson on 11-26-2021 CO2 [Moles/Vol] 21.8 mmol/L 22.0-30.0 [facility] Serum or plasma urea nitroge n measurement (mass/volume)Ordered By: Whit Tyson on 11-26-2021 Urea nitrogen [Mass/Vol] 14 mg/dL 9-23 [facility] Basophils Auto (Bld) [#/Vol] Ordered By: Samia Saenz on 10-12-2021 Basophils (Bld) [#/Vol] 0.0 10*3/uL 0.0-0.2 [facility] Basophils/100 WBC Auto (Bld) Ordered By: Samia Saenz on 10-12-2021 Basophils/100 WBC (Bld) 1.0 % . [facility] Blood hemoglobin measurement (mass/volume)Ordered By: Samia Saenz on 10-12-2021 Hemoglobin (Bld) [Mass/Vol] 12.6 g/dL 11.8-15.4 [facility] Blood leukocytes automated c ount (number/volume)Ordered By: Samia Saenz on 10-12-2021 WBC (Bld) [#/Vol] 4.6 10*3/uL 4.5-11.[address] [facility] [address] biopsyOrdered By: Samia mina on 10-12-2021 Transferrin [Mass/Vol] 254 mg/dL 180-380 [facility] Eosinophils Auto (Bld) [#/Vo l]Ordered By: Samia Saenz on 10-12-2021 Eosinophils (Bld) [#/Vol] 0.0 10*3/uL 0.0-0.45 [facility] Eosinophils/100 WBC Auto (Bl d)Ordered By: Samia Saenz on 10-12-2021 Eosinophils/100 WBC (Bld) 0.2 % . [facility] Erythrocyte distribution wid th Auto (RBC) [Ratio]Ordered By: Samia Saenz on 10-12-2021 Erythrocyte distribution width (RBC) [Ratio] 13.8 % 11.9-15.3 [facility] Ferritin [Mass/volume] in Se rum or PlasmaOrdered By: Smaia Saenz on 10-12-2021 Ferritin [Mass/Vol] 20.4 ng/mL 11-306.8 [facility] Folate [Mass/volume] in Seru m or PlasmaOrdered By: Samia Saenz on 10-12-2021 Folate [Mass/Vol] 18.2 ng/mL >5.9 [facility] Comment on above: Folate reference ran ge: >5.9 ng/ml The WHO technical consultation on folate and vitamin b12 deficiencies has determined that folate concentrations less than 4 ng/ml are considered deficient. Hematocrit Auto (Bld) [Volum e fraction]Ordered By: Samia Saenz on 10-12-2021 Hematocrit (Bld) [Volume fraction] 38.2 % 34.0-46.4 [facility] Iron [Mass/volume] in Serum or PlasmaOrdered By: Samia Saenz on 10-12-2021 Iron [Mass/Vol] 56 ug/dL 40-150 [facility] Iron binding capacity [Mass/ volume] in Serum or PlasmaOrdered By: Samia Saenz on 10-12-2021 Iron binding capacity [Mass/Vol] 356 ug/dL 255-450 [facility] Iron saturation [Mass Fracti on] in Serum or PlasmaOrdered By: Samia Saenz on 10-12-2021 Iron saturation [Mass fraction] 15.0 % 20-50 [facility] Laboratory - Chemistry and C hemistry - challengeOrdered By: Samia Saenz on 10-12-2021 Cobalamin (Vitamin B12) [Mass/Vol] 428 pg/mL 180-914 [facility] Laboratory - Hematology and Cell countsOrdered By: Samia Saenz on 10-12-2021 Nucleated RBC/100 WBC (Bld) [Ratio] 0.0 % 0-0.5 [facility] Lymphocytes Auto (Bld) [#/Vo l]Ordered By: Samia Saenz on 10-12-2021 Lymphocytes (Bld) [#/Vol] 1.7 10*3/uL 1.00-4.8 [facility] Lymphocytes/100 WBC Auto (Bl d)Ordered By: Samia Saenz on 10-12-2021 Lymphocytes/100 WBC (Bld) 37.4 % . [facility] MCH Auto (RBC) [Entitic mass ]Ordered By: Samia Saenz on 10-12-2021 MCH (RBC) [Entitic mass] 31.0 pg 24.7-34.3 [facility] MCHC Auto (RBC) [Mass/Vol]Or dered By: Samia Saenz on 10-12-2021 MCHC (RBC) [Mass/Vol] 32.9 g/dL 32.0-35.0 [facility] MCV Auto (RBC) [Entitic vol] Ordered By: Samia Saenz on 10-12-2021 MCV (RBC) [Entitic vol] 94.3 fL 80-100 [facility] Monocytes Auto (Bld) [#/Vol] Ordered By: Samia Saenz on 10-12-2021 Monocytes (Bld) [#/Vol] 0.4 10*3/uL 0.0-0.8 [facility] Monocytes/100 WBC Auto (Bld) Ordered By: Samia Saenz on 10-12-2021 Monocytes/100 WBC (Bld) 9.0 % . [facility] Neutrophils Auto (Bld) [#/Vo l]Ordered By: Samia Saenz on 10-12-2021 Neutrophils (Bld) [#/Vol] 2.4 10*3/uL 1.8-7.7 [facility] Neutrophils/100 WBC Auto (Bl d)Ordered By: Samia Saenz on 10-12-2021 Neutrophils/100 WBC (Bld) 52.4 % . [facility] Platelet mean volume Auto (B ld) [Entitic vol]Ordered By: Samia Saenz on 10-12-2021 Platelet mean volume (Bld) [Entitic vol] 7.8 fL 6.3-10.7 [facility] Platelets Auto (Bld) [#/Vol] Ordered By: Samia Saenz on 10-12-2021 Platelets (Bld) [#/Vol] 272 10*3/uL 150-450 [facility] RBC Auto (Bld) [#/Vol]Ordere d By: Samia Saenz on 10-12-2021 RBC (Bld) [#/Vol] 4.04 10*6/uL 3.60-5.00 [facility] Creatinine and Glomerular fi ltration rate.predicted panel (S/P/Bld)Ordered By: Samia Saenz on 10-09-2021 Creatinine [Mass/Vol] 0.70 mg/dL 0.44-1.03 [facility] Estimated glomerular filtrat ion rate (GFR) non- AmericanOrdered By: Samia Saenz on 10-09-2021 GFR/1.73 sq M.predicted among non-blacks MDRD (S/P/Bld) [Vol rate/Area] > 60 mL/Min [facility] No Panel InformationOrdered By: Samia Saenz on 10-09-2021 Estimated GFR () > 60 mL/Min [facility] Comment on above: GFR estimated refere nce range: According to KDOQI guidelines, <60 ml/min/1.73m2 is sufficient to diagnose a patient with chronic kidney disease. Pharmacy Creatinine Clearance (Chem N/A [facility] Serum or plasma calcium bev urement (mass/volume)Ordered By: Samia Saenz on 10-09-2021 Calcium [Mass/Vol] 9.1 mg/dL 8.2-10.2 [facility] Serum or plasma chloride del surement (moles/volume)Ordered By: Samia Saenz on 10-09-2021 Chloride [Moles/Vol] 103 mmol/L 95-114 [facility] Serum or plasma glucose bev urement (mass/volume)Ordered By: Samia Saenz on 10-09-2021 Glucose [Mass/Vol] 108 mg/dL 70-100 [facility] Comment on above: ADA recommended refe rence range Random Glucose Reference Range is dependent on time and content of last meal. Glucose of more than 200 mg/dL in a nonstressed, ambulatory subject supports the diagnosis of Diabetes Mellitus. Serum or plasma potassium me asurement (moles/volume)Ordered By: Samia Saenz on 10-09-2021 Potassium [Moles/Vol] 3.7 mmol/L 3.5-5.1 [facility] Serum or plasma sodium measu rement (moles/volume)Ordered By: Samia Saenz on 10-09-2021 Sodium [Moles/Vol] 136 mmol/L 136-146 [facility] Serum or plasma total carbon dioxide measurement (moles/volume)Ordered By: Samia Saenz on 10-09-2021 CO2 [Moles/Vol] 24.8 mmol/L 22.0-30.0 [facility] Serum or plasma urea nitroge n measurement (mass/volume)Ordered By: Samia Saenz on 10-09-2021 Urea nitrogen [Mass/Vol] 10 mg/dL 9-23 [facility] TSH DL <= 0.005 mIU/L QnOrde red By: Samia Saenz on 10-09-2021 TSH Qn 0.86 m[IU]/L 0.45-5.33 [facility] Thyroxine (T4) free [Mass/vo lume] in Serum or PlasmaOrdered By: Samia Saenz on 10-09-2021 Free T4 [Mass/Vol] 0.69 ng/dL 0.61-1.12 [facility] Triiodothyronine (T3) Free [ Mass/volume] in Serum or PlasmaOrdered By: Samia Saenz on 10-09-2021 Free T3 [Mass/Vol] 2.90 pg/mL 2.50-3.90 [facility] Vital Signs Date Time Vital Sign Value Performing Clinician Facility 01-13-2024 08:47-0400 Body height 162.6 cm Dianne DUMONT Work Phone: [facility] 01-13-2024 08:47-0400 Body mass index (BMI) [Ratio] 22.49 kg/m2 Dianne DUMONT Work Phone: [facility] 01-13-2024 08:47-0400 Body weight 59.42 kg Dianne DUMONT Work Phone: [facility] 01-13-2024 08:47-0400 Diastolic blood pressure 84 mm[Hg] Dianne DUMONT Work Phone: [facility] 01-13-2024 08:47-0400 Heart rate 84 /min Dianne DUMONT Work Phone: [facility] 01-13-2024 08:47-0400 Respiratory rate 16 /min Dianne DUMONT Work Phone: [facility] 01-13-2024 08:47-0400 SaO2% (BldA) [Mass fraction] 91 % Dianne DUMONT Work Phone: [facility] 01-13-2024 08:47-0400 Systolic blood pressure 122 mm[Hg] Dianne DUMONT Work Phone: [facility] 10-15-2023 11:24-0400 Body height 162.56 cm DO Samia Saenz Work Phone: [facility] 10-15-2023 11:24-0400 Body mass index (BMI) [Ratio] 19 kg/m2 DO Samia Saenz Work Phone: [facility] 10-15-2023 11:24-0400 Body weight 50.34 kg DO Samia Saenz Work Phone: [facility] 03-25-2023 14:11-0500 Body height 162.56 cm DO Samia Saenz Work Phone: [facility] 03-25-2023 [id number]:110500 Body weight 54.43 kg DO Samia Saenz Work Phone: [facility] 03-19-2023 13:20-0500 Body height 162.56 cm Samia Saenz Other [employer] [facility] [employer] Other 03-19-2023 13:20-0500 Body mass index (BMI) [Ratio] 19.91 kg/m2 Samia Saenz Other [employer] [facility] [employer] Other 03-19-2023 13:20-0500 Body temperature 98.7 [degF] Samia Saenz Other [employer] Other 03-19-2023 13:20-0500 Body weight 52.62 kg Samia Saenz Other [employer] Other 03-19-2023 13:20-0500 Diastolic blood pressure 88 mm[Hg] Samia Saenz Other [employer] Other 03-19-2023 13:20-0500 Respiratory rate 18 /min Samia Saenz Other [employer] Other 03-19-2023 13:20-0500 SaO2% (BldA) [Mass fraction] 96 % Samia Saenz Other [employer] [facility] [employer] Other 03-19-2023 13:20-0500 Systolic blood pressure 136 mm[Hg] Samia Saenz Other [employer] Other 03-11-2023 13:46-0500 Blood Pressure Location VEEPRANAV REDRY [facility] 03-11-2023 13:46-0500 Diastolic blood pressure 69 mm[Hg] VEE BENIGNO [facility] 03-11-2023 13:46-0500 Heart rate 72 /min VEE BENIGNO [facility] 03-11-2023 13:46-0500 Respiratory rate 16 /min VEE BENIGNO [facility] 03-11-2023 13:46-0500 Systolic blood pressure 120 mm[Hg] VEE BENIGNO [facility] 03-05-2023 09:30-0500 Body height 162.56 cm Aftab Acosta Other [employer] Other 03-05-2023 09:30-0500 Body mass index (BMI) [Ratio] 20.41 kg/m2 Aftab Acosta Other [employer] Other 03-05-2023 09:30-0500 Body weight 53.93 kg Aftab Acosta Other [employer] Other 03-05-2023 09:30-0500 Diastolic blood pressure 85 mm[Hg] Aftab Acosta Other [employer] Other 03-05-2023 09:30-0500 Systolic blood pressure 124 mm[Hg] Aftab Acosta Other [employer] Other 01-15-2022 12:10-0400 Body height 162.56 cm Samia Saenz Other [employer] Other 01-15-2022 12:10-0400 Body mass index (BMI) [Ratio] 21.45 kg/m2 Samia Saenz Other [employer] Other 01-15-2022 12:10-0400 Body temperature 97.3 [degF] Samia Saenz Other [employer] Other 01-15-2022 12:10-0400 Body weight 56.7 kg Samia Saenz Other [employer] Other 01-15-2022 12:10-0400 Diastolic blood pressure 68 mm[Hg] Samia Saenz Other [employer] Other 01-15-2022 12:10-0400 Respiratory rate 16 /min Samia Saenz Other [employer] Other 01-15-2022 12:10-0400 SaO2% (BldA) [Mass fraction] 98 % Samia Saenz Other [employer] Other 01-15-2022 12:10-0400 Systolic blood pressure 108 mm[Hg] Samia Seanz Other [employer] Other 11-29-2021 07:37-0400 Body temperature 98.1 [degF] DO Samia Saenz Work Phone: [facility] 11-29-2021 07:37-0400 Diastolic blood pressure 55 mm[Hg] DO Samia Saenz Work Phone: [facility] 11-29-2021 07:37-0400 Heart rate 72 /min DO Samia Saenz Work Phone: [facility] 11-29-2021 07:37-0400 Respiratory rate 16 /min DO Samia Saenz Work Phone: [facility] 11-29-2021 07:37-0400 SaO2% (BldA) [Mass fraction] 97 % DO Samia Saenz Work Phone: [facility] 11-29-2021 07:37-0400 Systolic blood pressure 85 mm[Hg] DO Samia Saenz Work Phone: [facility] 11-29-2021 06:00-0400 Body weight 60.3 kg DO Samia Saenz Work Phone: [facility] 11-27-2021 12:17-0400 Body height 162.56 cm DO Samia Saenz Work Phone: [facility] 06-12-2021 13:40-0500 Body height 162.56 cm Samia Saenz Other [facility] [employer] Other 06-12-2021 13:40-0500 Body mass index (BMI) [Ratio] 21.54 kg/m2 Samia Saenz Other [employer] [facility] [employer] Other 06-12-2021 13:40-0500 Body temperature 97.9 [degF] Samia Saenz Other [employer] Other 06-12-2021 13:40-0500 Body weight 56.93 kg Samia Saenz Other [employer] Other 06-12-2021 13:40-0500 Diastolic blood pressure 72 mm[Hg] Samia Saenz Other [employer] Other 06-12-2021 13:40-0500 Respiratory rate 18 /min Samia Saenz Other [facility] [employer] Other 06-12-2021 13:40-0500 SaO2% (BldA) [Mass fraction] 97 % Samia Saenz Other [facility] [employer] Other 06-12-2021 13:40-0500 Systolic blood pressure 110 mm[Hg] Samia Saenz Other [facility] [employer] Other Encounters Encounter Date Encounter Type Care Provider Facility Start: 01-13-2024 End: 01-13-2024 Delmi DUMONT Work Phone: [facility] [employer] [facility] Start: 01-13-2024 End: 01-13-2024 Delmi DUMONT Work Phone: [facility] [employer] [facility] Start: 01-13-2024 End: 01-13-2024 ambulatory DIANNE CHURCH Not Available Start: 01-13-2024 End: 01-13-2024 Office outpatient visit 25 minutes Dianne DUMONT Work Phone: [facility] [employer] [facility] Comment on above: RSD (reflex sympathe tic dystrophy) (Primary Dx); Neuropathy; Cervicalgia; Headache disorder; Myalgia; Alteration of awareness; BALTAZAR (obstructive sleep apnea) Start: 01-05-2024 ambulatory Samia Velazquezkaty Facility:[facility] Start: 11-14-2023 End: 11-14-2023 Patient encounter procedure DO Samia Saenz Work Phone: [facility] Work Phone: Start: 11-14-2023 End: 11-14-2023 ambulatory DO Samia Velazquezkaty Work Phone: [facility] Work Phone: Start: 11-13-2023 Non-patient / Non-visit DO Samia Saenz Work Phone: [facility] Work Phone: Start: 11-10-2023 Registered Recurring DO Samia Saenz Work Phone: [facility] Start: 10-29-2023 End: 10-29-2023 ambulatory REY CHINCHILLA [place] [place] Start: 10-29-2023 End: 10-29-2023 Patient encounter procedure REY Sean [facility] Start: 10-22-2023 End: 10-22-2023 ambulatory DO Samia Saenz Work Phone: [facility] Work Phone: Start: 10-22-2023 End: 10-22-2023 Patient encounter procedure DO Samia Saenz Work Phone: [facility] [place] Work Phone: Start: 10-15-2023 End: 10-15-2023 ambulatory DO Saima Saenz Work Phone: [facility] Work Phone: Start: 10-15-2023 End: 10-15-2023 Patient encounter procedure DO Samia Saenz Work Phone: [facility] Gastroenterology Work Phone: Start: 10-01-2023 End: 10-01-2023 [facility] Start: 09-22-2023 End: 09-22-2023 Patient encounter procedure DO Samia Saenz Work Phone: [facility] [place] Work Phone: Start: 09-22-2023 End: 09-22-2023 ambulatory DO Samia Saenz Work Phone: [facility] Work Phone: Start: 08-18-2023 Registered Recurring DO Samia Saenz Work Phone: [facility] Start: 08-06-2023 ambulatory SAMIA SAENZ [facility] Start: 07-01-2023 End: 07-01-2023 ambulatory VEEPRANAV PELAEZ Facility:[facility] Start: 07-01-2023 End: 07-01-2023 Patient encounter procedure VEE PELAEZ [facility] Start: 05-08-2023 End: 05-08-2023 ambulatory Steven DONNELLY Facility:[facility] [place] Start: 05-07-2023 End: 05-07-2023 Patient encounter procedure DO Samia Saenz Work Phone: [facility] Work Phone: Start: 05-07-2023 End: 05-07-2023 ambulatory DO Samia Saenz Work Phone: [facility] Work Phone: Start: 05-06-2023 Non-patient / Non-visit DO Samia Saenz Work Phone: [facility] Work Phone: Start: 03-25-2023 End: 03-25-2023 Patient encounter procedure DO Samia Saenz Work Phone: [facility] [address] Work Phone: Start: 03-25-2023 End: 03-25-2023 ambulatory Jerri Caro Facility:[facility] Start: 03-19-2023 End: 03-19-2023 ambulatory Samia Saenz Other [facility] [employer] Other Start: 03-19-2023 Office outpatient visit 25 minutes Samia Saenz [facility] [place] Start: 03-19-2023 End: 03-19-2023 Patient encounter procedure DO Samia Saenz Work Phone: [facility] [place] Work Phone: Start: 03-17-2023 ambulatory REY Kirby ty:[facility] Start: 03-17-2023 End: 03-17-2023 Patient encounter procedure DO Samia Saenz Work Phone: [facility] [place] Work Phone: Start: 03-17-2023 End: 03-17-2023 ambulatory DO Samia Saenz Work Phone: [facility] Work Phone: Start: 03-11-2023 End: 03-11-2023 ambulatory VEELUIGI PELAEZ Facility:[facility] Start: 03-11-2023 End: 03-11-2023 Patient encounter procedure VEE E BENIGNO [facility] Start: 03-05-2023 End: 03-05-2023 ambulatory Aftab Acosta Other [employer] Other Start: 03-05-2023 Office outpatient visit 15 minutes Aftab Acosta [facility] Start: 03-05-2023 End: 03-05-2023 Patient encounter procedure DO Samia Saenz Work Phone: [facility] Work Phone: Start: 02-25-2023 End: 02-25-2023 ambulatory Samia Saenz Other [employer] Other Start: 02-25-2023 Telephone encounter Samia Saenz [facility] Start: 01-20-2023 End: 01-20-2023 ambulatory Samia Saenz Facility:[facility] Start: 12-19-2022 End: 12-19-2022 ambulatory Aftab Acosta Other [employer] Other Start: 12-19-2022 Telephone encounter Aftab Curry [facility] Start: 09-20-2022 End: 09-20-2022 ambulatory Samia Saenz Other [employer] Other Start: 09-20-2022 Telephone encounter Samia Saenz [facility] Start: 09-18-2022 End: 09-18-2022 ambulatory DO Samia Velazquezkaty Work Phone: [facility] Work Phone: Start: 09-18-2022 End: 09-18-2022 Departed Referred DO Samia Letty Work Phone: [facility] [place] Work Phone: Start: 09-16-2022 End: 09-16-2022 ambulatory DO Samia Saenz Work Phone: [facility] Work Phone: Start: 09-16-2022 End: 09-16-2022 Patient encounter procedure DO Samia Saenz Work Phone: [facility] [place] Work Phone: Start: 09-04-2022 Registered Recurring DO Samia Saenz Work Phone: [facility] Start: 03-16-2022 End: 03-16-2022 ambulatory DO Samia Letty Work Phone: [facility] Work Phone: Start: 03-16-2022 End: 03-16-2022 Patient encounter procedure DO Samia Saenz Work Phone: [facility] [place] Start: 01-15-2022 End: 01-15-2022 ambulatory Samia Saenz Other [employer] Other Start: 01-15-2022 Office outpatient visit 25 minutes Samia Saenz [facility] Start: 01-11-2022 End: 01-11-2022 Patient encounter procedure DO Samia Saenz Work Phone: [facility] [place] Start: 12-28-2021 End: 12-28-2021 ambulatory Aftab Acosta Other [employer] Other Start: 12-28-2021 Telephone encounter Aftab vieira [facility] Start: 12-18-2021 End: 12-18-2021 ambulatory Samia Saenz Other [employer] Other Start: 12-18-2021 Telephone encounter Samia Saenz [facility] Start: 11-07-2021 End: 11-07-2021 Patient encounter procedure DO Samia Saenz Work Phone: [facility] [address] Start: 10-12-2021 End: 10-12-2021 Patient encounter procedure DO Samia Saenz Work Phone: [facility] [place] Start: 10-11-2021 End: 10-11-2021 ambulatory Aftab Acosta Other [employer] Other Start: 10-11-2021 Telephone encounter Aftab vieira [facility] Start: 10-09-2021 End: 10-09-2021 Patient encounter procedure DO Samia Saenz Work Phone: [facility] Start: 10-01-2021 End: 10-01-2021 ambulatory Aftab Acosta Other [employer] Other Start: 10-01-2021 Telephone encounter Aftab vieira [facility] Start: 07-16-2021 End: 07-16-2021 ambulatory Aftab Acosta Other [employer] Other Start: 07-16-2021 Telephone encounter Aftab vieira [facility] Start: 07-06-2021 End: 07-06-2021 ambulatory Samia Saenz Other [employer] Other Start: 07-06-2021 Telephone encounter Samia Saenz [facility] Start: 06-12-2021 End: 06-12-2021 ambulatory Samia Saenz Other [employer] Other Start: 06-12-2021 Office outpatient visit 25 minutes Samia Saenz [facility] Start: 05-11-2021 End: 05-11-2021 ambulatory Samia Saenz Other [employer] Other Start: 05-11-2021 Telephone encounter Samia Saenz [facility] [place] Start: 05-04-2021 End: 05-04-2021 ambulatory Samia Saenz Other [employer] Other Start: 05-04-2021 Telephone encounter Samia Saenz [facility] [place] Start: 05-03-2021 End: 05-03-2021 ambulatory Samia Saenz Other [employer] Other Start: 05-03-2021 Telephone encounter Samia Saenz [facility] Start: 05-02-2021 ([facility] C Vac) [facility] Covid Vaccine Cristy Fabian [facility] Start: 05-02-2021 End: 05-02-2021 ambulatory Cristy Fabian Other [employer] Other Start: 04-02-2021 End: 04-02-2021 ambulatory Aftab Acosta Other [employer] Other Start: 04-02-2021 Telephone encounter Aftab Curry [facility] Start: 03-22-2021 End: 03-22-2021 ambulatory Samia Saenz Other [employer] Other Start: 03-22-2021 Telephone encounter Samia Saenz [facility] Procedures Date Procedure Procedure Detail Performing Clinician Start: 01-13-2024 Injection single/rocket scientist trigger point 3/> muscles Dianne Church PA Work Phone: Start: 11-14-2023 Screening mammograph y of bilateral [...] contrast DO Samia Saenz Work Phone: Start: 06-05-2021 Mammography Dianne DUMONT Work Phone: Start: 03-16-2020 Colonoscopy Dianne DUMONT Work Phone: Start: 03-16-2020 Colonoscopy VEE HUANGMatthew Start: 08-13-2015 Colonoscopy VEE P ERRY Comment on above: Dr. Acosta Start: 04-14-2011 Procedure on lower leg VEE PELAEZ Start: 04-14-2009 Cervical arthrodesis REGULO GUILLEN BENIGNO Comment on above: C3-C4, C4-C5, and C5 -C6 Dr. Ugalde Start: 03-14-2009 MRI guided ablation of uterine fibroid VEE PELAEZ Start: 04-14-1999 Decompression of median nerve VEE BENIGNO Appendectomy VEE BENIGNO Cervical arthrodesis JENKSENIA PELAEZ Dilation and curettage THAIS PELAEZ Procedure on pilonidal sinus VEE PELAEZ Urine culture DO Samia silveira Work Phone: Plan of Treatment Date Care Activity Detail Author Start: 03-16-2030 Screening for malignant neoplasm of colon [facility] Start: 06-05-2026 Screening for malignant neoplasm of cervix [facility] Start: 02-11-2024 End: 02-11-2024 Patient encounter procedure 02/11/2024 8:20 AM EDT Office Visit [facility] [address] [place] [id number] Dianne Church PA [address] [place], [place] [id number] [facility] [address] Start: 12-14-2023 Influenza vaccination Influenza Vaccine (#1) [facility] Start: 03-17-2023 [facility] Start: 09-18-2022 Bacteria identified in Urine by Culture [facility] Start: 06-05-2022 Screening for malignant neoplasm of breast Mammogram [facility] Start: 11-29-2021 [facility] Work Phone: Start: 11-26-2021 Duplex scan of lower limb veins US venous duplex LE BI [facility] Start: 11-26-2021 Referral to neurologist [facility] Work Phone: Start: 11-26-2021 Hospital admission [facility] Work Phone: Start: 11-26-2021 End: 11-29-2021 Evaluation and management of inpatient Anxiety [facility] Start: 1985 Screening for malignant neoplasm of cervix Pap Smear [facility] Start: 1964 Screening for malignant neoplasm of colon [facility] Bacteria identified in Urine by Culture [facility] Bacteria identified in Urine by Culture [facility] Comprehensive metabo lic 2000 panel - Serum or Plasma [facility] Glucose measurement estimated from glycated hemoglobin [facility] MG Breast - bilatera l Screening [facility] Patient referral [facility] Work Phone: Trigger Point Inject ion: right cervical paraspinals, left cervical paraspinals, right upper trapezius, left upper trapezius Tr[facility] Injection: right cervical paraspinals, left cervical paraspinals, right upper trapezius, left upper trapezius Procedures Routine Cervicalgia 01/13/2024 8:40 AM EDT [facility] Work Phone: [facility] Immunizations Immunization Date Immunization Notes Care Provider Fa amanda 05-02-2021 COVID-19 Pfizer Cristy Fabian Other [facility] 01-08-2021 influenza virus vacc ine, unspecified formulation VEE PELAEZ [facility] 01-08-2021 influenza, injectabl e, quadrivalent, preservative free DO Samia Saenz Work Phone: [facility] 08-17-2020 COVID-19 Vaccine Pfi zer - Documentation Purposes Only Samia Saenz Other [facility] 07-27-2020 COVID-19 Vaccine Pfi zer - Documentation Purposes Only Samia Saenz Other [facility] 03-05-2020 zoster vaccine recombinant VEE PELAEZ [facility] 02-14-2020 influenza virus vacc ine, unspecified formulation VEE PELAEZ [facility] 02-14-2020 influenza, injectabl e, quadrivalent, preservative free DO Samia Saenz Work Phone: [facility] 02-14-2020 influenza, seasonal, injectable Samia Saenz Other [facility] 01-16-2019 influenza virus vacc ine, unspecified formulation VEE PELAEZ [facility] 01-16-2019 Influenza, injectabl e, Madin Jessica Canine Kidney, preservative free, quadrivalent DO Samia Saenz Work Phone: [facility] 01-16-2019 tetanus toxoid, redu garfield diphtheria toxoid, and acellular pertussis vaccine, adsorbed VEE PELAEZ [facility] 10-04-2017 tetanus toxoid, redu garfield diphtheria toxoid, and acellular pertussis vaccine, adsorbed DO Samia Saenz Work Phone: [facility] 04-23-2012 influenza, seasonal, injectable, preservative free Samia Velazquezkaty Other [facility] Payers Date Payer Category Payer Medicare [employer] MEDICARE ADVANTAGE [employer] MEDICARE [id number] 2023-Present [id number] [place] [id number] 2023 Medicare [id number] 2023 Unknown [id number] 2022 Medicare [id number] 2022 Self-pay [id number] 2022 Unknown [id number] 2012 Private Health Insurance [id number] 1964 Unknown [id number] [id number]. 1286 1964 Unknown [id number]. 1286 1964 Unknown [id number] 727 1964 Unknown [id number] [id number]. 727 1964 Unknown [id number]. 727 1964 Unknown [id number] [id number]. 727 1964 Unknown [id number] [id number]. 727 1964 Unknown [id number]. 1259 Medicaid Medicaid [id number] Medicare Medicare [id number] Unknown HCAP/HFA/FAP Active [id number] Unknown [id number]. 531 Unknown [id number] [id number]. 531 Unknown [id number]. 531 Unknown [id number]. 531 Unknown [id number]. 531 Unknown [id number]. 531 Social History Date Type Detail Facility Unknown if ever smoked [employer] Other Start: [birth year]-14-1977 Sex Assigned At F [facility] Start: 11-26-2021 End: 10-22-2023 Tobacco smoking status MNIS Smoker (finding) [facility] Start: 1965 Sex Assigned At Female F [facility] Start: 03-11-2023 End: 05-08-2023 Tobacco smoking status Heavy tobacco smoker (finding) [facility] Tobacco smoking status Never [facility] Start: 01-12-2024 Tobacco smoking stat us NHIS Smokes tobacco daily [facility] History of tobacco use Cigarette Smoker [facility] Start: 01-12-2024 Alcoholic beverage intake Current drinker of alcohol (finding) [facility] Start: 01-12-2024 History of Social function [facility] How often to you hav e a drink containing alcohol? 2-4 times a month [facility] How many standard drinks containing alcohol do you have on a typical day? 1 or 2 [facility] How often do you hav e 6 or more drinks on 1 occasion? Less than monthly [facility] Start: 1965 Sex assigned at Not on file [facility] Goals Date Patient Goal Desired Activity /State Functional Status Date Assessment Result Facility 03-11-2023 Functional Status N/A [facility] 11-29-2021 Functional status Patient at Baseline [facility] Work Phone: 11-26-2021 Functional status Disability [facility] Patient at Baseline [facility] Work Phone: Mental Status Date Assessment Result Facility 11-29-2021 Cognitive function Cognitive [facility] Patient at Baseline [facility] Work Phone: Clinical Notes 04-02-2021 [...] present for entire encounter. Samia Saenz D.O. [facility] Work Phone: [phone]) 796-187512-06-2023 Evaluation note* Encounter Date Diagnosis Assessment Notes [...] Provigil to try and keep her awake. [employer] Other 11-28-2023 Hospital Discharge instructions Patient Education [...] require a prescription. You can also purchase oqfa-ucx-eymiken medicines. Medicines may have nicotine in them [...] and encouragement. Call telephone quitlines, such as 0-062-YGVZ-NOW, reach out to support groups, or work [...] provider. Document Revised: 03/22/2022 Document Reviewed: 03/22/2022 [employer] Patient Education 2022 [employer]. Follow Up Care 01/07/2023 10:14:37 With:[facility] Address: [address] 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 no UUI. Ordered: 64207 Measure Post Void residual urine and/or bladder capacity by US- non-imaging E&M of New Patient Moderate 45-59 Min 31313 Urnls Dip Stick Auto w/o Microscopy POC 35016 2. Urinary hesitancy (R39.11: Hesitancy of micturition) worsening over the past year or so. has never had similar sx previously. no intermittency, once stream starts it goes. Ordered: E&M of New Patient Moderate 45-59 Min 27255 3. Nocturia (R35.1: Nocturia) x2. this is new over the past year or so. Ordered: E&M of New Patient Moderate 45-59 Min 64755 4. 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 Heart disease: Father (more content not included)...[facility] Comment on above:Result Comment: Electronically Signed By: VEE PELAEZ PA-C\Date and Time Signed: 03/11/2314:36 [id number] Evaluation note* Encounter Date Diagnosis Assessment Notes Treatment Notes Treatment Clinical Notes Feb, Microscopic colitis (ICD-10 - K52.89) Pt to stay on budesonide. Pt RTO in 6 months [facility] Other 10-04-2022 Evaluation note* Encounter Date Diagnosis [...] - G90.529) She is following with Dr. Otting a pain specialist who is going to [...] directed. Jan, Nocturia (ICD-10 - R35.1) Jan, nursing home use of drug (ICD-10 - Z79.899) Jan, Breast cancer screening (ICD-10 - Z12.31) Provided her with an order to have a bilateral mammogram done Jan, Other She voices that she was admitted to [facility] for five days and had an EEG [...] getting the new COVID-19 bivalent booster shot. [facility] Other 09-16-2022 Evaluation note* Encounter Date Diagnosis Assessment Notes Treatment Notes Treatment Clinical Notes Dec, Microscopic colitis (ICD-10 - K52.89) [facility] Other 06-30-2022 Evaluation note* Encounter Date Diagnosis Assessment Notes Treatment Notes Treatment Clinical Notes Sep, Microscopic colitis (ICD-10 - K52.89) [facility] Other 06-20-2022 Evaluation note* Encounter Date Diagnosis Assessment Notes Treatment Notes Treatment Clinical Notes Sep, C. difficile diarrhea (ICD-10 - A04.72) [facility] Other 04-04-2022 Evaluation note* Encounter Date Diagnosis Assessment Notes Treatment Notes Treatment Clinical Notes Jul, Microscopic colitis (ICD-10 - K52.89) [facility] Other 03-25-2022 Evaluation note* Encounter Date Diagnosis Assessment Notes Treatment Notes Treatment Clinical Notes Jun, Cough (ICD-10 - R05.9) Jun, Body aches (ICD-10 - R52) [facility] Other 03-01-2022 Evaluation note* Encounter Date Diagnosis [...] and sugars. Stay active as tolerated. Jun, nursing home use of drug (ICD-10 - Z79.899) Jun, [...] She will see him again on 07-04-21. [facility] Other 01-19-2022 Evaluation note* Encounter Date Diagnosis Assessment Notes Treatment Notes Treatment Clinical Notes Apr, Encounter for immunization (ICD-10 - Z23) Patient presents for COVID-19 vaccination BOOSTER. Pre-screening form answers evaluated with patient. Patient denies current illness or allergic reaction to component of COVID-19 vaccine. Patient provided with current copy of EUA. [facility] Other 12-20-2021 Evaluation note* Encounter Date Diagnosis Assessment Notes Treatment Notes Treatment Clinical Notes Mar, C. difficile diarrhea (ICD-10 - A04.72) [facility] Other Evaluation + Plan note No data available for this section [facility] evaluation noteNo InformationNort [employer] Other Evaluation note* Diagnosis Onset Date Resolution Status Anxiety acute Depression acute Fibromyalgia acute Hypothyroid acute Polypharmacy acute Reflex sympathetic dystrophy acute Seizure-like activity acute Tobacco abuse acute Tobacco abuse counseling acu te [facility] Work Phone: Evaluation noteNo assessment information available [facility] Work Phone: Evaluation note* Diagnosis Onset Date Resolution Status Microscopic colitis acute [facility] Work Phone: Evaluation note* Diagnosis Onset Date Resolution Status Microscopic colitis acute Anemia acute Breast cancer screening by mammogram acute GERD (gastroesophageal reflux disease) acute Hyperglycemia acute Hyperlipidemia acute Hypothyroidism acute Reflex sympathetic dystrophy acute Vitamin D deficiency acute [facility] Work Phone: Evaluation note* Diagnosis RSD (reflex sympathetic dystrophy)- Primary Unspecified reflex sympathetic dystrophy Neuropathy Mononeuritis of unspecified site Cervicalgia Headache disorder Headache Myalgia Unspecified myalgia and myositis Alteration of awareness BALTAZAR (obstructive sleep apnea) Obstructive sleep apnea (adult) (pediatric) documented in this encounter [facility] N[facility]ative - Reported* Type Description Date Medical History sinusitis Medical History polyp/nasal cavity Medical History fibromyalgia Medical History allergic rhinitis Medical History paresthesia Medical History lumbar pain Medical History lumbar strain Medical History [place]07[place] [facility]erv[place] Sp[place] 01-09-12; [facility] Medical History MRI Cervical Spine 01-09-12[place] [facility] [place] History Pneumonia Medical History Lumbar Block [...] 09/2011 Surgical History Colonoscopy, Normal, Dr. Holland [place] Surgical History HIDA, EGD [place] 06/2017 Hospitalization History see above Hospitalization History Septic shock and pneumon ia Hospitalization History UTI UC 06/26/15 [facility] Other [facility] general Narrative - Reported* Type Description Date Medical History sinusitis Medical History polyp/nasal cavity Medical History fibromyalgia Medical History allergic rhinitis Medical History paresthesia Medical History lumbar pain Medical History lumbar strain Medical History [place]-07-09[place] [facility] [place] X-[place] Cervical Spine 01-09-12; [facility] Medical History MRI Cervical Spine 01-09-12; [facility] [place] History Pneumonia Medical History Lumbar Block [...] 09/2011 Surgical History Colonoscopy, Normal, Dr. Holland [place] Surgical History HIDA, EGD Itzkowitz 06/2017 Surgical History Colonoscopy 03/16/2020 Hospitalization History see above Hospitalization History Septic shock and pneumon ia Hospitalization History UTI UC 06/26/15 [facility] Other history general Narrative - Reported* Type Description Date Medical History sinusitis Medical History polyp/nasal cavity Medical History fibromyalgia Medical History allergic rhinitis Medical History paresthesia Medical History lumbar pain Medical History lumbar strain Medical History [place]-07[place]09[place] [facility] X-[place] Cervical Spine 01-09-12; [facility] Medical History MRI Cervical Spine 01-09-12; [facility] [place] History Pneumonia Medical History Lumbar Block [...] pneumon ia Hospitalization History UTI UC 06/26/15 [facility] Other Hospital Discharge instructions No data available for this section [facility] progress note No data available for this section [facility] Chief Complaint and Reason for Visit Chief [...] sympathetic dystrophy Vitamin D deficiency Family History Relationship Condition Age at Onset Recorded Date/T [...] neoplasm Unknown Unknown Leukemia Unknown Advance Directives Advance Directive Response Recorded Date/ Time Advance Directives No January 21, 2017 2:03pm Advance Directive Response Recorded Date/ Time Advance Directives No January 21, 2017 1:03pm Advance Directive Response Recorded Date/ Time Advance Directives No October 21 4:17pm Reason for Referral Specialty Diagnoses / Procedures Referred By Norman t Referred To Contact Neurology Diagnoses Cervicalgia Myalgia, unspecified site Procedures Trigger Point Injection: right cervical paraspinals, left cervical paraspinals, right upper trapezius, left upper trapezius Dianne Church PA [address] [place] [address] [facility] [address] [place] [address] Referral ID Status Reason Start Date Expiration Date Visits Re quested Visits Authorized [id number] Closed 01/13/2024 07/11/2024 1 1 Reason appt consult to ramesh sims urinary urgency Diagnosis 1 Urinary urgency (R39 .15) Referral Organization [facility] Referring Provider First Name Samia Referring Provider Last Name Letty Referring Provider Specialty Family Prac bonilla Referred Organization [facility] Referred Provider VIKYYOVANA Referred Address [address],[place], [place],[address] Referred Provider Specialty Urology Referral Priority Routine General Notes Cate Higgins 09/30/2022 01:40:14 PM > referral faxed with TE message, last visit note and insurance card. pt understands she will be contacted to schedule this appt. Summary Purpose Additional Source Comments REASON FOR VISIT (unrecogniz ed section and content) Reason Comments Headache Altered Mental Status Reflex Sympathetic Dystrophy Care Teams (unrecognized sec tion and content) Team Status: Active Member Role Status Shawn Saenz DO Primary Care Provider Active Team Status: Inactive Member Role Status Shawn Saenz DO Primary Care Provider, Attending Pro vider Active Team Status: Active Member Role Status Shawn Saenz DO Primary Care Provider Active Brad Butterfield MD Attending Provider Active Team Status: Inactive Member Role Status Shawn Saenz DO Primary Care Provider Active Whit Tyson MD Admit Provider, Attending Provider Active Esdras Rand MD Other Provider Active Team Status: Inactive Member Role Status Shawn Saenz DO Primary Care Provider Active Rosemary Starr PA-C Attending Provider Active Team Status: Inactive Member Role Status Shawn Saenz DO Primary Care Provider Active Dilan Luis II, MD Attending Provider Active Team Status: Inactive Member Role Status Shawn Saenz DO Attending Provider Active Team Status: [...] Dates Samia Saenz DO Attending Provider Active Star t: [...] Status: Inactive Member Role Status Dates Dianne Church PA-C Referring Provider Active Sta rt: May [...] Dates Samia Saenz , DO Primary Care Provide r, Attending Provider Active Start: November 14, 2023 End: November 14, 2023 Educational Paraprofessional Relationship Specialty Start Date End Date Samia Saenz MD [address] [email or web address] [address] PCP - General Family Medicine 07/23/23 Esdras Rand MD [address] [place] [address] Referring Physician Neurology 07/23/23 Educational Paraprofessional Relationship Specialty Start Date End Date Samia Saenz MD [address] [email or web address] [address] PCP - General Family Medicine 07/23/23 Esdras Rand MD [address] [place] [address] Referring Physician Neurology 07/23/23 Goals (unrecognized section and content) Goals may be documented in a n alternate section INFORMATION SOURCE (unrecogn ized section and content) DATE CREATED AUTHOR 10/02/2023 [facility] DATE CREATED AUTHOR AUTHOR'S ORGANIZ ATION 10/02/2023 [facility] DATE CREATED AUTHOR AUTHOR'S ORGANIZ ATION 11/06/2023 [facility] DATE CREATED AUTHOR AUTHOR'S ORGANIZ ATION 01/06/2024 [facility] DATE CREATED AUTHOR AUTHOR'S ORGANIZ ATION 01/14/2024 [facility] EPIC FOR RECORDS PERTAINING TO PATIENTS WHO ARE [...] BE BASED ON THE PRIMARY CLINICAL RECORDS. [facility] Richard Pauer - [address] [facility]. provides no warranty or guarantee of the accuracy or completeness of information in this document.
== END 2024-01-21 11:45 | disposition home or self-care (01) ==
LOC: VC 10:08
PROVIDERS: PCP Family Medicine; Visit Provider Radiology Diagnostic Radiology
DX: I83.813 Varicose veins of bilateral lower extremities with pain (principal); I73.9 Peripheral vascular disease, unspecified
CPT/HCPCS: 93923; 93970; G0463